=== PATIENT | female | born 1970 ===

== ENCOUNTER 2023-06-11 19:04 | Emergency (ER) | payer OTHER, SELFPAY ==
--- NOTE | ~2023-06-11 | XR_ITS ---
EXAMINATION: XR CHEST CLINICAL INFORMATION: Cough. COMPARISON: None available. TECHNIQUE: 2 views of the chest. FINDINGS: Mild diffuse prominent interstitial lung markings are noted, may represent interstitial pneumonia versus edema or combination thereof. No evidence of any dense alveolar airspace consolidation. No evidence of any pleural effusion or pneumothorax. The heart size is within normal limit. XR/XR chest 2V IMPRESSION: Nonspecific mild diffuse prominent bronchovascular markings, may represent interstitial pneumonia versus edema. No evidence of any dense airspace consolidation.
--- NOTE | 2023-06-11 19:10 | ED.GENADULT ---
HPI - General Adult General Chief complaint: General Medical Stated complaint: vomiting blood,sob on blood thinners Time Seen by Provider: 06/11/23 21:21 Source: patient Mode of arrival: ambulatory Limitations: no limitations History of Present Illness HPI narrative: Patient with history of did DVT , hypertension and diabetes came here as she spitted blood from her mouth on Xarelto and Plavix for DVT in the leg also having shortness of breath ,saturating 97% at room air no fever no chills no chest pain patient had labs done prior to my evaluation chest x-ray was negative for acute labs were stable hemoglobin 14.1 Related Data Allergies Allergy/AdvReac Type Severity Reaction Status Date / Time metformin Allergy Diarrhea Verified 06/11/23 19:17 Review of Systems Review of Systems: Yes all other systems are reviewed and are negative [facility] Past Medical History Medical History (Updated 06/12/23 @ 00:06 by Lillian Amaya) DVT (deep venous thrombosis) Social History Social History Smoked in Last 30 Days: No Use of substances other than those prescribed or required for medical reasons: No Advance Directives: No Advance Directives Information Provided: No Physical Exam ED Vital Signs: Vital Signs - 24 hr 06/11/23 19:11 06/11/23 19:44 06/11/23 21:54 Temperature 97.5 F 98.3 F 980 F H Pulse Rate 83 79 75 Respiratory Rate 22 H 16 16 Blood Pressure 148/79 H 130/70 125/42 L Pulse Oximetry 97 98 100 Oxygen Delivery Method Room Air Room Air Room Air 06/11/23 22:00 Temperature 97.8 F Pulse Rate 72 Respiratory Rate 16 Blood Pressure 125/62 Pulse Oximetry 96 Oxygen Delivery Method Room Air BMI result Body Mass Index 47.3 Appearance: Alert. Oriented X3. No acute distress. Eyes: PERRLA, No Nystagmus ENT: Pharynx normal. Oral Mucosa moist no blood noticed Neck: Normal inspection. Neck supple. CVS: Normal heart rate and rhythm. Pulses normal. Respiratory: No respiratory distress. Equal air entry bilateral, no wheezing/rales/rhonchi Abdomen: Soft and nontender. Bowel sounds are present, no mass palpable, no CVA tenderness Skin: Skin warm and dry. Normal skin color. Normal skin turgor. Extremities: No lower extremity edema. No calf tenderness Neuro: Oriented X 3. No motor deficit. No sensory deficit.No cerebellar signs , cranial nerves II-XII intact Course Course Course Narrative: This is a rapid medical exam. Deferred additional HPI, ROS, PE to primary provider. 53 yo female with history of DM, HTN, asthma, hypothyroidism, HLD, ?blood clot RLE removed one month ago at [facility] here with hemoptysis, shortness of breath x 3 days. Is on plavix and xarelto Per patient had CTA at [facility] which showed blood clot... Will check labs, CXR VSS Asked corporate secretary to obtain records Medical Decision Making Lab Data MDM Lab Attestation statement: I reviewed the patient's lab results. 06/11/23 19:58 06/11/23 19:57 Labs: Lab Results 06/11/23 06/11/23 06/11/23 Range/Units 19:57 19:57 19:58 WBC 11.5 H (4.8-10.8) X10*3/uL RBC 4.78 (4.20-5.50) X10*6/uL Hgb 14.1 (12.0-16.0) g/dl Hct 43.1 (37.0-47.0) % MCV 90.2 (80.0-98.0) fL MCH 29.5 (27.0-33.0) pg MCHC 32.7 (31.0-35.0) g/dl RDW 13.9 (11.0-16.0) % Plt Count 247 (160-400) X10*3/uL MPV 10.3 (9.4-12.3) fL Immature Gran % (Auto) 0.4 (0.0-0.4) % Neut % (Auto) 66.5 (45-73) % Lymph % (Auto) 25.0 (20-40) % [place] % (Auto) 6.4 (2-11) % Eos % (Auto) 1.1 (0-4) % Baso % (Auto) 0.6 (0-2) % Lymph # (Auto) 2.9 (1.2-4.9) X10*3/uL [place] # (Auto) 0.7 (0.1-1.2) X10*3/uL Eos # (Auto) 0.1 (0.0-0.4) X10*3/uL Baso # (Auto) 0.1 (0.0-0.2) X10*3/uL Abs Immat Gran (auto) 0.05 H (0.00-0.03) X10*3/uL Absolute Neuts (auto) 7.6 (2.0-8.3) x10*3/uL Absolute Nucleated RBC 0.000 (0.0-0.012) X10*3/uL Nucleated RBC % (auto) 0.0 (0.0-0.2) /100WBC PT 16.5 H (11.1-13.3) SEC INR 1.4 H (0.9-1.1) Sodium 137 (135-145) mmol/L Potassium 4.3 (3.3-5.1) mmol/L Chloride 105 (96-108) mmol/L Carbon Dioxide 23 (22-29) mmol/L Anion Gap 13 (12-20) BUN 25 H (9-16) mg/dL Creatinine 1.34 (0.5-1.4) mg/dL Estim Creat Clear Calc 59.0 Estimated GFR 41 Random Glucose 353 H* (60-115) mg/dL Calcium 8.8 (8.4-10.2) mg/dL Total Bilirubin 0.3 (0.0-1.0) mg/dL Direct Bilirubin 0.1 (0.0-0.5) mg/dL AST 28 (5-31) U/L ALT 24 (0-31) U/L Alkaline Phosphatase 117 (39-117) U/L Total Protein 7.2 (6.5-8.0) g/dL Albumin 3.2 L (3.5-5.0) g/dL COVID-19 (URIEL) (Negative) COVID-19 Clin Com 06/11/23 Range/Units 19:58 WBC (4.8-10.8) X10*3/uL RBC (4.20-5.50) X10*6/uL Hgb (12.0-16.0) g/dl Hct (37.0-47.0) % MCV (80.0-98.0) fL MCH (27.0-33.0) pg MCHC (31.0-35.0) g/dl RDW (11.0-16.0) % Plt Count (160-400) X10*3/uL MPV (9.4-12.3) fL Immature Gran % (Auto) (0.0-0.4) % Neut % (Auto) (45-73) % Lymph % (Auto) (20-40) % [place] % (Auto) (2-11) % Eos % (Auto) (0-4) % Baso % (Auto) (0-2) % Lymph # (Auto) (1.2-4.9) X10*3/uL [place] # (Auto) (0.1-1.2) X10*3/uL Eos # (Auto) (0.0-0.4) X10*3/uL Baso # (Auto) (0.0-0.2) X10*3/uL Abs Immat Gran (auto) (0.00-0.03) X10*3/uL Absolute Neuts (auto) (2.0-8.3) x10*3/uL Absolute Nucleated RBC (0.0-0.012) X10*3/uL Nucleated RBC % (auto) (0.0-0.2) /100WBC PT (11.1-13.3) SEC INR (0.9-1.1) Sodium (135-145) mmol/L Potassium (3.3-5.1) mmol/L Chloride (96-108) mmol/L Carbon Dioxide (22-29) mmol/L Anion Gap (12-20) BUN (9-16) mg/dL Creatinine (0.5-1.4) mg/dL Estim Creat Clear Calc Estimated GFR Random Glucose (60-115) mg/dL Calcium (8.4-10.2) mg/dL Total Bilirubin (0.0-1.0) mg/dL Direct Bilirubin (0.0-0.5) mg/dL AST (5-31) U/L ALT (0-31) U/L Alkaline Phosphatase (39-117) U/L Total Protein (6.5-8.0) g/dL Albumin (3.5-5.0) g/dL COVID-19 (URIEL) Negative (Negative) COVID-19 Clin Com See Note Discharge Plan Discharge Clinical Impression: Bleeding Patient Disposition: Home, Self-Care Instructions: Bleeding Disorders (ED) Additional Instructions: Bleeding from the gums likely from the use of Xarelto You may hold Xarelto the day you are bleeding from your gums as you did today Follow with PCP if bleeding gets worse or report to the ER You may start Xarelto tomorrow evening if there is no bleeding Interventions: ED Discharge Assessment Last Done: 06/11/23 22:29 Discharge Date/Time: 06/11/23 22:29
[2023-06-11 19:11] VITALS: BP 148/79; PULSE 83; RESP 22; TEMP 36.4; O2SAT 97; BMI 47.3
[2023-06-11 19:44] VITALS: BP 130/70; PULSE 79; RESP 16; TEMP 36.8; O2SAT 98
--- NOTE | 2023-06-11 20:00 | MHC.EDTECH ---
THIS PCT JUST ASSUMED CARE OF PT ,VITALS SIGN TAKEN ,BLOOD DRAWN ,COVID SWAB COLLECTED AND SENT TO LAB .
[2023-06-11 20:01] LABS: MANUAL DIFF FLAG NO
[2023-06-11 20:03] LABS: Basophils Absolute Auto 0.1 X10*3/uL (0.0-0.2); Basophils Percent Auto 0.6 % (0-2); Eosinophils Absolute Auto 0.1 X10*3/uL (0.0-0.4); Eosinophils Percent Auto 1.1 % (0-4); Hematocrit 43.1 % (37.0-47.0); Hemoglobin 14.1 g/dl (12.0-16.0); Imm Gran Abs Auto 0.05 X10*3/uL (0.00-0.03); Imm Gran Pct Auto 0.4 % (0.0-0.4); Lymphocytes Absolute Auto 2.9 X10*3/uL (1.2-4.9); Mean Corpuscular HGB Conc 32.7 g/dl (31.0-35.0); Mean Corpuscular Hemoglobin 29.5 pg (27.0-33.0); Mean Corpuscular Volume 90.2 fL (80.0-98.0); Mean Platelet Volume 10.3 fL (9.4-12.3); Monocytes Absolute Auto 0.7 X10*3/uL (0.1-1.2); Monocytes Percent Auto 6.4 % (2-11); Neutrophils Absolute Auto 7.6 x10*3/uL (2.0-8.3); Neutrophils Percent Auto 66.5 % (45-73); Platelet Count 247 X10*3/uL (160-400); Red Blood Count 4.78 X10*6/uL (4.20-5.50); Red Cell Distribution Width 13.9 % (11.0-16.0); White Blood Count 11.5 X10*3/uL (4.8-10.8)
[2023-06-11 20:10] LABS: INTERNATIONAL NORM RATIO 1.4 (0.9-1.1); Prothrombin Time 16.5 SEC (11.1-13.3)
[2023-06-11 20:16] LABS: COVID-19 Test Negative (Negative); IDNOW Serial# 9DB6401D
[2023-06-11 20:22] LABS: Alanine Aminotransferase 24 U/L (0-31); Albumin Level 3.2 g/dL (3.5-5.0); Alkaline Phosphatase 117 U/L (39-117); Anion Gap 13 (12-20); Aspartate Amino Transferase 28 U/L (5-31); Bilirubin Direct 0.1 mg/dL (0.0-0.5); Bilirubin Total 0.3 mg/dL (0.0-1.0); Blood Urea Nitrogen 25 mg/dL (9-16); Calcium 8.8 mg/dL (8.4-10.2); Carbon Dioxide 23 mmol/L (22-29); Chloride 105 mmol/L (96-108); Estimated Glomerular Filt Rate 41; Glucose Random 353 mg/dL (60-115); Potassium 4.3 mmol/L (3.3-5.1); Sodium 137 mmol/L (135-145); Total Protein 7.2 g/dL (6.5-8.0)
[2023-06-11 21:54] VITALS: BP 125/42; PULSE 75; RESP 16; TEMP 526.6; TEMP 980; O2SAT 100
[2023-06-11 22:00] VITALS: BP 125/62; PULSE 72; RESP 16; TEMP 36.6; O2SAT 96
== END 2023-06-11 22:29 | disposition home or self-care (01) ==
PROVIDERS: Nurse Practitioner Family; Emergency Provider Internal Medicine; PCP Internal Medicine
DX: K06.9 Disorder of gingiva and edentulous alveolar ridge, unspecified (principal); Z79.01 Long term (current) use of anticoagulants; Z20.822 Contact with and (suspected) exposure to COVID-19; R06.02 Shortness of breath; Z86.718 Personal history of other venous thrombosis and embolism; E11.9 Type 2 diabetes mellitus without complications; I10 Essential (primary) hypertension; E78.5 Hyperlipidemia, unspecified
CPT/HCPCS: 36415; 71046; 80048; 80076; 85025; 85610; 87635; 99283; 99284

== ENCOUNTER 2024-04-29 13:30 | Inpatient (IN) | payer OTHER, SELFPAY ==
[2024-04-29] VITALS (9 sets, daily range): BP systolic 126–160; BP diastolic 71–94; PULSE 69–85; RESP 15–22; TEMP 36.1–36.8; O2SAT 91–98; BMI 53.0; BMI 50.4
--- NOTE | ~2024-04-29 | XR_ITS ---
EXAMINATION: XR CHEST CLINICAL INFORMATION: Shortness of breath COMPARISON: Chest x-ray June 11, 2023 TECHNIQUE: Frontal view of the chest was obtained. FINDINGS: Cardiac silhouette is normal in size. The lungs are mildly hypoinflated. Consolidative airspace disease projects over the left mid and lower lung. No gross pleural effusion. No pneumothorax. XR/XR chest 1V IMPRESSION: Consolidative airspace disease of the left mid and lower lung. Infiltrate suspected.
--- NOTE | 2024-04-29 13:49 | ECG_ITS ---
Test Reason : SOB Blood Pressure : / mmHG Vent. Rate : 073 BPM Atrial Rate : 073 BPM P-R Int : 140 ms QRS Dur : 086 ms QT Int : 372 ms P-R-T Axes : 051 268 114 degrees QTc Int : 409 ms Normal sinus rhythm Possible anterolateral infarct , age undetermined Abnormal ECG No previous ECGs available Referred By: Sowmya Barrow Electronically Signed By:Luis Cummings
--- NOTE | 2024-04-29 13:50 | ED_ITS ---
HPI - General Adult General Chief complaint: General Medical Stated complaint: swollen, diff breathing Time Seen by Provider: 04/29/24 13:49 Source: patient and assembler lay ups (all interactions with this patient were facilitated with an [facility] pulpwood dealer) Mode of arrival: ambulatory Limitations: language barrier (all interactions with this patient were facilitated with an [facility] pulpwood dealer) History of Present Illness ED Provider: Sowmya Barrow PA-C HPI narrative: Patient is a 53 year old assigned female at with a history of DM, ELLA. COPD/asthma, CAD, PAD, cervical cancer, depression, anxiety, and CHF presenting to the emergency department today with shortness of breath and swelling. Patient states that she was hospitalized from 04/10/2024 to 04/13/2024 at [facility] for a CHF exacerbation. TTE at [facility] showed an EF of 60-65% with moderate concentric LVH and grade 1 left ventricular diastolic dysfunction. Patient states that her breathing has continued to get more difficult and she has been on steroids multiple times over the last month. Patient denies any dizziness, lightheadedness, abdominal pain, nausea, vomiting, fever, chills, blurry vision, double vision, loss of vision, chest pain, back pain, night sweats, pain with urination, increased urinary frequency, increased urinary urgency, blood in her urine or stool, syncope or a near syncopal episode, recent trauma or falls, bowel incontinence, bladder incontinence, or any other complaints at this time. Onset (ago): day(s) Severity: moderate Severity scale (1-10): 5 Relieving factors: none Exacerbating factors: none Associated symptoms: shortness of breath Treatments prior to arrival: other (prednisone) Related Data Allergies Allergy/AdvReac Type Severity Reaction Status Date / Time metformin Allergy Diarrhea Verified 04/29/24 13:39 Review of Systems 2 Constitutional: Constitutional: Reports no additional constitutional complaints, Denies chills, Denies fever(s) and Denies night sweats Eyes: Eyes: Reports no additional eye complaints, Denies blurry vision, Denies change in vision, Denies diplopia, Denies eye discharge, Denies loss of vision and Denies eye pain ENT: Denies dizziness Cardiovascular: Cardiovascular: Reports no additional cardiovascular complaints, Denies chest pain, Denies lightheadedness, Denies Loss of Consciousness and Reports dyspnea Respiratory: Respiratory: Reports dyspnea Gastrointestinal: Gastrointestinal: Reports no additional gastrointestinal complaints, Denies abdominal pain, Denies melena, Denies hematochezia, Denies change in bowel habits and Denies change in stool character Genitourinary: Genitourinary: Denies hematuria, Denies urinary frequency, Denies dysuria, Denies urinary incontinence, Denies urinary hesitancy and Denies urinary urgency Musculoskeletal: Musculoskeletal: Reports no additional musculoskeletal complaints, Denies numbness and Denies tingling Neurologic: Denies dizziness, Denies loss of vision, Denies numbness and Denies tingling Psychiatric: Psychiatric: Reports no additional psychiatric complaints Endocrine: Endocrine: Reports no additional endocrine complaints Hematologic/Lymphatic: Hematologic/Lymphatic: Reports no additional hematologic/lymphatic complaints Allergic/Immunologic: Allergic/Immunologic: Reports no additional allergic/immunologic complaints [facility] Past Medical History Attestation statement: The following information was validated with the patient. Source: old records reviewed and nursing notes reviewed Medical History DVT (deep venous thrombosis) Social History Social History Smoked in Last 30 Days: No Use of substances other than those prescribed or required for medical reasons: Yes Substance Use Type: Marijuana Substance Use Type Other:: Reports using THC gummies Substance Use Frequency: Daily Advance Directives: No Advance Directives Information Provided: No Do you have a plan to hurt others: No Plan Physical Exam ED Vital Signs: Vital Signs - 24 hr 04/29/24 13:36 04/29/24 14:01 04/29/24 14:13 Temperature 97.5 F 98.2 F Pulse Rate 76 75 Respiratory Rate 18 15 22 H Blood Pressure 160/83 H 126/71 Pulse Oximetry 95 95 Oxygen Delivery Method Room Air Room Air 04/29/24 14:20 Temperature Pulse Rate Respiratory Rate Blood Pressure 126/71 Pulse Oximetry Oxygen Delivery Method BMI result Body Mass Index 53.0 Const General: cooperative, no acute distress, alert and awake Nutritional Appearance: obese morbidly obese Orientation/consciousness: patient oriented x3 Limitations: no limitations HENMT Head: Yes normal to inspection and Yes atraumatic Ears: hearing grossly normal bilaterally and external ears normal General nose exam: Normal external nose present, no nasal discharge noted and no epistaxis Face and sinus: Yes normal facial exam, No abrasion and No laceration Mouth: Normal oral and palatal mucosa present, no drooling and no muffled voice Eyes General: appearance normal, both eyes and all related structures Periorbital: periorbital findings normal Eyelids: Yes eyelids normal Conjunctivae: conjunctivae normal Pupils: Equal, round and reactive pupils present EOM: EOMs intact bilaterally Neck Neck: Yes normal visual inspection, Yes full ROM and Yes no lymphadenopathy Chest Chest palpation & inspection: normal inspection of the chest Resp Effort & Inspection: able to speak in complete sentences, labored and tachypneic Auscultation: crackles bilateral in the lower lung ingram Cardio Rate: regular rate Rhythm: regular rhythm GI Inspection: Yes normal to inspection Neuro General: patient oriented x3 and moves all extremities Cranial nerves: Yes Equal, round and reactive pupils present Cognition (Neuro): normal cognition Extrem Other: significant extremity swelling General: Yes full ROM and Yes capillary refill normal Psych Appearance: grossly normal Mental Status: mental status grossly normal Affect: normal affect Attitude: cooperative Thought process: Normal thought process present Thought content: Normal thought content present Insight: Good insight present (Psych) Medications Administered Discontinued Medications Generic Name Dose Route Start Last Admin Trade Name Freq PRN Reason Stop Dose Admin Albuterol/Ipratropium 3 ml 04/29/24 14:17 04/29/24 14:22 Albuterol/Iprat 2.5/0.5mg 3 Ml Ampul.Neb INHALE 04/29/24 14:18 3 ml ONCE ONE Administration Furosemide 60 mg 04/29/24 13:54 04/29/24 14:20 Furosemide 100 Mg/10 Ml Vial IVPUSH 04/29/24 13:55 60 mg ONCE ONE Administration Protocol Ceftriaxone Sodium 1 gm/ 50 mls @ 100 mls/hr 04/29/24 14:20 04/29/24 15:18 Sodium Chloride IV 04/29/24 14:49 100 mls/hr ONCE ONE Administration Methylprednisolone Sodium Succinate 60 mg 04/29/24 14:20 04/29/24 15:19 Methylprednisolone Sod Succ 125 Mg/2 Ml Vial IVPUSH 04/29/24 14:21 60 mg ONCE ONE Administration Medical Decision Making Medical Decision Making MDM Narrative: Patient is a 53 year old assigned female at with a history of DM, ELLA. COPD/asthma, CAD, PAD, cervical cancer, depression, anxiety, and CHF presenting to the emergency department today with increased swelling and shortness of breath. Patient's physical exam was as noted in the physical exam portion of this note. Patient's blood work was unremarkable. Patient's urine showed no acute process. Patient's EKG was unremarkable. Patient's chest x-ray showed a consolidative airspace disease of the left mid and lower lung consistent with an infiltrate. Patient's clinical presentation is most consistent with a CHF exacerbation with a possible pneumonia. Patient's clinical presentation is not consistent with sepsis (@1550). Patient was placed on CPAP to assist her work of breathing as well as given 60mg of IV lasix. Both of these interventions helped her significantly. Patient was also given IV ceftriaxone to cover the possible PNA. I spoke to the hospitalist team who agreed to admission. I explained my physical exam findings as well as all test results to the patient. I answered all questions asked by the patient. Patient verbalized agreement and understanding with this treatment plan and admission. Differential Diagnosis Differential Diagnoses: The differential diagnosis associated with the presentation includes CHF exacerbation COPD exacerbation Pneumonia Admission/Observation Consideration of admission/observation: Escalation of care including admission/observation considered Patient admitted. Consult Healthcare Provider Management of the patient was discussed with: Hospitalist (spoke to the hospitalist team as noted in the MDM Rationale portion of this note.) Lab Data [facility] Lab Attestation statement: I reviewed the patient's lab results. My interpretation of these results are in the MDM Rationale portion of this note. 04/29/24 14:11 04/29/24 14:11 Labs: Lab Results 04/29/24 04/29/24 04/29/24 Range/Units 14:11 14:13 14:15 WBC 10.2 (4.8-10.8) X10*3/uL RBC 5.59 H (4.20-5.50) X10*6/uL Hgb 16.6 H (12.0-16.0) g/dl Hct 51.7 H (37.0-47.0) % MCV 92.5 (80.0-98.0) fL MCH 29.7 (27.0-33.0) pg MCHC 32.1 (31.0-35.0) g/dl RDW 14.5 (11.0-16.0) % Plt Count 270 (160-400) X10*3/uL MPV 9.4 (9.4-12.3) fL Immature Gran % (Auto) 0.3 (0.0-0.4) % Neut % (Auto) 64.9 (45-73) % Lymph % (Auto) 29.6 (20-40) % [place] % (Auto) 3.3 (2-11) % Eos % (Auto) 1.3 (0-4) % Baso % (Auto) 0.6 (0-2) % Lymph # (Auto) 3.0 (1.2-4.9) X10*3/uL [place] # (Auto) 0.3 (0.1-1.2) X10*3/uL Eos # (Auto) 0.1 (0.0-0.4) X10*3/uL Baso # (Auto) 0.1 (0.0-0.2) X10*3/uL Abs Immat Gran (auto) 0.03 (0.00-0.03) X10*3/uL Absolute Neuts (auto) 6.6 (2.0-8.3) x10*3/uL Absolute Nucleated RBC 0.000 (0.0-0.012) X10*3/uL Nucleated RBC % (auto) 0.0 (0.0-0.2) /100WBC PT 10.6 L D (11.1-13.3) SEC INR 0.9 (0.9-1.1) APTT 30.7 (26.0-36.8) SEC VBG pH 7.50 H (7.32-7.43) VBG pCO2 39 mmHg VBG pO2 93 mmHg VBG HCO3 31 H (22-26) mmol/L VBG O2 Saturation 100.0 % VBG Base Excess 7.6 mmol/L Sodium 142 (135-145) mmol/L Potassium 3.9 (3.3-5.1) mmol/L Chloride 104 (96-108) mmol/L Carbon Dioxide 26 (22-29) mmol/L Anion Gap 16 (12-20) BUN 31 H (9-16) mg/dL Creatinine 1.25 (0.5-1.4) mg/dL Estim Creat Clear Calc 67.9 Estimated GFR 45 Random Glucose 138 H (60-115) mg/dL Lactic Acid (0.5-2.0) mmol/L Calcium 9.9 D (8.4-10.2) mg/dL Magnesium 1.9 (1.6-2.6) mg/dL Total Bilirubin 0.3 (0.0-1.0) mg/dL AST 43 H (5-31) U/L ALT 44 H (0-31) U/L Alkaline Phosphatase 87 (39-117) U/L Troponin I High Sens 7.7 (<3.5-17.0) ng/L B-Natriuretic Peptide < 10 (<100) pg/mL Total Protein 6.8 (6.5-8.0) g/dL Albumin 3.2 L (3.5-5.0) g/dL Urine Color Urine Appearance Urine pH (5.0-9.0) Ur Specific [place] (1.005-1.025) Urine Protein (Neg-Trace) mg/dL Urine Glucose (UA) (Negative) mg/dL Urine Ketones (Negative) mg/dL Urine Blood (Negative) Urine Nitrite (Negative) Ur Leukocyte Esterase (Negative) Urine RBC (0-2) /HPF Urine WBC (0-5) /HPF Ur Squamous Epith Cells (0-2) /HPF Urine Bacteria (None Seen) Hyaline Casts (0-2) /LPF Influenza Type A (PCR) NEGATIVE (Negative) Influenza Type B (PCR) NEGATIVE (Negative) RSV RNA Qual (PCR) NEGATIVE (Negative) SARS-CoV-2 RNA (RT-PCR) NEGATIVE (Negative) 04/29/24 04/29/24 Range/Units 14:46 15:09 WBC (4.8-10.8) X10*3/uL RBC (4.20-5.50) X10*6/uL Hgb (12.0-16.0) g/dl Hct (37.0-47.0) % MCV (80.0-98.0) fL MCH (27.0-33.0) pg MCHC (31.0-35.0) g/dl RDW (11.0-16.0) % Plt Count (160-400) X10*3/uL MPV (9.4-12.3) fL Immature Gran % (Auto) (0.0-0.4) % Neut % (Auto) (45-73) % Lymph % (Auto) (20-40) % [place] % (Auto) (2-11) % Eos % (Auto) (0-4) % Baso % (Auto) (0-2) % Lymph # (Auto) (1.2-4.9) X10*3/uL [place] # (Auto) (0.1-1.2) X10*3/uL Eos # (Auto) (0.0-0.4) X10*3/uL Baso # (Auto) (0.0-0.2) X10*3/uL Abs Immat Gran (auto) (0.00-0.03) X10*3/uL Absolute Neuts (auto) (2.0-8.3) x10*3/uL Absolute Nucleated RBC (0.0-0.012) X10*3/uL Nucleated RBC % (auto) (0.0-0.2) /100WBC PT (11.1-13.3) SEC INR (0.9-1.1) APTT (26.0-36.8) SEC VBG pH (7.32-7.43) VBG pCO2 mmHg VBG pO2 mmHg VBG HCO3 (22-26) mmol/L VBG O2 Saturation % VBG Base Excess mmol/L Sodium (135-145) mmol/L Potassium (3.3-5.1) mmol/L Chloride (96-108) mmol/L Carbon Dioxide (22-29) mmol/L Anion Gap (12-20) BUN (9-16) mg/dL Creatinine (0.5-1.4) mg/dL Estim Creat Clear Calc Estimated GFR Random Glucose (60-115) mg/dL Lactic Acid 1.4 (0.5-2.0) mmol/L Calcium (8.4-10.2) mg/dL Magnesium (1.6-2.6) mg/dL Total Bilirubin (0.0-1.0) mg/dL AST (5-31) U/L ALT (0-31) U/L Alkaline Phosphatase (39-117) U/L Troponin I High Sens (<3.5-17.0) ng/L B-Natriuretic Peptide (<100) pg/mL Total Protein (6.5-8.0) g/dL Albumin (3.5-5.0) g/dL Urine Color Yellow Urine Appearance Clear Urine pH 5.5 (5.0-9.0) Ur Specific [place] 1.015 (1.005-1.025) Urine Protein 300 (3+) H (Neg-Trace) mg/dL Urine Glucose (UA) Negative (Negative) mg/dL Urine Ketones Negative (Negative) mg/dL Urine Blood Negative (Negative) Urine Nitrite Negative (Negative) Ur Leukocyte Esterase Trace H (Negative) Urine RBC 0-2 (0-2) /HPF Urine WBC 6-10 H (0-5) /HPF Ur Squamous Epith Cells 6-10 (0-2) /HPF Urine Bacteria Trace (None Seen) Hyaline Casts 0-2 (0-2) /LPF Influenza Type A (PCR) (Negative) Influenza Type B (PCR) (Negative) RSV RNA Qual (PCR) (Negative) SARS-CoV-2 RNA (RT-PCR) (Negative) Independent Interpretation I performed an independent interpretation of an: EKG and Plain X-Ray Interpretation: My interpretation is in agreement with the radiologist's impression of this imaging study. - EXAMINATION: XR CHEST CLINICAL INFORMATION: Shortness of breath COMPARISON: Chest x-ray June 11, 2023 TECHNIQUE: Frontal view of the chest was obtained. FINDINGS: Cardiac silhouette is normal in size. The lungs are mildly hypoinflated. Consolidative airspace disease projects over the left mid and lower lung. No gross pleural effusion. No pneumothorax. XR/XR chest 1V IMPRESSION: Consolidative airspace disease of the left mid and lower lung. Infiltrate suspected. Dictated By: Vickey Yeager MD Signed By: Electronically signed by Vickey Yeager MD 04/29/24 1414 - Vent. Rate: 073 BPM Atrial Rate: 073 BPM P-R Int: 140 ms QRS Dur: 086 ms QT Int: 372 ms P-R-T Axes: 051 268 114 degrees QTc Int: 409 ms Normal sinus rhythm Possible Lateral infarct , age undetermined Abnormal ECG No previous ECGs available DD/ 1400 Radiology Impression Discussion of test interpretation with radiology: I have reviewed the radiologist's reading. External Record Review External record reviewed: Outside ED record (reviewed [facility] ED visit) Critical Care Time Critical Care Time Critical Care Time: Yes Total Critical Care Time: 41 Attestation: I spent 41 minutes of Critical Care Time with this patient. This does not include time spent on separately reported billable procedures. Discharge Plan Discharge Clinical Impression: CHF (congestive heart failure), Fluid overload, Pneumonia Patient Disposition: Admitted As Inpatient Print Language: Greek
[2024-04-29 14:16] LABS: MANUAL DIFF FLAG NO
[2024-04-29 14:18] LABS: Basophils Absolute Auto 0.1 X10*3/uL (0.0-0.2); Basophils Percent Auto 0.6 % (0-2); Eosinophils Absolute Auto 0.1 X10*3/uL (0.0-0.4); Eosinophils Percent Auto 1.3 % (0-4); Hematocrit 51.7 % (37.0-47.0); Hemoglobin 16.6 g/dl (12.0-16.0); Imm Gran Abs Auto 0.03 X10*3/uL (0.00-0.03); Imm Gran Pct Auto 0.3 % (0.0-0.4); Lymphocytes Percent Auto 29.6 % (20-40); Mean Corpuscular HGB Conc 32.1 g/dl (31.0-35.0); Mean Corpuscular Hemoglobin 29.7 pg (27.0-33.0); Mean Corpuscular Volume 92.5 fL (80.0-98.0); Mean Platelet Volume 9.4 fL (9.4-12.3); Monocytes Absolute Auto 0.3 X10*3/uL (0.1-1.2); Monocytes Percent Auto 3.3 % (2-11); Neutrophils Absolute Auto 6.6 x10*3/uL (2.0-8.3); Neutrophils Percent Auto 64.9 % (45-73); Platelet Count 270 X10*3/uL (160-400); Red Blood Count 5.59 X10*6/uL (4.20-5.50); Red Cell Distribution Width 14.5 % (11.0-16.0); White Blood Count 10.2 X10*3/uL (4.8-10.8)
[2024-04-29 14:19] LABS: Venous Blood Gas Refer to POC result
[2024-04-29 14:20] LABS: VBG Base Excess 7.6 mmol/L; VBG HCO3 31 mmol/L (22-26); VBG pCO2 39 mmHg; VBG pO2 93 mmHg
[2024-04-29] MEDS: Furosemide 100 MG/10 ML VIAL 60 MG IVPUSH (14:20)
[2024-04-29] MEDS: Albuterol/Iprat 2.5/0.5MG 3 ML AMPUL.NEB INHALE ×2 (14:22→19:27)
[2024-04-29 14:24] LABS: INTERNATIONAL NORM RATIO 0.9 (0.9-1.1); Prothrombin Time 10.6 SEC (11.1-13.3)
[2024-04-29 14:26] LABS: Partial Thromboplastin Time 30.7 SEC (26.0-36.8)
[2024-04-29 14:35] LABS: Alanine Aminotransferase 44 U/L (0-31); Albumin Level 3.2 g/dL (3.5-5.0); Alkaline Phosphatase 87 U/L (39-117); Anion Gap 16 (12-20); Aspartate Amino Transferase 43 U/L (5-31); Bilirubin Total 0.3 mg/dL (0.0-1.0); Blood Urea Nitrogen 31 mg/dL (9-16); Calcium 9.9 mg/dL (8.4-10.2); Carbon Dioxide 26 mmol/L (22-29); Chloride 104 mmol/L (96-108); Creatinine Clr Calc Pharmacy 67.9; Estimated Glomerular Filt Rate 45; Glucose Random 138 mg/dL (60-115); Magnesium 1.9 mg/dL (1.6-2.6); Potassium 3.9 mmol/L (3.3-5.1); Sodium 142 mmol/L (135-145); Total Protein 6.8 g/dL (6.5-8.0)
[2024-04-29 14:38] LABS: B Type Natriuretic Peptide < 10 pg/mL (<100)
[2024-04-29 14:43] LABS: Troponin-I High Sensitivity 7.7 ng/L (<3.5-17.0)
[2024-04-29 14:56] LABS: Influenza A PCR NEGATIVE (Negative); Influenza B PCR NEGATIVE (Negative); Resp Syncy Virus RNA Qual PCR NEGATIVE (Negative); SARS COV2 PCR INHOUSE NEGATIVE (Negative)
[2024-04-29 15:04] LABS: Lactic Acid 1.4 mmol/L (0.5-2.0)
[2024-04-29 15:15] LABS: Appearance Urine Clear; Color Urine Yellow; Glucose Urine UA Negative (Negative); Leukocyte Esterase Urine Trace (Negative); Nitrite Urine Negative (Negative); PH 5.5 (5.0-9.0); Specific Gravity - Urine 1.015 (1.005-1.025); UMIC TRIGGER UACC YES; Urine Blood Negative (Negative); Urine Ketones Negative (Negative); Urine Protein 300 (3+) mg/dL (Neg-Trace)
[2024-04-29] MEDS: cefTRIAXone sodium 1 GM in 0.9 % Sodium Chloride 50 ML IV (15:18)
[2024-04-29] MEDS: methylPREDNISolone Sod Succ 125 MG/2 ML VIAL 60 MG IVPUSH (15:19)
[2024-04-29 15:20] LABS: Bacteria Urine Trace (None Seen); Hyaline Casts Urine 0-2 /LPF (0-2); RBC Urine 0-2 /HPF (0-2); UACC Culture Trigger YES
--- NOTE | 2024-04-29 16:04 | P.HPHOSP_ITS ---
History of Present Illness Date of Service: 04/29/24 Attending physician on admission: Bhavesh [facility] Chief Complaint: sob, edema 53 year old female with history of RLE DVT on xarelto, insulin dependent type 2 diabetes, asthma/copd overlap, mansi compliant with cpap, cad, pad, hx cervical cancer, mood disorder who is morbidly obese with BMI >53 presented to the ED for evaluation of edema and shortness of breath. History obtained with the assistance of historic interpreter. The patient reports for the last month has been experiencing shortness of breath both and rest and increased with exertion and significant edema of the BLE. Several days ago began developing increased swelling in the upper extremities and eye lids. She has longstanding orthopnea. NO fevers, chills, abd pain, n/v/d, lightheadedness, palpitations, cough, chest pain. No recent illness. Denies sodium loading. She has been admitted and seen in the [facility] ED several times with significant swelling noted and diuresed but not discharged on lasix. Echo at [facility] showed normal LV systolic function with EF 60- 65%, moderate concentric LVH and grade 1 left ventricular diastolic dysfunction. CTA was negative for PE but did show some compressive atelectasis. She was also treated with IV steroids during admission at [facility] and was then seen again in the ED was discharged on 7 day course of prednisone on 04/22. Despite this, continues to experience recurrent and worsening symptoms so presented to the ED for further evaluation. Since arrival to the ED, has been tachypneic with increased work of breathing was briefly placed on CPAP with some improvement. There is no hypoxia or fevers. There is no leukocytosis. Renal function consistent with baseline, electrolyte levels normal. Troponin 7.7, BNP undetectable. VBG reassuring with pH 7.50, pCO2 39, bicarb 31. Urinalysis with trace leukocytes, positive urinary sediment and trace bacteria but with positive squamous epithelial cells. Negative for COVID, RSV, influenza. Chest x-ray read shows consolidative airspace disease of the left mid and lower lung. EKG shows NSR, rate 73 without any acute ischemic changes. In the ED has been treated with IV ceftriaxone, DuoNeb, IV methylprednisolone and IV Lasix. Review of Systems 2 Review of Systems: Yes all other systems are reviewed and are negative [facility] Medical History Asthma-COPD overlap syndrome Morbid obesity MANSI on CPAP Peripheral artery disease CAD (coronary artery disease) Type 2 diabetes mellitus CHF (congestive heart failure) DVT (deep venous thrombosis) Social History Smoked in Last 30 Days: No Use of substances other than those prescribed or required for medical reasons: Yes Substance Use Type: Marijuana Substance Use Type Other:: Reports using THC gummies Substance Use Frequency: Daily Advance Directives: No Advance Directives Information Provided: No Do you have a plan to hurt others: No Plan Meds Allergies Allergy/AdvReac Type Severity Reaction Status Date / Time metformin Allergy Diarrhea Verified 04/29/24 13:39 Active Medications: Current Medications Acetaminophen (Acetaminophen 325 Mg Tablet) 650 mg PO Q6H PRN PRN Reason: Pain, Mild (Pain Scale 1-3), fever or headache Calcium Carbonate (Calcium Carbonate 750 Mg Tab.Chew) 750 mg PO Q4H PRN PRN Reason: Heartburn Magnesium Hydroxide (Milk Of Magnesia 30 Ml Oral.Susp) 30 ml PO DAILY PRN PRN Reason: Constipation Melatonin (Melatonin 3 Mg Tablet) 6 mg PO BEDTIME PRN PRN Reason: Insomnia Sodium Chloride (0.9 % Sodium Chloride Flush 3 Ml Syringe) 3 ml IVFLUSH QSHIFT [facility] Physical Exam 2 Vital Signs and Narrative: Vital Signs: Last Vital Signs Temp 98.2 F 04/29/24 14:01 Pulse 75 04/29/24 14:01 Resp 22 H 04/29/24 14:13 BP 126/71 04/29/24 14:20 Pulse Ox 95 04/29/24 14:01 O2 Del Method Room Air 04/29/24 14:01 BMI result Body Mass Index 53.0 Constitutional - Awake and Alert, No apparent distress Eyes - PERRLA, EOMI Cardiovascular - S1S2, RRR, 4+ pitting edema ble, 2+ edema BUE, swelling noted in face/eyelids Respiratory - Normal lung expansion, slightly increased wob, No respiratory distress, diminished bilateral lower lobes, otherwise CTA bilaterally Gastrointestinal - NT / ND; +BS; No rebound or guarding Extremities - no calf tenderness bilaterally, no swelling Skin - Warm/Dry Neurological - Alert & oriented x3 Psychological - Appropriate affect Results Labs 04/29/24 14:11 04/29/24 14:11 Labs: Laboratory Results - last 24 hr 04/29/24 04/29/24 04/29/24 14:11 14:13 14:15 MCV 92.5 MCH 29.7 MCHC 32.1 RDW 14.5 Plt Count 270 MPV 9.4 Immature Gran % (Auto) 0.3 Neut % (Auto) 64.9 Lymph % (Auto) 29.6 [place] % (Auto) 3.3 Eos % (Auto) 1.3 Baso % (Auto) 0.6 Lymph # (Auto) 3.0 [place] # (Auto) 0.3 Eos # (Auto) 0.1 Baso # (Auto) 0.1 Abs Immat Gran (auto) 0.03 Absolute Neuts (auto) 6.6 Absolute Nucleated RBC 0.000 Nucleated RBC % (auto) 0.0 PT 10.6 L D INR 0.9 APTT 30.7 VBG pH 7.50 H VBG pCO2 39 VBG pO2 93 VBG HCO3 31 H VBG O2 Saturation 100.0 VBG Base Excess 7.6 Anion Gap 16 Estim Creat Clear Calc 67.9 Estimated GFR 45 Random Glucose 138 H Lactic Acid Calcium 9.9 D Magnesium 1.9 Total Bilirubin 0.3 AST 43 H ALT 44 H Alkaline Phosphatase 87 Troponin I High Sens 7.7 B-Natriuretic Peptide < 10 Total Protein 6.8 Albumin 3.2 L Urine Color Urine Appearance Urine pH Ur Specific [place] Urine Protein Urine Glucose (UA) Urine Ketones Urine Blood Urine Nitrite Ur Leukocyte Esterase Urine RBC Urine WBC Ur Squamous Epith Cells Urine Bacteria Hyaline Casts Influenza Type A (PCR) NEGATIVE Influenza Type B (PCR) NEGATIVE RSV RNA Qual (PCR) NEGATIVE SARS-CoV-2 RNA (RT-PCR) NEGATIVE 04/29/24 04/29/24 14:46 15:09 MCV MCH MCHC RDW Plt Count MPV Immature Gran % (Auto) Neut % (Auto) Lymph % (Auto) [place] % (Auto) Eos % (Auto) Baso % (Auto) Lymph # (Auto) [place] # (Auto) Eos # (Auto) Baso # (Auto) Abs Immat Gran (auto) Absolute Neuts (auto) Absolute Nucleated RBC Nucleated RBC % (auto) PT INR APTT VBG pH VBG pCO2 VBG pO2 VBG HCO3 VBG O2 Saturation VBG Base Excess Anion Gap Estim Creat Clear Calc Estimated GFR Random Glucose Lactic Acid 1.4 Calcium Magnesium Total Bilirubin AST ALT Alkaline Phosphatase Troponin I High Sens B-Natriuretic Peptide Total Protein Albumin Urine Color Yellow Urine Appearance Clear Urine pH 5.5 Ur Specific [place] 1.015 Urine Protein 300 (3+) H Urine Glucose (UA) Negative Urine Ketones Negative Urine Blood Negative Urine Nitrite Negative Ur Leukocyte Esterase Trace H Urine RBC 0-2 Urine WBC 6-10 H Ur Squamous Epith Cells 6-10 Urine Bacteria Trace Hyaline Casts 0-2 Influenza Type A (PCR) Influenza Type B (PCR) RSV RNA Qual (PCR) SARS-CoV-2 RNA (RT-PCR) Imaging Radiologist's Impressions: Impressions Chest X-Ray 04/29/24 14:00 IMPRESSION: Consolidative airspace disease of the left mid and lower lung. Infiltrate suspected. Assessment and Plan (1) CHF (congestive heart failure): Status: Acute (2) Anasarca: Status: Acute Plan 53 year old female with history of RLE DVT on xarelto, insulin dependent type 2 diabetes, asthma/copd overlap, mansi compliant with cpap, cad, pad, hx cervical cancer, mood disorder who is morbidly obese with BMI >53 admitted for further management of CHF exacerbation. #Acute exacerbation of CHF with anasarca -Reportedly had recent echo showing normal LV systolic function with grade 1 left-sided diastolic dysfunction and moderate concentric LVH -given anasarca, repeat echocardiogram, suspect right-sided failure -40 mg IV Lasix daily -strict I&O -daily weights -cardiac diet -cardiology consult -follow renal function/lytes # MANSI -reports compliance with CPAP, continue at bedtime # asthma/COPD overlap -no acute exacerbation, hold on further steroids -continue maintenance inhalers, albuterol p.r.n. # insulin-dependent type 2 diabetes-without hyperglycemia -POC glucose, diabetic diet -Humalog sliding scale # hypothyroidism -continue levothyroxine # PAD/CAD/HLD -continue Plavix, Xarelto -continue statin, bb #HTN -continue lisinopril, metoprolol, hctz #GERD -ppi #Mood disorder -continue home meds #Supermorbid obesity with bmi 53 -weight loss efforts dvt prophylaxis- xarelto full code pt requires inpt stay at least 2 midnights for iv diuresis, echo and expert consulation given significant volume overload with edema of the BUE, BLE, face/eyelids due to chf exacebration and will require close monitoring of intake and output as well as renal function and electrolyte levels Quality Stroke Does the patient have a stroke diagnosis?: No VTE Prior VTE?: No VTE Risk Level:: Medical - moderate - high VTE Device Contraindication: Treatment Not Indicated VTE Drug Contraindication: N/A - Med Ordered
[2024-04-29 17:34] LABS: Glucose, Whole Blood 166 mg/dL (60-115)
--- NOTE | 2024-04-29 17:51 | PHA.MEDREC ---
Pharmacy Consult ? Medication Reconciliation Pharmacy has completed the medication reconciliation. spoke with patient through an shipping inspector to confirm medications. She reports she is still taking metoprolol (last fill date end of October for a 90 DS), gabapentin 300 TID (last filled per PDMP 08/2023 90 DS), Xarelto 2.5mg BID (last fill date per [facility] 10/21/23 30 DS) and combivent daily (last fill date per [facility] 08/24/23). Patient states she has not had Xarelto in days. Hospitalist is aware. Per [facility], her discharge papers advised patient to stop HCTZ however patient was unsure if she stopped taking it or not, will leave on home med list for now. She confirmed her insulin units. She confirmed she takes both quetiapine and zolpidem prn for sleep. She confirmed she finished taking prednisone. Patient states she did not taking any medications today.
[2024-04-29] MEDS: 0.9 % Sodium Chloride Flush 3 ML SYRINGE IVFLUSH ×2 (18:00→21:27)
[2024-04-29] MEDS: Insulin Lispro 100 UNIT/ML 3 ML VIAL SUBCUT ×2 (18:07→20:47)
[2024-04-29 20:06] LABS: Glucose, Whole Blood 267 mg/dL (60-115)
[2024-04-29] MEDS: Gabapentin 300 MG CAPSULE PO (20:47)
[2024-04-29] MEDS: Famotidine 20 MG TABLET PO (20:47)
[2024-04-29] MEDS: Atorvastatin Calcium 80 MG TABLET PO (20:47)
[2024-04-29] MEDS: Prazosin HCL 5 MG CAPSULE PO (20:47)
[2024-04-29] MEDS: Insulin Glargine,Hum.rec.anlog 100 UNIT/ML 10 ML VIAL 60 UNIT SUBCUT (20:48)
[2024-04-29] MEDS: Zolpidem Tartrate 5 MG TABLET PO (21:27)
[2024-04-30] VITALS (7 sets, daily range): BP systolic 104–132; BP diastolic 59–86; PULSE 65–82; RESP 14–20; TEMP 36–36.4; O2SAT 91–95; BMI 49.8
[2024-04-30] MEDS: Levothyroxine Sodium 25 MCG TABLET PO (05:54)
[2024-04-30] MEDS: Levothyroxine Sodium 200 MCG TABLET PO (05:54)
[2024-04-30 06:13] LABS: MANUAL DIFF FLAG NO
[2024-04-30 06:19] LABS: Basophils Percent Auto 0.1 % (0-2); Hematocrit 49.3 % (37.0-47.0); Hemoglobin 16.1 g/dl (12.0-16.0); Imm Gran Abs Auto 0.06 X10*3/uL (0.00-0.03); Imm Gran Pct Auto 0.7 % (0.0-0.4); Lymphocytes Absolute Auto 1.5 X10*3/uL (1.2-4.9); Lymphocytes Percent Auto 16.7 % (20-40); Mean Corpuscular HGB Conc 32.7 g/dl (31.0-35.0); Mean Corpuscular Volume 91.8 fL (80.0-98.0); Mean Platelet Volume 10.1 fL (9.4-12.3); Monocytes Absolute Auto 0.2 X10*3/uL (0.1-1.2); Monocytes Percent Auto 1.9 % (2-11); Neutrophils Absolute Auto 7.1 x10*3/uL (2.0-8.3); Neutrophils Percent Auto 80.6 % (45-73); Platelet Count 266 X10*3/uL (160-400); Red Blood Count 5.37 X10*6/uL (4.20-5.50); Red Cell Distribution Width 14.6 % (11.0-16.0); White Blood Count 8.9 X10*3/uL (4.8-10.8)
[2024-04-30 06:40] LABS: Anion Gap 19 (12-20); Blood Urea Nitrogen 39 mg/dL (9-16); Calcium 9.9 mg/dL (8.4-10.2); Carbon Dioxide 25 mmol/L (22-29); Chloride 101 mmol/L (96-108); Creatinine Clr Calc Pharmacy 50.3; Estimated Glomerular Filt Rate 33; Glucose Random 274 mg/dL (60-115); Potassium 4.5 mmol/L (3.3-5.1); Sodium 140 mmol/L (135-145)
--- NOTE | 2024-04-30 07:00 | CA_ITS ---
Transthoracic Echocardiogram Patient (Last, First, Middle): Nemo García, Gender: Female Date of : 1970 Age: 53 Procedure Date: 04/30/2024 Procedure Type: Transthoracic Echocardiogram Location: S3E Height: 157.48 cm Weight: 123.38 kg BSA: 2.18 m2 Heart Rate: 72 bpm BP: 128 / 86 mmHg Supply Chain Business Analyst: SB Referring MD: Brittanie BORRERO Symptoms: chf, anasarca Study Quality: Technically Difficult, Contrast ECG Rhythm: Sinus Conclusions: - Normal left ventricular cavity size. There is moderately increased left ventricular wall thickness. The left ventricular systolic function is hyperdynamic. The visually estimated ejection fraction is >70%. - Normal right ventricular cavity size and systolic function. Findings Procedure Information Contrast agent, definity, is being given per protocol without apparent complications. Left Ventricle Normal left ventricular cavity size. There is moderately increased left ventricular wall thickness. The left ventricular systolic function is hyperdynamic. The visually estimated ejection fraction is >70%. Abnormal diastolic function is noted. Spectral Doppler is indicative of an impaired relaxation filling pattern. E/E prime ratio is between 8 and 15 consistent with indeterminate filling pressures. Right Ventricle Normal right ventricular cavity size and systolic function. Atria The left atrium was not well visualized. Aortic Valve The aortic valve was not well visualized. There is no aortic valve stenosis. There is no aortic valve regurgitation. Mitral Valve Normal mitral valve structure and function. There is no mitral valve regurgitation. There is no mitral valve stenosis. Pulmonic Valve The pulmonic valve was not well visualized. Tricuspid Valve Likely normal tricuspid valve structure and function. There is no evidence of pulmonary hypertension. Great Vessels The aorta was not well visualized. Venous The inferior vena cava was not well visualized. Pericardium/Pleural There is no evidence of pericardial effusion. Prior Study Comparison No prior study available for comparison. Measurements 2D Linear Measurements LVOT Diam: 1.80 3.0+(-)1.3 cm 2D Systolic Function EF 4C: 72.70 >55% EF 2C: 69.80 >55% EF BiP: 71.10 >55% Mitral Valve MV Pk E: 0.66 MV PK A: 0.75 MV Decel Time: 208.00 E/A: 0.90 E'Lateral: 6.53 E'Medial: 4.68 E/E' Med: 14.10 E/E' Lat: 10.10 PHT: 61.00 MVA PHT: 3.61 Decel [place]: 3.17 Aortic Valve AoV Pk Anibal: 1.42 AoV Pk Grad: 8.00 BERTIN: 2.16 LVOT LVOT Pk Anibal: 1.21 LVOT Mn Anibal: 0.89 LVOT VTI: 0.22 LVOT Pk Grad: 6.00 LVOT Mn Grad: 3.00 LVOT Diam: 1.80 LVOT Area: 2.54 Diastolic Function MV Pk E: 0.66 MV Pk A: 0.75 E/A: 0.90 E'Medial: 4.68 E/E' Med: 14.10 E' Laterial: 6.53 E/E' Lat: 10.10 Right Ventricle TVS' Anibal: 12.00 Tricuspid Valve TR Pk Anibal: 2.00 TR Pk Grad: 16.00 RA Press: 3.00 RVSP: 19.00 Pulmonary Valve PV Pk Anibal: 0.85 Peak PV Grad: 3.00 Updated in Other Vendor System with Status of Final Luis Cummings MD electronically signed on 04/30/2024 1:48:27 PM with status of Final
[2024-04-30 07:59] LABS: Glucose, Whole Blood 234 mg/dL (60-115)
--- NOTE | 2024-04-30 08:08 | P.PNIM_ITS ---
Subjective Subjective Date of Service: 04/30/24 Review of Systems Follow up anasarca still feeling sob less LE edema Physical Exam 2 Vital Signs: Vital Signs: Last Vital Signs Temp 96.8 F 04/30/24 07:35 Pulse 82 04/30/24 07:35 Resp 20 04/30/24 07:35 BP 104/67 04/30/24 07:35 Pulse Ox 91 L 04/30/24 07:35 O2 Del Method Room Air 04/30/24 07:35 BMI result Body Mass Index 49.8 Appearing in no acute distress lung sounds are clear to auscultation heart regular rate rhythm, clear S1, S2 positive bowel sounds, abdomen is soft, nontender neuro patient is alert x3, no focal deficits generalized anasarca to face, limbs, trunk Objective Data Active Medications Acetaminophen (Acetaminophen 325 Mg Tablet) 650 mg PO Q6H PRN PRN Reason: Pain, Mild (Pain Scale 1-3), fever or headache Albuterol Sulfate (Albuterol Sulfate (0.083%) 2.5 Mg/3 Ml Vial.Neb) 2.5 mg INHALE Q4H PRN PRN Reason: wheezing/shortness of breath/cough Albuterol/Ipratropium (Albuterol/Iprat 2.5/0.5mg 3 Ml Ampul.Neb) 3 ml INHALE RTID [facility] Last Admin: 04/29/24 19:27 Dose: 3 ml Documented By: MARINA Aspirin (Aspirin Enteric Coated 81 Mg Tablet.Dr) 81 mg PO DAILY [facility] Atorvastatin Calcium (Atorvastatin Calcium 80 Mg Tablet) 80 mg PO BEDTIME [facility] Last Admin: 04/29/24 20:47 Dose: 80 mg Documented By: RAGINI Calcium Carbonate (Calcium Carbonate 750 Mg Tab.Chew) 750 mg PO Q4H PRN PRN Reason: Heartburn Famotidine (Famotidine 20 Mg Tablet) 20 mg PO BID [facility] Last Admin: 04/29/24 20:47 Dose: 20 mg Documented By: RAGINI Fluticasone Propionate (Fluticasone Propionate Nasal 16 Gm [place]) 2 spray NOSTRIL-B DAILY PRN PRN Reason: Allergy Symptoms Fluticasone/Vilanterol (Fluticasone/Vilanterol 200/25 Blst.W.Dev) 1 puff INHALE RDAILY [facility] Furosemide (Furosemide 40 Mg/4 Ml Vial) 40 mg IVPUSH DAILY [facility]; Protocol Gabapentin (Gabapentin 300 Mg Capsule) 300 mg PO TID [facility] Last Admin: 04/29/24 20:47 Dose: 300 mg Documented By: RAGINI Glucose (Glucose Gel 15 Gm Gel..Gram.) 15 gm PO Q15M PRN; Protocol PRN Reason: per Hypoglycemia Standing Ord. Hydrochlorothiazide (Hydrochlorothiazide 12.5 Mg Tablet) 12.5 mg PO DAILY [facility]; Protocol Dextrose (D10) 250 mls @ 750 mls/hr IV Q15M PRN; Protocol PRN Reason: per Hypoglycemia Standing Ord. Insulin Glargine (Insulin Glargine,Hum.Rec.Anlog 100 Unit/Ml 10 Ml Vial) 60 unit SUBCUT BID [facility] Last Admin: 04/29/24 20:48 Dose: 60 unit Documented By: RAGINI Insulin Human Lispro (Insulin Lispro 100 Unit/Ml 3 Ml Vial) 0 unit SUBCUT QIDACHS [facility]; Protocol Last Admin: 04/29/24 20:47 Dose: 6 unit Documented By: RAGINI Levothyroxine Sodium (Levothyroxine Sodium 25 Mcg Tablet) 25 mcg PO DAILY@0600 [facility] Last Admin: 04/30/24 05:54 Dose: 25 mcg Documented By: RAGINI Levothyroxine Sodium (Levothyroxine Sodium 200 Mcg Tablet) 200 mcg PO DAILY@0600 [facility] Last Admin: 04/30/24 05:54 Dose: 200 mcg Documented By: RAGINI Lisinopril (Lisinopril 40 Mg Tablet) 40 mg PO DAILY [facility]; Protocol Magnesium Hydroxide (Milk Of Magnesia 30 Ml Oral.Susp) 30 ml PO DAILY PRN PRN Reason: Constipation Melatonin (Melatonin 3 Mg Tablet) 6 mg PO BEDTIME PRN PRN Reason: Insomnia Metoprolol Succinate (Metoprolol Succinate Er 25 Mg Tab.Er.24h) 25 mg PO DAILY [facility]; Protocol Prazosin HCl (Prazosin Hcl 5 Mg Capsule) 5 mg PO BEDTIME [facility]; Protocol Last Admin: 04/29/24 20:47 Dose: 5 mg Documented By: RAGINI Quetiapine Fumarate (Quetiapine Fumarate 200 Mg Tablet) 200 mg PO BEDTIME PRN PRN Reason: Sleep Rivaroxaban (Rivaroxaban 10 Mg Tablet) 10 mg PO DAILY@1700 [facility] Sodium Chloride (0.9 % Sodium Chloride Flush 3 Ml Syringe) 3 ml IVFLUSH QSHIFT [facility] Last Admin: 04/29/24 21:27 Dose: 3 ml Documented By: RAGINI Venlafaxine HCl (Venlafaxine Hcl Er 75 Mg Cap.Er.24h) 75 mg PO DAILY [facility] Venlafaxine HCl (Venlafaxine Hcl Er 150 Mg Cap.Er.24h) 150 mg PO DAILY [facility] Zolpidem Tartrate (Zolpidem Tartrate 5 Mg Tablet) 5 mg PO BEDTIME PRN PRN Reason: insomnia Last Admin: 04/29/24 21:27 Dose: 5 mg Documented By: RAGINI Labs 04/30/24 05:07 04/30/24 05:07 Labs: Laboratory Results - last 24 hr 04/29/24 04/29/24 04/29/24 14:11 14:13 14:15 MCV 92.5 MCH 29.7 MCHC 32.1 RDW 14.5 Plt Count 270 MPV 9.4 Immature Gran % (Auto) 0.3 Neut % (Auto) 64.9 Lymph % (Auto) 29.6 [place] % (Auto) 3.3 Eos % (Auto) 1.3 Baso % (Auto) 0.6 Lymph # (Auto) 3.0 [place] # (Auto) 0.3 Eos # (Auto) 0.1 Baso # (Auto) 0.1 Abs Immat Gran (auto) 0.03 Absolute Neuts (auto) 6.6 Absolute Nucleated RBC 0.000 Nucleated RBC % (auto) 0.0 PT 10.6 L D INR 0.9 APTT 30.7 VBG pH 7.50 H VBG pCO2 39 VBG pO2 93 VBG HCO3 31 H VBG O2 Saturation 100.0 VBG Base Excess 7.6 Anion Gap 16 Estim Creat Clear Calc 67.9 Estimated GFR 45 POC Glucose Random Glucose 138 H Lactic Acid Calcium 9.9 D Magnesium 1.9 Total Bilirubin 0.3 AST 43 H ALT 44 H Alkaline Phosphatase 87 Troponin I High Sens 7.7 B-Natriuretic Peptide < 10 Total Protein 6.8 Albumin 3.2 L Urine Color Urine Appearance Urine pH Ur Specific [place] Urine Protein Urine Glucose (UA) Urine Ketones Urine Blood Urine Nitrite Ur Leukocyte Esterase Urine RBC Urine WBC Ur Squamous Epith Cells Urine Bacteria Hyaline Casts Influenza Type A (PCR) NEGATIVE Influenza Type B (PCR) NEGATIVE RSV RNA Qual (PCR) NEGATIVE SARS-CoV-2 RNA (RT-PCR) NEGATIVE 04/29/24 04/29/24 04/29/24 14:46 15:09 17:28 MCV MCH MCHC RDW Plt Count MPV Immature Gran % (Auto) Neut % (Auto) Lymph % (Auto) [place] % (Auto) Eos % (Auto) Baso % (Auto) Lymph # (Auto) [place] # (Auto) Eos # (Auto) Baso # (Auto) Abs Immat Gran (auto) Absolute Neuts (auto) Absolute Nucleated RBC Nucleated RBC % (auto) PT INR APTT VBG pH VBG pCO2 VBG pO2 VBG HCO3 VBG O2 Saturation VBG Base Excess Anion Gap Estim Creat Clear Calc Estimated GFR POC Glucose 166 H Random Glucose Lactic Acid 1.4 Calcium Magnesium Total Bilirubin AST ALT Alkaline Phosphatase Troponin I High Sens B-Natriuretic Peptide Total Protein Albumin Urine Color Yellow Urine Appearance Clear Urine pH 5.5 Ur Specific [place] 1.015 Urine Protein 300 (3+) H Urine Glucose (UA) Negative Urine Ketones Negative Urine Blood Negative Urine Nitrite Negative Ur Leukocyte Esterase Trace H Urine RBC 0-2 Urine WBC 6-10 H Ur Squamous Epith Cells 6-10 Urine Bacteria Trace Hyaline Casts 0-2 Influenza Type A (PCR) Influenza Type B (PCR) RSV RNA Qual (PCR) SARS-CoV-2 RNA (RT-PCR) 04/29/24 04/30/24 04/30/24 19:47 05:07 07:39 MCV 91.8 MCH 30.0 MCHC 32.7 RDW 14.6 Plt Count 266 MPV 10.1 Immature Gran % (Auto) 0.7 H Neut % (Auto) 80.6 H Lymph % (Auto) 16.7 L [place] % (Auto) 1.9 L Eos % (Auto) 0.0 Baso % (Auto) 0.1 Lymph # (Auto) 1.5 [place] # (Auto) 0.2 Eos # (Auto) 0.0 Baso # (Auto) 0.0 Abs Immat Gran (auto) 0.06 H Absolute Neuts (auto) 7.1 Absolute Nucleated RBC 0.000 Nucleated RBC % (auto) 0.0 PT INR APTT VBG pH VBG pCO2 VBG pO2 VBG HCO3 VBG O2 Saturation VBG Base Excess Anion Gap 19 Estim Creat Clear Calc 50.3 Estimated GFR 33 POC Glucose 267 H 234 H Random Glucose 274 H Lactic Acid Calcium 9.9 Magnesium Total Bilirubin AST ALT Alkaline Phosphatase Troponin I High Sens B-Natriuretic Peptide Total Protein Albumin Urine Color Urine Appearance Urine pH Ur Specific [place] Urine Protein Urine Glucose (UA) Urine Ketones Urine Blood Urine Nitrite Ur Leukocyte Esterase Urine RBC Urine WBC Ur Squamous Epith Cells Urine Bacteria Hyaline Casts Influenza Type A (PCR) Influenza Type B (PCR) RSV RNA Qual (PCR) SARS-CoV-2 RNA (RT-PCR) Assessment and Plan (1) Anasarca: Status: Acute Plan 53 year old female with history of RLE DVT on xarelto, insulin dependent type 2 diabetes, asthma/copd overlap, ella compliant with cpap, cad, pad, hx cervical cancer, mood disorder who is morbidly obese with BMI >53 admitted for further management of CHF exacerbation. Anasarca suspected nephrotic syndrome high protein in the urine and hypoalbuminemia Echocardiogram with hyperdynamic EF of 70% normal right ventricular cavity and systolic function careful diuresis with 20 mg IV Lasix daily strict I&O daily weights cardiac diet MIRA Worsening creatinine after diuresis generalized anasarca to face, limbs, trunk nephrology consultation> check urine for protein creatinine ratio, SPEP, UPEP, serum complements C3/C4 ELLA reports compliance with CPAP continue at bedtime asthma/COPD overlap no acute exacerbation, hold on further steroids continue maintenance inhalers, albuterol p.r.n. insulin-dependent type 2 diabetes-without hyperglycemia ss, ada diet hypothyroidism continue levothyroxine PAD/CAD/HLD continue Plavix, Xarelto, statin and bb HTN continue lisinopril, metoprolol, hctz GERD ppi Mood disorder continue home meds Supermorbid obesity with bmi 53 weight loss efforts dvt prophylaxis- missy attending Dr. Carrillo full code continue hospital stay for iv diuresis, echo and expert consulation given significant volume overload with edema of the BUE, BLE, face/eyelids due to chf exacebration and will require close monitoring of intake and output as well as renal function and electrolyte levels Quality Stroke Does the patient have a stroke diagnosis?: No VTE Prior VTE?: No VTE Risk Level:: Medical - moderate - high VTE Device Contraindication: Treatment Not Indicated VTE Drug Contraindication: N/A - Med Ordered
[2024-04-30] MEDS: Aspirin Enteric Coated 81 MG TABLET.DR PO (08:24)
[2024-04-30] MEDS: Gabapentin 300 MG CAPSULE PO ×2 (08:24→14:31)
[2024-04-30] MEDS: lisinopriL 40 MG TABLET PO (08:25)
[2024-04-30] MEDS: hydroCHLOROthiazide 12.5 MG TABLET PO (08:25)
[2024-04-30] MEDS: Venlafaxine HCl ER 150 MG CAP.ER.24H PO (08:26)
[2024-04-30] MEDS: Famotidine 20 MG TABLET PO ×2 (08:26→20:34)
[2024-04-30] MEDS: Venlafaxine HCl ER 75 MG CAP.ER.24H PO (08:26)
[2024-04-30] MEDS: Metoprolol Succinate ER 25 MG TAB.ER.24H PO (08:26)
[2024-04-30] MEDS: Furosemide 40 MG/4 ML VIAL IVPUSH (08:26)
[2024-04-30] MEDS: Insulin Lispro 100 UNIT/ML 3 ML VIAL SUBCUT ×4 (08:27→20:34)
[2024-04-30] MEDS: 0.9 % Sodium Chloride Flush 3 ML SYRINGE IVFLUSH ×3 (08:27→20:34)
[2024-04-30] MEDS: Insulin Glargine,Hum.rec.anlog 100 UNIT/ML 10 ML VIAL 60 UNIT SUBCUT ×2 (08:41→20:34)
[2024-04-30] MEDS: Acetaminophen 325 MG TABLET 650 MG PO (08:41)
[2024-04-30] MEDS: Fluticasone/Vilanterol 200/25 BLST.W.DEV 1 PUFF INHALE (09:17)
[2024-04-30] MEDS: Albuterol/Iprat 2.5/0.5MG 3 ML AMPUL.NEB INHALE ×2 (09:17→15:41)
--- NOTE | 2024-04-30 09:51 | PM.CNNEP ---
History of Present Illness Reason for Consult Consult date: 04/30/24 Reason for consult: Anasarca and MIRA Chief Complaint Chief complaint: Diffuse anasarca, ?CHF History of Present Illness Narrative: 53 year old female with history of RLE DVT on xarelto, insulin dependent type 2 diabetes, asthma/copd overlap, ELLA compliant with cpap, cad, pad, hx cervical cancer, mood disorder who is morbidly obese with BMI >53 presented to the ED for evaluation of edema and shortness of breath. The patient reports for the last month has been experiencing shortness of breath both and rest and increased with exertion and significant edema of the BLE. Several days ago began developing increased swelling in the upper extremities and eye lids. She has longstanding orthopnea. NO fevers, chills, abd pain, n/v/d, lightheadedness, palpitations, cough, chest pain. No recent illness. Denies sodium loading. She has been admitted and seen in the [facility] ED several times with significant swelling noted and diuresed but not discharged on lasix. Echo at [facility] showed normal LV systolic function with EF 60-65%, moderate concentric LVH and grade 1 left ventricular diastolic dysfunction. There was no mention of right ventricular pressures on echocardiogram. At time admission serum creatinine was 1.25 mg/dL. With diuresis creatinine increased to 1.6. Hemoglobin is 14.1 which increased to 16.1 after diuresis. Urine shows significant proteinuria. She has a longstanding history of diabetes mellitus She continues to have anasarca and hence this consultation. Review of Systems Constitutional: Denies fever(s) and Denies weight loss Cardiovascular: Denies chest pain Respiratory: Denies cough and Denies hemoptysis Gastrointestinal: Denies abdominal pain, Denies diarrhea and Denies nausea Musculoskeletal: Denies back pain Denies focal weakness [facility] Past Medical History Medical History (Updated 04/30/24 @ 11:48 by Clive Berumen MD) Asthma-COPD overlap syndrome Morbid obesity ELLA on CPAP Peripheral artery disease CAD (coronary artery disease) Type 2 diabetes mellitus CHF (congestive heart failure) DVT (deep venous thrombosis) Social History Social History Household Members: Spouse Housing: Apartment Do you presently have visiting nurse or other home services: No Patient Tobacco Use Status: Former Tobacco user Smoked in Last 30 Days: No Use of substances other than those prescribed or required for medical reasons: Yes Substance Use Type: Marijuana Substance Use Type Other:: Reports using THC gummies Substance Use Frequency: Daily Currently Displaying Signs/Symptoms of Drug Intoxication Withdrawal: No Do you feel safe in your current relationship?: Yes Advance Directives: No Advance Directives Information Provided: No Do you have a plan to hurt others: No Plan Recently lost weight without trying: No Patient : No : No Poor oral hygiene: No service: No Meds Allergies Allergy/AdvReac Type Severity Reaction Status Date / Time metformin Allergy Diarrhea Verified 04/29/24 13:39 Active Medications: Current Medications Acetaminophen (Acetaminophen 325 Mg Tablet) 650 mg PO Q6H PRN PRN Reason: Pain, Mild (Pain Scale 1-3), fever or headache Last Admin: 04/30/24 08:41 Dose: 650 mg Albuterol Sulfate (Albuterol Sulfate (0.083%) 2.5 Mg/3 Ml Vial.Neb) 2.5 mg INHALE Q4H PRN PRN Reason: wheezing/shortness of breath/cough Albuterol/Ipratropium (Albuterol/Iprat 2.5/0.5mg 3 Ml Ampul.Neb) 3 ml INHALE RTID [facility] Last Admin: 04/30/24 09:17 Dose: 3 ml Aspirin (Aspirin Enteric Coated 81 Mg Tablet.Dr) 81 mg PO DAILY [facility] Last Admin: 04/30/24 08:24 Dose: 81 mg Atorvastatin Calcium (Atorvastatin Calcium 80 Mg Tablet) 80 mg PO BEDTIME [facility] Last Admin: 04/29/24 20:47 Dose: 80 mg Calcium Carbonate (Calcium Carbonate 750 Mg Tab.Chew) 750 mg PO Q4H PRN PRN Reason: Heartburn Famotidine (Famotidine 20 Mg Tablet) 20 mg PO BID [facility] Last Admin: 04/30/24 08:26 Dose: 20 mg Fluticasone Propionate (Fluticasone Propionate Nasal 16 Gm Beals) 2 spray NOSTRIL-B DAILY PRN PRN Reason: Allergy Symptoms Fluticasone/Vilanterol (Fluticasone/Vilanterol 200/25 Blst.W.Dev) 1 puff INHALE RDAILY [facility] Last Admin: 04/30/24 09:17 Dose: 1 puff Furosemide (Furosemide 20 Mg/2 Ml Vial) 20 mg IVPUSH DAILY [facility]; Protocol Gabapentin (Gabapentin 300 Mg Capsule) 300 mg PO TID [facility] Last Admin: 04/30/24 08:24 Dose: 300 mg Glucose (Glucose Gel 15 Gm Gel..Gram.) 15 gm PO Q15M PRN; Protocol PRN Reason: per Hypoglycemia Standing Ord. Hydrochlorothiazide (Hydrochlorothiazide 12.5 Mg Tablet) 12.5 mg PO DAILY [facility]; Protocol Last Admin: 04/30/24 08:25 Dose: 12.5 mg Dextrose (D10) 250 mls @ 750 mls/hr IV Q15M PRN; Protocol PRN Reason: per Hypoglycemia Standing Ord. Insulin Glargine (Insulin Glargine,Hum.Rec.Anlog 100 Unit/Ml 10 Ml Vial) 60 unit SUBCUT BID [facility] Last Admin: 04/30/24 08:41 Dose: 60 unit Insulin Human Lispro (Insulin Lispro 100 Unit/Ml 3 Ml Vial) 0 unit SUBCUT QIDACHS [facility]; Protocol Last Admin: 04/30/24 08:27 Dose: 4 unit Levothyroxine Sodium (Levothyroxine Sodium 25 Mcg Tablet) 25 mcg PO DAILY@0600 [facility] Last Admin: 04/30/24 05:54 Dose: 25 mcg Levothyroxine Sodium (Levothyroxine Sodium 200 Mcg Tablet) 200 mcg PO DAILY@0600 [facility] Last Admin: 04/30/24 05:54 Dose: 200 mcg Lisinopril (Lisinopril 40 Mg Tablet) 40 mg PO DAILY [facility]; Protocol Last Admin: 04/30/24 08:25 Dose: 40 mg Magnesium Hydroxide (Milk Of Magnesia 30 Ml Oral.Susp) 30 ml PO DAILY PRN PRN Reason: Constipation Melatonin (Melatonin 3 Mg Tablet) 6 mg PO BEDTIME PRN PRN Reason: Insomnia Metoprolol Succinate (Metoprolol Succinate Er 25 Mg Tab.Er.24h) 25 mg PO DAILY [facility]; Protocol Last Admin: 04/30/24 08:26 Dose: 25 mg Prazosin HCl (Prazosin Hcl 5 Mg Capsule) 5 mg PO BEDTIME [facility]; Protocol Last Admin: 04/29/24 20:47 Dose: 5 mg Quetiapine Fumarate (Quetiapine Fumarate 200 Mg Tablet) 200 mg PO BEDTIME PRN PRN Reason: Sleep Rivaroxaban (Rivaroxaban 10 Mg Tablet) 10 mg PO DAILY@1700 [facility] Sodium Chloride (0.9 % Sodium Chloride Flush 3 Ml Syringe) 3 ml IVFLUSH QSHIFT [facility] Last Admin: 04/30/24 08:27 Dose: 3 ml Venlafaxine HCl (Venlafaxine Hcl Er 75 Mg Cap.Er.24h) 75 mg PO DAILY [facility] Last Admin: 04/30/24 08:26 Dose: 75 mg Venlafaxine HCl (Venlafaxine Hcl Er 150 Mg Cap.Er.24h) 150 mg PO DAILY [facility] Last Admin: 04/30/24 08:26 Dose: 150 mg Zolpidem Tartrate (Zolpidem Tartrate 5 Mg Tablet) 5 mg PO BEDTIME PRN PRN Reason: insomnia Last Admin: 04/29/24 21:27 Dose: 5 mg Home Medications ?Medication ?Instructions ?Recorded ?Confirmed ?Last Taken ?Type albuterol sulfate 2.5 mg/3 mL 2.5 mg inhalation Q4H PRN 04/29/24 04/29/24 Unknown History (0.083 %) solution for nebulization wheezing/shortness of breath/cough aspirin 81 mg tablet,delayed 81 mg PO DAILY 04/29/24 04/29/24 Unknown History release budesonide-formoterol HFA 160 2 puff inhalation BID 04/29/24 04/29/24 Unknown History mcg-4.5 mcg/actuation aerosol inhaler (Symbicort) famotidine 20 mg tablet 20 mg PO BID heartburn 04/29/24 04/29/24 Unknown History fluticasone propionate 50 2 spray intranasal DAILY PRN 04/29/24 04/29/24 Unknown History mcg/actuation nasal Allergy Symptoms spray,suspension gabapentin 300 mg capsule 300 mg PO TID 04/29/24 04/29/24 Unknown History hydrochlorothiazide 12.5 mg capsule 12.5 mg PO DAILY 04/29/24 04/29/24 Unknown History insulin glargine 100 unit/mL (3 60 unit subcut BID 04/29/24 04/29/24 Unknown History mL) subcutaneous pen (Lantus Solostar U-100 Insulin) insulin lispro 100 unit/mL 2 - 20 unit subcut TID 04/29/24 04/29/24 Unknown History subcutaneous pen ipratropium 20 mcg-albuterol 100 1 puff inhalation TID wheezing 04/29/24 04/29/24 Unknown History mcg/actuation mist for inhalation (Combivent Respimat) levothyroxine 200 mcg tablet 200 mcg PO DAILY@59904/29/24 04/29/24 Unknown History levothyroxine 25 mcg tablet 25 mcg PO DAILY@59904/29/24 04/29/24 Unknown History lisinopril 40 mg tablet 40 mg PO DAILY 04/29/24 04/29/24 Unknown History metoprolol succinate 25 mg 25 mg PO DAILY 04/29/24 04/29/24 Unknown History tablet,extended release 24 hr prazosin 5 mg capsule 5 mg PO BEDTIME 04/29/24 04/29/24 Unknown History quetiapine 200 mg tablet 200 mg PO BEDTIME PRN Sleep 04/29/24 04/29/24 Unknown History rivaroxaban 2.5 mg tablet (Xarelto) 2.5 mg PO BID 04/29/24 04/29/24 Unknown History rosuvastatin 40 mg tablet 40 mg PO BEDTIME 04/29/24 04/29/24 Unknown History venlafaxine 150 mg 150 mg PO DAILY 04/29/24 04/29/24 Unknown History capsule,extended release 24 hr venlafaxine 75 mg capsule,extended 75 mg PO DAILY 04/29/24 04/29/24 Unknown History release 24 hr zolpidem 10 mg tablet 10 mg PO BEDTIME PRN insomnia 04/29/24 04/29/24 Unknown History Physical Exam Vital Signs: Last Vital Signs Temp 96.8 F 04/30/24 07:35 Pulse 71 04/30/24 09:17 Resp 17 04/30/24 09:17 BP 104/67 04/30/24 07:35 Pulse Ox 91 L 04/30/24 07:35 O2 Del Method Room Air 04/30/24 07:35 BMI result Body Mass Index 49.8 Awake. Comfortable. Has ANasarca Neck is supple. Mucosa moist. Lungs bilateral scattered rhonchi. Heart S1-S2 heard no gallop. Abdomen soft. Extremities 3+ edema. No involuntary movements. No myoclonus. Results Lab Results 04/30/24 05:07 04/30/24 05:07 Lab results: Chemistry 04/29/24 04/30/24 14:11 05:07 Sodium 142 140 Potassium 3.9 4.5 Carbon Dioxide 26 25 BUN 31 H 39 H Creatinine 1.25 1.62 H Calcium 9.9 D 9.9 Hematology 04/29/24 04/30/24 14:11 05:07 WBC 10.2 8.9 Hgb 16.6 H 16.1 H Plt Count 270 266 Urinalysis 04/29/24 15:09 Urine Color Yellow Urine Appearance Clear Urine pH 5.5 Ur Specific [place] 1.015 Urine Protein 300 (3+) H Urine Glucose (UA) Negative Urine Ketones Negative Urine Blood Negative Urine Nitrite Negative Ur Leukocyte Esterase Trace H Urine RBC 0-2 Urine WBC 6-10 H Ur Squamous Epith Cells 6-10 Hyaline Casts 0-2 Assessment and Plan (1) Anasarca: Status: Acute Plan 53-year-old woman with obesity diabetes mellitus and obstructive sleep apnea with with proteinuria has anasarca. Anasarca may be due to underlying nephrotic syndrome. However given the history of obesity and obstructive sleep apnea, right heart failure should be ruled out. Nephrotic syndrome could be due to underlying diabetic nephropathy versus other nondiabetic causes. Recommendations Check urine for protein creatinine ratio, SPEP UPEP. Serum complements C3-C4 Keep on low-sodium diet Agree with cautious diuresis. We will decrease dose of Lasix to 20 mg twice a day. Check daily weights Check echocardiogram Resume CPAP Further workup based on the above baseline investigations She will follow closely with the team. Procedures Date of Service Date of Service: 05/01/24
--- NOTE | 2024-04-30 11:26 | PM.CNCAR ---
History of Present Illness History of Present Illness Date of Service: 04/30/24 Requesting physician: Vivian Cisneros Chief complaint: Diffuse anasarca, ?CHF Narrative: [age] year female presenting with diffuse anasarca. She said she was camping and she ate hot dogs and drank so. Appears to be significant salt intake. She said she came home and was getting some breathing problems. She said she has been gaining weight over the last few weeks. She said she went to [facility] also which she was discharged from the emergency department. She is saying she has some issues with proteinuria in the past. She is significantly edematous. She has sleep apnea and uses CPAP at night. Also has background of mood disorder, hypertension and diabetes. She has been on IV diuretics and currently is -1900 mL. Creatinine is 1.62 which is a rise from 1.25 yesterday. [facility] Past Medical History Medical History Asthma-COPD overlap syndrome Morbid obesity ELLA on CPAP Peripheral artery disease CAD (coronary artery disease) Type 2 diabetes mellitus CHF (congestive heart failure) DVT (deep venous thrombosis) Social History Social History Household Members: Spouse Housing: Apartment Do you presently have visiting nurse or other home services: No Patient Tobacco Use Status: Former Tobacco user Smoked in Last 30 Days: No Use of substances other than those prescribed or required for medical reasons: Yes Substance Use Type: Marijuana Substance Use Type Other:: Reports using THC gummies Substance Use Frequency: Daily Currently Displaying Signs/Symptoms of Drug Intoxication Withdrawal: No Do you feel safe in your current relationship?: Yes Advance Directives: No Advance Directives Information Provided: No Do you have a plan to hurt others: No Plan Recently lost weight without trying: No Patient : No : No Poor oral hygiene: No Meds Allergies Allergy/AdvReac Type Severity Reaction Status Date / Time metformin Allergy Diarrhea Verified 04/29/24 13:39 Active Medications: Current Medications Acetaminophen (Acetaminophen 325 Mg Tablet) 650 mg PO Q6H PRN PRN Reason: Pain, Mild (Pain Scale 1-3), fever or headache Last Admin: 04/30/24 08:41 Dose: 650 mg Albuterol Sulfate (Albuterol Sulfate (0.083%) 2.5 Mg/3 Ml Vial.Neb) 2.5 mg INHALE Q4H PRN PRN Reason: wheezing/shortness of breath/cough Albuterol/Ipratropium (Albuterol/Iprat 2.5/0.5mg 3 Ml Ampul.Neb) 3 ml INHALE RTID [facility] Last Admin: 04/30/24 09:17 Dose: 3 ml Aspirin (Aspirin Enteric Coated 81 Mg Tablet.) 81 mg PO DAILY [facility] Last Admin: 04/30/24 08:24 Dose: 81 mg Atorvastatin Calcium (Atorvastatin Calcium 80 Mg Tablet) 80 mg PO BEDTIME [facility] Last Admin: 04/29/24 20:47 Dose: 80 mg Calcium Carbonate (Calcium Carbonate 750 Mg Tab.Chew) 750 mg PO Q4H PRN PRN Reason: Heartburn Famotidine (Famotidine 20 Mg Tablet) 20 mg PO BID [facility] Last Admin: 04/30/24 08:26 Dose: 20 mg Fluticasone Propionate (Fluticasone Propionate Nasal 16 Gm [place]) 2 spray NOSTRIL-B DAILY PRN PRN Reason: Allergy Symptoms Fluticasone/Vilanterol (Fluticasone/Vilanterol 200/25 Blst.W.Dev) 1 puff INHALE RDAILY [facility] Last Admin: 04/30/24 09:17 Dose: 1 puff Furosemide (Furosemide 20 Mg/2 Ml Vial) 20 mg IVPUSH DAILY [facility]; Protocol Gabapentin (Gabapentin 300 Mg Capsule) 300 mg PO TID [facility] Last Admin: 04/30/24 08:24 Dose: 300 mg Glucose (Glucose Gel 15 Gm Gel..Gram.) 15 gm PO Q15M PRN; Protocol PRN Reason: per Hypoglycemia Standing Ord. Hydrochlorothiazide (Hydrochlorothiazide 12.5 Mg Tablet) 12.5 mg PO DAILY [facility]; Protocol Last Admin: 04/30/24 08:25 Dose: 12.5 mg Dextrose (D10) 250 mls @ 750 mls/hr IV Q15M PRN; Protocol PRN Reason: per Hypoglycemia Standing Ord. Insulin Glargine (Insulin Glargine,Hum.Rec.Anlog 100 Unit/Ml 10 Ml Vial) 60 unit SUBCUT BID [facility] Last Admin: 04/30/24 08:41 Dose: 60 unit Insulin Human Lispro (Insulin Lispro 100 Unit/Ml 3 Ml Vial) 0 unit SUBCUT QIDACHS [facility]; Protocol Last Admin: 04/30/24 08:27 Dose: 4 unit Levothyroxine Sodium (Levothyroxine Sodium 25 Mcg Tablet) 25 mcg PO DAILY@0600 [facility] Last Admin: 04/30/24 05:54 Dose: 25 mcg Levothyroxine Sodium (Levothyroxine Sodium 200 Mcg Tablet) 200 mcg PO DAILY@0600 [facility] Last Admin: 04/30/24 05:54 Dose: 200 mcg Lisinopril (Lisinopril 40 Mg Tablet) 40 mg PO DAILY [facility]; Protocol Last Admin: 04/30/24 08:25 Dose: 40 mg Magnesium Hydroxide (Milk Of Magnesia 30 Ml Oral.Susp) 30 ml PO DAILY PRN PRN Reason: Constipation Melatonin (Melatonin 3 Mg Tablet) 6 mg PO BEDTIME PRN PRN Reason: Insomnia Metoprolol Succinate (Metoprolol Succinate Er 25 Mg Tab.Er.24h) 25 mg PO DAILY [facility]; Protocol Last Admin: 04/30/24 08:26 Dose: 25 mg Prazosin HCl (Prazosin Hcl 5 Mg Capsule) 5 mg PO BEDTIME [facility]; Protocol Last Admin: 04/29/24 20:47 Dose: 5 mg Quetiapine Fumarate (Quetiapine Fumarate 200 Mg Tablet) 200 mg PO BEDTIME PRN PRN Reason: Sleep Rivaroxaban (Rivaroxaban 10 Mg Tablet) 10 mg PO DAILY@1700 [facility] Sodium Chloride (0.9 % Sodium Chloride Flush 3 Ml Syringe) [facility] Last Admin: 04/30/24 08:27 Dose: 3 ml Venlafaxine HCl (Venlafaxine Hcl Er 75 Mg Cap.Er.24h) 75 mg PO DAILY [facility] Last Admin: 04/30/24 08:26 Dose: 75 mg Venlafaxine HCl (Venlafaxine Hcl Er 150 Mg Cap.Er.24h) 150 mg PO DAILY [facility] Last Admin: 04/30/24 08:26 Dose: 150 mg Zolpidem Tartrate (Zolpidem Tartrate 5 Mg Tablet) 5 mg PO BEDTIME PRN PRN Reason: insomnia Last Admin: 04/29/24 21:27 Dose: 5 mg Home Medications ?Medication ?Instructions ?Recorded ?Confirmed ?Last Taken ?Type albuterol sulfate 2.5 mg/3 mL 2.5 mg inhalation Q4H PRN 04/29/24 04/29/24 Unknown History (0.083 %) solution for nebulization wheezing/shortness of breath/cough aspirin 81 mg tablet,delayed 81 mg PO DAILY 04/29/24 04/29/24 Unknown History release budesonide-formoterol HFA 160 2 puff inhalation BID 04/29/24 04/29/24 Unknown History mcg-4.5 mcg/actuation aerosol inhaler (Symbicort) famotidine 20 mg tablet 20 mg PO BID heartburn 04/29/24 04/29/24 Unknown History fluticasone propionate 50 2 spray intranasal DAILY PRN 04/29/24 04/29/24 Unknown History mcg/actuation nasal Allergy Symptoms spray,suspension gabapentin 300 mg capsule 300 mg PO TID 04/29/24 04/29/24 Unknown History hydrochlorothiazide 12.5 mg capsule 12.5 mg PO DAILY 04/29/24 04/29/24 Unknown History insulin glargine 100 unit/mL (3 60 unit subcut BID 04/29/24 04/29/24 Unknown History mL) subcutaneous pen (Lantus Solostar U-100 Insulin) insulin lispro 100 unit/mL 2 - 20 unit subcut TID 04/29/24 04/29/24 Unknown History subcutaneous pen ipratropium 20 mcg-albuterol 100 1 puff inhalation TID wheezing 04/29/24 04/29/24 Unknown History mcg/actuation mist for inhalation (Combivent Respimat) levothyroxine 200 mcg tablet 200 mcg PO DAILY@0604/29/24 04/29/24 Unknown History levothyroxine 25 mcg tablet 25 mcg PO DAILY@0604/29/24 04/29/24 Unknown History lisinopril 40 mg tablet 40 mg PO DAILY 04/29/24 04/29/24 Unknown History metoprolol succinate 25 mg 25 mg PO DAILY 04/29/24 04/29/24 Unknown History tablet,extended release 24 hr prazosin 5 mg capsule 5 mg PO BEDTIME 04/29/24 04/29/24 Unknown History quetiapine 200 mg tablet 200 mg PO BEDTIME PRN Sleep 04/29/24 04/29/24 Unknown History rivaroxaban 2.5 mg tablet (Xarelto) 2.5 mg PO BID 04/29/24 04/29/24 Unknown History rosuvastatin 40 mg tablet 40 mg PO BEDTIME 04/29/24 04/29/24 Unknown History venlafaxine 150 mg 150 mg PO DAILY 04/29/24 04/29/24 Unknown History capsule,extended release 24 hr venlafaxine 75 mg capsule,extended 75 mg PO DAILY 04/29/24 04/29/24 Unknown History release 24 hr zolpidem 10 mg tablet 10 mg PO BEDTIME PRN insomnia 04/29/24 04/29/24 Unknown History Physical Exam Vital Signs: Vital Signs: Last Vital Signs Temp 96.8 F 04/30/24 07:35 Pulse 71 04/30/24 09:17 Resp 17 04/30/24 09:17 BP 104/67 04/30/24 07:35 Pulse Ox 91 L 04/30/24 07:35 O2 Del Method Room Air 04/30/24 07:35 BMI result Body Mass Index 49.8 GENERAL APPEARANCE: Morbidly obese. Short of breath. NECK: no carotid bruit, difficult to assess JVD due to short neck and significant obesity. SKIN: no suspicious lesions, warm and dry. HEART: no murmurs, regular rate and rhythm. LUNGS: clear to auscultation bilaterally. ABDOMEN: soft, nontender. EXTREMITIES: + + edema. PERIPHERAL PULSES: equal. NEUROLOGIC: No gross deficits, AAO X 3 Objective Labs and Meds 04/30/24 05:07 04/30/24 05:07 Lab results: Laboratory Results - last 24 hr 04/29/24 04/29/24 04/29/24 14:11 14:13 14:15 WBC 10.2 RBC 5.59 H Hgb 16.6 H Hct 51.7 H MCV 92.5 MCH 29.7 MCHC 32.1 RDW 14.5 Plt Count 270 MPV 9.4 Immature Gran % (Auto) 0.3 Neut % (Auto) 64.9 Lymph % (Auto) 29.6 [place] % (Auto) 3.3 Eos % (Auto) 1.3 Baso % (Auto) 0.6 Lymph # (Auto) 3.0 [place] # (Auto) 0.3 Eos # (Auto) 0.1 Baso # (Auto) 0.1 Abs Immat Gran (auto) 0.03 Absolute Neuts (auto) 6.6 Absolute Nucleated RBC 0.000 Nucleated RBC % (auto) 0.0 PT 10.6 L D INR 0.9 APTT 30.7 VBG pH 7.50 H VBG pCO2 39 VBG pO2 93 VBG HCO3 31 H VBG O2 Saturation 100.0 VBG Base Excess 7.6 Sodium 142 Potassium 3.9 Chloride 104 Carbon Dioxide 26 Anion Gap 16 BUN 31 H Creatinine 1.25 Estim Creat Clear Calc 67.9 Estimated GFR 45 POC Glucose Random Glucose 138 H Lactic Acid Calcium 9.9 D Magnesium 1.9 Total Bilirubin 0.3 AST 43 H ALT 44 H Alkaline Phosphatase 87 Troponin I High Sens 7.7 B-Natriuretic Peptide < 10 Total Protein 6.8 Albumin 3.2 L Urine Color Urine Appearance Urine pH Ur Specific Foster Urine Protein Urine Glucose (UA) Urine Ketones Urine Blood Urine Nitrite Ur Leukocyte Esterase Urine RBC Urine WBC Ur Squamous Epith Cells Urine Bacteria Hyaline Casts Influenza Type A (PCR) NEGATIVE Influenza Type B (PCR) NEGATIVE RSV RNA Qual (PCR) NEGATIVE SARS-CoV-2 RNA (RT-PCR) NEGATIVE 04/29/24 04/29/24 04/29/24 14:46 15:09 17:28 WBC RBC Hgb Hct MCV MCH MCHC RDW Plt Count MPV Immature Gran % (Auto) Neut % (Auto) Lymph % (Auto) [place] % (Auto) Eos % (Auto) Baso % (Auto) Lymph # (Auto) [place] # (Auto) Eos # (Auto) Baso # (Auto) Abs Immat Gran (auto) Absolute Neuts (auto) Absolute Nucleated RBC Nucleated RBC % (auto) PT INR APTT VBG pH VBG pCO2 VBG pO2 VBG HCO3 VBG O2 Saturation VBG Base Excess Sodium Potassium Chloride Carbon Dioxide Anion Gap BUN Creatinine Estim Creat Clear Calc Estimated GFR POC Glucose 166 H Random Glucose Lactic Acid 1.4 Calcium Magnesium Total Bilirubin AST ALT Alkaline Phosphatase Troponin I High Sens B-Natriuretic Peptide Total Protein Albumin Urine Color Yellow Urine Appearance Clear Urine pH 5.5 Ur Specific [place] 1.015 Urine Protein 300 (3+) H Urine Glucose (UA) Negative Urine Ketones Negative Urine Blood Negative Urine Nitrite Negative Ur Leukocyte Esterase Trace H Urine RBC 0-2 Urine WBC 6-10 H Ur Squamous Epith Cells 6-10 Urine Bacteria Trace Hyaline Casts 0-2 Influenza Type A (PCR) Influenza Type B (PCR) RSV RNA Qual (PCR) SARS-CoV-2 RNA (RT-PCR) 04/29/24 04/30/24 04/30/24 19:47 05:07 07:39 WBC 8.9 RBC 5.37 Hgb 16.1 H Hct 49.3 H MCV 91.8 MCH 30.0 MCHC 32.7 RDW 14.6 Plt Count 266 MPV 10.1 Immature Gran % (Auto) 0.7 H Neut % (Auto) 80.6 H Lymph % (Auto) 16.7 L [place] % (Auto) 1.9 L Eos % (Auto) 0.0 Baso % (Auto) 0.1 Lymph # (Auto) 1.5 [place] # (Auto) 0.2 Eos # (Auto) 0.0 Baso # (Auto) 0.0 Abs Immat Gran (auto) 0.06 H Absolute Neuts (auto) 7.1 Absolute Nucleated RBC 0.000 Nucleated RBC % (auto) 0.0 PT INR APTT VBG pH VBG pCO2 VBG pO2 VBG HCO3 VBG O2 Saturation VBG Base Excess Sodium 140 Potassium 4.5 Chloride 101 Carbon Dioxide 25 Anion Gap 19 BUN 39 H Creatinine 1.62 H Estim Creat Clear Calc 50.3 Estimated GFR 33 POC Glucose 267 H 234 H Random Glucose 274 H Lactic Acid Calcium 9.9 Magnesium Total Bilirubin AST ALT Alkaline Phosphatase Troponin I High Sens B-Natriuretic Peptide Total Protein Albumin Urine Color Urine Appearance Urine pH Ur Specific [place] Urine Protein Urine Glucose (UA) Urine Ketones Urine Blood Urine Nitrite Ur Leukocyte Esterase Urine RBC Urine WBC Ur Squamous Epith Cells Urine Bacteria Hyaline Casts Influenza Type A (PCR) Influenza Type B (PCR) RSV RNA Qual (PCR) SARS-CoV-2 RNA (RT-PCR) Imaging Radiologist's impression: Impressions Chest X-Ray 04/29/24 14:00 IMPRESSION: Consolidative airspace disease of the left mid and lower lung. Infiltrate suspected. Assessment and Plan (1) Anasarca: Status: Acute (2) Fluid overload: Status: Acute Plan 53-year-old female presenting with diffuse anasarca on background of hypertension and diabetes. She has known history of proteinuria. She also has PVD and is taking rivaroxaban and aspirin. Appears to be whole-body volume overloaded. She has proteinuria with hypoalbuminemia. I think Nephrology should be involved for further advice because it is possible that edema is due to proteinuria and kidney issues. Her creatinine also is rising with diuretics. I think we should be conservative with diuretics currently and discuss with Nephrology further. Hold the gabapentin because it causes peripheral edema. She is getting echocardiography today. Thank you for allowing me to participate in the care of your patient. Please feel free to contact me if you have any questions. Procedures Date of Service Date of Service: 04/30/24
[2024-04-30 11:35] LABS: Glucose, Whole Blood 308 mg/dL (60-115)
[2024-04-30 16:11] LABS: Glucose, Whole Blood 229 mg/dL (60-115)
[2024-04-30] MEDS: Rivaroxaban 10 MG TABLET PO (16:20)
--- NOTE | 2024-04-30 16:29 | MHC.CM.PN ---
PT REPORTS SHE LIVES WITH HER AND HAS A [employer] TWO HOURS DAILY SHE USES A CPAP FOR DME SHE SAYS SHE HAS A HCP AT HOME NAMING HER S/O, COPY REQUESTED PCP: NICOLE JASSO DCP: HOME RESUME [employer] S/O TO TRANSPORT PT REQUIRES A [employer]
[2024-04-30 20:09] LABS: Glucose, Whole Blood 190 mg/dL (60-115)
[2024-04-30] MEDS: Prazosin HCL 5 MG CAPSULE PO (20:31)
[2024-04-30] MEDS: Atorvastatin Calcium 80 MG TABLET PO (20:31)
[2024-04-30] MEDS: Zolpidem Tartrate 5 MG TABLET PO (20:34)
[2024-04-30 23:49] LABS: Creatinine Urine 158.01 mg/dL; Protein/Creatinine Ratio, Ur 1.04 (<0.2); Total Protein Urine Random 164 mg/dL (<12)
[2024-05-01] VITALS (10 sets, daily range): BP systolic 100–139; BP diastolic 54–61; PULSE 61–82; RESP 14–18; TEMP 35.8–36.2; O2SAT 82–95; BMI 48.9
[2024-05-01] MEDS: Acetaminophen 325 MG TABLET 650 MG PO (04:32)
[2024-05-01] MEDS: Levothyroxine Sodium 25 MCG TABLET PO (04:32)
[2024-05-01] MEDS: Levothyroxine Sodium 200 MCG TABLET PO (04:32)
[2024-05-01] MEDS: Butalb/Acetamin/Caff 50/325/40 TABLET 1 TAB PO (05:12)
--- NOTE | 2024-05-01 06:11 | PC.NURSE ---
Pt c/o a headache at 0430, tylenol given at 0432, pt continued to c/o headache and stated it was getting worse, tiger text to Dr. Sosa, fioricet ordered and administered at 05, pt asleep now, will continue to monitor.
[2024-05-01] MEDS: Fluticasone/Vilanterol 200/25 BLST.W.DEV 1 PUFF INHALE (07:34)
[2024-05-01] MEDS: Albuterol/Iprat 2.5/0.5MG 3 ML AMPUL.NEB INHALE ×3 (07:35→19:57)
[2024-05-01 07:41] LABS: Glucose, Whole Blood 85 mg/dL (60-115)
[2024-05-01] MEDS: Furosemide 20 MG/2 ML VIAL IVPUSH ×2 (08:02→17:18)
[2024-05-01] MEDS: lisinopriL 40 MG TABLET PO (08:03)
[2024-05-01] MEDS: Insulin Glargine,Hum.rec.anlog 100 UNIT/ML 10 ML VIAL 60 UNIT SUBCUT ×2 (08:03→20:51)
[2024-05-01] MEDS: Venlafaxine HCl ER 150 MG CAP.ER.24H PO (08:03)
[2024-05-01] MEDS: Venlafaxine HCl ER 75 MG CAP.ER.24H PO (08:03)
[2024-05-01] MEDS: Aspirin Enteric Coated 81 MG TABLET.DR PO (08:03)
[2024-05-01] MEDS: hydroCHLOROthiazide 12.5 MG TABLET PO (08:03)
[2024-05-01] MEDS: Metoprolol Succinate ER 25 MG TAB.ER.24H PO (08:03)
[2024-05-01] MEDS: Famotidine 20 MG TABLET PO ×2 (08:03→20:52)
[2024-05-01] MEDS: 0.9 % Sodium Chloride Flush 3 ML SYRINGE IVFLUSH ×3 (08:04→20:53)
--- NOTE | 2024-05-01 09:45 | P.PNIM_ITS ---
Subjective Subjective Date of Service: 05/01/24 Review of Systems Follow up anasarca still feeling sob less LE edema Physical Exam 2 Vital Signs: Vital Signs: Last Vital Signs Temp 96.5 F L 05/01/24 07:30 Pulse 71 05/01/24 07:36 Resp 14 05/01/24 07:36 BP 126/61 05/01/24 07:30 Pulse Ox 93 05/01/24 07:30 O2 Del Method Room Air 05/01/24 07:30 BMI result Body Mass Index 48.9 Appearing in no acute distress lung sounds are clear to auscultation heart regular rate rhythm, clear S1, S2 positive bowel sounds, abdomen is soft, nontender neuro patient is alert x3, no focal deficits Still with facial and upper extremity edema Objective Data Active Medications Acetaminophen (Acetaminophen 325 Mg Tablet) 650 mg PO Q6H PRN PRN Reason: Pain, Mild (Pain Scale 1-3), fever or headache Last Admin: 05/01/24 04:32 Dose: 650 mg Documented By: BRANDON Albuterol Sulfate (Albuterol Sulfate (0.083%) 2.5 Mg/3 Ml Vial.Neb) 2.5 mg INHALE Q4H PRN PRN Reason: wheezing/shortness of breath/cough Albuterol/Ipratropium (Albuterol/Iprat 2.5/0.5mg 3 Ml Ampul.Neb) 3 ml INHALE RTID [facility] Last Admin: 05/01/24 07:35 Dose: 3 ml Documented By: STEPHANIE Aspirin (Aspirin Enteric Coated 81 Mg Tablet.) 81 mg PO DAILY [facility] Last Admin: 05/01/24 08:03 Dose: 81 mg Documented By: STEPHANIE Atorvastatin Calcium (Atorvastatin Calcium 80 Mg Tablet) 80 mg PO BEDTIME [facility] Last Admin: 04/30/24 20:31 Dose: 80 mg Documented By: BRANDON Calcium Carbonate (Calcium Carbonate 750 Mg Tab.Chew) 750 mg PO Q4H PRN PRN Reason: Heartburn Famotidine (Famotidine 20 Mg Tablet) 20 mg PO BID [facility] Last Admin: 05/01/24 08:03 Dose: 20 mg Documented By: STEPHANIE Fluticasone Propionate (Fluticasone Propionate Nasal 16 Gm [place]) 2 spray NOSTRIL-B DAILY PRN PRN Reason: Allergy Symptoms Fluticasone/Vilanterol (Fluticasone/Vilanterol 200/25 Blst.W.Dev) 1 puff INHALE RDAILY [facility] Last Admin: 05/01/24 07:34 Dose: 1 puff Documented By: STEPHANIE Furosemide (Furosemide 20 Mg/2 Ml Vial) 20 mg IVPUSH BID@0900,1800 [facility]; Protocol Gabapentin (Gabapentin 300 Mg Capsule) 300 mg PO TID [facility] Last Admin: 04/30/24 14:31 Dose: 300 mg Documented By: MIAH Glucose (Glucose Gel 15 Gm Gel..Gram.) 15 gm PO Q15M PRN; Protocol PRN Reason: per Hypoglycemia Standing Ord. Hydrochlorothiazide (Hydrochlorothiazide 12.5 Mg Tablet) 12.5 mg PO DAILY [facility]; Protocol Last Admin: 05/01/24 08:03 Dose: 12.5 mg Documented By: STEPHANIE Dextrose (D10) 250 mls @ 750 mls/hr IV Q15M PRN; Protocol PRN Reason: per Hypoglycemia Standing Ord. Insulin Glargine (Insulin Glargine,Hum.Rec.Anlog 100 Unit/Ml 10 Ml Vial) 60 unit SUBCUT BID [facility] Last Admin: 05/01/24 08:03 Dose: 60 unit Documented By: STEPHANIE Insulin Human Lispro (Insulin Lispro 100 Unit/Ml 3 Ml Vial) 0 unit SUBCUT QIDACHS [facility]; Protocol Last Admin: 05/01/24 08:06 Dose: Not Given Documented By: STEPHANIE Non-Admin Reason: No Insulin Coverage Levothyroxine Sodium (Levothyroxine Sodium 25 Mcg Tablet) 25 mcg PO DAILY@0600 [facility] Last Admin: 05/01/24 04:32 Dose: 25 mcg Documented By: BRANDON Levothyroxine Sodium (Levothyroxine Sodium 200 Mcg Tablet) 200 mcg PO DAILY@0600 [facility] Last Admin: 05/01/24 04:32 Dose: 200 mcg Documented By: BRANDON Lisinopril (Lisinopril 40 Mg Tablet) 40 mg PO DAILY [facility]; Protocol Last Admin: 05/01/24 08:03 Dose: 40 mg Documented By: STEPHANIE Magnesium Hydroxide (Milk Of Magnesia 30 Ml Oral.Susp) 30 ml PO DAILY PRN PRN Reason: Constipation Melatonin (Melatonin 3 Mg Tablet) 6 mg PO BEDTIME PRN PRN Reason: Insomnia Metoprolol Succinate (Metoprolol Succinate Er 25 Mg Tab.Er.24h) 25 mg PO DAILY [facility]; Protocol Last Admin: 05/01/24 08:03 Dose: 25 mg Documented By: STEPHANIE Prazosin HCl (Prazosin Hcl 5 Mg Capsule) 5 mg PO BEDTIME [facility]; Protocol Last Admin: 04/30/24 20:31 Dose: 5 mg Documented By: BRANDON Quetiapine Fumarate (Quetiapine Fumarate 200 Mg Tablet) 200 mg PO BEDTIME PRN PRN Reason: Sleep Rivaroxaban (Rivaroxaban 10 Mg Tablet) 10 mg PO DAILY@1700 [facility] Last Admin: 04/30/24 16:20 Dose: 10 mg Documented By: SIL Sodium Chloride (0.9 % Sodium Chloride Flush 3 Ml Syringe) 3 ml IVFLUSH QSHIFT [facility] Last Admin: 05/01/24 08:04 Dose: 3 ml Documented By: STEPHANIE Venlafaxine HCl (Venlafaxine Hcl Er 75 Mg Cap.Er.24h) 75 mg PO DAILY [facility] Last Admin: 05/01/24 08:03 Dose: 75 mg Documented By: STEPHANIE Venlafaxine HCl (Venlafaxine Hcl Er 150 Mg Cap.Er.24h) 150 mg PO DAILY [facility] Last Admin: 05/01/24 08:03 Dose: 150 mg Documented By: STEPHANIE Zolpidem Tartrate (Zolpidem Tartrate 5 Mg Tablet) 5 mg PO BEDTIME PRN PRN Reason: insomnia Last Admin: 04/30/24 20:34 Dose: 5 mg Documented By: BRANDON Labs 04/30/24 05:07 04/30/24 05:07 Labs: Laboratory Results - last 24 hr 04/30/24 04/30/24 04/30/24 11:20 16:07 19:26 POC Glucose 308 H 229 H 190 H U Random Total Protein Urine Creatinine Protein/Creatinin Ratio 04/30/24 05/01/24 23:00 07:37 POC Glucose 85 U Random Total Protein 164 H Urine Creatinine 158.01 Protein/Creatinin Ratio 1.04 H Microbiology Microbiology Results: Microbiology 04/29/24 15:22 Blood Culture - Preliminary Blood - Venous No growth after 24 hours. 04/29/24 14:46 Blood Culture - Preliminary Blood - Venous No growth after 24 hours. 04/29/24 Unknown Urine Culture - Final Urine clean catch - Clean Catch Midstream Assessment and Plan (1) Anasarca: Status: Acute Plan 53 year old female with history of RLE DVT on xarelto, insulin dependent type 2 diabetes, asthma/copd overlap, ella compliant with cpap, cad, pad, hx cervical cancer, mood disorder who is morbidly obese with BMI >53 admitted for further management of CHF exacerbation. Anasarca suspected nephrotic syndrome, generalized anasarca to face, limbs, trunk high protein in the urine and hypoalbuminemia Echocardiogram with hyperdynamic EF of 70% normal right ventricular cavity and systolic function urine for protein-164, creatinine ratio 1.04, SPEP, UPEP, serum complements C3/C4 pending nephrology following closely careful diuresis with 20 mg IV Lasix twice daily strict I&O daily weights cardiac diet MIRA Worsening creatinine after diuresis ELLA reports non-compliance with CPAP at home continue at bedtime asthma/COPD overlap no acute exacerbation, hold on further steroids continue maintenance inhalers, albuterol p.r.n. insulin-dependent type 2 diabetes-without hyperglycemia ss, ada diet hypothyroidism continue levothyroxine PAD/CAD/HLD continue Plavix, Xarelto, statin and bb HTN continue lisinopril, metoprolol, hctz GERD ppi Mood disorder continue home meds morbid obesity with bmi 48.9 weight loss efforts dvt prophylaxis- missy attending Dr. Carrillo full code continue hospital stay for iv diuresis, echo and expert consulation given significant volume overload with edema of the BUE, BLE, face/eyelids due to chf exacebration and will require close monitoring of intake and output as well as renal function and electrolyte levels Quality Stroke Does the patient have a stroke diagnosis?: No VTE Prior VTE?: No VTE Risk Level:: Medical - moderate - high VTE Device Contraindication: Treatment Not Indicated VTE Drug Contraindication: N/A - Med Ordered
--- NOTE | 2024-05-01 10:57 | PM.PNCARD ---
Subjective Subjective Date of Service: 05/01/24 Interval history: Seen and examined at bedside. Nephrology following and she is being worked up for nephrotic syndrome. Echocardiography reviewed and showed hyperdynamic left ventricular function with normal right ventricular size and function. PA pressures could not be estimated Physical Exam Vital Signs: Last Vital Signs Temp 96.5 F L 05/01/24 07:30 Pulse 71 05/01/24 07:36 Resp 14 05/01/24 07:36 BP 126/61 05/01/24 07:30 Pulse Ox 93 05/01/24 07:30 O2 Del Method Room Air 05/01/24 07:30 BMI result Body Mass Index 48.9 GENERAL APPEARANCE: Morbidly obese. Short of breath. NECK: no carotid bruit, no significant JVD SKIN: no suspicious lesions, warm and dry. HEART: no murmurs, regular rate and rhythm. LUNGS: clear to auscultation bilaterally. ABDOMEN: soft, nontender. EXTREMITIES: No edema. PERIPHERAL PULSES: equal. NEUROLOGIC: No gross deficits, AAO X 3 Objective Labs and Meds 04/30/24 05:07 04/30/24 05:07 Lab results: Laboratory Results - last 24 hr 04/30/24 04/30/24 04/30/24 11:20 16:07 19:26 POC Glucose 308 H 229 H 190 H U Random Total Protein Urine Creatinine Protein/Creatinin Ratio 04/30/24 05/01/24 23:00 07:37 POC Glucose 85 U Random Total Protein 164 H Urine Creatinine 158.01 Protein/Creatinin Ratio 1.04 H Progress Note: A&P Assessment and plan (1) Anasarca: Status: Acute (2) Fluid overload: Status: Acute Plan [age] year female with significant proteinuria presenting with anasarca. Albumin is low. She is being worked up by Nephrology for nephrotic syndrome. She has been on IV diuretics. Monitor electrolytes and creatinine closely as creatinine was higher than admission yesterday. Whole-body overloaded. Was using a lot of salt and needs salt restriction. We will follow along with you. Thank you for allowing me to participate in the care of your patient. Please feel free to contact me if you have any questions. Time Spent With Patient Time: Total time managing care of this patient today ____ minutes. Progress Note: Quality Stroke Does the patient have a stroke diagnosis?: No Procedures Date of Service Date of Service: 05/01/24
[2024-05-01 11:24] LABS: Glucose, Whole Blood 109 mg/dL (60-115)
--- NOTE | 2024-05-01 15:26 | P.PNNP_ITS ---
Subjective Subjective Date of Service: 05/01/24 Interval history: Events noted. Remains edema at Physical Exam 2 Vital Signs: Vital Signs: Last Vital Signs Temp 96.5 F L 05/01/24 07:30 Pulse 68 05/01/24 13:36 Resp 17 05/01/24 13:36 BP 126/61 05/01/24 07:30 Pulse Ox 93 05/01/24 07:30 O2 Del Method Room Air 05/01/24 07:30 BMI result Body Mass Index 48.9 Awake. Comfortable. Anasarca Neck is supple. Mucosa moist. Lungs bilateral scattered rhonchi. Heart S1-S2 heard no gallop. Abdomen soft. Extremities with edema. No involuntary movements. No myoclonus. Objective Data Labs 04/30/24 05:07 04/30/24 05:07 Labs: Laboratory Results - last 24 hr 04/30/24 04/30/24 04/30/24 16:07 19:26 23:00 POC Glucose 229 H 190 H U Random Total Protein 164 H Urine Creatinine 158.01 Protein/Creatinin Ratio 1.04 H 05/01/24 05/01/24 07:37 11:20 POC Glucose 85 109 U Random Total Protein Urine Creatinine Protein/Creatinin Ratio Microbiology Microbiology Results: Microbiology 04/29/24 15:22 Blood - Venous Blood Culture - Preliminary No growth after 24 hours. 04/29/24 14:46 Blood - Venous Blood Culture - Preliminary No growth after 24 hours. 04/29/24 Unknown Urine clean catch - Clean Catch Midstream Urine Culture - Final Procedures Date of Service Date of Service: 05/01/24 Assessment & Plan Assessment and plan (1) Anasarca: Status: Acute Plan 53-year-old woman with obesity diabetes mellitus and obstructive sleep apnea with with proteinuria has anasarca. Anasarca may be due to underlying nephrotic syndrome. However given the history of obesity and obstructive sleep apnea, right heart failure should be ruled out. Nephrotic syndrome could be due to underlying diabetic nephropathy versus other nondiabetic causes. Urine protein excretion of about 1 g Recommendations Await SPEP UPEP. Serum complements C3-C4 Keep on low-sodium diet Agree with cautious diuresis. Lasix to 20 mg twice a day. Check daily weights Resume CPAP She will follow closely with the team. Time Spent With Patient Time: Total time managing care of this patient today ____ minutes. Progress Note: Quality Stroke Does the patient have a stroke diagnosis?: No
[2024-05-01 16:32] LABS: Glucose, Whole Blood 83 mg/dL (60-115)
[2024-05-01] MEDS: Rivaroxaban 10 MG TABLET PO (17:18)
[2024-05-01 20:39] LABS: Glucose, Whole Blood 87 mg/dL (60-115)
[2024-05-01] MEDS: Prazosin HCL 5 MG CAPSULE PO (20:50)
[2024-05-01] MEDS: Zolpidem Tartrate 5 MG TABLET PO (20:52)
[2024-05-01] MEDS: Atorvastatin Calcium 80 MG TABLET PO (20:52)
[2024-05-02] VITALS (7 sets, daily range): BP systolic 93–113; BP diastolic 48–56; PULSE 58–73; RESP 16–19; TEMP 36–36.2; O2SAT 92–97; BMI 48.7
[2024-05-02 03:49] LABS: Glucose, Whole Blood 86 mg/dL (60-115)
[2024-05-02] MEDS: Levothyroxine Sodium 25 MCG TABLET PO (05:52)
[2024-05-02] MEDS: Levothyroxine Sodium 200 MCG TABLET PO (05:52)
[2024-05-02 07:35] LABS: Glucose, Whole Blood 94 mg/dL (60-115)
[2024-05-02] MEDS: Famotidine 20 MG TABLET PO ×2 (08:13→19:21)
[2024-05-02] MEDS: Aspirin Enteric Coated 81 MG TABLET.DR PO (08:13)
[2024-05-02] MEDS: Furosemide 20 MG/2 ML VIAL IVPUSH ×2 (08:14→16:49)
[2024-05-02] MEDS: 0.9 % Sodium Chloride Flush 3 ML SYRINGE IVFLUSH ×3 (08:19→19:24)
[2024-05-02] MEDS: Albuterol/Iprat 2.5/0.5MG 3 ML AMPUL.NEB INHALE ×3 (08:21→18:58)
[2024-05-02] MEDS: Fluticasone/Vilanterol 200/25 BLST.W.DEV 1 PUFF INHALE (08:21)
[2024-05-02 08:49] LABS: Anion Gap 14 (12-20); Blood Urea Nitrogen 46 mg/dL (9-16); Calcium 9.1 mg/dL (8.4-10.2); Carbon Dioxide 31 mmol/L (22-29); Chloride 99 mmol/L (96-108); Creatinine Clr Calc Pharmacy 54.7; Estimated Glomerular Filt Rate 37; Glucose Random 80 mg/dL (60-115); Potassium 3.8 mmol/L (3.3-5.1); Sodium 140 mmol/L (135-145)
--- NOTE | 2024-05-02 10:28 | P.PNIM_ITS ---
Subjective Subjective Date of Service: 05/02/24 Review of Systems Follow up anasarca still feeling sob less LE edema Physical Exam 2 Vital Signs: Vital Signs: Last Vital Signs Temp 96.8 F 05/02/24 07:40 Pulse 58 05/02/24 08:21 Resp 16 05/02/24 08:21 BP 93/48 L 05/02/24 07:40 Pulse Ox 95 05/02/24 07:40 O2 Del Method Room Air 05/02/24 07:40 BMI result Body Mass Index 48.7 Appearing in no acute distress lung sounds are clear to auscultation heart regular rate rhythm, clear S1, S2 positive bowel sounds, abdomen is soft, nontender neuro patient is alert x3, no focal deficits Objective Data Active Medications Acetaminophen (Acetaminophen 325 Mg Tablet) 650 mg PO Q6H PRN PRN Reason: Pain, Mild (Pain Scale 1-3), fever or headache Last Admin: 05/01/24 04:32 Dose: 650 mg Documented By: BRANDON Albuterol Sulfate (Albuterol Sulfate (0.083%) 2.5 Mg/3 Ml Vial.Neb) 2.5 mg INHALE Q4H PRN PRN Reason: wheezing/shortness of breath/cough Albuterol/Ipratropium (Albuterol/Iprat 2.5/0.5mg 3 Ml Ampul.Neb) 3 ml INHALE RTID [facility] Last Admin: 05/02/24 08:21 Dose: 3 ml Documented By: CHINEDU Aspirin (Aspirin Enteric Coated 81 Mg Tablet.) 81 mg PO DAILY [facility] Last Admin: 05/02/24 08:13 Dose: 81 mg Documented By: STEPHANIE Atorvastatin Calcium (Atorvastatin Calcium 80 Mg Tablet) 80 mg PO BEDTIME [facility] Last Admin: 05/01/24 20:52 Dose: 80 mg Documented By: BRANDON Calcium Carbonate (Calcium Carbonate 750 Mg Tab.Chew) 750 mg PO Q4H PRN PRN Reason: Heartburn Famotidine (Famotidine 20 Mg Tablet) 20 mg PO BID [facility] Last Admin: 05/02/24 08:13 Dose: 20 mg Documented By: STEPHANIE Fluticasone Propionate (Fluticasone Propionate Nasal 16 Gm [place]) 2 spray NOSTRIL-B DAILY PRN PRN Reason: Allergy Symptoms Fluticasone/Vilanterol (Fluticasone/Vilanterol 200/25 Blst.W.Dev) 1 puff INHALE RDAILY [facility] Last Admin: 05/02/24 08:21 Dose: 1 puff Documented By: CHINEDU Furosemide (Furosemide 20 Mg/2 Ml Vial) 20 mg IVPUSH BID@0900,1800 [facility]; Protocol Last Admin: 05/02/24 08:14 Dose: 20 mg Documented By: STEPHANIE Gabapentin (Gabapentin 300 Mg Capsule) 300 mg PO TID [facility] Last Admin: 04/30/24 14:31 Dose: 300 mg Documented By: MIAH Glucose (Glucose Gel 15 Gm Gel..Gram.) 15 gm PO Q15M PRN; Protocol PRN Reason: per Hypoglycemia Standing Ord. Hydrochlorothiazide (Hydrochlorothiazide 12.5 Mg Tablet) 12.5 mg PO DAILY [facility]; Protocol Last Admin: 05/02/24 09:14 Dose: Not Given Documented By: STEPHANIE Non-Admin Reason: Decreased Blood Pressure Dextrose (D10) 250 mls @ 750 mls/hr IV Q15M PRN; Protocol PRN Reason: per Hypoglycemia Standing Ord. Insulin Glargine (Insulin Glargine,Hum.Rec.Anlog 100 Unit/Ml 10 Ml Vial) 60 unit SUBCUT BID [facility] Last Admin: 05/02/24 09:15 Dose: Not Given Documented By: STEPHANIE Non-Admin Reason: md states hold Insulin Human Lispro (Insulin Lispro 100 Unit/Ml 3 Ml Vial) 0 unit SUBCUT QIDACHS [facility]; Protocol Last Admin: 05/02/24 07:51 Dose: Not Given Documented By: STEPHANIE Non-Admin Reason: No Insulin Coverage Levothyroxine Sodium (Levothyroxine Sodium 25 Mcg Tablet) 25 mcg PO DAILY@0600 [facility] Last Admin: 05/02/24 05:52 Dose: 25 mcg Documented By: BRANDON Levothyroxine Sodium (Levothyroxine Sodium 200 Mcg Tablet) 200 mcg PO DAILY@0600 [facility] Last Admin: 05/02/24 05:52 Dose: 200 mcg Documented By: BRANDON Lisinopril (Lisinopril 40 Mg Tablet) 40 mg PO DAILY [facility]; Protocol Last Admin: 05/02/24 09:15 Dose: Not Given Documented By: HO.DABA Non-Admin Reason: Decreased Blood Pressure Magnesium Hydroxide (Milk Of Magnesia 30 Ml Oral.Susp) 30 ml PO DAILY PRN PRN Reason: Constipation Melatonin (Melatonin 3 Mg Tablet) 6 mg PO BEDTIME PRN PRN Reason: Insomnia Metoprolol Succinate (Metoprolol Succinate Er 25 Mg Tab.Er.24h) 25 mg PO DAILY [facility]; Protocol Last Admin: 05/02/24 09:15 Dose: Not Given Documented By: STEPHANIE Non-Admin Reason: Decreased Blood Pressure Prazosin HCl (Prazosin Hcl 5 Mg Capsule) 5 mg PO BEDTIME [facility]; Protocol Last Admin: 05/01/24 20:50 Dose: 5 mg Documented By: BRANDON Quetiapine Fumarate (Quetiapine Fumarate 200 Mg Tablet) 200 mg PO BEDTIME PRN PRN Reason: Sleep Rivaroxaban (Rivaroxaban 10 Mg Tablet) 10 mg PO DAILY@1700 [facility] Last Admin: 05/01/24 17:18 Dose: 10 mg Documented By: STEPHANIE Sodium Chloride (0.9 % Sodium Chloride Flush 3 Ml Syringe) 3 ml IVFLUSH QSHIFT [facility] Last Admin: 05/02/24 08:19 Dose: 3 ml Documented By: STEPHANIE Venlafaxine HCl (Venlafaxine Hcl Er 75 Mg Cap.Er.24h) 75 mg PO DAILY [facility] Last Admin: 05/02/24 09:16 Dose: Not Given Documented By: STEPHANIE Non-Admin Reason: Patient Refused Venlafaxine HCl (Venlafaxine Hcl Er 150 Mg Cap.Er.24h) 150 mg PO DAILY [facility] Last Admin: 05/02/24 09:16 Dose: Not Given Documented By: STEPHANIE Non-Admin Reason: Patient Refused Zolpidem Tartrate (Zolpidem Tartrate 5 Mg Tablet) 5 mg PO BEDTIME PRN PRN Reason: insomnia Last Admin: 05/01/24 20:52 Dose: 5 mg Documented By: BRANDON Labs 04/30/24 05:07 05/02/24 08:06 Labs: Laboratory Results - last 24 hr 05/01/24 05/01/24 05/01/24 11:20 16:20 20:35 Anion Gap Estim Creat Clear Calc Estimated GFR POC Glucose 109 83 87 Random Glucose Calcium 05/02/24 05/02/24 05/02/24 03:43 07:31 08:06 Anion Gap 14 Estim Creat Clear Calc 54.7 Estimated GFR 37 POC Glucose 86 94 Random Glucose 80 Calcium 9.1 D Microbiology Microbiology Results: Microbiology 04/29/24 15:22 Blood Culture - Preliminary Blood - Venous No growth after 48 hours. 04/29/24 14:46 Blood Culture - Preliminary Blood - Venous No growth after 48 hours. Assessment and Plan (1) Anasarca: Status: Acute Plan 53 year old female with history of RLE DVT on xarelto, insulin dependent type 2 diabetes, asthma/copd overlap, ella compliant with cpap, cad, pad, hx cervical cancer, mood disorder who is morbidly obese with BMI >53 admitted for further management of CHF exacerbation. Anasarca suspected nephrotic syndrome, generalized anasarca to face, limbs, trunk high protein in the urine and hypoalbuminemia Echocardiogram with hyperdynamic EF of 70% normal right ventricular cavity and systolic function urine for protein-164, creatinine ratio 1.04, SPEP, UPEP, serum complements C3/C4 pending nephrology following closely careful diuresis with 20 mg IV Lasix twice daily strict I&O daily weights>120.7 cardiac diet MIRA Worsening creatinine after diuresis ELLA reports non-compliance with CPAP at home continue at bedtime asthma/COPD overlap no acute exacerbation, hold on further steroids continue maintenance inhalers, albuterol p.r.n. insulin-dependent type 2 diabetes ss, ada diet hypothyroidism continue levothyroxine PAD/CAD/HLD continue Plavix, Xarelto, statin and bb HTN continue lisinopril, metoprolol, hctz GERD ppi Mood disorder continue home meds morbid obesity with bmi 48.9 weight loss efforts dvt prophylaxis- xarelto attending Dr. Graves full code continue hospital stay for iv diuresis, echo and expert consulation given significant volume overload with edema of the BUE, BLE, face/eyelids due to chf exacebration and will require close monitoring of intake and output as well as renal function and electrolyte levels Quality Stroke Does the patient have a stroke diagnosis?: No VTE Prior VTE?: No VTE Risk Level:: Medical - moderate - high VTE Device Contraindication: Treatment Not Indicated VTE Drug Contraindication: N/A - Med Ordered
[2024-05-02 11:15] LABS: Glucose, Whole Blood 112 mg/dL (60-115)
--- NOTE | 2024-05-02 15:30 | P.PNNP_ITS ---
Subjective Subjective Date of Service: 05/02/24 Interval history: Events noted. Still with anasarca non oliguric Physical Exam 2 Vital Signs: Vital Signs: Last Vital Signs Temp 97.1 F 05/02/24 15:07 Pulse 63 05/02/24 15:07 Resp 19 05/02/24 15:07 BP 113/56 L 05/02/24 15:07 Pulse Ox 95 05/02/24 15:07 O2 Del Method Room Air 05/02/24 15:07 BMI result Body Mass Index 48.7 Awake. Comfortable. Neck is supple. Mucosa moist. Lungs bilateral scattered rhonchi. Heart S1-S2 heard no gallop. Abdomen soft. Extremities 3+ edema. No involuntary movements. No myoclonus. Objective Data Labs 04/30/24 05:07 05/02/24 08:06 Labs: Laboratory Results - last 24 hr 05/01/24 05/01/24 05/02/24 16:20 20:35 03:43 Sodium Potassium Chloride Carbon Dioxide Anion Gap BUN Creatinine Estim Creat Clear Calc Estimated GFR POC Glucose 83 87 86 Random Glucose Calcium 05/02/24 05/02/24 05/02/24 07:31 08:06 11:11 Sodium 140 Potassium 3.8 Chloride 99 Carbon Dioxide 31 H Anion Gap 14 BUN 46 H Creatinine 1.47 H Estim Creat Clear Calc 54.7 Estimated GFR 37 POC Glucose 94 112 Random Glucose 80 Calcium 9.1 D Microbiology Microbiology Results: Microbiology 04/29/24 15:22 Blood - Venous Blood Culture - Preliminary No growth after 48 hours. 04/29/24 14:46 Blood - Venous Blood Culture - Preliminary No growth after 48 hours. 04/29/24 Unknown Urine clean catch - Clean Catch Midstream Urine Culture - Final Procedures Date of Service Date of Service: 05/02/24 Assessment & Plan Assessment and plan (1) Anasarca: Status: Acute Plan 53-year-old woman with obesity diabetes mellitus and obstructive sleep apnea with with proteinuria has anasarca. Anasarca may be due to underlying nephrotic syndrome. However given the history of obesity and obstructive sleep apnea, right heart failure should be ruled out. Nephrotic syndrome could be due to underlying diabetic nephropathy versus other nondiabetic causes. Urine protein excretion of about 1 g Cr is beter Recommendations Await SPEP UPEP. ( pending) Serum complements C3-C4 Keep on low-sodium diet Agree with cautious diuresis. Lasix to 20 mg twice a day. Check daily weights Resume CPAP She will follow closely with the team. Time Spent With Patient Time: Total time managing care of this patient today ____ minutes. Progress Note: Quality Stroke Does the patient have a stroke diagnosis?: No
[2024-05-02 16:19] LABS: Glucose, Whole Blood 107 mg/dL (60-115)
[2024-05-02] MEDS: Rivaroxaban 10 MG TABLET PO (16:49)
[2024-05-02] MEDS: Prazosin HCL 5 MG CAPSULE PO (19:21)
[2024-05-02] MEDS: Zolpidem Tartrate 5 MG TABLET PO (19:21)
[2024-05-02] MEDS: Atorvastatin Calcium 80 MG TABLET PO (19:21)
[2024-05-02 20:23] LABS: Glucose, Whole Blood 181 mg/dL (60-115)
[2024-05-02] MEDS: Insulin Lispro 100 UNIT/ML 3 ML VIAL SUBCUT (20:39)
[2024-05-02] MEDS: Insulin Glargine,Hum.rec.anlog 100 UNIT/ML 10 ML VIAL 60 UNIT SUBCUT (20:39)
[2024-05-03] VITALS (8 sets, daily range): BP systolic 104–114; BP diastolic 53–68; PULSE 63–80; RESP 15–19; TEMP 36.1–36.6; O2SAT 93–96; BMI 48.0
[2024-05-03] MEDS: Levothyroxine Sodium 25 MCG TABLET PO (05:53)
[2024-05-03] MEDS: Levothyroxine Sodium 200 MCG TABLET PO (05:53)
[2024-05-03 07:56] LABS: Glucose, Whole Blood 64 mg/dL (60-115)
[2024-05-03] MEDS: Fluticasone/Vilanterol 200/25 BLST.W.DEV 1 PUFF INHALE (08:08)
[2024-05-03] MEDS: Albuterol/Iprat 2.5/0.5MG 3 ML AMPUL.NEB INHALE ×3 (08:09→20:19)
[2024-05-03] MEDS: Aspirin Enteric Coated 81 MG TABLET.DR PO (08:47)
[2024-05-03] MEDS: Famotidine 20 MG TABLET PO ×2 (08:47→20:50)
[2024-05-03] MEDS: Metoprolol Succinate ER 25 MG TAB.ER.24H PO (08:47)
[2024-05-03] MEDS: Furosemide 20 MG/2 ML VIAL IVPUSH ×2 (08:47→16:35)
[2024-05-03] MEDS: lisinopriL 40 MG TABLET PO (08:47)
[2024-05-03] MEDS: hydroCHLOROthiazide 12.5 MG TABLET PO (08:47)
[2024-05-03 08:48] LABS: Complement C3 123 mg/dL (83-193)
[2024-05-03] MEDS: 0.9 % Sodium Chloride Flush 3 ML SYRINGE IVFLUSH ×2 (08:48→20:51)
[2024-05-03] MEDS: Insulin Glargine,Hum.rec.anlog 100 UNIT/ML 10 ML VIAL 60 UNIT SUBCUT (08:57)
--- NOTE | 2024-05-03 09:33 | MHC.CM.PN ---
This CM rec'd call from PRINCESS Miranda w/ [facility]. Patient receives services through their group adult foster care program for personal care, home making, med reminders, RN 1x month, and a onsite case manager. Per Ruth, they are unable to provide VNA services if needed. She is requesting a clinical update. Message sent to RN. CM will continue to follow.
[2024-05-03 10:40] LABS: Hematocrit 49.4 % (37.0-47.0); Hemoglobin 16.2 g/dl (12.0-16.0); Mean Corpuscular HGB Conc 32.8 g/dl (31.0-35.0); Mean Corpuscular Hemoglobin 30.1 pg (27.0-33.0); Mean Corpuscular Volume 91.8 fL (80.0-98.0); Mean Platelet Volume 9.7 fL (9.4-12.3); Platelet Count 247 X10*3/uL (160-400); Red Blood Count 5.38 X10*6/uL (4.20-5.50); Red Cell Distribution Width 14.8 % (11.0-16.0); White Blood Count 8.2 X10*3/uL (4.8-10.8)
[2024-05-03 11:03] LABS: Anion Gap 18 (12-20); Blood Urea Nitrogen 35 mg/dL (9-16); Calcium 9.1 mg/dL (8.4-10.2); Carbon Dioxide 30 mmol/L (22-29); Chloride 97 mmol/L (96-108); Creatinine Clr Calc Pharmacy 64.8; Estimated Glomerular Filt Rate 46; Glucose Random 130 mg/dL (60-115); Potassium 3.7 mmol/L (3.3-5.1); Sodium 141 mmol/L (135-145)
--- NOTE | 2024-05-03 11:03 | P.PNIM_ITS ---
Subjective Subjective Date of Service: 05/03/24 Review of Systems Follow up anasarca still feeling sob less LE edema Physical Exam 2 Vital Signs: Vital Signs: Last Vital Signs Temp 97.8 F 05/03/24 08:00 Pulse 75 05/03/24 08:09 Resp 18 05/03/24 08:09 BP 104/55 L 05/03/24 08:00 Pulse Ox 93 05/03/24 08:00 O2 Del Method Room Air 05/03/24 08:00 BMI result Body Mass Index 48.0 Appearing in no acute distress lung sounds are clear to auscultation heart regular rate rhythm, clear S1, S2 positive bowel sounds, abdomen is soft, nontender neuro patient is alert x3, no focal deficits Objective Data Active Medications Acetaminophen (Acetaminophen 325 Mg Tablet) 650 mg PO Q6H PRN PRN Reason: Pain, Mild (Pain Scale 1-3), fever or headache Last Admin: 05/01/24 04:32 Dose: 650 mg Documented By: BRANDON Albuterol Sulfate (Albuterol Sulfate (0.083%) 2.5 Mg/3 Ml Vial.Neb) 2.5 mg INHALE Q4H PRN PRN Reason: wheezing/shortness of breath/cough Albuterol/Ipratropium (Albuterol/Iprat 2.5/0.5mg 3 Ml Ampul.Neb) 3 ml INHALE RTID [facility] Last Admin: 05/03/24 08:09 Dose: 3 ml Documented By: STEPHANIE Aspirin (Aspirin Enteric Coated 81 Mg Tablet.) 81 mg PO DAILY [facility] Last Admin: 05/03/24 08:47 Dose: 81 mg Documented By: ANNE Atorvastatin Calcium (Atorvastatin Calcium 80 Mg Tablet) 80 mg PO BEDTIME [facility] Last Admin: 05/02/24 19:21 Dose: 80 mg Documented By: BRANDON Calcium Carbonate (Calcium Carbonate 750 Mg Tab.Chew) 750 mg PO Q4H PRN PRN Reason: Heartburn Famotidine (Famotidine 20 Mg Tablet) 20 mg PO BID [facility] Last Admin: 05/03/24 08:47 Dose: 20 mg Documented By: ANNE Fluticasone Propionate (Fluticasone Propionate Nasal 16 Gm [place]) 2 spray NOSTRIL-B DAILY PRN PRN Reason: Allergy Symptoms Fluticasone/Vilanterol (Fluticasone/Vilanterol 200/25 Blst.W.Dev) 1 puff INHALE RDAILY [facility] Last Admin: 05/03/24 08:08 Dose: 1 puff Documented By: STEPHANIE Furosemide (Furosemide 20 Mg/2 Ml Vial) 20 mg IVPUSH BID@0900,1800 [facility]; Protocol Last Admin: 05/03/24 08:47 Dose: 20 mg Documented By: ANNE Gabapentin (Gabapentin 300 Mg Capsule) 300 mg PO TID [facility] Last Admin: 04/30/24 14:31 Dose: 300 mg Documented By: MIAH Glucose (Glucose Gel 15 Gm Gel..Gram.) 15 gm PO Q15M PRN; Protocol PRN Reason: per Hypoglycemia Standing Ord. Hydrochlorothiazide (Hydrochlorothiazide 12.5 Mg Tablet) 12.5 mg PO DAILY [facility]; Protocol Last Admin: 05/03/24 08:47 Dose: 12.5 mg Documented By: ANNE Dextrose (D10) 250 mls @ 750 mls/hr IV Q15M PRN; Protocol PRN Reason: per Hypoglycemia Standing Ord. Insulin Glargine (Insulin Glargine,Hum.Rec.Anlog 100 Unit/Ml 10 Ml Vial) 60 unit SUBCUT BID [facility] Last Admin: 05/03/24 08:57 Dose: 60 unit Documented By: ANNE Insulin Human Lispro (Insulin Lispro 100 Unit/Ml 3 Ml Vial) 0 unit SUBCUT QIDACHS [facility]; Protocol Last Admin: 05/03/24 07:55 Dose: Not Given Documented By: DABA Non-Admin Reason: No Insulin Coverage Levothyroxine Sodium (Levothyroxine Sodium 25 Mcg Tablet) 25 mcg PO DAILY@0600 [facility] Last Admin: 05/03/24 05:53 Dose: 25 mcg Documented By: BRANDON Levothyroxine Sodium (Levothyroxine Sodium 200 Mcg Tablet) 200 mcg PO DAILY@0600 [facility] Last Admin: 05/03/24 05:53 Dose: 200 mcg Documented By: BRANDON Lisinopril (Lisinopril 40 Mg Tablet) 40 mg PO DAILY [facility]; Protocol Last Admin: 05/03/24 08:47 Dose: 40 mg Documented By: ANNE Magnesium Hydroxide (Milk Of Magnesia 30 Ml Oral.Susp) 30 ml PO DAILY PRN PRN Reason: Constipation Melatonin (Melatonin 3 Mg Tablet) 6 mg PO BEDTIME PRN PRN Reason: Insomnia Metoprolol Succinate (Metoprolol Succinate Er 25 Mg Tab.Er.24h) 25 mg PO DAILY [facility]; Protocol Last Admin: 05/03/24 08:47 Dose: 25 mg Documented By: ANNE Prazosin HCl (Prazosin Hcl 5 Mg Capsule) 5 mg PO BEDTIME [facility]; Protocol Last Admin: 05/02/24 19:21 Dose: 5 mg Documented By: BRANDON Quetiapine Fumarate (Quetiapine Fumarate 200 Mg Tablet) 200 mg PO BEDTIME PRN PRN Reason: Sleep Rivaroxaban (Rivaroxaban 10 Mg Tablet) 10 mg PO DAILY@1700 [facility] Last Admin: 05/02/24 16:49 Dose: 10 mg Documented By: STEPHANIE Sodium Chloride (0.9 % Sodium Chloride Flush 3 Ml Syringe) 3 ml IVFLUSH QSHIFT [facility] Last Admin: 05/03/24 08:48 Dose: 3 ml Documented By: ANNE Venlafaxine HCl (Venlafaxine Hcl Er 75 Mg Cap.Er.24h) 75 mg PO DAILY [facility] Last Admin: 05/03/24 08:52 Dose: Not Given Documented By: STEPHANIE Non-Admin Reason: Patient Refused Venlafaxine HCl (Venlafaxine Hcl Er 150 Mg Cap.Er.24h) 150 mg PO DAILY [facility] Last Admin: 05/03/24 08:52 Dose: Not Given Documented By: DABCrys Non-Admin Reason: Patient Refused Zolpidem Tartrate (Zolpidem Tartrate 5 Mg Tablet) 5 mg PO BEDTIME PRN PRN Reason: insomnia Last Admin: 05/02/24 19:21 Dose: 5 mg Documented By: BRANDON Labs 05/03/24 10:24 05/02/24 08:06 Labs: Laboratory Results - last 24 hr 04/30/24 05/02/24 05/02/24 19:01 11:11 16:13 MCV MCH MCHC RDW Plt Count MPV Absolute Nucleated RBC Nucleated RBC % (auto) POC Glucose 112 107 Complement C3 123 Complement C4 19 05/02/24 05/03/24 05/03/24 20:12 07:51 10:24 MCV 91.8 MCH 30.1 MCHC 32.8 RDW 14.8 Plt Count 247 MPV 9.7 Absolute Nucleated RBC 0.000 Nucleated RBC % (auto) 0.0 POC Glucose 181 H 64 Complement C3 Complement C4 Assessment and Plan (1) Anasarca: Status: Acute Plan 53 year old female with history of RLE DVT on xarelto, insulin dependent type 2 diabetes, asthma/copd overlap, ella compliant with cpap, cad, pad, hx cervical cancer, mood disorder who is morbidly obese with BMI >53 admitted for further management of CHF exacerbation. Anasarca suspected nephrotic syndrome, generalized anasarca to face, limbs, trunk high protein in the urine and hypoalbuminemia Echocardiogram with hyperdynamic EF of 70% normal right ventricular cavity and systolic function urine for protein-164, creatinine ratio 1.04, SPEP, UPEP, serum complements C3 123/C4 19 nephrology following closely careful diuresis with 20 mg IV Lasix twice daily strict I&O, neg 390ml (if I&O correct) daily weights>119kg, down from 131kg cardiac diet MIRA creat trending down ELLA reports non-compliance with CPAP at home continue at bedtime while inpatient asthma/COPD overlap no acute exacerbation continue maintenance inhalers, albuterol p.r.n. insulin-dependent type 2 diabetes ss, ada diet hypothyroidism continue levothyroxine PAD/CAD/HLD continue Plavix, Xarelto, statin and bb HTN continue lisinopril, metoprolol, hctz GERD ppi Mood disorder continue home meds morbid obesity with bmi 48.9 weight loss efforts dvt prophylaxis- missy attending Dr. Graves full code continue hospital stay for iv diuresis, echo and expert consulation given significant volume overload with edema of the BUE, BLE, face/eyelids due to chf exacebration and will require close monitoring of intake and output as well as renal function and electrolyte levels Quality Stroke Does the patient have a stroke diagnosis?: No VTE Prior VTE?: No VTE Risk Level:: Medical - moderate - high VTE Device Contraindication: Treatment Not Indicated VTE Drug Contraindication: N/A - Med Ordered
[2024-05-03 11:40] LABS: Glucose, Whole Blood 138 mg/dL (60-115)
--- NOTE | 2024-05-03 13:10 | P.PNNP_ITS ---
Subjective Subjective Date of Service: 05/03/24 Interval history: Events noted. Still with anasarca non oliguric Daughter at bedside. Appears more comfortable today Physical Exam 2 Vital Signs: Vital Signs: Last Vital Signs Temp 97.8 F 05/03/24 08:00 Pulse 75 05/03/24 08:09 Resp 18 05/03/24 08:09 BP 104/55 L 05/03/24 08:00 Pulse Ox 93 05/03/24 08:00 O2 Del Method Room Air 05/03/24 08:00 BMI result Body Mass Index 48.0 Awake. Comfortable. Neck is supple. Mucosa moist. Lungs bilateral scattered rhonchi. Heart S1-S2 heard no gallop. Abdomen soft. Extremities ++edema. No involuntary movements. No myoclonus. Objective Data Labs 05/03/24 10:24 05/04/24 11:03 Labs: Laboratory Results - last 24 hr 04/30/24 05/02/24 05/02/24 19:01 16:13 20:12 WBC RBC Hgb Hct MCV MCH MCHC RDW Plt Count MPV Absolute Nucleated RBC Nucleated RBC % (auto) Sodium Potassium Chloride Carbon Dioxide Anion Gap BUN Creatinine Estim Creat Clear Calc Estimated GFR POC Glucose 107 181 H Random Glucose Calcium Complement C3 123 Complement C4 19 05/03/24 05/03/24 05/03/24 07:51 10:24 11:20 WBC 8.2 RBC 5.38 Hgb 16.2 H Hct 49.4 H MCV 91.8 MCH 30.1 MCHC 32.8 RDW 14.8 Plt Count 247 MPV 9.7 Absolute Nucleated RBC 0.000 Nucleated RBC % (auto) 0.0 Sodium 141 Potassium 3.7 Chloride 97 Carbon Dioxide 30 H Anion Gap 18 BUN 35 H Creatinine 1.23 Estim Creat Clear Calc 64.8 Estimated GFR 46 POC Glucose 64 138 H Random Glucose 130 H Calcium 9.1 Complement C3 Complement C4 Microbiology Microbiology Results: Microbiology 04/29/24 15:22 Blood - Venous Blood Culture - Preliminary No growth after 48 hours. 04/29/24 14:46 Blood - Venous Blood Culture - Preliminary No growth after 48 hours. 04/29/24 Unknown Urine clean catch - Clean Catch Midstream Urine Culture - Final Procedures Date of Service Date of Service: 05/04/24 Assessment & Plan Assessment and plan (1) Anasarca: Status: Acute Plan 53-year-old woman with obesity diabetes mellitus and obstructive sleep apnea with with proteinuria has anasarca. Anasarca may be due to underlying nephrotic syndrome. However given the history of obesity and obstructive sleep apnea, right heart failure should be ruled out. Nephrotic syndrome could be due to underlying diabetic nephropathy versus other nondiabetic causes. Urine protein excretion of about 1 g SPEP is pending. Cr is better with diuresis Weight is down from 275 lb to 262 lb Recommendations Keep on low-sodium diet Agree with cautious diuresis. Lasix to 20 mg twice a day. Check daily weights Keep CPAP She will follow closely with the team. Time Spent With Patient Time: Total time managing care of this patient today ____ minutes. Progress Note: Quality Stroke Does the patient have a stroke diagnosis?: No
[2024-05-03] MEDS: Rivaroxaban 10 MG TABLET PO (16:35)
[2024-05-03] MEDS: Acetaminophen 325 MG TABLET 650 MG PO (16:35)
[2024-05-03 16:38] LABS: Glucose, Whole Blood 147 mg/dL (60-115)
[2024-05-03 20:25] LABS: Glucose, Whole Blood 200 mg/dL (60-115)
[2024-05-03] MEDS: Atorvastatin Calcium 80 MG TABLET PO (20:50)
[2024-05-03] MEDS: Zolpidem Tartrate 5 MG TABLET PO (20:50)
[2024-05-03] MEDS: Prazosin HCL 5 MG CAPSULE PO (20:51)
[2024-05-03] MEDS: Insulin Glargine,Hum.rec.anlog 100 UNIT/ML 10 ML VIAL 20 UNIT SUBCUT (20:51)
[2024-05-04] VITALS (8 sets, daily range): BP systolic 93–110; BP diastolic 51–70; PULSE 62–77; RESP 16–18; TEMP 36.1–36.9; O2SAT 91–95; BMI 46.9
[2024-05-04] MEDS: Acetaminophen 325 MG TABLET 650 MG PO ×2 (01:56→09:05)
--- NOTE | 2024-05-04 05:34 | PC.NURSE ---
05/03/24 pt's HS blood sugar was 200, per Dr. Sosa sliding scale insulin was held, lantus was changed from 60 to 20 units. Pt's blood sugar the morning of 05/03 was 63 so we were being cautious of it dropping low again.
[2024-05-04] MEDS: Levothyroxine Sodium 200 MCG TABLET PO (05:46)
[2024-05-04] MEDS: Levothyroxine Sodium 25 MCG TABLET PO (05:46)
[2024-05-04 07:58] LABS: Glucose, Whole Blood 117 mg/dL (60-115)
[2024-05-04] MEDS: Fluticasone/Vilanterol 200/25 BLST.W.DEV 1 PUFF INHALE (08:02)
[2024-05-04] MEDS: Albuterol/Iprat 2.5/0.5MG 3 ML AMPUL.NEB INHALE ×3 (08:03→20:18)
[2024-05-04] MEDS: lisinopriL 40 MG TABLET PO (08:58)
[2024-05-04] MEDS: hydroCHLOROthiazide 12.5 MG TABLET PO (08:58)
[2024-05-04] MEDS: Metoprolol Succinate ER 25 MG TAB.ER.24H PO (08:58)
[2024-05-04] MEDS: Venlafaxine HCl ER 150 MG CAP.ER.24H PO (08:58)
[2024-05-04] MEDS: Aspirin Enteric Coated 81 MG TABLET.DR PO (08:58)
[2024-05-04] MEDS: Famotidine 20 MG TABLET PO ×2 (08:58→21:49)
[2024-05-04] MEDS: Insulin Glargine,Hum.rec.anlog 100 UNIT/ML 10 ML VIAL 20 UNIT SUBCUT ×2 (09:01→21:49)
[2024-05-04] MEDS: 0.9 % Sodium Chloride Flush 3 ML SYRINGE IVFLUSH ×3 (09:02→21:50)
[2024-05-04] MEDS: Venlafaxine HCl ER 75 MG CAP.ER.24H PO (09:04)
[2024-05-04] MEDS: Furosemide 20 MG/2 ML VIAL IVPUSH (09:06)
--- NOTE | 2024-05-04 10:57 | MHC.CM.PN ---
PER MD ROUNDS, PT NOT MEDICALLY CLEARED, STILL RECEIVING IV LASIX DCP REMAINS HOME WITH RESUMPTION OF [employer]
--- NOTE | 2024-05-04 11:11 | HO.PM.IMPN ---
Subjective Subjective Date of Service: 05/04/24 Interval History: seen and examined today feeling better less sob and edema improved Review of Systems Negative except HPI/interval history. Physical Exam Vital Signs: Vital Signs: Last Vital Signs Temp 98.4 F 05/04/24 08:00 Pulse 76 05/04/24 08:04 Resp 18 05/04/24 08:04 BP 107/67 05/04/24 08:00 Pulse Ox 93 05/04/24 08:00 O2 Del Method Room Air 05/04/24 08:00 BMI result Body Mass Index 46.9 Const: Other: General - no acute distress, appears comfortable Cardiovascular - regular rate and rhythm, S1-S2 Lungs - normal respiratory effort, clear to auscultation bilaterally, no wheezing Abdomen - soft, nontender, no rebound or guarding Extremities - improving edema Neuro - awake and alert, no focal deficits Objective Data Active Medications Acetaminophen (Acetaminophen 325 Mg Tablet) 650 mg PO Q6H PRN PRN Reason: Pain, Mild (Pain Scale 1-3), fever or headache Last Admin: 05/04/24 09:05 Dose: 650 mg Documented By: SALOMÓN Albuterol Sulfate (Albuterol Sulfate (0.083%) 2.5 Mg/3 Ml Vial.Neb) 2.5 mg INHALE Q4H PRN PRN Reason: wheezing/shortness of breath/cough Albuterol/Ipratropium (Albuterol/Iprat 2.5/0.5mg 3 Ml Ampul.Neb) 3 ml INHALE RTID [facility] Last Admin: 05/04/24 08:03 Dose: 3 ml Documented By: STEPHANIE Aspirin (Aspirin Enteric Coated 81 Mg Tablet.Dr) 81 mg PO DAILY [facility] Last Admin: 05/04/24 08:58 Dose: 81 mg Documented By: SALOMÓN Atorvastatin Calcium (Atorvastatin Calcium 80 Mg Tablet) 80 mg PO BEDTIME [facility] Last Admin: 05/03/24 20:50 Dose: 80 mg Documented By: BRANDON Calcium Carbonate (Calcium Carbonate 750 Mg Tab.Chew) 750 mg PO Q4H PRN PRN Reason: Heartburn Famotidine (Famotidine 20 Mg Tablet) 20 mg PO BID [facility] Last Admin: 05/04/24 08:58 Dose: 20 mg Documented By: SALOMÓN Fluticasone Propionate (Fluticasone Propionate Nasal 16 Gm [place]) 2 spray NOSTRIL-B DAILY PRN PRN Reason: Allergy Symptoms Fluticasone/Vilanterol (Fluticasone/Vilanterol 200/25 Blst.W.Dev) 1 puff INHALE RDAILY [facility] Last Admin: 05/04/24 08:02 Dose: 1 puff Documented By: STEPHANIE Furosemide (Furosemide 20 Mg/2 Ml Vial) 20 mg IVPUSH BID@0900,1800 [facility]; Protocol Last Admin: 05/04/24 09:06 Dose: 20 mg Documented By: SALOMÓN Gabapentin (Gabapentin 300 Mg Capsule) 300 mg PO TID [facility] Last Admin: 04/30/24 14:31 Dose: 300 mg Documented By: MIAH Glucose (Glucose Gel 15 Gm Gel..Gram.) 15 gm PO Q15M PRN; Protocol PRN Reason: per Hypoglycemia Standing Ord. Hydrochlorothiazide (Hydrochlorothiazide 12.5 Mg Tablet) 12.5 mg PO DAILY [facility]; Protocol Last Admin: 05/04/24 08:58 Dose: 12.5 mg Documented By: SALOMÓN Dextrose (D10) 250 mls @ 750 mls/hr IV Q15M PRN; Protocol PRN Reason: per Hypoglycemia Standing Ord. Insulin Glargine (Insulin Glargine,Hum.Rec.Anlog 100 Unit/Ml 10 Ml Vial) 20 unit SUBCUT BID [facility] Last Admin: 05/04/24 09:01 Dose: 20 unit Documented By: SALOMÓN Insulin Human Lispro (Insulin Lispro 100 Unit/Ml 3 Ml Vial) 0 unit SUBCUT QIDACHS [facility]; Protocol Last Admin: 05/04/24 08:00 Dose: Not Given Documented By: SALOMÓN Non-Admin Reason: No Insulin Coverage Levothyroxine Sodium (Levothyroxine Sodium 25 Mcg Tablet) 25 mcg PO DAILY@0600 [facility] Last Admin: 05/04/24 05:46 Dose: 25 mcg Documented By: BRANDON Levothyroxine Sodium (Levothyroxine Sodium 200 Mcg Tablet) 200 mcg PO DAILY@0600 [facility] Last Admin: 05/04/24 05:46 Dose: 200 mcg Documented By: BRANDON Lisinopril (Lisinopril 40 Mg Tablet) 40 mg PO DAILY [facility]; Protocol Last Admin: 05/04/24 08:58 Dose: 40 mg Documented By: SALOMÓN Magnesium Hydroxide (Milk Of Magnesia 30 Ml Oral.Susp) 30 ml PO DAILY PRN PRN Reason: Constipation Melatonin (Melatonin 3 Mg Tablet) 6 mg PO BEDTIME PRN PRN Reason: Insomnia Metoprolol Succinate (Metoprolol Succinate Er 25 Mg Tab.Er.24h) 25 mg PO DAILY [facility]; Protocol Last Admin: 05/04/24 08:58 Dose: 25 mg Documented By: SALOMÓN Prazosin HCl (Prazosin Hcl 5 Mg Capsule) 5 mg PO BEDTIME [facility]; Protocol Last Admin: 05/03/24 20:51 Dose: 5 mg Documented By: BRANDON Quetiapine Fumarate (Quetiapine Fumarate 200 Mg Tablet) 200 mg PO BEDTIME PRN PRN Reason: Sleep Rivaroxaban (Rivaroxaban 10 Mg Tablet) 10 mg PO DAILY@1700 [facility] Last Admin: 05/03/24 16:35 Dose: 10 mg Documented By: STEPHANIE Sodium Chloride (0.9 % Sodium Chloride Flush 3 Ml Syringe) 3 ml IVFLUSH QSHIFT [facility] Last Admin: 05/04/24 09:02 Dose: 3 ml Documented By: SALOMÓN Venlafaxine HCl (Venlafaxine Hcl Er 75 Mg Cap.Er.24h) 75 mg PO DAILY [facility] Last Admin: 05/04/24 09:04 Dose: 75 mg Documented By: SALOMÓN Venlafaxine HCl (Venlafaxine Hcl Er 150 Mg Cap.Er.24h) 150 mg PO DAILY [facility] Last Admin: 05/04/24 08:58 Dose: 150 mg Documented By: SALOMÓN Zolpidem Tartrate (Zolpidem Tartrate 5 Mg Tablet) 5 mg PO BEDTIME PRN PRN Reason: insomnia Last Admin: 05/03/24 20:50 Dose: 5 mg Documented By: BRANDON Labs 05/03/24 10:24 05/04/24 11:03 Labs: Laboratory Results - last 24 hr 05/03/24 05/03/24 05/03/24 11:20 16:29 20:16 POC Glucose 138 H 147 H 200 H 05/04/24 07:34 POC Glucose 117 H Assessment and Plan (1) Anasarca: Status: Acute (2) Fluid overload: Status: Acute (3) CHF (congestive heart failure): Status: Acute Plan 53 yo F with a history IDDM, asthma/copd overlap/ ELLA on CPAP, obesity, CAD/PAD and mood disorder who presented to [facility] on 04/29 with shortness of breath and edema. She was noted to have generalized anasarca and is admitted for further care. 1. Generalized anasarca multifactorial including cardiac (acute diastolic CHF, normal RV function on echo), renal (possible nephrotic syndrome although 1g protein in the urine) nephrology on board -- follow their recs IV lasix 20mg BID follow renal function 2. MIRA possibly cardiorenal responding to diuretics, SCr downward trend -- await labs today (SCr slightly up -- will stop lasix, hold hctz and CORTNEY-i) 3. Acute HFpEF IV lasix as above cardiology on board 4. Asthma/COPD overlap / ELLA at baseline continue current mgmt 5. IDDM basal+bolus 6. PAD/CAD continue baseline antiplatelet and statins + bb 7. ? DVT noted in H&P, however, her outpatient xarelto dosing appears to be more for PAD (2.5mg BID, and it doesnt look like it has been prescribed since 2022)-- will stop xarelto for now and obtain records from [facility] and patients PCP; add lovenox for dvt pptx 8. hypothyroidism syntrhoid 9. HTN on CORTNEY / hctz -- which she has been on and SCr continues to improve see #2 above 10. Mood continue baseline meds Full Code DVT pptx - xarelto Quality Stroke Does the patient have a stroke diagnosis?: No VTE Prior VTE?: No VTE Risk Level:: Medical - moderate - high VTE Device Contraindication: Treatment Not Indicated VTE Drug Contraindication: N/A - Med Ordered
[2024-05-04 11:26] LABS: Anion Gap 14 (12-20); Blood Urea Nitrogen 38 mg/dL (9-16); Calcium 9.6 mg/dL (8.4-10.2); Carbon Dioxide 30 mmol/L (22-29); Chloride 99 mmol/L (96-108); Creatinine Clr Calc Pharmacy 55.8; Estimated Glomerular Filt Rate 39; Glucose Random 156 mg/dL (60-115); Potassium 3.7 mmol/L (3.3-5.1); Sodium 139 mmol/L (135-145)
[2024-05-04 11:35] LABS: Glucose, Whole Blood 171 mg/dL (60-115)
[2024-05-04] MEDS: Insulin Lispro 100 UNIT/ML 3 ML VIAL SUBCUT ×2 (11:50→21:49)
--- NOTE | 2024-05-04 12:09 | P.PNNP_ITS ---
Subjective Subjective Date of Service: 05/04/24 Interval history: Responding well to Lasix Physical Exam 2 Vital Signs: Vital Signs: Last Vital Signs Temp 98.4 F 05/04/24 08:00 Pulse 76 05/04/24 08:04 Resp 18 05/04/24 08:04 BP 107/67 05/04/24 08:00 Pulse Ox 93 05/04/24 08:00 O2 Del Method Room Air 05/04/24 08:00 BMI result Body Mass Index 46.9 Const: Other: General - no acute distress, appears comfortable Cardiovascular - regular rate and rhythm, S1-S2 Lungs - normal respiratory effort, clear to auscultation bilaterally, no wheezing Abdomen - soft, nontender, no rebound or guarding Extremities - improving edema Neuro - awake and alert, no focal deficits Objective Data Labs 05/03/24 10:24 05/04/24 11:03 Labs: Laboratory Results - last 24 hr 05/03/24 05/03/24 05/04/24 16:29 20:16 07:34 Sodium Potassium Chloride Carbon Dioxide Anion Gap BUN Creatinine Estim Creat Clear Calc Estimated GFR POC Glucose 147 H 200 H 117 H Random Glucose Calcium 05/04/24 05/04/24 11:03 11:31 Sodium 139 Potassium 3.7 Chloride 99 Carbon Dioxide 30 H Anion Gap 14 BUN 38 H Creatinine 1.41 H Estim Creat Clear Calc 55.8 Estimated GFR 39 POC Glucose 171 H Random Glucose 156 H Calcium 9.6 Microbiology Microbiology Results: Microbiology 04/29/24 15:22 Blood - Venous Blood Culture - Preliminary No growth after 48 hours. 04/29/24 14:46 Blood - Venous Blood Culture - Preliminary No growth after 48 hours. 04/29/24 Unknown Urine clean catch - Clean Catch Midstream Urine Culture - Final Procedures Date of Service Date of Service: 05/04/24 Assessment & Plan Assessment and plan (1) Anasarca: Status: Acute Plan 53-year-old woman with obesity diabetes mellitus and obstructive sleep apnea with with proteinuria has anasarca. Anasarca may be due to underlying nephrotic syndrome. However given the history of obesity and obstructive sleep apnea, right heart failure should be ruled out. Nephrotic syndrome could be due to underlying diabetic nephropathy versus other nondiabetic causes. Urine protein excretion of about 1 g SPEP is pending. Cr is better with diuresis Weight is down from 275 lb to 262 lb Recommendations Keep on low-sodium diet Agree with cautious diuresis. Agree with current dose of Lasix and can discharged home with 40 mg p.o. daily. Check daily weights Keep CPAP Needs outpatient follow-up when discharged Time Spent With Patient Time: Total time managing care of this patient today ____ minutes. Progress Note: Quality Stroke Does the patient have a stroke diagnosis?: No
[2024-05-04 16:32] LABS: Glucose, Whole Blood 141 mg/dL (60-115)
[2024-05-04] MEDS: Enoxaparin Sodium 40 MG/0.4 ML SYRINGE SUBCUT (17:15)
[2024-05-04 20:40] LABS: Glucose, Whole Blood 184 mg/dL (60-115)
[2024-05-04] MEDS: Prazosin HCL 5 MG CAPSULE PO (21:49)
[2024-05-04] MEDS: Atorvastatin Calcium 80 MG TABLET PO (21:49)
[2024-05-05 06:00] VITALS: BMI 46.6
[2024-05-05] MEDS: Levothyroxine Sodium 25 MCG TABLET PO (06:15)
[2024-05-05] MEDS: Levothyroxine Sodium 200 MCG TABLET PO (06:15)
[2024-05-05 06:39] LABS: Anion Gap 16 (12-20); Blood Urea Nitrogen 41 mg/dL (9-16); Calcium 9.1 mg/dL (8.4-10.2); Carbon Dioxide 28 mmol/L (22-29); Chloride 100 mmol/L (96-108); Creatinine Clr Calc Pharmacy 45.8; Estimated Glomerular Filt Rate 31; Glucose Random 143 mg/dL (60-115); Potassium 3.8 mmol/L (3.3-5.1); Sodium 140 mmol/L (135-145)
[2024-05-05 07:52] VITALS: BP 91/50; PULSE 60; RESP 18; TEMP 36.2; O2SAT 90
[2024-05-05 08:00] LABS: Glucose, Whole Blood 127 mg/dL (60-115)
[2024-05-05] MEDS: 0.9 % Sodium Chloride Flush 3 ML SYRINGE IVFLUSH ×3 (08:17→21:18)
[2024-05-05] MEDS: Insulin Glargine,Hum.rec.anlog 100 UNIT/ML 10 ML VIAL 20 UNIT SUBCUT ×2 (08:17→21:17)
[2024-05-05] MEDS: Famotidine 20 MG TABLET PO ×2 (08:17→21:17)
[2024-05-05] MEDS: Aspirin Enteric Coated 81 MG TABLET.DR PO (08:17)
[2024-05-05] MEDS: Fluticasone/Vilanterol 200/25 BLST.W.DEV 1 PUFF INHALE (08:26)
[2024-05-05] MEDS: Albuterol/Iprat 2.5/0.5MG 3 ML AMPUL.NEB INHALE ×3 (08:26→20:20)
[2024-05-05 08:27] VITALS: PULSE 68; RESP 18; O2SAT 92
[2024-05-05 11:11] LABS: Glucose, Whole Blood 111 mg/dL (60-115)
--- NOTE | 2024-05-05 11:45 | P.PNIM_ITS ---
Subjective Subjective Date of Service: 05/05/24 Interval History: seen and examined today feeling better and breathing significantly improved less sob and edema improved Review of Systems Negative except HPI/interval history. Physical Exam 2 Vital Signs: Vital Signs: Last Vital Signs Temp 97.1 F 05/05/24 07:52 Pulse 68 05/05/24 08:27 Resp 18 05/05/24 08:27 BP 91/50 L 05/05/24 07:52 Pulse Ox 90 L 05/05/24 07:52 O2 Del Method Room Air 05/05/24 07:52 BMI result Body Mass Index 46.6 Const: Other: General - no acute distress, appears comfortable Cardiovascular - regular rate and rhythm, S1-S2 Lungs - normal respiratory effort, clear to auscultation bilaterally, no wheezing Abdomen - soft, nontender, no rebound or guarding Extremities - improving edema Neuro - awake and alert, no focal deficits Objective Data Active Medications Acetaminophen (Acetaminophen 325 Mg Tablet) 650 mg PO Q6H PRN PRN Reason: Pain, Mild (Pain Scale 1-3), fever or headache Last Admin: 05/04/24 09:05 Dose: 650 mg Documented By: SALOMÓN Albuterol Sulfate (Albuterol Sulfate (0.083%) 2.5 Mg/3 Ml Vial.Neb) 2.5 mg INHALE Q4H PRN PRN Reason: wheezing/shortness of breath/cough Albuterol/Ipratropium (Albuterol/Iprat 2.5/0.5mg 3 Ml Ampul.Neb) 3 ml INHALE RTID [facility] Last Admin: 05/05/24 08:26 Dose: 3 ml Documented By: MIA Aspirin (Aspirin Enteric Coated 81 Mg Tablet.Dr) 81 mg PO DAILY [facility] Last Admin: 05/05/24 08:17 Dose: 81 mg Documented By: DOMI Atorvastatin Calcium (Atorvastatin Calcium 80 Mg Tablet) 80 mg PO BEDTIME [facility] Last Admin: 05/04/24 21:49 Dose: 80 mg Documented By: STEVE Calcium Carbonate (Calcium Carbonate 750 Mg Tab.Chew) 750 mg PO Q4H PRN PRN Reason: Heartburn Enoxaparin Sodium (Enoxaparin Sodium 40 Mg/0.4 Ml Syringe) 40 mg SUBCUT Q24H [facility] Last Admin: 05/04/24 17:15 Dose: 40 mg Documented By: SALOMÓN Famotidine (Famotidine 20 Mg Tablet) 20 mg PO BID [facility] Last Admin: 05/05/24 08:17 Dose: 20 mg Documented By: DOMI Fluticasone Propionate (Fluticasone Propionate Nasal 16 Gm [place]) 2 spray NOSTRIL-B DAILY PRN PRN Reason: Allergy Symptoms Fluticasone/Vilanterol (Fluticasone/Vilanterol 200/25 Blst.W.Dev) 1 puff INHALE RDAILY [facility] Last Admin: 05/05/24 08:26 Dose: 1 puff Documented By: MIA Gabapentin (Gabapentin 300 Mg Capsule) 300 mg PO TID [facility] Last Admin: 04/30/24 14:31 Dose: 300 mg Documented By: MIAH Glucose (Glucose Gel 15 Gm Gel..Gram.) 15 gm PO Q15M PRN; Protocol PRN Reason: per Hypoglycemia Standing Ord. Dextrose (D10) 250 mls @ 750 mls/hr IV Q15M PRN; Protocol PRN Reason: per Hypoglycemia Standing Ord. Insulin Glargine (Insulin Glargine,Hum.Rec.Anlog 100 Unit/Ml 10 Ml Vial) 20 unit SUBCUT BID [facility] Last Admin: 05/05/24 08:17 Dose: 20 unit Documented By: DOMI Insulin Human Lispro (Insulin Lispro 100 Unit/Ml 3 Ml Vial) 0 unit SUBCUT QIDACHS [facility]; Protocol Last Admin: 05/05/24 11:16 Dose: Not Given Documented By: DOMI Non-Admin Reason: No Insulin Coverage Levothyroxine Sodium (Levothyroxine Sodium 25 Mcg Tablet) 25 mcg PO DAILY@0600 [facility] Last Admin: 05/05/24 06:15 Dose: 25 mcg Documented By: STEVE Levothyroxine Sodium (Levothyroxine Sodium 200 Mcg Tablet) 200 mcg PO DAILY@0600 [facility] Last Admin: 05/05/24 06:15 Dose: 200 mcg Documented By: STEVE Magnesium Hydroxide (Milk Of Magnesia 30 Ml Oral.Susp) 30 ml PO DAILY PRN PRN Reason: Constipation Melatonin (Melatonin 3 Mg Tablet) 6 mg PO BEDTIME PRN PRN Reason: Insomnia Metoprolol Succinate (Metoprolol Succinate Er 25 Mg Tab.Er.24h) 25 mg PO DAILY [facility]; Protocol Last Admin: 05/05/24 07:56 Dose: Not Given Documented By: DOMI Non-Admin Reason: Decreased Blood Pressure Prazosin HCl (Prazosin Hcl 5 Mg Capsule) 5 mg PO BEDTIME [facility]; Protocol Last Admin: 05/04/24 21:49 Dose: 5 mg Documented By: STEVE Quetiapine Fumarate (Quetiapine Fumarate 200 Mg Tablet) 200 mg PO BEDTIME PRN PRN Reason: Sleep Sodium Chloride (0.9 % Sodium Chloride Flush 3 Ml Syringe) 3 ml IVFLUSH QSHIFT [facility] Last Admin: 05/05/24 08:17 Dose: 3 ml Documented By: DOMI Venlafaxine HCl (Venlafaxine Hcl Er 75 Mg Cap.Er.24h) 75 mg PO DAILY [facility] Last Admin: 05/05/24 08:19 Dose: Not Given Documented By: DOMI Non-Admin Reason: Patient Refused Venlafaxine HCl (Venlafaxine Hcl Er 150 Mg Cap.Er.24h) 150 mg PO DAILY [facility] Last Admin: 05/05/24 08:19 Dose: Not Given Documented By: DOMI Non-Admin Reason: Patient Refused Labs 05/03/24 10:24 05/05/24 05:46 Labs: Laboratory Results - last 24 hr 05/04/24 05/04/24 05/05/24 16:12 20:34 05:46 Anion Gap 16 Estim Creat Clear Calc 45.8 Estimated GFR 31 POC Glucose 141 H 184 H Random Glucose 143 H Calcium 9.1 05/05/24 05/05/24 07:51 11:04 Anion Gap Estim Creat Clear Calc Estimated GFR POC Glucose 127 H 111 Random Glucose Calcium Microbiology Microbiology Results: Microbiology 04/29/24 15:22 Blood Culture - Final Blood - Venous No growth after 5 days. 04/29/24 14:46 Blood Culture - Final Blood - Venous No growth after 5 days. Assessment and Plan (1) Anasarca: Status: Acute (2) Fluid overload: Status: Acute (3) CHF (congestive heart failure): Status: Acute Plan 53 yo F with a history IDDM, asthma/copd overlap/ ELLA on CPAP, obesity, CAD/PAD and mood disorder who presented to [facility] ED on 04/29 with shortness of breath and edema. She was noted to have generalized anasarca and is admitted for further care. 1. Generalized anasarca multifactorial including cardiac (acute diastolic CHF, normal RV function on echo), renal (possible nephrotic syndrome although 1g protein in the urine) nephrology on board -- follow their recs SCr rising last 48 hours, lasix on hold -- will continue to hold today and re- eval tomorrow 2. MIRA improved with diuresis initially however last 2 days, increasing ? over diuresis -- lasix on hold, repeat chem tomorrow 3. Acute HFpEF improved, lasix on hold cardiology on board 4. Asthma/COPD overlap / ELLA at baseline continue current mgmt 5. IDDM basal+bolus 6. PAD/CAD continue baseline antiplatelet and statins + bb 7. ? DVT noted in H&P, however, her outpatient xarelto dosing appears to be more for PAD (2.5mg BID, and it doesnt look like it has been prescribed since 2022)-- will stop xarelto for now and obtain records from [facility] and patients PCP; add lovenox for dvt pptx 8. hypothyroidism syntrhoid 9. HTN on CORTNEY / hctz -- which she has been on and SCr continues to improve see #2 above 10. Mood continue baseline meds Full Code DVT pptx - xarelto Quality Stroke Does the patient have a stroke diagnosis?: No VTE Prior VTE?: No VTE Risk Level:: Medical - moderate - high VTE Device Contraindication: Treatment Not Indicated VTE Drug Contraindication: N/A - Med Ordered
--- NOTE | 2024-05-05 12:29 | PM.PNCARD ---
Subjective Subjective Date of Service: 05/05/24 Interval history: Seen and examined at bedside. Feeling better. Creatinine is rising again and off diuretics at this point. Physical Exam Vital Signs: Last Vital Signs Temp 97.1 F 05/05/24 07:52 Pulse 68 05/05/24 08:27 Resp 18 05/05/24 08:27 BP 91/50 L 05/05/24 07:52 Pulse Ox 90 L 05/05/24 07:52 O2 Del Method Room Air 05/05/24 07:52 BMI result Body Mass Index 46.6 GENERAL APPEARANCE: Morbidly obese. In no distress. NECK: no carotid bruit, no significant JVD SKIN: no suspicious lesions, warm and dry. HEART: no murmurs, regular rate and rhythm. LUNGS: clear to auscultation bilaterally. ABDOMEN: soft, nontender. EXTREMITIES: No edema. PERIPHERAL PULSES: equal. NEUROLOGIC: No gross deficits, AAO X 3 Objective Labs and Meds 05/03/24 10:24 05/05/24 05:46 Lab results: Laboratory Results - last 24 hr 05/04/24 05/04/24 05/05/24 16:12 20:34 05:46 Sodium 140 Potassium 3.8 Chloride 100 Carbon Dioxide 28 Anion Gap 16 BUN 41 H Creatinine 1.71 H Estim Creat Clear Calc 45.8 Estimated GFR 31 POC Glucose 141 H 184 H Random Glucose 143 H Calcium 9.1 05/05/24 05/05/24 07:51 11:04 Sodium Potassium Chloride Carbon Dioxide Anion Gap BUN Creatinine Estim Creat Clear Calc Estimated GFR POC Glucose 127 H 111 Random Glucose Calcium Progress Note: A&P Assessment and plan (1) Anasarca: Status: Acute (2) CHF (congestive heart failure): Status: Acute Plan [age] year female presenting for diffuse anasarca and shortness of breath. She also had proteinuria and there was concern that she may have nephrotic syndrome. With diuretics she has improvement in her shortness of breath and she was taking significant salt before she came in -presentation is mostly due to congestive heart failure. Creatinine is rising with diuretics at this point and she is feeling better. Off diuretics for now and as creatinine improves she should be started on Lasix 40 mg p.o. daily. Would start her on Jardiance for diastolic heart failure. Proteinuria workup as per Nephrology. Thank you for allowing me to participate in the care of your patient. Please feel free to contact me if you have any questions. Time Spent With Patient Time: Total time managing care of this patient today ____ minutes. Progress Note: Quality Stroke Does the patient have a stroke diagnosis?: No Procedures Date of Service Date of Service: 05/05/24
[2024-05-05] MEDS: Empagliflozin 10 MG TABLET PO (14:29)
[2024-05-05 15:21] VITALS: BP 115/53; PULSE 68; RESP 18; TEMP 36.2; O2SAT 94
[2024-05-05 15:55] VITALS: PULSE 68; RESP 18; O2SAT 94
[2024-05-05 16:22] LABS: Glucose, Whole Blood 129 mg/dL (60-115)
[2024-05-05] MEDS: Enoxaparin Sodium 40 MG/0.4 ML SYRINGE SUBCUT (17:01)
[2024-05-05 20:00] VITALS: BP 104/55; PULSE 74; RESP 20; TEMP 36.6; O2SAT 99
[2024-05-05 20:22] VITALS: PULSE 74; RESP 20; O2SAT 93
[2024-05-05 20:52] LABS: Glucose, Whole Blood 156 mg/dL (60-115)
[2024-05-05] MEDS: Insulin Lispro 100 UNIT/ML 3 ML VIAL SUBCUT (21:17)
[2024-05-05] MEDS: Prazosin HCL 5 MG CAPSULE PO (21:17)
[2024-05-05] MEDS: Atorvastatin Calcium 80 MG TABLET PO (21:17)
[2024-05-06] MEDS: Calcium Carbonate 750 MG TAB.CHEW PO (03:22)
[2024-05-06 03:49] VITALS: BP 99/57; PULSE 95; RESP 18; TEMP 36.6; O2SAT 92
--- NOTE | 2024-05-06 05:59 | MHC.PIE ---
p; pt c/o diarrhea x2 tonight i; dr connors notified. new order imodium. [facility]
[2024-05-06 06:00] VITALS: BMI 46.6
[2024-05-06] MEDS: Levothyroxine Sodium 200 MCG TABLET PO (06:07)
[2024-05-06] MEDS: Loperamide HCl 2 MG CAPSULE PO (06:07)
[2024-05-06] MEDS: Levothyroxine Sodium 25 MCG TABLET PO (06:07)
[2024-05-06 07:28] LABS: Anion Gap 20 (12-20); Blood Urea Nitrogen 39 mg/dL (9-16); Calcium 8.6 mg/dL (8.4-10.2); Carbon Dioxide 20 mmol/L (22-29); Chloride 102 mmol/L (96-108); Creatinine Clr Calc Pharmacy 62.1; Estimated Glomerular Filt Rate 44; Glucose Random 138 mg/dL (60-115); Potassium 4.5 mmol/L (3.3-5.1); Sodium 137 mmol/L (135-145)
[2024-05-06 07:40] LABS: Glucose, Whole Blood 138 mg/dL (60-115)
[2024-05-06 07:45] VITALS: BP 118/53; PULSE 75; RESP 16; TEMP 36.2; O2SAT 94
[2024-05-06] MEDS: Albuterol/Iprat 2.5/0.5MG 3 ML AMPUL.NEB INHALE (08:14)
[2024-05-06] MEDS: Fluticasone/Vilanterol 200/25 BLST.W.DEV 1 PUFF INHALE (08:14)
[2024-05-06 08:16] VITALS: PULSE 75; RESP 16; O2SAT 94
[2024-05-06] MEDS: Metoprolol Succinate ER 25 MG TAB.ER.24H PO (08:39)
[2024-05-06] MEDS: Famotidine 20 MG TABLET PO (08:39)
[2024-05-06] MEDS: Empagliflozin 10 MG TABLET PO (08:39)
[2024-05-06] MEDS: Aspirin Enteric Coated 81 MG TABLET.DR PO (08:39)
[2024-05-06] MEDS: 0.9 % Sodium Chloride Flush 3 ML SYRINGE IVFLUSH (08:40)
[2024-05-06] MEDS: Insulin Glargine,Hum.rec.anlog 100 UNIT/ML 10 ML VIAL 20 UNIT SUBCUT (08:40)
--- NOTE | 2024-05-06 10:22 | PM.DS ---
DS: Providers Provider Date of Service: 05/06/24 Date of admission: 04/29/24 16:00 Primary care physician: GISSELL Perez Consults: 04/29/24 15:58 Consult to Cardiology Routine Consulting Provider: [facility] Reason for consultation: chf, ansarca 04/30/24 08:07 Consult to Nephrology Routine Consulting Provider: [facility] Reason for consultation: mira, anasarca DS: Diagnosis Discharge Diagnosis (1) Anasarca: Status: Acute (2) CHF (congestive heart failure): Status: Acute (3) MIRA (acute kidney injury): Status: Acute DS: Summary Hospital Course Hospital Course: Hospital Course: 53 year old female with history of RLE DVT on xarelto, insulin dependent type 2 diabetes, asthma/copd overlap, mansi compliant with cpap, cad, pad, hx cervical cancer, mood disorder who is morbidly obese with BMI >53 presented to the ED for evaluation of edema and shortness of breath. History obtained with the assistance of department clinician. The patient reports for the last month has been experiencing shortness of breath both and rest and increased with exertion and significant edema of the BLE. Several days ago began developing increased swelling in the upper extremities and eye lids. She has longstanding orthopnea. NO fevers, chills, abd pain, n/v/d, lightheadedness, palpitations, cough, chest pain. No recent illness. Denies sodium loading. She has been admitted and seen in the [facility] ED several times with significant swelling noted and diuresed but not discharged on lasix. Echo at [facility] showed normal LV systolic function with EF 60-65%, moderate concentric LVH and grade 1 left ventricular diastolic dysfunction. CTA was negative for PE but did show some compressive atelectasis. She was also treated with IV steroids during admission at [facility] and was then seen again in the ED was discharged on 7 day course of prednisone on 04/22. Despite this, continues to experience recurrent and worsening symptoms so presented to the ED for further evaluation. Since arrival to the ED, has been tachypneic with increased work of breathing was briefly placed on CPAP with some improvement. There is no hypoxia or fevers. There is no leukocytosis. Renal function consistent with baseline, electrolyte levels normal. Troponin 7.7, BNP undetectable. VBG reassuring with pH 7.50, pCO2 39, bicarb 31. Urinalysis with trace leukocytes, positive urinary sediment and trace bacteria but with positive squamous epithelial cells. Negative for COVID, RSV, influenza. Chest x-ray read shows consolidative airspace disease of the left mid and lower lung. EKG shows NSR, rate 73 without any acute ischemic changes. In the ED has been treated with IV ceftriaxone, DuoNeb, IV methylprednisolone and IV Lasix. Hospital Course: The patient presented with generalized anasarca and was evaluated by Cardiology as well as Nephrology. She had 1 g of proteinuria in the urine and a consideration for nephrotic syndrome was suggested. She was diuresed with IV Lasix 20 mg twice daily. She had improvement in her renal function however the last 48 hours prior to discharge per creatinine was on the rise and diuretics were held. After discussion with Nephrology, she will be discharged on 40 mg of Lasix daily. From a cardiac perspective, the patient underwent a 2D echo which showed diastolic dysfunction. Ultimately, her generalized anasarca was deemed multifactorial including possible nephrotic syndrome, acute kidney injury as well as acute on chronic diastolic heart failure. Of note, the patient is on Xarelto, previously prescribed at 2.5 mg twice daily. Initially there was a thought that she was on anticoagulation for prior DVTs. Results obtained from [facility] revealed that she had a negative ultrasound of the leg. Given the dose of 2.5 mg, this likely represents treatment for peripheral arterial disease. Furthermore, the patient reported that she was off of her Xarelto for ?quite some time. Her medication claim history suggested that this had not been prescribed to her since Sep 2023. I have suggested to the patient that she should continue this medication as prescribed by her primary care doctors and discuss with them the need to continue it further. Final discharge diagnosis Generalized anasarca Can not rule out nephrotic syndrome Acute kidney injury Acute on chronic diastolic heart failure Chronic asthma/COPD overlap syndrome Obstructive sleep apnea Insulin-dependent diabetes mellitus Coronary artery disease PAD Hypothyroidism Hypertension Time Attestation Discharge Coordination Time (in mins): 45 Quality: Safe Use of Opioids Does Pt have an Active Cancer Diagnosis on the Problem List?: No Quality: Stroke Does the patient have a stroke diagnosis?: No Physical Exam Vital Signs: Vital Signs: Last Vital Signs Temp 97.1 F 05/06/24 07:45 Pulse 75 07/14/24 08:16 Resp 16 05/06/24 08:16 BP 118/53 L 05/06/24 07:45 Pulse Ox 94 05/06/24 07:45 O2 Del Method Room Air 05/06/24 07:45 BMI result Body Mass Index 46.6 Const: Other: Awake and alert Significant improvement in her generalized anasarca with essentially no swelling of the lower extremities and face Breathing comfortably DS: Data Data Completed and Pending Labs on day of discharge: Laboratory Results - last 24 hr 05/05/24 05/05/24 05/05/24 11:04 16:08 20:41 Sodium Potassium Chloride Carbon Dioxide Anion Gap BUN Creatinine Estim Creat Clear Calc Estimated GFR POC Glucose 111 129 H 156 H Random Glucose Calcium 05/06/24 05/06/24 06:12 07:30 Sodium 137 Potassium 4.5 Chloride 102 Carbon Dioxide 20 L Anion Gap 20 BUN 39 H Creatinine 1.26 Estim Creat Clear Calc 62.1 Estimated GFR 44 POC Glucose 138 H Random Glucose 138 H Calcium 8.6 Discharge Plan Discharge Anticipated Discharge Date/Time: 05/06/24 10:18 Patient Disposition: Home Health Service Discharge Diagnosis: Anasarca Referrals: Clive Bermuen MD [Physician] - 1 Week Erlinda Bose PA [Primary Care Provider] - 1 Week Discharge Medications: New furosemide [Lasix] 40 mg tablet 40 mg PO DAILY Qty: 90 0RF Continued venlafaxine 75 mg capsule,extended release 24hr 75 mg PO DAILY albuterol sulfate 2.5 mg /3 mL (0.083 %) solution for nebulization 2.5 mg inhalation Q4H PRN (Reason: wheezing/shortness of breath/cough) quetiapine 200 mg tablet 200 mg PO BEDTIME PRN (Reason: Sleep) venlafaxine 150 mg capsule,extended release 24hr 150 mg PO DAILY aspirin 81 mg Tablet,Delayed Release (Dr/Ec) 81 mg PO DAILY levothyroxine 25 mcg tablet 25 mcg PO DAILY@0600 prazosin 5 mg capsule 5 mg PO BEDTIME famotidine 20 mg tablet 20 mg PO BID gabapentin 300 mg capsule 300 mg PO TID levothyroxine 200 mcg tablet 200 mcg PO DAILY@0600 metoprolol succinate 25 mg tablet extended release 24 hr 25 mg PO DAILY zolpidem 10 mg tablet 10 mg PO BEDTIME PRN (Reason: insomnia) lisinopril 40 mg tablet 40 mg PO DAILY fluticasone propionate 50 mcg/actuation spray,suspension 2 spray intranasal DAILY PRN (Reason: Allergy Symptoms) insulin lispro 100 unit/mL insulin pen 2 - 20 unit subcut TID rosuvastatin 40 mg tablet 40 mg PO BEDTIME budesonide-formoterol [Symbicort] 160-4.5 mcg/actuation HFA aerosol inhaler 2 puff INHALATION BID insulin glargine [Lantus Solostar U-100 Insulin] 100 unit/mL (3 mL) insulin pen 60 unit subcut BID Combivent Respimat 20-100 mcg/actuation mist 1 puff INHALATION TID Xarelto 2.5 mg tablet 2.5 mg PO BID Hold Instructions: Resume on 05/28/24. discuss with your primary doctor before restarting this Discontinued hydrochlorothiazide 12.5 mg capsule 12.5 mg PO DAILY Discharge Orders: Discharge Order (Routine); Ordered 05/06/24 Ordered By: Mook Graves Diet: Advance to usual diet Activity on Discharge: As tolerated Stand Alone Forms: Patient Portal Discharge page Print Language: Burmese Care Plan Goals: Take lasix 40mg every day Stop taking hydrochlorothiazide Talk to your doctor to see if you still need to take Xarelto 2.5mg twice daily Follow up with [facility] Health Concerns: see above Plan of Treatment: see above Assessment: see discharge summary Patient Instructions: Heart Failure (GEN)
[2024-05-06 11:14] LABS: Glucose, Whole Blood 156 mg/dL (60-115)
--- NOTE | 2024-05-06 13:06 | W.MHC.F2F ---
Service Date Service Date: 05/06/24 Encounter Date of encounter: 05/06/24 Reasons for Services Signs and symptoms assessed: BP and weight monitoring medication managment Reason for correction: medication management and medication treatment Overseeing Care: Erlinda Bose Homebound: Leaving the home is medically contraindicated at this time without the asist of a device and/or another person due th the listed conditions above and below. Reason homebound: weakness related to hospital stay Certification: Based on the above findings, I certify that this patient is confined to the home and needs intermittent correction care, physical therapy and/or speech therapy, or continues to need occupational therapy. The patient is under my care, and I have initiated the establishment of the plan of care. The patient will be followed by a physician who will periodically review the plan of care. Time Spent With Patient Time: Total time managing care of this patient today ____ minutes.
--- NOTE | 2024-05-06 13:41 | MHC.CM.PN ---
Patient medically cleared for dc home w/ new [facility] for SN. Alena will provide services. CM met with patient w/ court interpreter assistance. Patient is agreeable to dc plan. at bedside to transport home.
[2024-05-07 08:48] LABS: PEU-Protein Creat Ratio Rand 0.987 (0.024-0.184); PEU-Rand. Prot/Creat Ratio 987 mg/g creat (24-184); PEU-Random Ur. Gamma Globulin 10 %; PEU-Random Urine A1 Globulin 2 %; PEU-Random Urine A2 Globulin 4 %; PEU-Random Urine Albumin 74 %; PEU-Random Urine Beta Globulin 10 %; PEU-Random Urine Creatinine 158 mg/dL (20-275); PEU-Random Urine Protein 156 mg/dL (5-24)
[2024-05-07 21:19] LABS: Prot Elec - Albumin 3.4 g/dL (3.8-4.8); Prot Elec - Alpha1 0.2 g/dL (0.2-0.3); Prot Elec - Alpha2 0.7 g/dL (0.5-0.9); Prot Elec - Beta 1 0.4 g/dL (0.4-0.6); Prot Elec - Beta 2 0.5 g/dL (0.2-0.5); Prot Elec - Gamma 0.9 g/dL (0.8-1.7); Prot Elec - Total Protein 6.1 g/dL (6.1-8.1)
--- NOTE | 2024-05-17 13:35 | PC.NURSE ---
Addendum entered by Padma Shahid RN 06/06/24 15:45: late entry for 05/03/24 1635 , pt requested tylenol for pain , pt states pain is a 4 but wanted to only take PO Tylenol . Original Note: late entry , pt requested tylenol for pain , pt states pain is a 4 but wanted to only take PO Tylenol .
== END 2024-05-06 13:53 | disposition home health service (06) | DRG 468 ==
LOC: HO.ED 16:13 → HO.EDOVER 16:14 → HO.S3 16:45
PROVIDERS: Internal Medicine; Nurse Practitioner Acute Care; Physician Assistant Medical; Admitting Provider Physician Assistant; Emergency Provider Emergency Medicine; PCP Physician Assistant; Visit Provider Family Medicine
DX: E11.21 Type 2 diabetes mellitus with diabetic nephropathy (principal); I50.33 Acute on chronic diastolic (congestive) heart failure; N17.9 Acute kidney failure, unspecified; I11.0 Hypertensive heart disease with heart failure; I25.10 Atherosclerotic heart disease of native coronary artery without angina pectoris; Z68.43 Body mass index [BMI] 50.0-59.9, adult; E11.42 Type 2 diabetes mellitus with diabetic polyneuropathy; E11.51 Type 2 diabetes mellitus with diabetic peripheral angiopathy without gangrene; E66.01 Morbid (severe) obesity due to excess calories; G47.33 Obstructive sleep apnea (adult) (pediatric); J44.9 Chronic obstructive pulmonary disease, unspecified; E03.9 Hypothyroidism, unspecified; F39 Unspecified mood [affective] disorder; Z20.822 Contact with and (suspected) exposure to COVID-19; Z87.891 Personal history of nicotine dependence; Z79.4 Long term (current) use of insulin; Z79.01 Long term (current) use of anticoagulants; Z79.82 Long term (current) use of aspirin; Z79.890 Hormone replacement therapy; Z79.899 Other long term (current) drug therapy
CPT/HCPCS: 0241U; 36415; 71045; 80048; 80053; 81001; 82570; 82803; 82947; 83605; 83735; 83880; 84156; 84165; 84166; 84484; 85025; 85027; 85610; 85730; 86160; 87040; 87086; 93005; 93306; 99285; J0696; J1650; J1940; J2919; Q9957

== ENCOUNTER 2024-04-29 16:00 | Outpatient (BNV) | payer OTHER, SELFPAY | END 2024-04-30 07:00 | PROVIDERS: Admitting Provider Physician Assistant; Emergency Provider Emergency Medicine; PCP Physician Assistant; Visit Provider Internal Medicine Cardiovascular Disease | DX: I50.9 Heart failure, unspecified (principal) | CPT/HCPCS: 93306 ==

== ENCOUNTER → 2024-04-29 16:00 | Outpatient (BNV) | payer OTHER, SELFPAY | PROVIDERS: Admitting Provider Physician Assistant; Emergency Provider Emergency Medicine; PCP Physician Assistant; Visit Provider Nurse Practitioner Acute Care | DX: R60.1 Generalized edema (principal); I50.9 Heart failure, unspecified; N17.9 Acute kidney failure, unspecified | CPT/HCPCS: 99223; 99232; 99239; G0180 ==

== ENCOUNTER → 2024-04-29 16:00 | Outpatient (BNV) | payer OTHER, SELFPAY | PROVIDERS: Admitting Provider Physician Assistant; Emergency Provider Emergency Medicine; PCP Physician Assistant; Visit Provider Internal Medicine Cardiovascular Disease | DX: R60.1 Generalized edema (principal); I50.9 Heart failure, unspecified | CPT/HCPCS: 93010; 99223; 99233 ==

== ENCOUNTER → 2024-04-29 16:00 | Outpatient (BNV) | payer OTHER, SELFPAY | PROVIDERS: Admitting Provider Physician Assistant; Emergency Provider Emergency Medicine; PCP Physician Assistant; Visit Provider Internal Medicine Hypertension Specialist | DX: E11.21 Type 2 diabetes mellitus with diabetic nephropathy (principal); R60.1 Generalized edema | CPT/HCPCS: 99223; 99232 ==

== ENCOUNTER 2024-05-16 14:16 | Outpatient (AMB) | payer OTHER, SELFPAY ==
[2024-05-16 14:18] VITALS: BP 110/50; PULSE 92; O2SAT 91; BMI 47.4
--- NOTE | 2024-05-16 14:18 | HO.NEPHOV_ITS ---
Vital Signs 05/16/24 14:18 Height 5 ft 2 in Weight 259 lb BMI 47.4 BP 110/50 L Blood Pressure Location Lt brachial Position Sitting Pulse 92 Pulse Source Pulse Oximeter Pulse Oximetry (%) 91 L Oxygen Delivery Method Room Air Intake Visit Reasons: Diffuse anasarca/ Conf Facilities Maintenance Assistant Required: No Accompanied by: CAR WASH MANAGER Allergies metformin Allergy (Verified 05/16/24 14:20) Diarrhea HPI Comments Details: 53 year old female with history of RLE DVT on xarelto, insulin dependent type 2 diabetes, asthma/copd overlap, ELLA compliant with cpap, cad, pad, hx cervical cancer, mood disorder who is morbidly obese with BMI >53 presented to the ED for evaluation of edema and shortness of breath. The patient reports for the last month has been experiencing shortness of breath both and rest and increased with exertion and significant edema of the BLE. Several days ago began developing increased swelling in the upper extremities and eye lids. She has longstanding orthopnea. NO fevers, chills, abd pain, n/v/d, lightheadedness, palpitations, cough, chest pain. No recent illness. Denies sodium loading. She has been admitted and seen in the [facility] ED several times with significant swelling noted and diuresed but not discharged on lasix. Echo at [facility] showed normal LV systolic function with EF 60-65%, moderate concentric LVH and grade 1 left ventricular diastolic dysfunction. There was no mention of right ventricular pressures on echocardiogram. She was seen for anasarca during hospitalization. She was given IV Lasix and edema improved she would acute kidney injury which also improved with cautious diuresis [facility] Medical History (Updated 05/14/24 @ 00:02 by Lillian Amaya) Anasarca Fluid overload Asthma-COPD overlap syndrome Morbid obesity ELLA on CPAP Peripheral artery disease CAD (coronary artery disease) Type 2 diabetes mellitus CHF (congestive heart failure) DVT (deep venous thrombosis) Social History Household Members: Spouse Housing: Apartment Do you presently have visiting nurse or other home services: No Patient Tobacco Use Status: Former Tobacco user Substance Use Type: Marijuana service: No Physical Exam Vital Signs: Last Vital Signs Pulse 92 05/16/24 14:18 BP 110/50 L 05/16/24 14:18 Pulse Ox 91 L 05/16/24 14:18 Oxygen Delivery Method Room Air 05/16/24 14:18 BMI result Body Mass Index 47.4 Const General: comfortable; No acute distress Nutritional Appearance: obese Orientation/consciousness: patient oriented x3 Eyes General: appearance normal, both eyes and all related structures Visual Reaves: normal visual reaves by confrontation Neck Neck: Yes supple and Yes no JVD Resp Effort & Inspection: normal respiratory effort and respiratory effort not decreased Auscultation: rhonchi Cardio Palpation: no palpable S3 and no palpable S4 Heart sounds: no rubs GI Inspection: Yes normal to inspection Palpation (GI): Soft to palpation Percussion: Yes normal to percussion Auscultation: normal bowel sounds General: Yes no CVA tenderness Back/Spine/Pelvis Back: no CVA tenderness Skin General skin exam: no petechiae and no purpura Neuro General: patient oriented x3 and no focal motor deficits Extrem General: No clubbing and Yes edema Results Reviewed Nephrology Results: Hgb 16.2 g/dl (12.0-16.0) H 05/03/24 WBC 8.2 X10*3/uL (4.8-10.8) 05/03/24 Plt Count 247 X10*3/uL (160-400) 05/03/24 Sodium 137 mmol/L (135-145) 05/06/24 Potassium 4.5 mmol/L (3.3-5.1) 05/06/24 Chloride 102 mmol/L (96-108) 05/06/24 Carbon Dioxide 20 mmol/L (22-29) L 05/06/24 BUN 39 mg/dL (9-16) H 05/06/24 Creatinine 1.26 mg/dL (0.5-1.4) 05/06/24 Calcium 8.6 mg/dL (8.4-10.2) 05/06/24 Urine Protein 300 (3+) mg/dL (Neg-Trace) H 04/29/24 Urine Creatinine 158.01 mg/dL 04/30/24 Protein/Creatinin Ratio 987 mg/g creat (24-184) H 04/30/24 Assessment & Plan Assessment & Plan (1) MIRA (acute kidney injury): Code(s): N17.9 - Acute kidney failure, unspecified Category: Medical Plan 53-year-old woman with obesity diabetes mellitus and obstructive sleep apnea with with proteinuria has anasarca. Anasarca may be due to underlying nephrotic syndrome. However given the history of obesity and obstructive sleep apnea, right heart failure should be ruled out. Nephrotic syndrome could be due to underlying diabetic nephropathy versus other nondiabetic causes. Urine protein excretion of about 1 g SPEP is pending. Cr is better with diuresis Weight is down Recommendations Keep on low-sodium diet cautious diuresis. Switch Lasix 40 mg to Bumex 1 mg q.d.. Add metolazone 2.5 mg 2 times a week. Check daily weights Keep CPAP Recheck labs today and in the next few weeks. Follow up in 4 weeks Orders: Orders Basic Metabolic Panel Today N17.9 - Acute kidney failure, unspecified Comprehensive Met. Panel 4 Weeks N17.9 - Acute kidney failure, unspecified Medications: New metolazone 2.5 mg PO .2x week 30 tabs 0RF bumetanide 1 mg PO DAILY 90 tabs 0RF Discontinued furosemide (Lasix) Discontinued Reason: Doctor's Order 40 mg PO DAILY 90 tabs 0RF Coding Level of Care Code Est Pt Level 4 (62824) Diagnoses MIRA (acute kidney injury) N17.9
== END 2024-05-16 14:42 | disposition home or self-care (01) ==
PROVIDERS: PCP Physician Assistant; Visit Provider Internal Medicine Hypertension Specialist
DX: N17.9 Acute kidney failure, unspecified (principal)
CPT/HCPCS: 99214

== ENCOUNTER → 2024-05-16 14:16 | Outpatient (BNVA) | payer OTHER, SELFPAY | PROVIDERS: PCP Physician Assistant; Visit Provider Internal Medicine Hypertension Specialist | DX: N17.9 Acute kidney failure, unspecified (principal); E11.9 Type 2 diabetes mellitus without complications; Z79.01 Long term (current) use of anticoagulants; Z79.4 Long term (current) use of insulin; Z86.718 Personal history of other venous thrombosis and embolism | CPT/HCPCS: 99212 ==

== ENCOUNTER 2024-05-16 14:44 | Outpatient (REF) | payer OTHER, SELFPAY ==
[2024-05-16 18:59] LABS: Anion Gap 15 (12-20); Blood Urea Nitrogen 31 mg/dL (9-16); Calcium 9.4 mg/dL (8.4-10.2); Carbon Dioxide 25 mmol/L (22-29); Chloride 103 mmol/L (96-108); Estimated Glomerular Filt Rate > 60; Glucose Random 288 mg/dL (60-115); Potassium 4.1 mmol/L (3.3-5.1); Sodium 139 mmol/L (135-145)
== END 2024-05-16 14:45 | disposition home or self-care (01) ==
LOC: HO.HKASLDS 14:44
PROVIDERS: Visit Provider Internal Medicine Hypertension Specialist
DX: N17.9 Acute kidney failure, unspecified (principal)
CPT/HCPCS: 36415; 80048

== ENCOUNTER 2024-05-28 13:54 | Inpatient (IN) | payer OTHER, SELFPAY ==
--- NOTE | ~2024-05-28 | XR_ITS ---
EXAMINATION: XR LUMBOSACRAL SPINE CLINICAL INFORMATION: Back pain COMPARISON: None available. TECHNIQUE: Three views of the lumbosacral spine. FINDINGS: Normal alignment. No fracture. Mild to moderate multilevel degenerative disc disease. Atherosclerotic calcifications of the abdominal aorta. XR/XR lumbar spine 2-3V IMPRESSION: Mild to moderate multilevel degenerative disc disease.
[2024-05-28 14:47] VITALS: BP 101/63; PULSE 86; RESP 17; TEMP 36.7; O2SAT 94; BMI 50.8
--- NOTE | 2024-05-28 15:01 | ECG_ITS ---
Test Reason : dizziness Blood Pressure : / mmHG Vent. Rate : 082 BPM Atrial Rate : 082 BPM P-R Int : 136 ms QRS Dur : 086 ms QT Int : 386 ms P-R-T Axes : 000 243 094 degrees QTc Int : 450 ms Sinus rhythm with Fusion complexes Low voltage QRS Possible Anterolateral infarct (cited on or before 29-APR-2024) Abnormal ECG When compared with ECG of 29-APR-2024 14:00, Fusion complexes are now Present Nonspecific T wave abnormality no longer evident in Lateral leads Referred By: Kenneth Alves Electronically Signed By:BARBARA RIVERA MD
--- NOTE | 2024-05-28 15:08 | ED_ITS ---
HPI - General Adult General Chief complaint: Dizziness Stated complaint: pain waist down Time Seen by Provider: 05/28/24 21:53 Source: patient Mode of arrival: ambulatory Limitations: no limitations History of Present Illness ED Provider: jose KENDALL narrative: Patient is 54 years old with history of insulin dependent type 2 diabetes, asthma/COPD overlap/ELLA on CPAP in the nighttime, peripheral artery disease, with history of MIRA admitted 04/29/2024 for anasarca started on Bumex comes here for 3 days of lower back pain and vertiginous feeling no recent fall no radiation of the pain no paresthesia pain is localized in lower back patient does have history of chronic low back pain [facility] when she noticed the pain in the lower back no bladder or bowel involvement Related Data Home Medications ?Medication ?Instructions ?Recorded ?Confirmed albuterol sulfate 2.5 mg/3 mL 2.5 mg inhalation Q4H PRN 04/29/24 04/29/24 (0.083 %) solution for nebulization wheezing/shortness of breath/cough aspirin 81 mg tablet,delayed 81 mg PO DAILY 04/29/24 04/29/24 release budesonide-formoterol HFA 160 2 puff inhalation BID 04/29/24 04/29/24 mcg-4.5 mcg/actuation aerosol inhaler (Symbicort) famotidine 20 mg tablet 20 mg PO BID heartburn 04/29/24 04/29/24 fluticasone propionate 50 2 spray intranasal DAILY PRN 04/29/24 04/29/24 mcg/actuation nasal Allergy Symptoms spray,suspension gabapentin 300 mg capsule 300 mg PO TID 04/29/24 04/29/24 insulin glargine 100 unit/mL (3 60 unit subcut BID 04/29/24 04/29/24 mL) subcutaneous pen (Lantus Solostar U-100 Insulin) insulin lispro 100 unit/mL 2 - 20 unit subcut TID 04/29/24 04/29/24 subcutaneous pen ipratropium 20 mcg-albuterol 100 1 puff inhalation TID wheezing 04/29/24 04/29/24 mcg/actuation mist for inhalation (Combivent Respimat) levothyroxine 200 mcg tablet 200 mcg PO DAILY@0600 04/29/24 04/29/24 levothyroxine 25 mcg tablet 25 mcg PO DAILY@0600 04/29/24 04/29/24 lisinopril 40 mg tablet 40 mg PO DAILY 04/29/24 04/29/24 metoprolol succinate 25 mg 25 mg PO DAILY 04/29/24 04/29/24 tablet,extended release 24 hr prazosin 5 mg capsule 5 mg PO BEDTIME 04/29/24 04/29/24 quetiapine 200 mg tablet 200 mg PO BEDTIME PRN Sleep 04/29/24 04/29/24 rivaroxaban 2.5 mg tablet (Xarelto) 2.5 mg PO BID 04/29/24 04/29/24 rosuvastatin 40 mg tablet 40 mg PO BEDTIME 04/29/24 04/29/24 venlafaxine 150 mg 150 mg PO DAILY 04/29/24 04/29/24 capsule,extended release 24 hr venlafaxine 75 mg capsule,extended 75 mg PO DAILY 04/29/24 04/29/24 release 24 hr zolpidem 10 mg tablet 10 mg PO BEDTIME PRN insomnia 04/29/24 04/29/24 Previous Rx's ?Medication ?Instructions ?Recorded bumetanide 1 mg tablet 1 mg PO DAILY #90 tabs 05/16/24 metolazone 2.5 mg tablet 2.5 mg PO .2x week #30 tabs 05/16/24 Allergies Allergy/AdvReac Type Severity Reaction Status Date / Time metformin Allergy Diarrhea Verified 05/28/24 14:53 Review of Systems 2 Review of Systems: Yes all other systems are reviewed and are negative [facility] Past Medical History Medical History Anasarca Fluid overload Asthma-COPD overlap syndrome Morbid obesity ELLA on CPAP Peripheral artery disease CAD (coronary artery disease) Type 2 diabetes mellitus CHF (congestive heart failure) DVT (deep venous thrombosis) Social History Social History Household Members: Spouse Housing: Apartment Do you presently have visiting nurse or other home services: No Alcohol intake: never Patient Tobacco Use Status: Former Tobacco user Smoked in Last 30 Days: No Use of substances other than those prescribed or required for medical reasons: No Substance Use Type: Marijuana Advance Directives: No Advance Directives Information Provided: No Nutrition Risks: No Nutritional Risk Patient : No service: No Physical Exam ED Vital Signs: Vital Signs - 24 hr 05/28/24 14:47 05/28/24 22:26 05/29/24 00:54 Temperature 98.0 F 97.9 F 97.6 F Pulse Rate 86 83 83 Respiratory Rate 17 18 18 Blood Pressure 101/63 130/62 128/61 Pulse Oximetry 94 94 94 Oxygen Delivery Method Room Air Room Air Room Air 05/29/24 03:57 05/29/24 04:27 Temperature 97.9 F Pulse Rate 82 Respiratory Rate 16 20 Blood Pressure 100/50 L Pulse Oximetry 96 Oxygen Delivery Method Room Air BMI result Body Mass Index 50.8 Appearance: Alert. Oriented X3. No acute distress. Eyes: PERRLA, No Nystagmus ENT: Pharynx normal. Oral Mucosa moist Neck: Normal inspection. Neck supple. CVS: Normal heart rate and rhythm. Pulses normal. Respiratory: No respiratory distress. Equal air entry bilateral, no wheezing/rales/rhonchi Abdomen: Soft and nontender. Bowel sounds are present, no mass palpable, no CVA tenderness Skin: Skin warm and dry. Normal skin color. Normal skin turgor. Extremities:2+ lower extremity edema. No calf tenderness back: Diffuse lower lumbar tenderness SLR negative bilaterally neurovascular intact Neuro: Oriented X 3. No motor deficit. No sensory deficit.No cerebellar signs , cranial nerves II-XII intact Course Course Course Narrative: RME: done by GISSELL Virk. 54-year-old female history of diabetes presents to the ED for right low back buttock pain going down right leg and every time she has the pain she has severe dizziness and nausea. Patient states trouble walking due to the pain and dizziness. Patient denies any slurred speech, facial droop, loss of vision, paralysis of extremities, any recent trauma. Patient states no chest pain or shortness of breath. On exam positive for right paraspinal and right gluteal tenderness on palpation. Due to past medical history with a cardiac evaluation on top of x-ray of lumbar spine. Medications Administered Discontinued Medications Generic Name Dose Route Start Last Admin Trade Name Freq PRN Reason Stop Dose Admin Sodium Chloride 1,000 mls @ 999 mls/hr 05/28/24 21:59 05/29/24 02:03 Ns IV 05/28/24 22:59 Infused .Q1H1M ONE Infusion Sodium Chloride 250 mls @ 999 mls/hr 05/29/24 06:16 05/29/24 07:35 Ns IV 05/29/24 06:31 Infused .Q16M STA Infusion Meclizine HCl 12.5 mg 05/28/24 22:15 05/28/24 22:37 Meclizine Hcl 12.5 Mg Tablet PO 05/28/24 22:16 12.5 mg ONCE ONE Administration Medical Decision Making Medical Decision Making [facility] Narrative: Patient with acute kidney injury likely prerenal because she is on Bumex received IV fluid still creatinine is elevated decreased from 2.27 to 1.75 will admit patient for slow IV hydration and renal consult Differential Diagnosis Differential Diagnoses: The differential diagnosis associated with the presentation includes Admission/Observation Consideration of admission/observation: Escalation of care including admission/observation considered Consult Healthcare Provider Management of the patient was discussed with: Hospitalist Lab Data [facility] Lab Attestation statement: I reviewed the patient's lab results. 05/28/24 15:12 05/29/24 05:06 Labs: Lab Results 05/28/24 05/28/24 05/29/24 Range/Units 15:12 15:25 02:13 WBC 10.4 (4.8-10.8) X10*3/uL RBC 5.07 (4.20-5.50) X10*6/uL Hgb 15.2 (12.0-16.0) g/dl Hct 46.3 (37.0-47.0) % MCV 91.3 (80.0-98.0) fL MCH 30.0 (27.0-33.0) pg MCHC 32.8 (31.0-35.0) g/dl RDW 14.4 (11.0-16.0) % Plt Count 300 (160-400) X10*3/uL MPV 10.1 (9.4-12.3) fL Immature Gran % (Auto) 0.9 H (0.0-0.4) % Neut % (Auto) 68.2 (45-73) % Lymph % (Auto) 23.2 (20-40) % [place] % (Auto) 5.9 (2-11) % Eos % (Auto) 1.2 (0-4) % Baso % (Auto) 0.6 (0-2) % Lymph # (Auto) 2.4 (1.2-4.9) X10*3/uL [place] # (Auto) 0.6 (0.1-1.2) X10*3/uL Eos # (Auto) 0.1 (0.0-0.4) X10*3/uL Baso # (Auto) 0.1 (0.0-0.2) X10*3/uL Abs Immat Gran (auto) 0.09 H (0.00-0.03) X10*3/uL Absolute Neuts (auto) 7.1 (2.0-8.3) x10*3/uL Absolute Nucleated RBC 0.000 (0.0-0.012) X10*3/uL Nucleated RBC % (auto) 0.0 (0.0-0.2) /100WBC Sodium 141 139 (135-145) mmol/L Potassium 4.2 3.9 (3.3-5.1) mmol/L Chloride 103 103 (96-108) mmol/L Carbon Dioxide 26 27 (22-29) mmol/L Anion Gap 16 13 (12-20) BUN 83 H 79 H (9-16) mg/dL Creatinine 2.27 H 1.75 H (0.5-1.4) mg/dL Estim Creat Clear Calc 33.3 43.2 Estimated GFR 22 30 Random Glucose 163 H 334 H (60-115) mg/dL Calcium 10.3 H D 9.5 D (8.4-10.2) mg/dL Total Bilirubin 0.3 (0.0-1.0) mg/dL AST 18 (5-31) U/L ALT 21 (0-31) U/L Alkaline Phosphatase 96 (39-117) U/L Troponin I High Sens 2.9 D (<3.5-17.0) ng/L Total Protein 7.4 (6.5-8.0) g/dL Albumin 3.6 (3.5-5.0) g/dL Urine Color Yellow Urine Appearance Clear Urine pH 5.5 (5.0-9.0) Ur Specific [place] 1.010 (1.005-1.025) Urine Protein 30 (1+) H (Neg-Trace) mg/dL Urine Glucose (UA) Negative (Negative) mg/dL Urine Ketones Negative (Negative) mg/dL Urine Blood Negative (Negative) Urine Nitrite Negative (Negative) Ur Leukocyte Esterase Negative (Negative) Urine RBC 0-2 (0-2) /HPF Urine WBC 0-5 (0-5) /HPF Ur Squamous Epith Cells 3-5 (0-2) /HPF Urine Bacteria Trace (None Seen) Hyaline Casts 0-2 (0-2) /LPF Urine Test NEGATIVE (NEGATIVE) Independent Interpretation I performed an independent interpretation of an: EKG Interpretation: Normal sinus rhythm heart rate 82 beats per minute nonspecific STT wave changes no acute ischemia Discharge Plan Discharge Clinical Impression: MIRA (acute kidney injury), ELLA on CPAP Type 2 diabetes mellitus Qualifiers: Diabetes mellitus intermediate teacher insulin use: with intermediate teacher use Diabetes mellitus complication status: with hyperglycemia Qualified Code(s): E11.65 - Type 2 diabetes mellitus with hyperglycemia Patient Disposition: Admitted As Inpatient
[2024-05-28 15:23] LABS: MANUAL DIFF FLAG NO
[2024-05-28 15:24] LABS: Basophils Absolute Auto 0.1 X10*3/uL (0.0-0.2); Basophils Percent Auto 0.6 % (0-2); Eosinophils Absolute Auto 0.1 X10*3/uL (0.0-0.4); Eosinophils Percent Auto 1.2 % (0-4); Hematocrit 46.3 % (37.0-47.0); Hemoglobin 15.2 g/dl (12.0-16.0); Imm Gran Abs Auto 0.09 X10*3/uL (0.00-0.03); Imm Gran Pct Auto 0.9 % (0.0-0.4); Lymphocytes Absolute Auto 2.4 X10*3/uL (1.2-4.9); Lymphocytes Percent Auto 23.2 % (20-40); Mean Corpuscular HGB Conc 32.8 g/dl (31.0-35.0); Mean Corpuscular Volume 91.3 fL (80.0-98.0); Mean Platelet Volume 10.1 fL (9.4-12.3); Monocytes Absolute Auto 0.6 X10*3/uL (0.1-1.2); Monocytes Percent Auto 5.9 % (2-11); Neutrophils Absolute Auto 7.1 x10*3/uL (2.0-8.3); Neutrophils Percent Auto 68.2 % (45-73); Platelet Count 300 X10*3/uL (160-400); Red Blood Count 5.07 X10*6/uL (4.20-5.50); Red Cell Distribution Width 14.4 % (11.0-16.0); White Blood Count 10.4 X10*3/uL (4.8-10.8)
[2024-05-28 15:38] LABS: Appearance Urine Clear; Color Urine Yellow; Glucose Urine UA Negative (Negative); Leukocyte Esterase Urine Negative (Negative); Nitrite Urine Negative (Negative); PH 5.5 (5.0-9.0); UMIC TRIGGER UACC YES; Urine Blood Negative (Negative); Urine Ketones Negative (Negative); Urine Protein 30 (1+) mg/dL (Neg-Trace)
[2024-05-28 15:42] LABS: Urine Pregnancy NEGATIVE (NEGATIVE)
[2024-05-28 15:43] LABS: UPreg QC Valid YES
[2024-05-28 15:46] LABS: Alanine Aminotransferase 21 U/L (0-31); Albumin Level 3.6 g/dL (3.5-5.0); Alkaline Phosphatase 96 U/L (39-117); Anion Gap 16 (12-20); Aspartate Amino Transferase 18 U/L (5-31); Bilirubin Total 0.3 mg/dL (0.0-1.0); Blood Urea Nitrogen 83 mg/dL (9-16); Calcium 10.3 mg/dL (8.4-10.2); Carbon Dioxide 26 mmol/L (22-29); Chloride 103 mmol/L (96-108); Creatinine Clr Calc Pharmacy 33.3; Estimated Glomerular Filt Rate 22; Glucose Random 163 mg/dL (60-115); Potassium 4.2 mmol/L (3.3-5.1); Sodium 141 mmol/L (135-145); Total Protein 7.4 g/dL (6.5-8.0)
[2024-05-28 15:50] LABS: Bacteria Urine Trace (None Seen); Hyaline Casts Urine 0-2 /LPF (0-2); RBC Urine 0-2 /HPF (0-2); WBC Urine 0-5 /HPF (0-5)
[2024-05-28 15:53] LABS: Troponin-I High Sensitivity 2.9 ng/L (<3.5-17.0)
[2024-05-28] MEDS: 0.9 % Sodium Chloride 1,000 ML 999 ML IV (22:23)
--- NOTE | 2024-05-28 22:25 | MHC.EDTECH ---
Patient brought in from waiting room,changed into hospital attire,call lynn in reach
[2024-05-28 22:26] VITALS: BP 130/62; PULSE 83; RESP 18; TEMP 36.6; O2SAT 94
[2024-05-28] MEDS: Meclizine HCl 12.5 MG TABLET PO (22:37)
[2024-05-29] VITALS (12 sets, daily range): BP systolic 97–149; BP diastolic 50–77; PULSE 67–101; RESP 16–20; TEMP 36.4–37; O2SAT 92–96
--- NOTE | 2024-05-29 00:21 | MHC.EDTECH ---
hourly rounds and belongings list completed copy placed in chart,call lynn in reach
--- NOTE | 2024-05-29 00:57 | MHC.EDTECH ---
Vitals taken,patient is resting comfortably at this time,call lynn in reach
--- NOTE | 2024-05-29 02:14 | MHC.EDTECH ---
Repeat labs drawn and sent to lab.
[2024-05-29 02:31] LABS: Anion Gap 13 (12-20); Blood Urea Nitrogen 79 mg/dL (9-16); Calcium 9.5 mg/dL (8.4-10.2); Carbon Dioxide 27 mmol/L (22-29); Chloride 103 mmol/L (96-108); Creatinine Clr Calc Pharmacy 43.2; Estimated Glomerular Filt Rate 30; Glucose Random 334 mg/dL (60-115); Potassium 3.9 mmol/L (3.3-5.1); Sodium 139 mmol/L (135-145)
--- NOTE | 2024-05-29 03:58 | MHC.EDTECH ---
Hourly rounds and vitals completed,patient is resting comfortably call lynn in reach
--- NOTE | 2024-05-29 04:32 | PM.IMHP ---
History of Present Illness Date of Service: 05/29/24 Attending physician on admission: Alfredo Del Rio Chief Complaint: Dizziness Nemo Stubbs is a 54 years old woman with past medical history significant for type 2 diabetes mellitus on insulin, hypothyroidism, COPD/asthma overlap, essential hypertension on lisinopril, hyperlipidemia, ELLA on CPAP and morbid obesity presents to the emergency department complaining of some events of dizziness. She said that she has been experiencing right lower back pain over the last 4 days for which she took 2 pills of Motrin, total. She said that the back pain resolved but she is still experiencing dizziness. Last month she was hospitalized with generalized anasarca presumed to be secondary to nephrotic syndrome. During this hospitalization she received treatment with Lasix IV and was discharged home to take furosemide 40 mg p.o. daily. Reported increased urination because she is taking water pills. Patient denied abdominal pain, nausea, vomiting or diarrhea. She also denied headache, chest pain, shortness of breath, cough, palpitations or loss of consciousness. In the ED, she was found to have stable vital signs. Blood workup showed normal CBC. Creatinine was found to be 2.27 (it was 0.90 on discharge). There are no electrolyte imbalances. Glucose is 334. LFTs, albumin and troponin are normal. UA showed protein 1+. Lumbar x-ray showed [id number] multilevel degenerative disc disease. ED tx: NS 1 L bolus. Antivert 12.5 mg PO. Review of Systems Review of Systems: All 12 systems were reviewed and normal except as noted in HPI. [facility] Medical History Anasarca Fluid overload Asthma-COPD overlap syndrome Morbid obesity ELLA on CPAP Peripheral artery disease CAD (coronary artery disease) Type 2 diabetes mellitus CHF (congestive heart failure) DVT (deep venous thrombosis) Social History Household Members: Spouse Housing: Apartment Do you presently have visiting nurse or other home services: No Alcohol intake: never Patient Tobacco Use Status: Former Tobacco user Smoked in Last 30 Days: No Use of substances other than those prescribed or required for medical reasons: No Substance Use Type: Marijuana Advance Directives: No Advance Directives Information Provided: No Patient : No service: No Meds Allergies Allergy/AdvReac Type Severity Reaction Status Date / Time metformin Allergy Diarrhea Verified 05/28/24 14:53 Home Medications ?Medication ?Instructions ?Recorded ?Confirmed ?Last Taken ?Type albuterol sulfate 2.5 mg/3 mL 2.5 mg inhalation Q4H PRN 04/29/24 04/29/24 Unknown History (0.083 %) solution for nebulization wheezing/shortness of breath/cough aspirin 81 mg tablet,delayed 81 mg PO DAILY 04/29/24 04/29/24 Unknown History release budesonide-formoterol HFA 160 2 puff inhalation BID 04/29/24 04/29/24 Unknown History mcg-4.5 mcg/actuation aerosol inhaler (Symbicort) famotidine 20 mg tablet 20 mg PO BID heartburn 04/29/24 04/29/24 Unknown History fluticasone propionate 50 2 spray intranasal DAILY PRN 04/29/24 04/29/24 Unknown History mcg/actuation nasal Allergy Symptoms spray,suspension gabapentin 300 mg capsule 300 mg PO TID 04/29/24 04/29/24 Unknown History insulin glargine 100 unit/mL (3 60 unit subcut BID 04/29/24 04/29/24 Unknown History mL) subcutaneous pen (Lantus Solostar U-100 Insulin) insulin lispro 100 unit/mL 2 - 20 unit subcut TID 04/29/24 04/29/24 Unknown History subcutaneous pen ipratropium 20 mcg-albuterol 100 1 puff inhalation TID wheezing 04/29/24 04/29/24 Unknown History mcg/actuation mist for inhalation (Combivent Respimat) levothyroxine 200 mcg tablet 200 mcg PO DAILY@59904/29/24 04/29/24 Unknown History levothyroxine 25 mcg tablet 25 mcg PO DAILY@59904/29/24 04/29/24 Unknown History lisinopril 40 mg tablet 40 mg PO DAILY 04/29/24 04/29/24 Unknown History metoprolol succinate 25 mg 25 mg PO DAILY 04/29/24 04/29/24 Unknown History tablet,extended release 24 hr prazosin 5 mg capsule 5 mg PO BEDTIME 04/29/24 04/29/24 Unknown History quetiapine 200 mg tablet 200 mg PO BEDTIME PRN Sleep 04/29/24 04/29/24 Unknown History rivaroxaban 2.5 mg tablet (Xarelto) 2.5 mg PO BID 04/29/24 04/29/24 Unknown History rosuvastatin 40 mg tablet 40 mg PO BEDTIME 04/29/24 04/29/24 Unknown History venlafaxine 150 mg 150 mg PO DAILY 04/29/24 04/29/24 Unknown History capsule,extended release 24 hr venlafaxine 75 mg capsule,extended 75 mg PO DAILY 04/29/24 04/29/24 Unknown History release 24 hr zolpidem 10 mg tablet 10 mg PO BEDTIME PRN insomnia 04/29/24 04/29/24 Unknown History Physical Exam Vital Signs and Narrative: Vital Signs: Last Vital Signs Temp 97.9 F 05/29/24 03:57 Pulse 82 05/29/24 03:57 Resp 20 05/29/24 04:27 BP 100/50 L 05/29/24 03:57 Pulse Ox 96 05/29/24 03:57 O2 Del Method Room Air 05/29/24 03:57 BMI result Body Mass Index 50.8 Constitutional - Awake and Alert, No apparent distress. Obese. Pleasant. Cooperative. HEENT - PERRLA, EOMI Heart - RRR, No murmurs. Lungs - Normal lung expansion, Normal respiratory effort, No respiratory distress, CTA bilaterally Abdomen - NT / ND; +BS; No rebound or guarding Back - No tenderness. Extremities - No calf tenderness bilaterally. Mild pitting edema. Musculoskeletal - Normal inspection, normal ROM Skin - Warm/Dry Neurological - Alert & oriented x3. No focal weakness grossly noted. Normal speech. Psychological - Appropriate affect Results Labs 05/28/24 15:12 05/29/24 05:06 Labs: Laboratory Results - last 24 hr 05/28/24 05/28/24 05/29/24 15:12 15:25 02:13 MCV 91.3 MCH 30.0 MCHC 32.8 RDW 14.4 Plt Count 300 MPV 10.1 Immature Gran % (Auto) 0.9 H Neut % (Auto) 68.2 Lymph % (Auto) 23.2 [place] % (Auto) 5.9 Eos % (Auto) 1.2 Baso % (Auto) 0.6 Lymph # (Auto) 2.4 [place] # (Auto) 0.6 Eos # (Auto) 0.1 Baso # (Auto) 0.1 Abs Immat Gran (auto) 0.09 H Absolute Neuts (auto) 7.1 Absolute Nucleated RBC 0.000 Nucleated RBC % (auto) 0.0 Anion Gap 16 13 Estim Creat Clear Calc 33.3 43.2 Estimated GFR 22 30 Random Glucose 163 H 334 H Calcium 10.3 H D 9.5 D Total Bilirubin 0.3 AST 18 ALT 21 Alkaline Phosphatase 96 Troponin I High Sens 2.9 D Total Protein 7.4 Albumin 3.6 Urine Color Yellow Urine Appearance Clear Urine pH 5.5 Ur Specific [place] 1.010 Urine Protein 30 (1+) H Urine Glucose (UA) Negative Urine Ketones Negative Urine Blood Negative Urine Nitrite Negative Ur Leukocyte Esterase Negative Urine RBC 0-2 Urine WBC 0-5 Ur Squamous Epith Cells 3-5 Urine Bacteria Trace Hyaline Casts 0-2 Urine Test NEGATIVE Imaging Radiologist's Impressions: Impressions Lumbar Spine X-Ray 05/28/24 15:00 IMPRESSION: Mild to moderate multilevel degenerative disc disease. 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 Admit to hospitalist service. Hold lisinopril and furosemide. Gentle hydration. Continue to monitor renal function. Avoid nephrotoxic agents/NSAIDs. Orthostatic vital signs q shift. HFpEF. No acute decompensation. Asthma/COPD overlap. No acute exacerbation. Continue home meds. Obstructive sleep apnea. Nocturnal CPAP. Type 2 diabetes mellitus. BG checks before meals at bedtime. Insulin sliding scale and Lantus. Diabetic diet. PAD/CAD. Continue statin. Hypothyroidism. Continue levothyroxine. Essential hypertension. Continue prazosin and metoprolol. Supermorbid. BMI 50.8 kg/m2. Weight loss. Hyperlipidemia. Continue statin. Neuropathy. Gabapentin on hold due to MIRA. Mood disorder. Continue venlafaxine and Seroquel. Back pain, resolved. DVT prophylaxis: Heparin Code status: Full. Patient will need hospitalization for at least 2 midnight for MIRA treatment with IV fluids and close monitoring of renal function. Quality Stroke Does the patient have a stroke diagnosis?: No VTE Prior VTE?: No VTE Risk Level:: Medical - moderate - high VTE Device Contraindication: Treatment Not Indicated VTE Drug Contraindication: N/A - Med Ordered
[2024-05-29 05:45] LABS: Anion Gap 16 (12-20); Blood Urea Nitrogen 77 mg/dL (9-16); Calcium 9.3 mg/dL (8.4-10.2); Carbon Dioxide 26 mmol/L (22-29); Chloride 102 mmol/L (96-108); Creatinine Clr Calc Pharmacy 47.3; Estimated Glomerular Filt Rate 34; Glucose Random 319 mg/dL (60-115); Magnesium 2.1 mg/dL (1.6-2.6); Phosphorus 4.4 mg/dL (2.7-4.5); Potassium 3.9 mmol/L (3.3-5.1); Sodium 140 mmol/L (135-145)
--- NOTE | 2024-05-29 06:20 | MHC.EDTECH ---
Hourly rounds and vitals completed,BP is low 99/59 RN is aware,call lynn reach
[2024-05-29] MEDS: 0.9 % Sodium Chloride 250 ML 999 ML IV (06:29)
[2024-05-29] MEDS: Heparin Sodium,Porcine 5,000 UNIT/ML VIAL 5000 UNIT SUBCUT ×2 (09:24→17:45)
--- NOTE | 2024-05-29 09:47 | PHA.MEDREC ---
Pharmacy Consult ? Medication Reconciliation Pharmacy has completed the medication reconciliation. classification and treatment director used. OF NOTE: patient says she is on Xarelto, however patient last picked up from pharmacy 10/13/23.
--- NOTE | 2024-05-29 13:28 | P.CDIM_ITS ---
PROVIDER RESPONSE TEXT: To clarify, the appropriate diagnosis supported by the clinical indicators: Diabetes mellitus Type 2 with hyperglycemia QUERY TEXT: PHYSICIAN'S DOCUMENTATION REQUEST Date of Query: 05/29/2024 11:56 AM EDT Patient Name: Nemo García Admit Date: 05/29/2024 Dear Trevor Moore DO, A review of the medical record indicates additional documentation may be needed. Please review below and update the documentation accordingly. Clinical Indicators: LAB FINDINGS: POC glucose 334 H Insulin sliding scale and Lantus DM type 2 Please clarify the following regarding the Complications of Diabetes Mellitus (DM): Diabetes mellitus Type 2 with hyperglycemia Other (explain) Clinically unable to determine (explain) Thank you, Diann Menendez, CCS, CDIS Use of terms such as suspected, likely, concern for, or probable (associated with a specific diagnosi s that is being evaluated, monitored, or treated as if it exists) are acceptable and can be coded in the inpatient se tting, when documented at the time of discharge. Please use your independent medical judgment in providing your response. THIS QUERY IS PART OF THE PERMANENT MEDICAL RECORD
--- NOTE | 2024-05-29 14:02 | PM.EVENT ---
Event Note Date of Service: 05/29/24 Event Note: Chart reviewed patient examined agree with H&P and plan as outlined. Good response to volume repletion. Follow renals/divalent in a.m. Time Spent With Patient Time: Total time managing care of this patient today ____ minutes.
--- NOTE | 2024-05-29 14:08 | MHC.CM.PN ---
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
[2024-05-29 16:53] LABS: Glucose, Whole Blood 304 mg/dL (60-115)
[2024-05-29] MEDS: Venlafaxine HCl ER 75 MG CAP.ER.24H PO (17:44)
[2024-05-29] MEDS: Aspirin Enteric Coated 81 MG TABLET.DR PO (17:44)
[2024-05-29] MEDS: Venlafaxine HCl ER 150 MG CAP.ER.24H PO (17:44)
[2024-05-29 20:52] LABS: Glucose, Whole Blood 286 mg/dL (60-115)
[2024-05-29] MEDS: Insulin Glargine,Hum.rec.anlog 100 UNIT/ML 10 ML VIAL 60 UNIT SUBCUT (21:12)
[2024-05-29] MEDS: Insulin Lispro 100 UNIT/ML 3 ML VIAL SUBCUT (21:13)
[2024-05-29] MEDS: Prazosin HCL 5 MG CAPSULE PO (21:13)
[2024-05-29] MEDS: Famotidine 20 MG TABLET PO (21:14)
[2024-05-29] MEDS: Atorvastatin Calcium 80 MG TABLET PO (21:14)
--- NOTE | 2024-05-29 22:09 | PC.NURSE ---
Report taken from Jennifer SÁNCHEZ assumed care of pt at 1900. A&Ox3 skin pwd respirations even unlabored, offers no complaints. Ambulatory to bathroom independently x 3. Medicated per MAR with scheduled meds, xarelto unavailable. Plan for probable dc home tomorrow? Will continue to monitor for additional needs.
--- NOTE | 2024-05-29 23:29 | MHC.EDTECH ---
Addendum entered by Cinthia Hurley 05/29/24 23:41: Patient stated she moved her bowels and is having diarrhea,RN is aware Original Note: This tech took over care of patient at 2300,hourly rounds and vitals completed,patient requested an apple juice,patient ambulated to the bathroom with a steady gait,call lynn in reach
[2024-05-30] VITALS (8 sets, daily range): BP systolic 105–138; BP diastolic 54–79; PULSE 79–105; RESP 18–20; TEMP 36.1–36.6; O2SAT 92–95; BMI 50.0
--- NOTE | 2024-05-30 00:25 | PC.RT ---
Pt refusing NIV; RN aware
--- NOTE | 2024-05-30 00:32 | PC.NURSE ---
Pt refused Cpap. Resting comfortably at this time, skin pwd respirations even unlabored.
[2024-05-30] MEDS: 0.9 % Sodium Chloride Flush 3 ML SYRINGE IVFLUSH ×4 (00:34→19:32)
--- NOTE | 2024-05-30 02:17 | PC.NURSE ---
Heparin injection dc by hospitalist. Pt on xarelto and ambulating independently ad gerardo.
--- NOTE | 2024-05-30 02:22 | PC.NURSE ---
Heparin dc by hospitalist, pt on xarelto and ambulating independently ad gerardo.
--- NOTE | 2024-05-30 03:48 | MHC.EDTECH ---
Patient ambulated to the bathroom with a steady gait,rounds and vitals completed,patient is resting quietly at this time call lynn in reach
[2024-05-30] MEDS: Levothyroxine Sodium 25 MCG TABLET PO (06:02)
[2024-05-30] MEDS: Levothyroxine Sodium 200 MCG TABLET PO (06:02)
[2024-05-30 07:17] LABS: Glucose, Whole Blood 329 mg/dL (60-115)
[2024-05-30] MEDS: Insulin Glargine,Hum.rec.anlog 100 UNIT/ML 10 ML VIAL 60 UNIT SUBCUT ×2 (07:58→20:12)
[2024-05-30] MEDS: Metoprolol Succinate ER 25 MG TAB.ER.24H PO (07:58)
[2024-05-30] MEDS: Famotidine 20 MG TABLET PO ×2 (07:59→19:29)
[2024-05-30] MEDS: Aspirin Enteric Coated 81 MG TABLET.DR PO (07:59)
[2024-05-30] MEDS: Insulin Lispro 100 UNIT/ML 3 ML VIAL SUBCUT ×4 (07:59→20:12)
[2024-05-30 11:38] LABS: Glucose, Whole Blood 304 mg/dL (60-115)
--- NOTE | 2024-05-30 11:50 | PC.NURSE ---
this nurse took over care of patient at 9am, patient sleeping, wakes to verbal stimulus- pt a&ox3, vitals previously stable, rr equal/non labored, pt denies pain/discomfort at this time, pt awaiting nephrology consult, call lynn within reach, will continue to monitor
--- NOTE | 2024-05-30 14:01 | P.PNIM_ITS ---
Subjective Subjective Date of Service: 05/30/24 Interval History: Being followed for acute kidney injury. Admitted with dizziness. Denies dizziness, no nausea no vomiting, no diarrhea, no back pain complaining of mild symptoms of dyspepsia no other acute issues overnight. Review of Systems All other system reviewed and are negative. Physical Exam 2 Vital Signs: Vital Signs: Last Vital Signs Temp 97.9 F 05/30/24 11:35 Pulse 86 05/30/24 11:35 Resp 20 05/30/24 11:35 BP 120/60 05/30/24 11:35 Pulse Ox 95 05/30/24 11:35 O2 Del Method Room Air 05/30/24 11:35 BMI result Body Mass Index 50.8 Const: Other: General awake alert x3, in no acute distress. Anicteric sclera Neck no JVD. CVS regular rate rhythm, Respiratory lungs clear to auscultation, no respiratory distress, no wheeze, no rhonchi. Gastrointestinal abdomen soft, non tender, bowel sounds audible, no guarding , no rigidity. Extremities no lower extremity edema. Swollen bilateral hands Neuro non focal Skin no rash Psych appropriate affect. Objective Data Active Medications Acetaminophen (Acetaminophen 325 Mg Tablet) 975 mg PO Q6H PRN PRN Reason: Pain, Mild (Pain Scale 1-3), fever or headache Albuterol Sulfate (Albuterol Sulfate (0.083%) 2.5 Mg/3 Ml Vial.Neb) 2.5 mg INHALE Q4H PRN PRN Reason: wheezing/shortness of breath/cough Aspirin (Aspirin Enteric Coated 81 Mg Tablet.) 81 mg PO DAILY [facility] Last Admin: 05/30/24 07:59 Dose: 81 mg Documented By: MARIA DE JESUS Atorvastatin Calcium (Atorvastatin Calcium 80 Mg Tablet) 80 mg PO BEDTIME [facility] Last Admin: 05/29/24 21:14 Dose: 80 mg Documented By: HEIDE Calcium Carbonate (Calcium Carbonate 750 Mg Tab.Chew) 750 mg PO Q4H PRN PRN Reason: Heartburn Famotidine (Famotidine 20 Mg Tablet) 20 mg PO BID [facility] Last Admin: 05/30/24 07:59 Dose: 20 mg Documented By: MARIA DE JESUS Glucose (Glucose Gel 15 Gm Gel..Gram.) 15 gm PO Q15M PRN; Protocol PRN Reason: per Hypoglycemia Standing Ord. Dextrose (D10) 250 mls @ 750 mls/hr IV Q15M PRN; Protocol PRN Reason: per Hypoglycemia Standing Ord. Insulin Glargine (Insulin Glargine,Hum.Rec.Anlog 100 Unit/Ml 10 Ml Vial) 60 unit SUBCUT BID [facility] Last Admin: 05/30/24 07:58 Dose: 60 unit Documented By: MARIA DE JESUS Insulin Human Lispro (Insulin Lispro 100 Unit/Ml 3 Ml Vial) 0 unit SUBCUT QIDACHS [facility]; Protocol Last Admin: 05/30/24 12:35 Dose: 8 unit Documented By: TIFFANY Levothyroxine Sodium (Levothyroxine Sodium 200 Mcg Tablet) 200 mcg PO DAILY@0600 [facility] Last Admin: 05/30/24 06:02 Dose: 200 mcg Documented By: SHARDA Levothyroxine Sodium (Levothyroxine Sodium 25 Mcg Tablet) 25 mcg PO DAILY@0600 [facility] Last Admin: 05/30/24 06:02 Dose: 25 mcg Documented By: SHARDA Melatonin (Melatonin 3 Mg Tablet) 3 mg PO BEDTIME PRN PRN Reason: Insomnia Metoprolol Succinate (Metoprolol Succinate Er 25 Mg Tab.Er.24h) 25 mg PO DAILY [facility]; Protocol Last Admin: 05/30/24 07:58 Dose: 25 mg Documented By: MARIA DE JESUS Pt Own (Xarelto 2.5 (Mg)) 2.5 mg PO BID [facility] Last Admin: 05/30/24 08:00 Dose: 2.5 mg Documented By: MARIA DE JESUS Prazosin HCl (Prazosin Hcl 5 Mg Capsule) 5 mg PO BEDTIME [facility]; Protocol Last Admin: 05/29/24 21:13 Dose: 5 mg Documented By: HEIDE Quetiapine Fumarate (Quetiapine Fumarate 200 Mg Tablet) 200 mg PO BEDTIME PRN PRN Reason: Sleep Sodium Chloride (0.9 % Sodium Chloride Flush 3 Ml Syringe) 3 ml IVFLUSH QSHIFT [facility] Last Admin: 05/30/24 10:27 Dose: 3 ml Documented By: TIFFANY Venlafaxine HCl (Venlafaxine Hcl Er 150 Mg Cap.Er.24h) 150 mg PO DAILY [facility] Last Admin: 05/30/24 08:03 Dose: Not Given Documented By: MARIA DE JESUS Non-Admin Reason: Patient Refused Venlafaxine HCl (Venlafaxine Hcl Er 75 Mg Cap.Er.24h) 75 mg PO DAILY [facility] Last Admin: 05/30/24 08:03 Dose: Not Given Documented By: MARIA DE JESUS Non-Admin Reason: Patient Refused Zolpidem Tartrate (Zolpidem Tartrate 5 Mg Tablet) 5 mg PO BEDTIME PRN PRN Reason: insomnia Labs 05/28/24 15:12 05/29/24 05:06 Labs: Laboratory Results - last 24 hr 05/29/24 05/29/24 05/30/24 16:46 20:49 07:12 POC Glucose 304 H 286 H 329 H 05/30/24 11:21 POC Glucose 304 H Assessment and Plan (1) MIRA (acute kidney injury): Status: Acute (2) Type 2 diabetes mellitus: Status: Acute (3) ELLA on CPAP: Status: Acute Plan Nemo Stubbs is a 54 y/o woman admitted with: Acute kidney injury secondary to combination furosemide, metolazone, Bumex hydrochlorothiazide and lisinopril. Creatinine trending down. s/p IV fluids, hold diuretics, lisinopril, avoid nephro toxins, NSAIDs Follow BMP/nephro consult Asthma/COPD overlap. No acute exacerbation. Continue home meds. Obstructive sleep apnea. CPAP. Type 2 diabetes mellitus. Elevated blood sugars, Continue Insulin sliding scale, dose adjusted, Lantus, and Diabetic diet, monitor blood sugar. PAD/CAD. Continue statin. Hypothyroidism. Continue levothyroxine, follow TSH. Essential hypertension. Continue prazosin and metoprolol. Morbid obesity. BMI 50.8 kg/m2. Weight loss recommended. Hyperlipidemia. Continue statin. Neuropathy. Gabapentin on hold due to MIRA. Mood disorder. Continue venlafaxine and Seroquel prn. DVT prophylaxis: Xarelto Code status: Full. Patient will need hospitalization for at least 2 midnight for MIRA treatment with IV fluids and close monitoring of renal function. Quality Stroke Does the patient have a stroke diagnosis?: No VTE Prior VTE?: No VTE Risk Level:: Medical - moderate - high VTE Device Contraindication: Treatment Not Indicated VTE Drug Contraindication: N/A - Med Ordered
[2024-05-30 16:31] LABS: Glucose, Whole Blood 262 mg/dL (60-115)
--- NOTE | 2024-05-30 18:56 | P.CONNP_ITS ---
History of Present Illness Reason for Consult Consult date: 05/30/24 Reason for consult: MIRA Chief Complaint Chief complaint: Acute kidney injury History of Present Illness Narrative: Nemo Stubbs is a 54 years old woman with type 2 diabetes mellitus on insulin, essential hypertension on lisinopril, ELLA on CPAP and morbid obesity presented to the emergency department complaining of dizziness. She said that she has been experiencing right lower back pain over the last 4 days for which she took 2 pills of Motrin, total. She said that the back pain resolved but she is still experiencing dizziness. Last month she was hospitalized with generalized anasarca presumed to be secondary to nephrotic syndrome. During this hospitalization she received treatment with Lasix IV and was discharged home to take furosemide 40 mg p.o. daily. Reported increased urination because she is taking water pills. Patient denied abdominal pain, nausea, vomiting or diarrhea. She also denied headache, chest pain, shortness of breath, cough, palpitations or loss of consciousness. In the ED, she was found to have stable vital signs. Blood workup showed creatinine of 2.27 (it was 0.90 on discharge). There are no electrolyte imbalances. Glucose is 334. LFTs, albumin and troponin are normal. She was admitted for further management. Nephrology has been consulted to assist in her clinical care during her current hospital stay Review of Systems Review of Systems Yes all other systems are reviewed and are negative PMFSH Past Medical History Medical History Anasarca Fluid overload Asthma-COPD overlap syndrome Morbid obesity ELLA on CPAP Peripheral artery disease CAD (coronary artery disease) Type 2 diabetes mellitus CHF (congestive heart failure) DVT (deep venous thrombosis) Social History Social History Household Members: Spouse Housing: Apartment Do you presently have visiting nurse or other home services: Yes (hand kiss setter's everyday for 2 hours.) Alcohol intake: never Patient Tobacco Use Status: Former Tobacco user Second Hand Smoke Exposure: No Substance Use Type: Marijuana service: No Meds Allergies Allergy/AdvReac Type Severity Reaction Status Date / Time metformin Allergy Diarrhea Verified 05/28/24 14:53 Active Medications: Current Medications Acetaminophen (Acetaminophen 325 Mg Tablet) 975 mg PO Q6H PRN PRN Reason: Pain, Mild (Pain Scale 1-3), fever or headache Albuterol Sulfate (Albuterol Sulfate (0.083%) 2.5 Mg/3 Ml Vial.Neb) 2.5 mg INHALE Q4H PRN PRN Reason: wheezing/shortness of breath/cough Aspirin (Aspirin Enteric Coated 81 Mg Tablet.) 81 mg PO DAILY [facility] Last Admin: 05/30/24 07:59 Dose: 81 mg Atorvastatin Calcium (Atorvastatin Calcium 80 Mg Tablet) 80 mg PO BEDTIME [facility] Last Admin: 05/29/24 21:14 Dose: 80 mg Calcium Carbonate (Calcium Carbonate 750 Mg Tab.Chew) 750 mg PO Q4H PRN PRN Reason: Heartburn Famotidine (Famotidine 20 Mg Tablet) 20 mg PO BID [facility] Last Admin: 05/30/24 07:59 Dose: 20 mg Glucose (Glucose Gel 15 Gm Gel..Gram.) 15 gm PO Q15M PRN; Protocol PRN Reason: per Hypoglycemia Standing Ord. Dextrose (D10) 250 mls @ 750 mls/hr IV Q15M PRN; Protocol PRN Reason: per Hypoglycemia Standing Ord. Insulin Glargine (Insulin Glargine,Hum.Rec.Anlog 100 Unit/Ml 10 Ml Vial) 60 unit SUBCUT BID [facility] Last Admin: 05/30/24 07:58 Dose: 60 unit Insulin Human Lispro (Insulin Lispro 100 Unit/Ml 3 Ml Vial) 0 unit SUBCUT QIDACHS [facility]; Protocol Last Admin: 05/30/24 17:02 Dose: 8 unit Levothyroxine Sodium (Levothyroxine Sodium 200 Mcg Tablet) 200 mcg PO DAILY@0600 [facility] Last Admin: 05/30/24 06:02 Dose: 200 mcg Levothyroxine Sodium (Levothyroxine Sodium 25 Mcg Tablet) 25 mcg PO DAILY@0600 [facility] Last Admin: 05/30/24 06:02 Dose: 25 mcg Melatonin (Melatonin 3 Mg Tablet) 3 mg PO BEDTIME PRN PRN Reason: Insomnia Metoprolol Succinate (Metoprolol Succinate Er 25 Mg Tab.Er.24h) 25 mg PO DAILY [facility]; Protocol Last Admin: 05/30/24 07:58 Dose: 25 mg Pt Own (Xarelto 2.5 (Mg)) 2.5 mg PO BID [facility] Last Admin: 05/30/24 08:00 Dose: 2.5 mg Prazosin HCl (Prazosin Hcl 5 Mg Capsule) 5 mg PO BEDTIME [facility]; Protocol Last Admin: 05/29/24 21:13 Dose: 5 mg Quetiapine Fumarate (Quetiapine Fumarate 200 Mg Tablet) 200 mg PO BEDTIME PRN PRN Reason: Sleep Sodium Chloride (0.9 % Sodium Chloride Flush 3 Ml Syringe) 3 ml IVFLUSH QSHIFT [facility] Last Admin: 05/30/24 15:45 Dose: 3 ml Venlafaxine HCl (Venlafaxine Hcl Er 150 Mg Cap.Er.24h) 150 mg PO DAILY [facility] Last Admin: 05/30/24 08:03 Dose: Not Given Venlafaxine HCl (Venlafaxine Hcl Er 75 Mg Cap.Er.24h) 75 mg PO DAILY [facility] Last Admin: 05/30/24 08:03 Dose: Not Given Zolpidem Tartrate (Zolpidem Tartrate 5 Mg Tablet) 5 mg PO BEDTIME PRN PRN Reason: insomnia Home Medications ?Medication ?Instructions ?Recorded ?Confirmed ?Last Taken ?Type albuterol sulfate 2.5 mg/3 mL 2.5 mg inhalation Q4H PRN 04/29/24 05/29/24 Unknown History (0.083 %) solution for nebulization wheezing/shortness of breath/cough aspirin 81 mg tablet,delayed 81 mg PO DAILY 04/29/24 05/29/24 Unknown History release budesonide-formoterol HFA 160 2 puff inhalation BID 04/29/24 05/29/24 Unknown History mcg-4.5 mcg/actuation aerosol inhaler (Symbicort) famotidine 20 mg tablet 20 mg PO BID heartburn 04/29/24 05/29/24 Unknown History insulin glargine 100 unit/mL (3 60 unit subcut BID 04/29/24 05/29/24 Unknown History mL) subcutaneous pen (Lantus Solostar U-100 Insulin) insulin lispro 100 unit/mL 2 - 20 unit subcut TID 04/29/24 05/29/24 Unknown History subcutaneous pen ipratropium 20 mcg-albuterol 100 1 puff inhalation TID wheezing 04/29/24 05/29/24 Unknown History mcg/actuation mist for inhalation (Combivent Respimat) levothyroxine 200 mcg tablet 200 mcg PO DAILY@0600 04/29/24 05/29/24 Unknown History levothyroxine 25 mcg tablet 25 mcg PO DAILY@0600 04/29/24 05/29/24 Unknown History lisinopril 40 mg tablet 40 mg PO DAILY 04/29/24 05/29/24 Unknown History metoprolol succinate 25 mg 25 mg PO DAILY 04/29/24 05/29/24 Unknown History tablet,extended release 24 hr prazosin 5 mg capsule 5 mg PO BEDTIME 04/29/24 05/29/24 Unknown History quetiapine 200 mg tablet 200 mg PO BEDTIME PRN Sleep 04/29/24 05/29/24 Unknown History rivaroxaban 2.5 mg tablet (Xarelto) 2.5 mg PO BID 04/29/24 05/29/24 Unknown History rosuvastatin 40 mg tablet 40 mg PO BEDTIME 04/29/24 05/29/24 Unknown History venlafaxine 150 mg 150 mg PO DAILY 04/29/24 05/29/24 Unknown History capsule,extended release 24 hr venlafaxine 75 mg capsule,extended 75 mg PO DAILY 04/29/24 05/29/24 Unknown History release 24 hr zolpidem 10 mg tablet 10 mg PO BEDTIME PRN insomnia 04/29/24 05/29/24 Unknown History furosemide 40 mg tablet 40 mg PO DAILY 05/29/24 05/29/24 Unknown History hydrochlorothiazide 12.5 mg capsule 12.5 mg PO DAILY 05/29/24 05/29/24 Unknown History magnesium oxide mg 05/29/24 Unknown History metolazone 2.5 mg tablet 2.5 mg PO MOFR 05/29/24 05/29/24 Unknown History Physical Exam Vital Signs: Last Vital Signs Temp 96.9 F 05/30/24 15:17 Pulse 83 05/30/24 15:17 Resp 18 05/30/24 15:17 BP 138/78 05/30/24 15:17 Pulse Ox 92 05/30/24 15:17 O2 Del Method Room Air 05/30/24 11:35 BMI result Body Mass Index 50.0 Const General: no acute distress Orientation/consciousness: patient oriented x3 Eyes EOM: EOMs intact bilaterally Neck Neck: Yes supple Resp Auscultation: diminished lung sounds Cardio Rate: regular rate GI Palpation (GI): Soft to palpation Neuro General: patient oriented x3 Results Lab Results 05/28/24 15:12 05/29/24 05:06 Lab results: Chemistry 05/28/24 05/29/24 05/29/24 15:12 02:13 05:06 Sodium 141 139 140 Potassium 4.2 3.9 3.9 Carbon Dioxide 26 27 26 BUN 83 H 79 H 77 H Creatinine 2.27 H 1.75 H 1.60 H Calcium 10.3 H D 9.5 D 9.3 Phosphorus 4.4 Hematology 05/28/24 15:12 WBC 10.4 Hgb 15.2 Plt Count 300 Urinalysis 05/28/24 15:25 Urine Color Yellow Urine Appearance Clear Urine pH 5.5 Ur Specific [place] 1.010 Urine Protein 30 (1+) H Urine Glucose (UA) Negative Urine Ketones Negative Urine Blood Negative Urine Nitrite Negative Ur Leukocyte Esterase Negative Urine RBC 0-2 Urine WBC 0-5 Ur Squamous Epith Cells 3-5 Hyaline Casts 0-2 Assessment and Plan (1) MIRA (acute kidney injury): Status: Acute Plan MIRA due to compromise in renal perfusion with resultant tubular injury Likely had altered autoregulation in the kidney being on ACEI while having diuresis & taking NSAID's No reason to suspect AIN/GN/Obstruction. ACEI/NSAID's/Diuretics on hold; Given IV fluids Serum creatinine improving. No indication for renal replacement. C/W rest of current management Labs AM. Shall follow up closely Procedures Date of Service Date of Service: 05/30/24
[2024-05-30] MEDS: Prazosin HCL 5 MG CAPSULE PO (19:29)
[2024-05-30] MEDS: Atorvastatin Calcium 80 MG TABLET PO (19:29)
[2024-05-30] MEDS: Zolpidem Tartrate 5 MG TABLET PO (19:32)
[2024-05-30 20:03] LABS: Glucose, Whole Blood 269 mg/dL (60-115)
[2024-05-31 03:53] VITALS: BP 133/75; PULSE 66; RESP 16; TEMP 36.1; O2SAT 93
[2024-05-31] MEDS: Levothyroxine Sodium 200 MCG TABLET PO (05:48)
[2024-05-31] MEDS: Levothyroxine Sodium 25 MCG TABLET PO (05:48)
[2024-05-31 07:11] LABS: Anion Gap 13 (12-20); Blood Urea Nitrogen 29 mg/dL (9-16); Calcium 9.3 mg/dL (8.4-10.2); Carbon Dioxide 26 mmol/L (22-29); Chloride 105 mmol/L (96-108); Estimated Glomerular Filt Rate > 60; Glucose Random 161 mg/dL (60-115); Potassium 3.8 mmol/L (3.3-5.1); Sodium 140 mmol/L (135-145)
[2024-05-31 07:28] LABS: Thyroid Stimulating Hormone 24.42 uIU/mL (0.32-4.0)
[2024-05-31 07:33] VITALS: BP 131/71; PULSE 80; RESP 16; TEMP 36; O2SAT 94
[2024-05-31 07:43] LABS: Glucose, Whole Blood 164 mg/dL (60-115)
[2024-05-31] MEDS: Insulin Lispro 100 UNIT/ML 3 ML VIAL SUBCUT ×2 (08:10→11:54)
[2024-05-31] MEDS: Aspirin Enteric Coated 81 MG TABLET.DR PO (08:11)
[2024-05-31] MEDS: Insulin Glargine,Hum.rec.anlog 100 UNIT/ML 10 ML VIAL 60 UNIT SUBCUT (08:11)
[2024-05-31] MEDS: Famotidine 20 MG TABLET PO (08:11)
[2024-05-31] MEDS: Metoprolol Succinate ER 25 MG TAB.ER.24H PO (08:11)
[2024-05-31] MEDS: 0.9 % Sodium Chloride Flush 3 ML SYRINGE IVFLUSH (08:16)
[2024-05-31 11:25] LABS: Glucose, Whole Blood 218 mg/dL (60-115)
--- NOTE | 2024-05-31 11:30 | MHC.CM.PN ---
Per MD, patient medically cleared for dc home self care. to transport. RN aware.
--- NOTE | 2024-05-31 15:11 | PM.DS ---
DS: Providers Provider Date of Service: 05/31/24 Date of admission: 05/29/24 04:33 Primary care physician: Unknown Physician Consults: 05/30/24 09:07 Consult to Nephrology Routine Consulting Provider: [facility] – [place] [facility] Reason for consultation: mira Has provider been notified: No DS: Diagnosis Discharge Diagnosis (1) MIRA (acute kidney injury): Status: Acute DS: Summary Hospital Course Hospital Course: Date of Service: 05/29/24 Attending physician on admission: Alfredo Del Rio Chief Complaint: Dizziness Nemo Stubbs is a 54 years old woman with past medical history significant for type 2 diabetes mellitus on insulin, hypothyroidism, COPD/asthma overlap, essential hypertension on lisinopril, hyperlipidemia, ELLA on CPAP and morbid obesity presents to the emergency department complaining of some events of dizziness. She said that she has been experiencing right lower back pain over the last 4 days for which she took 2 pills of Motrin, total. She said that the back pain resolved but she is still experiencing dizziness. Last month she was hospitalized with generalized anasarca presumed to be secondary to nephrotic syndrome. During this hospitalization she received treatment with Lasix IV and was discharged home to take furosemide 40 mg p.o. daily. Reported increased urination because she is taking water pills. Patient denied abdominal pain, nausea, vomiting or diarrhea. She also denied headache, chest pain, shortness of breath, cough, palpitations or loss of consciousness. In the ED, she was found to have stable vital signs. Blood workup showed normal CBC. Creatinine was found to be 2.27 (it was 0.90 on discharge). There are no electrolyte imbalances. Glucose is 334. LFTs, albumin and troponin are normal. UA showed protein 1+. Lumbar x-ray showed [id number] multilevel degenerative disc disease. ED tx: NS 1 L bolus. Antivert 12.5 mg PO. Hospital course: Nemo Stubbs is a 54 y/o woman admitted with Acute kidney injury likely secondary to multiple diuretics , CORTNEY inhibitors, and use of NSAIDs, patient treated with IV fluids, all diuretics and nephrotoxic medications were held creatinine returned to baseline, case discussed with Nephrology patient placed on low-dose Bumex 0.5 mg daily all other diuretics have been discontinued patient is recommended to avoid NSAIDs and outpatient follow-up with Nephrology in 1 week. Asthma/COPD overlap no acute exacerbation noted recommend to continue home medications, for obstructive sleep apnea recommended CPAP. Type 2 diabetes mellitus. Noted to have few high blood sugar readings recommend to follow diabetic diet Lantus and insulin sliding scale . PAD/CAD. Continue statin. Hypothyroidism. Continue levothyroxine, noted to have elevated TSH 24.42 likely not taking Synthroid empty stomach recommend to take it at 06:00 and follow TSH in 6 weeks . Essential hypertension. Continue prazosin and metoprolol. Morbid obesity. BMI 50.8 kg/m2. Weight loss recommended. Hyperlipidemia. Continue statin. Mood disorder. Continue venlafaxine and Seroquel prn. Time Attestation Discharge Coordination Time (in mins): 36 Quality: Safe Use of Opioids Does Pt have an Active Cancer Diagnosis on the Problem List?: No Quality: Stroke Does the patient have a stroke diagnosis?: No Physical Exam Vital Signs: Vital Signs: Last Vital Signs Temp 96.8 F 05/31/24 07:33 Pulse 80 05/31/24 07:33 Resp 16 05/31/24 07:33 BP 131/71 05/31/24 07:33 Pulse Ox 94 05/31/24 07:33 O2 Del Method CPAP 05/31/24 07:33 BMI result Body Mass Index 50.0 Const: Other: General awake alert x3, in no acute distress. Anicteric sclera/mild periorbital edema Neck no JVD. CVS regular rate rhythm, Respiratory lungs clear to auscultation, no respiratory distress, no wheeze, no rhonchi. Gastrointestinal abdomen soft, non tender, bowel sounds audible, no guarding , no rigidity. Extremities no lower extremity edema,Swollen bilateral hands. Neuro non focal Skin no rash Psych appropriate affect. DS: Data Data Completed and Pending Completed studies during hospitalization [Text1]: Procedures Assistance with Respiratory Ventilation, Less than 24 Consecutive Hours, Continuous Positive Airway Pressure (04/29/24) Labs on day of discharge: Laboratory Results - last 24 hr 05/30/24 05/30/24 05/31/24 16:27 19:55 06:01 Hold Purple Top SEE NOTE Sodium 140 Potassium 3.8 Chloride 105 Carbon Dioxide 26 Anion Gap 13 BUN 29 H Creatinine 0.88 Estim Creat Clear Calc 85.0 Estimated GFR > 60 POC Glucose 262 H 269 H Random Glucose 161 H Calcium 9.3 TSH 24.42 H 05/31/24 05/31/24 07:37 11:14 Hold Purple Top Sodium Potassium Chloride Carbon Dioxide Anion Gap BUN Creatinine Estim Creat Clear Calc Estimated GFR POC Glucose 164 H 218 H Random Glucose Calcium TSH Discharge Plan Discharge Anticipated Discharge Date/Time: 05/31/24 11:12 Patient Disposition: Home, Self-Care Discharge Diagnosis: Acute kidney injury Referrals: Physician,Unknown J [Primary Care Provider] - 1 Week Discharge Medications: Continued venlafaxine 75 mg capsule,extended release 24hr 75 mg PO DAILY albuterol sulfate 2.5 mg /3 mL (0.083 %) solution for nebulization 2.5 mg inhalation Q4H PRN (Reason: wheezing/shortness of breath/cough) quetiapine 200 mg tablet 200 mg PO BEDTIME PRN (Reason: Sleep) venlafaxine 150 mg capsule,extended release 24hr 150 mg PO DAILY aspirin 81 mg Tablet,Delayed Release (Dr/Ec) 81 mg PO DAILY levothyroxine 25 mcg tablet 25 mcg PO DAILY@0600 prazosin 5 mg capsule 5 mg PO BEDTIME famotidine 20 mg tablet 20 mg PO BID levothyroxine 200 mcg tablet 200 mcg PO DAILY@0600 metoprolol succinate 25 mg tablet extended release 24 hr 25 mg PO DAILY zolpidem 10 mg tablet 10 mg PO BEDTIME PRN (Reason: insomnia) insulin lispro 100 unit/mL insulin pen 2 - 20 unit subcut TID rosuvastatin 40 mg tablet 40 mg PO BEDTIME budesonide-formoterol [Symbicort] 160-4.5 mcg/actuation HFA aerosol inhaler 2 puff INHALATION BID insulin glargine [Lantus Solostar U-100 Insulin] 100 unit/mL (3 mL) insulin pen 60 unit subcut BID Combivent Respimat 20-100 mcg/actuation mist 1 puff INHALATION TID Xarelto 2.5 mg tablet 2.5 mg PO BID Hold Instructions: Resume on 05/28/24. discuss with your primary doctor before restarting this magnesium oxide 250 mg magnesium tablet Changed bumetanide 1 mg tablet 0.5 mg PO DAILY Qty: 90 0RF Discontinued lisinopril 40 mg tablet 40 mg PO DAILY furosemide 40 mg tablet 40 mg PO DAILY metolazone 2.5 mg tablet 2.5 mg PO MOFR hydrochlorothiazide 12.5 mg capsule 12.5 mg PO DAILY Discharge Orders: Discharge Order (Routine); Ordered 05/31/24 Ordered By: Ashu Agustin Diet: Diabetic diet Activity on Discharge: As tolerated Stand Alone Forms: Patient Portal Discharge page Print Language: Sami Care Plan Goals: Take Bumex 0.5 mg daily (half tablet of 1 mg) Follow TSH in 6 weeks Take levothyroxine tablet empty stomach 6 am Health Concerns: Diabetes/hypothyroidism Plan of Treatment: Outpatient follow-up with Nephrology Dr. Duffy in 1 week Assessment: as above Discharge Date/Time: 05/31/24 13:00
== END 2024-05-31 13:00 | disposition home or self-care (01) | DRG 469 ==
LOC: HO.ED 21:53 → HO.EDOVER 05-29 04:39 → HO.S3 05-30 14:18
PROVIDERS: Hospitalist; Physician Assistant; Admitting Provider Internal Medicine; Emergency Provider Internal Medicine; PCP Physician Assistant; Visit Provider Hospitalist
DX: N17.0 Acute kidney failure with tubular necrosis (principal); Z68.43 Body mass index [BMI] 50.0-59.9, adult; E11.40 Type 2 diabetes mellitus with diabetic neuropathy, unspecified; E11.51 Type 2 diabetes mellitus with diabetic peripheral angiopathy without gangrene; E03.9 Hypothyroidism, unspecified; I50.32 Chronic diastolic (congestive) heart failure; J44.9 Chronic obstructive pulmonary disease, unspecified; E78.5 Hyperlipidemia, unspecified; F39 Unspecified mood [affective] disorder; E66.01 Morbid (severe) obesity due to excess calories; T50.1X5A Adverse effect of loop [high-ceiling] diuretics, initial encounter; T46.4X5A Adverse effect of angiotensin-converting-enzyme inhibitors, initial encounter; T50.2X5A Adverse effect of carbonic-anhydrase inhibitors, benzothiadiazides and other diuretics, initial encounter; I11.0 Hypertensive heart disease with heart failure; G47.33 Obstructive sleep apnea (adult) (pediatric); I25.10 Atherosclerotic heart disease of native coronary artery without angina pectoris; Z87.891 Personal history of nicotine dependence; Z71.3 Dietary counseling and surveillance; Z79.1 Long term (current) use of non-steroidal anti-inflammatories (NSAID); Z79.4 Long term (current) use of insulin; Z79.01 Long term (current) use of anticoagulants; Z79.82 Long term (current) use of aspirin; Z79.890 Hormone replacement therapy; Z79.899 Other long term (current) drug therapy
CPT/HCPCS: 36415; 72100; 80048; 80053; 81001; 81025; 82947; 83735; 84100; 84443; 84484; 85025; 93005; 99285; J1644

== ENCOUNTER → 2024-05-28 15:01 | Outpatient (BNV) | payer OTHER, SELFPAY | PROVIDERS: Admitting Provider Internal Medicine; Emergency Provider Internal Medicine; Visit Provider Internal Medicine Cardiovascular Disease | DX: R94.31 Abnormal electrocardiogram [ECG] [EKG] (principal) | CPT/HCPCS: 93010 ==

== ENCOUNTER → 2024-05-29 04:33 | Outpatient (BNV) | payer OTHER, SELFPAY | PROVIDERS: Admitting Provider Internal Medicine; Emergency Provider Internal Medicine; Visit Provider Internal Medicine Nephrology | DX: N17.0 Acute kidney failure with tubular necrosis (principal) | CPT/HCPCS: 99223 ==

== ENCOUNTER → 2024-05-29 04:33 | Outpatient (BNV) | payer OTHER, SELFPAY | PROVIDERS: Admitting Provider Internal Medicine; Emergency Provider Internal Medicine; Visit Provider Internal Medicine | DX: N17.9 Acute kidney failure, unspecified (principal) | CPT/HCPCS: 99223; 99232; 99239; 99499 ==

== ENCOUNTER 2024-06-13 10:26 | Outpatient (AMB) | payer OTHER, SELFPAY ==
[2024-06-13 10:31] VITALS: BP 90/60
--- NOTE | 2024-06-13 10:31 | HO.NEPHOV_ITS ---
Vital Signs 06/13/24 10:31 Weight 259 lb BP 90/60 Blood Pressure Location Lt brachial Position Sitting Intake Visit Reasons: Diffuse anasarca/ Conf Presiding Judge Required: Yes Presiding Judge Name: [id number] Yolis Accompanied by: Spouse Allergies metformin Allergy (Verified 06/13/24 10:36) Diarrhea Medication List - Last Reconciled 06/13/24 by lCive Berumen MD albuterol sulfate 2.5 mg inhalation Q4H PRN aspirin 81 mg PO DAILY budesonide-formoterol 160-4.5 mcg/actuation (Symbicort) 2 puffs inhalation BID bumetanide 0.5 mg (1/2 x 1 mg) PO DAILY famotidine 20 mg PO BID insulin glargine (Lantus Solostar U-100 Insulin) 60 units subcut BID insulin lispro 2 - 20 units subcut TID ipratropium-albuterol 20-100 mcg/actuation (Combivent Respimat) 1 puff inhalation TID levothyroxine 25 mcg PO DAILY@0600 levothyroxine 200 mcg PO DAILY@0600 magnesium oxide mg metoprolol succinate ER 25 mg PO DAILY prazosin 5 mg PO BEDTIME quetiapine 200 mg PO BEDTIME PRN rivaroxaban (Xarelto) 2.5 mg PO BID rosuvastatin 40 mg PO BEDTIME venlafaxine ER 150 mg PO DAILY venlafaxine ER 75 mg PO DAILY zolpidem 10 mg PO BEDTIME PRN HPI Comments Details: 53 year old female with history of RLE DVT on xarelto, insulin dependent type 2 diabetes, asthma/copd overlap, ELLA compliant with cpap, cad, pad, hx cervical cancer, mood disorder who is morbidly obese with BMI >53 presented to the ED for evaluation of edema and shortness of breath. The patient reports for the last month has been experiencing shortness of breath both and rest and increased with exertion and significant edema of the BLE. Several days ago began developing increased swelling in the upper extremities and eye lids. She has longstanding orthopnea. NO fevers, chills, abd pain, n/v/d, lightheadedness, palpitations, cough, chest pain. No recent illness. Denies sodium loading. She has been admitted and seen in the [facility] ED several times with significant swelling noted and diuresed but not discharged on lasix. Echo at [facility] showed normal LV systolic function with EF 60-65%, moderate concentric LVH and grade 1 left ventricular diastolic dysfunction. There was no mention of right ventricular pressures on echocardiogram. She was seen for anasarca during hospitalization. She was given IV Lasix and edema improved she would acute kidney injury which also improved with cautious diuresis 06/13/24 REcently hospoitalzied for MIRA Lisinopril and Bumex 1 mg stopped. Now on 0.5 mg MIRA resolved PFSH Medical History Anasarca Fluid overload Asthma-COPD overlap syndrome Morbid obesity ELLA on CPAP Peripheral artery disease CAD (coronary artery disease) Type 2 diabetes mellitus CHF (congestive heart failure) DVT (deep venous thrombosis) Social History Household Members: Spouse Housing: Apartment Do you presently have visiting nurse or other home services: Yes (english language learner tutor's everyday for 2 hours.) Alcohol intake: never Patient Tobacco Use Status: Former Tobacco user Second Hand Smoke Exposure: No Substance Use Type: Marijuana service: No Physical Exam Const General: comfortable; No acute distress Orientation/consciousness: patient oriented x3 Eyes General: appearance normal, both eyes and all related structures Visual Reaves: normal visual reaves by confrontation Neck Neck: Yes supple and Yes no JVD Resp Effort & Inspection: normal respiratory effort and respiratory effort not decreased Auscultation: rhonchi Cardio Palpation: no palpable S3 and no palpable S4 Heart sounds: no rubs GI Inspection: Yes normal to inspection Palpation (GI): Soft to palpation Percussion: Yes normal to percussion Auscultation: normal bowel sounds General: Yes no CVA tenderness Back/Spine/Pelvis Back: no CVA tenderness Skin General skin exam: no petechiae and no purpura Neuro General: patient oriented x3 and no focal motor deficits Extrem General: No clubbing and No edema Results Reviewed Nephrology Results: Hgb 15.2 g/dl (12.0-16.0) 05/28/24 WBC 10.4 X10*3/uL (4.8-10.8) 05/28/24 Plt Count 300 X10*3/uL (160-400) 05/28/24 Sodium 140 mmol/L (135-145) 05/31/24 Potassium 3.8 mmol/L (3.3-5.1) 05/31/24 Chloride 105 mmol/L (96-108) 05/31/24 Carbon Dioxide 26 mmol/L (22-29) 05/31/24 BUN 29 mg/dL (9-16) H 05/31/24 Creatinine 0.88 mg/dL (0.5-1.4) 05/31/24 Calcium 9.3 mg/dL (8.4-10.2) 05/31/24 Phosphorus 4.4 mg/dL (2.7-4.5) 05/29/24 Urine Protein 30 (1+) mg/dL (Neg-Trace) H 05/28/24 Urine Creatinine 158.01 mg/dL 04/30/24 Protein/Creatinin Ratio 987 mg/g creat (24-184) H 04/30/24 Assessment & Plan Assessment & Plan (1) MIRA (acute kidney injury): Code(s): N17.9 - Acute kidney failure, unspecified Category: Medical (2) Anasarca: Code(s): R60.1 - Generalized edema Category: Medical Plan 53-year-old woman with obesity diabetes mellitus and obstructive sleep apnea with with proteinuria has anasarca. Anasarca may be due to underlying nephrotic syndrome. However given the history of obesity and obstructive sleep apnea, right heart failure should be ruled out. Nephrotic syndrome could be due to underlying diabetic nephropathy versus other nondiabetic causes. Urine protein excretion of about 1 g SPEP . Cr is better Weight is down Keep on low-sodium diet cautious diuresis. Keep same dose Bumex Check daily weights Keep CPAP Orders: Orders Basic Metabolic Panel 2 Months R60.1 - Generalized edema Coding Level of Care Code Est Pt Level 4 (88247) Diagnoses MIRA (acute kidney injury) N17.9 Anasarca R60.1
== END 2024-06-13 10:59 | disposition home or self-care (01) ==
PROVIDERS: PCP Physician Assistant; Visit Provider Internal Medicine Hypertension Specialist
DX: N17.9 Acute kidney failure, unspecified (principal); R60.1 Generalized edema
CPT/HCPCS: 99214

== ENCOUNTER → 2024-06-13 10:26 | Outpatient (BNVA) | payer OTHER, SELFPAY | PROVIDERS: PCP Physician Assistant; Visit Provider Internal Medicine Hypertension Specialist | DX: N17.9 Acute kidney failure, unspecified (principal); E11.9 Type 2 diabetes mellitus without complications; R60.1 Generalized edema; Z79.4 Long term (current) use of insulin; Z86.718 Personal history of other venous thrombosis and embolism; Z79.01 Long term (current) use of anticoagulants | CPT/HCPCS: 99212 ==

== ENCOUNTER 2024-08-07 08:57 | Outpatient (REF) | payer OTHER, SELFPAY ==
[2024-08-07 13:16] LABS: Alanine Aminotransferase 20 U/L (0-31); Albumin Level 3.2 g/dL (3.5-5.0); Alkaline Phosphatase 97 U/L (39-117); Anion Gap 12 (12-20); Aspartate Amino Transferase 23 U/L (5-31); Bilirubin Total 0.3 mg/dL (0.0-1.0); Blood Urea Nitrogen 26 mg/dL (9-16); Calcium 9.3 mg/dL (8.4-10.2); Carbon Dioxide 29 mmol/L (22-29); Chloride 102 mmol/L (96-108); Estimated Glomerular Filt Rate > 60; Glucose Random 245 mg/dL (60-115); Potassium 4.4 mmol/L (3.3-5.1); Sodium 139 mmol/L (135-145); Total Protein 7.6 g/dL (6.5-8.0)
== END 2024-08-07 08:58 | disposition home or self-care (01) ==
LOC: HO.HKASLDS 08:57
PROVIDERS: Visit Provider Internal Medicine Hypertension Specialist
DX: N17.9 Acute kidney failure, unspecified (principal)
CPT/HCPCS: 36415; 80053

== ENCOUNTER 2024-08-15 11:44 | Outpatient (AMB) | payer OTHER, SELFPAY ==
--- NOTE | 2024-08-15 11:22 | HO.NEPHOV_ITS ---
Vital Signs 08/15/24 12:03 Height 5 ft 2 in Weight 256 lb BMI 46.8 BP 102/60 Pulse 84 Pulse Source Pulse Oximeter Pulse Oximetry (%) 92 Oxygen Delivery Method Room Air Intake Visit Reasons: 2 mon follow up/ Conf Cover Stitch Machine Operator Required: No Cover Stitch Machine Operator Name: [id number] miley Accompanied by: Spouse Allergies metformin Allergy (Verified 08/15/24 12:04) Diarrhea HPI Comments Details: 53 year old female with history of RLE DVT on xarelto, insulin dependent type 2 diabetes, asthma/copd overlap, ELLA compliant with cpap, cad, pad, hx cervical cancer, mood disorder who is morbidly obese with BMI >53. Earlier this summer experienced shortness of breath both and rest and increased with exertion and significant edema of the BLE. Several days ago began developing increased swelling in the upper extremities and eye lids. She has longstanding orthopnea. No fevers, chills, abd pain, n/v/d, lightheadedness, palpitations, cough, chest pain. No recent illness. Denies sodium loading. She has been admitted and seen in the [facility] ED several times with significant swelling noted and diuresed but not discharged on lasix. Echo at [facility] showed normal LV systolic function with EF 60-65%, moderate concentric LVH and grade 1 left ventricular diastolic dysfunction. There was no mention of right ventricular pressures on echocardiogram. She was seen for anasarca during hospitalization. She was given IV Lasix and edema improved she would acute kidney injury which also improved with cautious diuresis 06/13/24 Recently hospitalized for MIRA Lisinopril and Bumex 1 mg stopped. Now on 0.5 mg, metoprolol 25mg daily MIRA resolved 08/15/24 Pt states today she has not had continued issues with swelling over the last month or two- she continues to take bumetanide 1mg PO daily (per cardiology notes, diffuse anasarca and dyspnea likely has CHF component). She reports she is taking her medications as prescribed Reports her blood sugars are not well-controlled (in 300s often), but that her PCP just added Jardiance 10mg PO daily to her regimen last week She had an elevated TSH in May- pt states at that time she was not taking her levothyroxine 225mg daily as prescribed, but has since been doing so. She is not certain about a plan for TSH re-check through her PCP. She denies shortness of breath, chest pain, dizziness she takes She denies use of NSAIDs PFSH Medical History (Updated 08/15/24 @ 15:09 by Yancy Hu, RICARDO, TIMBER FRAMER-) Anasarca Fluid overload Asthma-COPD overlap syndrome Morbid obesity ELLA on CPAP Peripheral artery disease CAD (coronary artery disease) Type 2 diabetes mellitus CHF (congestive heart failure) DVT (deep venous thrombosis) Social History Household Members: Spouse Housing: Apartment Do you presently have visiting nurse or other home services: Yes (civil drafting technician's everyday for 2 hours.) Alcohol intake: never Patient Tobacco Use Status: Former Tobacco user Second Hand Smoke Exposure: No Substance Use Type: Marijuana service: No Review of Systems Const Denies fatigue, Denies headache(s) and Denies malaise ENT Denies dizziness and Denies headache(s) Card Denies chest pain, Denies lightheadedness and Denies dyspnea Resp Denies dyspnea GI Denies abdominal pain Denies hematuria, Denies difficulty voiding, Denies dysuria and Denies flank pain Musc Reports as per HPI and Denies arthralgias Skin/Breast Denies rash Neuro Denies dizziness and Denies headache(s) Endo Denies fatigue Physical Exam Vital Signs: Last Vital Signs Pulse 84 08/15/24 12:03 BP 102/60 08/15/24 12:03 Pulse Ox 92 08/15/24 12:03 Oxygen Delivery Method Room Air 08/15/24 12:03 BMI result Body Mass Index 46.8 Const General: comfortable and no acute distress Orientation/consciousness: oriented to person, oriented to place and oriented to time Neck Neck: Yes no JVD Resp Effort & Inspection: able to speak in complete sentences Auscultation: clear to auscultation bilaterally Cardio Jugular venous distension: no JVD Rate: regular rate Rhythm: regular rhythm Heart sounds: S1 normal heart sound present, S2 normal heart sound present and Murmur heart sound present GI Palpation (GI): Soft to palpation General: Yes no CVA tenderness Back/Spine/Pelvis Back: no CVA tenderness Skin Rashes: no rashes Neuro General: oriented to person, oriented to place and oriented to time Extrem General: Yes normal to inspection, No edema and No pedal edema Results Reviewed Nephrology Results: Hgb 15.2 g/dl (12.0-16.0) 05/28/24 WBC 10.4 X10*3/uL (4.8-10.8) 05/28/24 Plt Count 300 X10*3/uL (160-400) 05/28/24 Sodium 139 mmol/L (135-145) 08/07/24 Potassium 4.4 mmol/L (3.3-5.1) 08/07/24 Chloride 102 mmol/L (96-108) 08/07/24 Carbon Dioxide 29 mmol/L (22-29) 08/07/24 BUN 26 mg/dL (9-16) H 08/07/24 Creatinine 0.85 mg/dL (0.5-1.4) 08/07/24 Calcium 9.3 mg/dL (8.4-10.2) 08/07/24 Phosphorus 4.4 mg/dL (2.7-4.5) 05/29/24 Urine Protein 30 (1+) mg/dL (Neg-Trace) H 05/28/24 Assessment & Plan Assessment & Plan (1) MIRA (acute kidney injury): Code(s): N17.9 - Acute kidney failure, unspecified Category: Medical (2) Anasarca: Code(s): R60.1 - Generalized edema Category: Medical (3) Type 2 diabetes mellitus: Code(s): E11.9 - Type 2 diabetes mellitus without complications Category: Medical Qualifiers: Diabetes mellitus complication status: with hyperglycemia Diabetes mellitus retirement insulin use: with long wall mining machine tender use Qualified Code(s): E11.65 - Type 2 diabetes mellitus with hyperglycemia; Z79.4 - buttermilk drier operator (current) use of insulin (4) Proteinuria: Code(s): R80.9 - Proteinuria, unspecified Category: Medical Qualifiers: Proteinuria type: persistent Qualified Code(s): R80.1 - Persistent proteinuria, unspecified Plan 53-year-old woman with obesity diabetes mellitus and obstructive sleep apnea with with proteinuria, hx anasarca- diagnosed with diastolic HF per Cardiology. Proteinuria most likely due to diabetic nephropathy Urine protein excretion of about 1 g in May, will repeat Will hold off on ACEi/ARB due to low blood pressures today UPEP, SPEP negative for paraproteins C3, C4 normal Cr has been stable/normal Weight is down Continue to work on diabetic control, continue Jardiance as prescribed Keep on low-sodium diet cautious diuresis. Keep same dose Bumex Check daily weights Continue nightly CPAP She will return to the office in 3 months- advised TSH lab today, then blood work/urine prior to next appt in 3 months Orders: Orders TSH reflex Free T4 Today E11.65 - Type 2 diabetes mellitus with hyperglycemia, R80.9 - Proteinuria, unspecified, Z79.4 - assisted (current) use of insulin Creatinine Urine 3 Months . - Type 2 diabetes mellitus with hyperglycemia, R80.9 - Proteinuria, unspecified, Z79.4 - assisted (current) use of insulin Total Protein Urine Random 3 Months - Type 2 diabetes mellitus with hyperglycemia, R80.9 - Proteinuria, unspecified, Z79.4 - buttermilk drier operator (current) use of insulin Basic Metabolic Panel 3 Months - Type 2 diabetes mellitus with hyperglycemia, N18.30 - Chronic kidney disease, stage 3 unspecified, R80.9 - Proteinuria, unspecified, Z79.4 - buttermilk drier operator (current) use of insulin Coding Level of Care Code Est Pt Level 4 (06385) Diagnoses MIRA (acute kidney injury) N17.9 Anasarca R60.1 Type 2 diabetes mellitus with hyperglycemia, with long-term current use of insulin ; Z79.4 Diabetes mellitus complication status: with hyperglycemia Diabetes mellitus retirement insulin use: with retirement use Persistent proteinuria R80.1 Proteinuria type: persistent
[2024-08-15 12:03] VITALS: BP 102/60; PULSE 84; O2SAT 92; BMI 46.8
== END 2024-08-15 12:30 | disposition home or self-care (01) ==
PROVIDERS: PCP Physician Assistant; Visit Provider Internal Medicine Hypertension Specialist
DX: N17.9 Acute kidney failure, unspecified (principal); R60.1 Generalized edema; E11.65 Type 2 diabetes mellitus with hyperglycemia; Z79.4 Long term (current) use of insulin; R80.1 Persistent proteinuria, unspecified
CPT/HCPCS: 99214

== ENCOUNTER → 2024-08-15 11:44 | Outpatient (BNVA) | payer OTHER, SELFPAY | PROVIDERS: PCP Physician Assistant; Visit Provider Internal Medicine Hypertension Specialist | DX: N17.9 Acute kidney failure, unspecified (principal); R60.1 Generalized edema; E11.65 Type 2 diabetes mellitus with hyperglycemia; R80.1 Persistent proteinuria, unspecified; Z79.4 Long term (current) use of insulin | CPT/HCPCS: 99212 ==

== ENCOUNTER 2024-10-31 09:12 | Outpatient (REF) | payer OTHER, SELFPAY ==
[2024-10-31 18:04] LABS: Anion Gap 13 (12-20); Blood Urea Nitrogen 34 mg/dL (9-16); Calcium 9.5 mg/dL (8.4-10.2); Carbon Dioxide 27 mmol/L (22-29); Chloride 105 mmol/L (96-108); Estimated Glomerular Filt Rate > 60; Glucose Random 129 mg/dL (60-115); Potassium 3.9 mmol/L (3.3-5.1); Sodium 141 mmol/L (135-145)
== END 2024-10-31 09:13 | disposition home or self-care (01) ==
LOC: HO.HKASLDS 09:12
PROVIDERS: Visit Provider Internal Medicine Hypertension Specialist
DX: R60.1 Generalized edema (principal)
CPT/HCPCS: 36415; 80048

== ENCOUNTER 2024-11-14 11:24 | Outpatient (AMB) | payer OTHER, SELFPAY ==
[2024-11-14 11:26] VITALS: BP 110/70; BMI 47.4
--- NOTE | 2024-11-14 11:26 | HO.NEPHOV ---
Vital Signs 11/14/24 11:26 Height 5 ft 2 in Weight 259 lb BMI 47.4 BP 110/70 Blood Pressure Location Lt brachial Position Sitting Intake Visit Reasons: 3 mo fu/ Conf Hub Bander Required: Yes Hub Bander Name: kevin [id number] Accompanied by: Self / Same As Patient Allergies metformin Allergy (Verified 11/14/24 11:29) Diarrhea Medication List - Last Reconciled 11/14/24 by Clive Berumen MD albuterol sulfate 2.5 mg inhalation Q4H PRN aspirin 81 mg PO DAILY budesonide-formoterol 160-4.5 mcg/actuation (Symbicort) 2 puffs inhalation BID bumetanide 1 mg PO DAILY empagliflozin (Jardiance) 10 mg PO DAILY famotidine 20 mg PO BID insulin glargine (Lantus Solostar U-100 Insulin) 60 units subcut BID insulin lispro 2 - 20 units subcut TID ipratropium-albuterol 20-100 mcg/actuation (Combivent Respimat) 1 puff inhalation TID levothyroxine 25 mcg PO DAILY@0600 levothyroxine 200 mcg PO DAILY@0600 magnesium oxide mg metoprolol succinate ER 25 mg PO DAILY prazosin 5 mg PO BEDTIME quetiapine 200 mg PO BEDTIME PRN rivaroxaban (Xarelto) 2.5 mg PO BID rosuvastatin 40 mg PO BEDTIME venlafaxine ER 150 mg PO DAILY venlafaxine ER 75 mg PO DAILY zolpidem 10 mg PO BEDTIME PRN HPI Comments Details: 53 year old female with history of RLE DVT on xarelto, insulin dependent type 2 diabetes, asthma/copd overlap, ELLA compliant with cpap, cad, pad, hx cervical cancer, mood disorder who is morbidly obese with BMI >53. Earlier this summer experienced shortness of breath both and rest and increased with exertion and significant edema of the BLE. Several days ago began developing increased swelling in the upper extremities and eye lids. She has longstanding orthopnea. No fevers, chills, abd pain, n/v/d, lightheadedness, palpitations, cough, chest pain. No recent illness. Denies sodium loading. She has been admitted and seen in the [facility] ED several times with significant swelling noted and diuresed but not discharged on lasix. Echo at [facility] showed normal LV systolic function with EF 60-65%, moderate concentric LVH and grade 1 left ventricular diastolic dysfunction. There was no mention of right ventricular pressures on echocardiogram. She was seen for anasarca during hospitalization. She was given IV Lasix and edema improved she would acute kidney injury which also improved with cautious diuresis 06/13/24 Recently hospitalized for MIRA Lisinopril and Bumex 1 mg stopped. Now on 0.5 mg, metoprolol 25mg daily MIRA resolved 08/15/24 Pt states today she has not had continued issues with swelling over the last month or two- she continues to take bumetanide 1mg PO daily (per cardiology notes, diffuse anasarca and dyspnea likely has CHF component). She reports she is taking her medications as prescribed Reports her blood sugars are not well-controlled (in 300s often), but that her PCP just added Jardiance 10mg PO daily to her regimen last week She had an elevated TSH in May- pt states at that time she was not taking her levothyroxine 225mg daily as prescribed, but has since been doing so. She is not certain about a plan for TSH re-check through her PCP. She denies shortness of breath, chest pain, dizziness she takes She denies use of NSAIDs [facility] Medical History (Updated 08/15/24 @ 15:09 by Yancy Hu, RICARDO, WELLNESS SPECIALIST-) Anasarca Fluid overload Asthma-COPD overlap syndrome Morbid obesity ELLA on CPAP Peripheral artery disease CAD (coronary artery disease) Type 2 diabetes mellitus CHF (congestive heart failure) DVT (deep venous thrombosis) Social History Household Members: Spouse Housing: Apartment Do you presently have visiting nurse or other home services: Yes (high density talc coater operator's everyday for 2 hours.) Alcohol intake: never Patient Tobacco Use Status: Former Tobacco user Second Hand Smoke Exposure: No Substance Use Type: Marijuana service: No Physical Exam Vital Signs: BMI result Body Mass Index 47.4 Comfortable Neck supple no JVD. Lungs entry equal no rales. Heart S1-S2 heard no gallop or rub. Abdomen soft nontender. Neuro alert awake oriented. No asterixis. Extremities no edema. Results Reviewed Nephrology Results: Hgb 15.2 g/dl (12.0-16.0) 05/28/24 WBC 10.4 X10*3/uL (4.8-10.8) 05/28/24 Plt Count 300 X10*3/uL (160-400) 05/28/24 Sodium 141 mmol/L (135-145) 10/31/24 Potassium 3.9 mmol/L (3.3-5.1) 10/31/24 Chloride 105 mmol/L (96-108) 10/31/24 Carbon Dioxide 27 mmol/L (22-29) 10/31/24 BUN 34 mg/dL (9-16) H 10/31/24 Creatinine 0.79 mg/dL (0.5-1.4) 10/31/24 Calcium 9.5 mg/dL (8.4-10.2) 10/31/24 Phosphorus 4.4 mg/dL (2.7-4.5) 05/29/24 Urine Protein 30 (1+) mg/dL (Neg-Trace) H 05/28/24 Assessment & Plan Assessment & Plan (1) MIRA (acute kidney injury): Code(s): N17.9 - Acute kidney failure, unspecified Category: Medical (2) Anasarca: Code(s): R60.1 - Generalized edema Category: Medical (3) Type 2 diabetes mellitus: Code(s): E11.9 - Type 2 diabetes mellitus without complications Category: Medical Qualifiers: Diabetes mellitus complication status: with hyperglycemia Diabetes mellitus half-way insulin use: with half-way use Qualified Code(s): E11.65 - Type 2 diabetes mellitus with hyperglycemia; Z79.4 - penitentiary (current) use of insulin (4) Proteinuria: Code(s): R80.9 - Proteinuria, unspecified Category: Medical Qualifiers: Proteinuria type: persistent Qualified Code(s): R80.1 - Persistent proteinuria, unspecified Plan 53-year-old woman with obesity diabetes mellitus and obstructive sleep apnea with with proteinuria, hx anasarca- diagnosed with diastolic HF per Cardiology. Proteinuria most likely due to diabetic nephropathy Urine protein excretion of about 1 g in May, will repeat Will hold off on ACEi/ARB due to low blood pressures today UPEP, SPEP negative for paraproteins C3, C4 normal Cr has been stable/normal Weight is down Continue to work on diabetic control, continue Jardiance as prescribed Keep on low-sodium diet cautious diuresis. Keep same dose Bumex Check daily weights Continue nightly CPAP Hypothyroidism Follow with PCP explained with interpretor Orders: Orders Creatinine Urine Today R60.1 - Generalized edema, R80.1 - Persistent proteinuria, unspecified Basic Metabolic Panel 3 Months R60.1 - Generalized edema, R80.1 - Persistent proteinuria, unspecified Total Protein Urine Random Today R60.1 - Generalized edema, R80.1 - Persistent proteinuria, unspecified UA and rflx microscopic Today R60.1 - Generalized edema, R80.1 - Persistent proteinuria, unspecified Medications: Refilled bumetanide 1 mg PO DAILY 90 tabs 1RF Coding Level of Care Code Est Pt Level 4 (68191) Diagnoses MIRA (acute kidney injury) N17.9 Anasarca R60.1 Type 2 diabetes mellitus with hyperglycemia, with long-term current use of insulin E11.65; Z79.4 Diabetes mellitus complication status: with hyperglycemia Diabetes mellitus exterminator insulin use: with exterminator use Persistent proteinuria R80.1 Proteinuria type: persistent
--- OUTSIDE RECORDS SUMMARY | 2024-11-14 13:12 | XMS_ITS | Clinical Summary ---
Author Organization [address] [facility] Address [address] [place] [address] Phone Care Team Providers Care [facility] Name Role Phone Amrita Sanabria MD Primary Care Provider [phone] Allergies Active Allergy Reactions Criticality Noted Date Comments Metformin Diarrhea,GI intolerance 11/06/2020 GI upset Medications Medication Sig Dispensed Refills Start Date End Date Status aspirin 81 mg EC tablet Take 1 tablet (81 mg total) by mouth 1 (one) time each day. Active albuterol 2.5 mg /3 mL (0.083 %) nebulizer solution Take 1 Vial by nebulization every 4 hours as needed for Wheezing, Shortness of Breath or Cough for up to 180 days. 04/25/20 24 Active budesonide-formote roL (SYMBICORT) 160-4.5 mcg/actuation inhaler Inhale 2 Puffs into the lungs 2 times daily. 03/05/20 24 Active famotidine (PEPCID) 20 mg tablet TAKE 1 TABLET BY MOUTH 2 TIMES DAILY NEEDED FOR HEARTBURN. 02/15/20 24 Active blood-glucose meter,continuous (FreeStyle Leif 3 [place]) misc 1 Each by Does not apply route See Admin Instructions. 01/12/20 24 Active blood-glucose sensor (FREESTYLE LEIF 3 SENSOR MISC) 1 Each by Does not apply route See Admin Instructions. Use one sensor every 14 days 01/12/20 24 Active levothyroxine (SYNTHROID, LEVOTHROID) 200 mcg tablet Take 1 tablet (200 mcg total) by mouth 1 (one) time each day. 12/20/19 Active levothyroxine (SYNTHROID, LEVOTHROID) 25 mcg tablet Take 1 tablet (25 mcg total) by mouth 1 (one) time each day. 12/20/19 Active metoprolol succinate (TOPROL-XL) 25 mg 24 hr tablet Take 1 tablet (25 mg total) by mouth 1 (one) time each day. 08/24/20 Active ipratropium-albute roL (Combivent Respimat) 20-100 mcg/actuation inhaler Inhale 20 mcg into the lungs 3 times daily as needed (wheezing). 08/22/20 Active rivaroxaban (Xarelto) 2.5 mg tablet Take 2.5 mg by mouth 2 times daily (with meals). 06/14/20 Active FREESTYLE LANCETS MISC Use daily 11/11/19 Active albuterol HFA (PROAIR HFA ; PROVENTIL HFA ; VENTOLIN HFA) 90 mcg/actuation inhaler Inhale 2 puffs by mouth every 4 (four) hours if needed. Active venlafaxine XR (EFFEXOR-XR) 75 mg 24 hr capsule Take 75 mg by mouth daily. Active venlafaxine XR (EFFEXOR-XR) 150 mg 24 hr capsule Take 150 mg by mouth daily. Taken with 75 mg Active QUEtiapine XR (SEROquel XR) 200 mg 24 hr tablet Take 200 mg by mouth at bedtime. Active blood-glucose meter kit 1 Each by Does not apply route daily. FREESTYLE GLUCOMETER Active LORazepam (ATIVAN) 1 mg tablet Take 1 Tablet by mouth Once for 1 dose. 30-60 minutes prior to MRI. Active fluticasone propionate (FLONASE) 50 mcg/actuation nasal spray 2 Sprays by Each Nare route daily Active prazosin (MINIPRESS) 5 mg capsule Take 1 Capsule by mouth at bedtime. Active zolpidem 10 mg tablet, sublingual Place 1 Tablet under the tongue as needed. Active magnesium 250 mg tablet Take 1 Tablet by mouth at bedtime. Active budesonide-formote roL (Symbicort) 160-4.5 mcg/actuation inhaler Inhale 2 puffs by mouth 2 (two) times a day. Rinse mouth with water after use to reduce aftertaste and incidence of candidiasis. Do not swallow. 1 each 08/29/20 Active zolpidem (AMBIEN) 10 mg tablet Take 1 tablet (10 mg total) by mouth at bedtime as needed. 03/12/20 24 Active insulin glargine (Lantus Solostar U-100 Insulin) 100 unit/mL (3 mL) injection pen Inject 54 Units under the skin 2 (two) times a day. 45 mL 2 09/07/20 24 Active insulin lispro (HumaLOG KwikPen) 100 unit/mL injection pen Three times a day per SS. <70: 0 units, 71-100: 9 units, 101-150: 12 units, 151-200: 15 units, 201-250: 18 units, 251-300: 21 units, 301-350: 24 units, 351-400: 27 units, >400: 30 units 60 mL 2 09/07/20 Active empagliflozin (JARDIANCE) 10 mg tablet Take 1 tablet daily. 09/07/20 24 Active fluconazole (DIFLUCAN) 150 mg tabletIndications: Vagina, candidiasis Take 1 tab now and repeat dose in 2-3 days if needed. Do not take rosuvastatin (Crestor) on days you take this medication. 2 each 09/28/20 24 Active rosuvastatin (CRESTOR) 40 mg tabletIndications: Mixed hyperlipidemia,Ath erosclerotic heart disease of [place] coronary artery without angina pectoris TAKE 1 TABLET BY MOUTH EVERYDAY AT BEDTIME 90 tablet 3 10/05/20 24 Active lisinopril (PRINIVIL,ZESTRIL) 40 mg tabletIndications: Atherosclerotic heart disease of [place] coronary artery without angina pectoris Take 1 tablet (40 mg total) by mouth 1 (one) time each day. 90 tablet 1 10/05/20 24 Active FreeStyle Test test stripIndications:T ype 2 diabetes mellitus with diabetic microalbuminuria, with long-term current use of insulin (CMS/[facility]) Use bid and prn 100 each 3 10/19/20 24 Active gabapentin (NEURONTIN) 300 mg capsuleIndications :Type 2 diabetes mellitus with diabetic polyneuropathy (CMS/HCC) TAKE 1 CAPSULE BY MOUTH THREE TIMES A DAY 90 capsule 1 10/31/19 25 Active gabapentin (NEURONTIN) 300 mg capsule Take 1 Capsule by mouth 3 times daily. 10/ 025 Discontinued FreeStyle Test test strip Apply 1 Strip topically 3 times daily. 03/28/20 024 Discontinued(Re order) Active Problems Problem Noted Date Diagnosed Date Palpitations 07/23/2024 Morbid obesity with BMI of 40.0-44.9, adult 06/26 (HFpEF) heart failure with preserved ejection fr action 07/23/2024 Acute hypoxic respiratory failure 05/10/2024 Cardiomyopathy 11/28/2023 Overview (07/23/2024): Last Assessment & Plan: Patient was found to have a moderate LVH on echocardiogram. She has an upcoming cardiac MRI to rule out the presence of infiltrative cardiomyopathy. Will also be able to evaluate right ventricle and LV function. Dyspnea on exertion 05/20/2023 Overview (07/23/2024): Last Assessment & Plan: The patient reports significant shortness of breath with minimal activity and at rest today. I recommend she be evaluated in the emergency room to rule out acute etiology including PE and acute infection. She will be driven to the ER. 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 Chest pain 11/06/2020 Overview (07/23/2024): Last Assessment & Plan: The patient came for evaluation due to episodes of chest pain. The description of the symptoms is consistent with atypical chest pain. The patient also refers symptoms of exertional dyspnea. The patient has the following risk factors for coronary artery disease: Diabetes mellitus type 2, PAD, hypertension, obesity. Given the patient's age, gender, description of the symptoms, and risk factors for CAD, the patient has an increased risk for coronary artery disease. As such, will order a stress test for evaluation of the patient's chest pain. The patient ambulates with a walker and therefore will be unable to complete an exercise protocol. As such, we will refer the patient for a pharmacological nuclear stress test. Hyperlipidemia 11/06/2020 Overview (07/23/2024): Last Assessment & Plan: The patient has a history of hyperlipidemia. The patient is currently on rosuvastatin 40 mg orally daily and fenofibrate 134 mg orally daily. We will order a new lipid panel to evaluate the patient's current lipid control and determine if any adjustment are needed in the lipid lowering therapy. Hypertension 11/06/2020 Overview (07/23/2024): Last Assessment & Plan: Patient's blood pressure is acceptable today. She will continue her current antihypertensive medication regimen as prescribed. Encounters Date Type Department Care Team Description 10/31/2024 Telephone [facility] Cardiology [facility] [address] [place] [address] Dell Rosen MD 10/31/2024 Telephone [facility] [address] [place] [address] Dell Rosen MD 10/18/2024 Telephone [facility] Pulmonary [address] [place] [address] Daniel AlanisSharon, [place] 10/08/2024 8:00 AM EST Ancillary Procedure [facility] Cardiology [facility] [address] [place] [address] Other cardiomyopathy (CMS/HCC) 09/28/2024 8:40 AM EST - 09/28/2024 11:59 PM EST Hospital Encounter CT Scan - [address] [address] Morbid obesity with BMI of 40.0-44.9, adult (CMS/HCC); Chronic obstructive pulmonary disease, unspecified COPD type (CMS/HCC) Discharge Disposition: Home or Self Care 09/28/2024 Telephone Internal Medicine - [place] [address] [facility] [address] [place] [phone] Amrita Sanabria MD Medication Problem (Please check on what med was prescribed in the past for yeast infection and order for patient/) 09/07/2024 2:00 PM EST Office Visit Endocrinology [place] [id number] [place] [address] Chani Hendricks PA Type 2 diabetes mellitus with diabetic microalbuminuria, with long-term current use of insulin ([facility]) (Primary Dx); Morbid obesity with BMI of 40.0-44.9, adult ([facility]); Primary hypertension; Hyperlipidemia, unspecified hyperlipidemia type; Hypothyroidism, unspecified type 09/06/2024 1:00 PM EST Office Visit Vascular Surgery - [place] [address] [place] [address] Cammie Garner PA PAD (peripheral artery disease) ([facility]) (Primary Dx); Morbid obesity with BMI of 40.0-44.9, adult ([facility]) 09/03/[address] [facility] [address] [place] [address] Chani Hendricks PA Medication Problem 08/29/2024 10:45 AM EST Office Visit Pulmonolgy - [place] [address] [place] [phone] Ar Ann MD ELLA (obstructive sleep apnea) (Primary Dx); Morbid obesity with BMI of 40.0-44.9, adult ([facility]); Chronic obstructive pulmonary disease, unspecified COPD type ([facility]) from Last 3 Months Immunizations Name Administration Dates Next Due Influenza Quadravalent, MDCK , 0.5ml, preservative free (Flucelvax) 6mo and older 08/09/2023 Surgical History Surgery Date Site/Laterality Comments CHOLECYSTECTOMY 2001 PROCEDURE: LAPAROSCOPY, CHOLECYSTECTOMY OTHER SURGICAL HISTORY PROCEDURE: [place] TOTAL ABDOMINAL HYSTERECT W/WO RMVL TUBE OVARY; COMMENT: due to uterine cancer OTHER SURGICAL HISTORY 05/09/2023 PROCEDURE: [place] SLCTV CATHJ 3RD+ ORD SLCTV ABDL PEL/LXTR BRNCH OTHER SURGICAL HISTORY 05/09/2023 PROCEDURE: [place] THROMBOLYSIS ARTERIAL INFUSION ICRA RS&I INIT TX OTHER SURGICAL HISTORY 05/09/2023 PROCEDURE: ULTRASOUND GUIDANCE FOR VASCULAR AC OTHER SURGICAL HISTORY 05/10/2023 PROCEDURE: [place] SLCTV CATHJ EA 2ND+ ORD ABDL PEL/LXTR ART BRNCH OTHER SURGICAL HISTORY 05/10/2023 PROCEDURE: [place] REVSC OPN/PRG FEM/POP W/ANGIOPLASTY UNI OTHER SURGICAL HISTORY 05/10/2023 PROCEDURE: [place] THROMBOLYSIS ART/VENOUS INFSN W/IMAGE SUBSQ TX OTHER SURGICAL HISTORY 05/11/2023 PROCEDURE: [place] REVSC OPN/PRQ FEM/POP W/STNT/ANGIOP SM VSL OTHER SURGICAL HISTORY 05/11/2023 PROCEDURE: [place] CESSATION THROMBOLYTIC THER W/CATHETER REMOVAL Medical History Medical History Date Comments Essential hypertension DX:Essent ial hypertension Hyperlipidemia DX:Hyperlipidemi a Family history of cardiovasc ular disease DX:Family history of cardiov ascular disease 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 03/12/2022 DX:Coronary artery disease w ithout angina pectoris DM type 2 (diabetes mellitus , type 2) (CMS/HCC) DX:DM type 2 (diabetes melli tus, type 2) ([facility]) Hypothyroidism DX:Hypothyroidis m Morbid obesity with BMI of 4 0.0-44.9, adult (CMS/HCC) DX:Morbid obesity with BMI o f 40.0-44.9, adult ([facility]) Tobacco abuse disorder DX:Tobacc o abuse disorder Painful diabetic neuropathy (CMS/HCC) DX:Painful diabetic neuropathy (HCC) History of uterine cancer DX:His tory of uterine cancer Family History Medical History Relation Name Comments Heart attack Mother Colon cancer Uncle mother Relation Name Status Comments Mother Uncle mother Social History Tobacco Use Types Packs/Day Years Used Date Smoking Tobacco: Former Cigarettes Q uit: 05/06/2023 Smokeless Tobacco: Never Alcohol Use Standard Drinks/Week Comments Not Currently 0 (1 standard drink = 0.6 oz pur e alcohol) Sex and Gender Information Value Date Recorded Sex Assigned at Not on file Gender Identity Not on file Sexual Orientation Not on file Job Start Date Occupation Industry Not on file Not on file Not on file Obstetrics History Last Filed Vital Signs Vital Sign Reading Time Taken Comments Blood Pressure 135/83 09/07/2024 2:14 PM EST Pulse 94 09/07/2024 2:14 PM EST Temperature 36.2 ??C (97.2 ??F) 09/07/2024 2:14 PM ES T Respiratory Rate 20 08/29/2024 10:57 AM EST Oxygen Saturation 97% 09/07/2024 2:14 PM EST Inhaled Oxygen Concentration - - Weight 117 kg (257 lb) 10/08/2024 8:08 AM EST Height 157.5 cm (5' 2 ) 10/08/2024 8:08 AM EST Body Mass Index 47.01 10/08/2024 8:08 AM EST Plan of Treatment Upcoming Encounters Date Type Department Care Team (Late st Contact Info) Description 11/20/2024 7:40 AM EST Office Visit [facility] [address] [place] [address] [place] [address] Layne Norris NP [address] [place] [address] [address] [place] [address] 12/10/2024 10:40 AM EST Office Visit Endocrinology - [place] [address] [place] [address] Chani Hendricks PA [address] [place] [address] 01/22/2025 12:30 PM EDT Ancillary Procedure [facility] Cardiology [facility] [address] [facility] [address] [place] [phone] 02/28/2025 11:30 AM EDT Office Visit Pulmonolgy - [place] [facility] [address] [place] [address] Ar Ann MD 175 [facility] [address] [place] [address] 03/07/2025 11:30 AM EDT Office Visit Vascular Surgery - [place] [address] [place] [address] Cammie Garner PA [address] [facility] [address] [place] [address] Health Maintenance Due Date Last Done Comments Breast Cancer Screening 1970 COVID-19 Vaccine (#1) 1975 Diabetes: Annual Foot Exam 1980 Zoster Vaccines (1 of 2) 1989 Cervical Cancer Screening: Pap Smear 1991 Pneumococcal Vaccine: Pediatrics (0 to 5 Years) and At-Risk Patients (6 to 64 Years) (2 of 2 - PCV) 09/12/2010 09/12/2009 Hepatitis B Vaccines (3 of 3 - 19+ 3-dose series) 01/18/2019 11/23/2018, 12/16/2016 Colorectal Cancer Screening: Colonoscopy 10/02/2022 Depression Screening 10/02/2022 HIV Screening 10/02/2022 Hepatitis C Screening 10/02/2022 Social Influencers of Health Screening 10/02/2022 Diabetes: Annual Urine Albumin-Creatinine Ratio (uACR) 08/12/2023 08/12/2022 Influenza Vaccine (#1) 2024 , 10/14/2022, 09/02/2021, Additional history exists Diabetes: Annual Retina Eye Exam 02/12/2025 02/13/2024 Diabetes: Blood Sugar Control Test (HGBA1C) 04/19/2025 10/19/2024, 05/22/2024, 05/22/2024 Diabetes: Annual GFR (Glomerular Filtration Rate) 10/19/2025 10/19/2024, 08/09/2024, 07/05/2024, Additional history exists Hypertension/CHF/CAD Annual BMP Blood Test 10/19/2025 10/19/2024, 08/09/2024, 07/05/2024, Additional history exists DTaP,Tdap,and Td Vaccines (3 - Td or Tdap) 11/18/2026 11/18/2016, 08/15/2009 Cholesterol Screening (Lipid Panel) 10/19/2029 10/19/2024, 08/09/2024, 12/15/2023 HIB Vaccines Aged Out No longer eligi ble based on patient's age to complete this topic HPV Vaccines Aged Out No longer eligi ble based on patient's age to complete this topic Hepatitis A Vaccines Aged Out No long er eligible based on patient's age to complete this topic IPV Vaccines Aged Out No longer eligi ble based on patient's age to complete this topic MMR Vaccines Aged Out No longer eligi ble based on patient's age to complete this topic Meningococcal ACWY Vaccine Aged Out N o longer eligible based on patient's age to complete this topic RSV Immunization Patients Under 20 months Aged Out No longer eligible based on patient's age to complete this topic Varicella Vaccines Aged Out No longer eligible based on patient's age to complete this topic Procedures Procedure Name Priority Date/Time Associated Diagnosis Comments TRIIODOTHYRONINE FREE Routine 10/19/2024 9:50 AM EST Hypothyroidism, unspecified type FREE THYROXINE WITH REFLEX TO FREE TRIIODOTHYRONINE Routine 10/19/2024 9:50 AM EST Hypothyroidism, unspecified type BASIC METABOLIC PANEL Routine 10/19/2024 9:50 AM EST Morbid obesity with BMI of 40.0-44.9, adult ([facility]) Type 2 diabetes mellitus with diabetic microalbuminuria, with long-term current use of insulin ([facility]) LIPID PANEL WITH REFLEX TO DIRECT LDL Routine 10/19/2024 9:50 AM EST Hyperlipidemia, unspecified hyperlipidemia type Type 2 diabetes mellitus with diabetic microalbuminuria, with long-term current use of insulin ([facility]) THYROID STIMULATING HORMONE WITH REFLEX TO FREE T4 AND FREE T3 Routine 10/19/2024 9:50 AM EST Hypothyroidism, unspecified type HEMOGLOBIN A1C Routine 10/19/2024 9:50 AM EST Type 2 diabetes mellitus with diabetic microalbuminuria, with long-term current use of insulin ([facility]) NM CARDIAC AMYLOID STUDY W/ CT Routine 10/08/2024 11:45 AM EST Other cardiomyopathy ([facility]) CT CHEST WO CONTRAST Routine 09/28/2024 9:01 AM EST Morbid obesity with BMI of 40.0-44.9, adult ([facility]) Chronic obstructive pulmonary disease, unspecified COPD type ([facility]) EXTERNAL CT REPORT 09/28/2024 HM DIABETES EYE EXAM Routine 02/13/2024 URINE ALBUMIN CREATININE RATIO Routine 08/12/2022 from Last 3 Months or Most Recently Relevant to Health Maintenance Results * (ABNORMAL) Thyroid stimulating hormone with reflex to free t4 and free t3 (10/19/2024 9:50 AM EST) TSH 36.37(H) 0.40 - 4.00 mcIU/mL LAB CHEMISTRY METHOD 10/19/2024 2:57 PM EST [facility] Blood Venous blood specimen / Unknown Venipuncture / Unknown 10/19/2024 9:50 AM EST 10/19/2024 9:50 AM EST Chani BORRERO LAB BLOOD ORDERABLES Performing Organization Address City/[facility]/ZIP Co de Phone Number [facility] [address] [place] [address], * Free thyroxine with reflex to free triiodothyronine (10/19/2024 9:50 AM EST) Pathologist [facility] Free T4 0.88 0.70 - 1.80 ng/dL LAB CHEMISTRY METHOD 10/19/2024 3:22 PM EST [facility] Blood Venous blood specimen / Unknown Venipuncture / Unknown 10/19/2024 9:50 AM EST 10/19/2024 9:50 AM EST Chani BORRERO LAB BLOOD ORDERABLES [facility] [address] [place] [address], * (ABNORMAL) Lipid panel with reflex to direct LDL (10/19/2024 9:50 AM EST) Cholesterol 260(H) 0 - 200 mg/dL LAB CHEMISTRY METHOD 10/19/2024 2:59 PM EST [facility] Triglycerides 237(H) 0 - 150 mg/dL LAB CHEMISTRY METHOD 10/19/2024 2:[address] [facility] HDL 59 >=40 mg/dL LAB CHEMISTRY METHOD 10/19/2024 2:[address] [facility] LDL Calculated 154(H) 0 - 100 mg/dL LAB CHEMISTRY METHOD 10/19/2024 2:[address] [facility] VLDL Cholesterol Charli 47.4 mg/dL LAB CHEMISTRY METHOD 10/19/2024 2:[address] [facility] Non HDL Chol. (LDL+VLDL) 201(H) <145 mg/dL LAB CHEMISTRY METHOD 10/19/2024 2:[address] [facility] Chol/HDL Ratio 4.4 0.0 - 4.4 LAB CHEMISTRY METHOD 10/19/2024 2:[address] [facility] Blood Venous blood specimen / Unknown Venipuncture / Unknown 10/19/2024 9:50 AM EST 10/19/2024 9:50 AM EST Chani BORRERO LAB BLOOD ORDERABLES Performing Organization Address City/[facility]/ZIP Co de Phone Number [facility] [address] [place] [address], * (ABNORMAL) Triiodothyronine free (10/19/2024 9:50 AM EST) T3, Free 206(L) 230 - 420 pcg/dL LAB CHEMISTRY METHOD 10/19/2024 3:[address] [facility] Blood Venous blood specimen / Unknown Venipuncture / Unknown 10/19/2024 9:50 AM EST 10/19/2024 9:50 AM EST Chani BORRERO LAB BLOOD ORDERABLES [facility] [address] [place] [address], [place] [phone] * (ABNORMAL) Hemoglobin A1c (10/19/2024 9:50 AM EST) Pathologist [facility] Hemoglobin A1C 10.9(H) <6.5 % LAB CHEMISTRY METHOD 10/19/2024 2:52 PM EST [facility] Mean Bld Glu Estim. 266 mg/dL LAB CHEMISTRY METHOD 10/19/2024 2:[address] [facility] Blood Venous blood specimen / Unknown Venipuncture / Unknown 10/19/2024 9:50 AM EST 10/19/2024 9:50 AM EST Chani BORRERO LAB BLOOD ORDERABLES [facility] [address] [place] [address], * (ABNORMAL) Basic metabolic panel (10/19/2024 9:50 AM EST) [facility] Sodium 140 133 - 145 mmol/L LAB CHEMISTRY METHOD 10/19/2024 2:[address] [facility] Potassium 3.8 3.5 - 5.5 mmol/L LAB CHEMISTRY METHOD 10/19/2024 2:[address] [facility] Chloride 110 96 - 110 mmol/L LAB CHEMISTRY METHOD 10/19/2024 2:[address] [facility] CO2 25 21 - 32 mmol/L LAB CHEMISTRY METHOD 10/19/2024 2:[address] [facility] Anion Gap 5 3 - 11 LAB CHEMISTRY METHOD 10/19/2024 2:[address] [facility] Glucose 158(H) 70 - 100 mg/dL LAB CHEMISTRY METHOD 10/19/2024 2:[address] [facility] BUN 19 5 - 25 mg/dL LAB CHEMISTRY METHOD 10/19/2024 2:50 PM EST [facility] Creatinine 0.62 0.50 - 1.10 mg/dL LAB CHEMISTRY METHOD 10/19/2024 2:50 PM EST [facility] eGFR 106 >=60 mL/min/1. 73m2 LAB CHEMISTRY METHOD 10/19/2024 2:50 PM EST [facility] Comment:Calculation based on the??Chronic Kidney Disease Epidemiology Collaboration (CKD-EPI) equation refit??without adjustment for race. BUN/Creatinine Ratio 30.6 LAB CHEMISTRY METHOD 10/19/2024 2:50 PM EST [facility] Calcium 8.9 8.5 - 10.5 mg/dL LAB CHEMISTRY METHOD 10/19/2024 2:50 PM EST [facility] Blood Venous blood specimen / Unknown Venipuncture / Unknown 10/19/2024 9:50 AM EST 10/19/2024 9:50 AM EST Chani BORRERO LAB BLOOD ORDERABLES [facility] [address] [place] [address], * NM CARDIAC AMYLOID STUDY W/ CT (10/08/2024 11:45 AM EST) BSA 2.26 m2 CV PACS STRESS Target HR 141 bpm CV PACS STRESS Anatomical Region Laterality Modality Nuclear Medicine Narrative 10/09/2024 5:38 PM EST ?Equivocal scan for myocardial uptake of TC-99m pyrophosphate with an H/Cl ratio of 1-1.5. [facility] [address] [place] [address], [address] [address] TEL: FAX: Name: Nemo Stubbs ? Date of exam: 10/09/24 : 1970 ?Gender: female ? Ordering provider: Dr Coffey TEST TYPE: 99mTechnetium-Pyrophosphate Cardiac Amyloidosis Performed by: ??Kate Coello MD INDICATION: LV Hyptrophy, cardiomyopathy PRIOR CARDIACTESTING: Echocardiogram, Cardiac MRI TECHNIQUE: The patient was given an IV injection of 18.8 mCi of 99mTc-PYP. Three hours after injection they under went planar and SPECT/CT imaging. Planar imaging was done in the anterior and lateral position and 750,000 counts were obtained. ?? FINDINGS: The overall image quality was good. Bone uptake was seen. No significant hot spots were seen. However intense bone uptake was seen throughout the vertebrae and in sternum and clavicles-most consistent with diffuse osteoarthritis. Also there is a small area of increased trace uptake just superior to the left kidney-likely representing adrenal uptake. Clinical correlation advised. Of note, pt noted to have adrenal myolipoma on ct abd pelvis from 12/2023. The H/CL ratio is 0.94. The visual scan of the images revealed absent uptake on SPECT/CT imaging. The semi-quantitative findings revealed Grade 0. CONCLUSIONS: The 99mTc-PYP revealed findings that are not suggestive of TTR amyliodosis. ??There is no myocardial uptake is seen on SPECT/CT and the visual score is 0 . The H/CL ratio is less than 1.3. Incidental note of tracer uptake in the left adrenal gland. Consider dedicated imaging if clinically appropriate. Evaluation by serum free light chains and serum/urine immunofixation should be done in all patients as any degree of uptake can be seen in AL amyloid No uptake or equivocal results could represent AL amyloid or early ATTR cardiac amyloid Results should be interpreted in the context of prior evaluation and referral to cmm operator or amyloid expert is recommended if either: A: the echo and/or CMR is strongly suggestive of cardiac amyloidosis and PYP is not or is equivocal (biopsy may be indicated) B: and/or free light chains are abnormal or equivocal Nuclear Study Quality Risk factors include: age greater than 40. Time of first imaging occurred at 180 min. Overall image quality is fair. Imaging technique: planar and SPECT. Amyloidosis Study A ratio of 1-1.5 is equivocal for TTR amyloidosis. Dell Rosen MD CV STRESS PROC EDURES * CT Chest wo Contrast (09/28/2024 9:01 AM EST) Anatomical Region Laterality Modality Body Computed Tomogra phy 09/28/2024 9:20 AM EST Impressions 09/28/2024 9:36 AM EST 1. ??Respiratory motion limits evaluation for small pulmonary nodules. ??Previously described 0.4 cm nodule in the left lung apex is unchanged. 2. ??Additional chronic findings, including calcified pleural plaque, are unchanged. Based on Fleischner Criteria 2017, new solitary pulmonary nodule measuring <6 mm in low risk patients do not require further imaging studies. ??However, patients with a history of smoking/asbestos/radiation exposure or a 1st degree relative with lung cancer should consider having a follow-up non-contrast CT in 1 year. ??If unchanged, no further follow-up studies would be indicated. ??Note that patients with an infectious process, personal history of cancer, and those with advanced age/co-morbidities may require adjustments to these recommendations. -------- FINAL REPORT -------- Dictated By: Elena Lazo Dictated Date: 09/28/2024 09:20 ET Assigned Physician: Elena Lazo Reviewed and Electronically Signed By: Elena Laoz Signed Date: 09/28/2024 09:36 ET Workstation ID: [id number] Transcribed By: Self Edit Transcribed Date: 09/28/2024 09:20 ET Narrative 09/28/2024 9:[address] CHEST WO CONTRAST TECHNIQUE: Multidetector CT of the chest was performed without intravenous contrast. COMPARISON: CT angiogram of the chest on April 10, 2024 HISTORY: Lung nodule, 6-8mm FINDINGS: Lungs: Central airways appear patent. ??Similar linear scarring in the posterior aspect of the right upper lobe. ??Bands of atelectasis/scarring in the left lower lobe associated with elevation of the left hemidiaphragm are unchanged. Respiratory motion partially limits evaluation for small pulmonary nodules. ?? Previously described 0.4 cm nodule in the left lung apex (2:2) is unchanged. ??Unchanged benign calcification in the posterior medial right lower lobe with an adjacent calcified pleural plaque (2:164). Pleura: Right-sided pleural plaques. ??No pleural effusion or pneumothorax. Mediastinum: Heart summary size. ??No pericardial effusion. ??Severe coronary artery calcifications. Moderate vascular calcifications along the nonaneurysmal thoracic aorta. Lymph Nodes: Small calcified mediastinal lymph nodes, for example in the subcarinal station are unchanged. ??No lymphadenopathy. Upper Abdomen: Status post cholecystectomy. ??Vascular calcifications. Chest Wall: No concerning findings. Bones: No acute or destructive findings. Procedure Note Elena Lazo MD - 09/28/2024 CT CHEST WO CONTRAST TECHNIQUE: Multidetector CT of the chest was performed without intravenouscontrast. COMPARISON: CT angiogram of the chest on April 10, 2024 HISTORY: Lung nodule, 6-8mm FINDINGS: Lungs: Central airways appear patent. Similar linear scarring in theposterior aspect of the right upper lobe. Bands of atelectasis/scarringin the left lower lobe associated with elevation of the left hemidiaphragmare unchanged. Respiratory motion partially limits evaluation for smallpulmonary nodules. Previously described 0.4 cm nodule in the left lungapex (2:2) is unchanged. Unchanged benign calcification in the posteriormedial right lower lobe with an adjacent calcified pleural plaque(2:164). Pleura: Right-sided pleural plaques. No pleural effusion orpneumothorax. Mediastinum: Heart summary size. No pericardial effusion. Severecoronary artery calcifications. Moderate vascular calcifications along thenonaneurysmal thoracic aorta. Lymph Nodes: Small calcified mediastinal lymph nodes, for example in thesubcarinal station are unchanged. No lymphadenopathy. Upper Abdomen: Status post cholecystectomy. Vascular calcifications. Chest Wall: No concerning findings. Bones: No acute or destructive findings. IMPRESSION: 1. Respiratory motion limits evaluation for small pulmonary nodules.Previously described 0.4 cm nodule in the left lung apex is unchanged. 2. Additional chronic findings, including calcified pleural plaque, areunchanged. Based on Fleischner Criteria 2017, new solitary pulmonary nodule measuring<6 mm in low risk patients do not require further imaging studies.However, patients with a history of smoking/asbestos/radiation exposure ora 1st degree relative with lung cancer should consider having a [id number] CT in 1 year. If unchanged, no further follow-up studieswould be indicated. Note that patients with an infectious process,personal history of cancer, and those with advanced age/co-morbidities mayrequire adjustments to these recommendations. -------- FINAL REPORT -------- Dictated By: Elena Lazo Dictated Date: 09/28/2024 09:20 ET Assigned Physician: Elena Lazo Reviewed and Electronically Signed By: Elena Lazo Signed Date: 09/28/2024 09:36 ET Workstation ID: [id number] Transcribed By: Self Edit Transcribed Date: 09/28/2024 09:20 ET Ar Ann MD [facility] CT PROCEDURES * External CT Report (09/28/2024) Anatomical Region Laterality Modality Computed Tomogra phy Provider [facility] G CT PROCEDURE S * Diabetes Eye Exam (02/13/2024) [facility] Diabetes: Annual Retina Eye Exam abstracted Historical Provider MD DEEPAK IQBAL E * Urine Albumin Creatinine Ratio (08/12/2022) [facility] Urine Albumin Creatinine Ratio abstracted Historical Provider MD DEEPAK Pedroza from Last 3 Months or Most Recently Relevant to Health Maintenance Care Teams Public Health Internship Relationship Specialty Start Date End Date Amrita Sanabria MD [address] [place] [address] PCP - General Internal Medicine 08/17/24
--- OUTSIDE RECORDS SUMMARY | 2024-11-14 13:12 | XMS_ITS | Encounter Summary ---
Author Organization [facility] Address [address] [place] [address] Care Team Providers Care Nutrition Helper Name Role Phone Amrita Sanabria MD Primary Care Provider [phone] Encounter Details Date Type Department Care Team (Late Contact Info) Description 10/18/2024 Telephone [facility] Pulmonary [address] [place] [address] Everton Alanis MA Social History Tobacco Use Types Packs/Day Years [...] file Not on file Not on file documented as of this encounter Progress Notes * Everton Alanis MA - 10/18/2024 2:[address] scan result mailed to pt. documented in this encounter Plan of Treatment Upcoming Encounters Date Type Department Care Team (Late st Contact Info) Description 11/20/2024 7:40 AM EST Office Visit [facility] [address] [place] [phone] Layne Norris NP [address] [place] [address] [address] [place] [address] 12/10/2024 10:40 AM EST Office Visit Endocrinology - [place] [address] [place] [address] Chani Hendricks PA [address] [place] [address] 01/22/2025 12:30 PM EDT Ancillary Procedure [facility] - [facility] [address] [facility] 101 [place] [address] 02/28/2025 11:30 AM EDT Office Visit Pulmonolgy - [place] [facility] [address] [place] [address] Ar Ann MD 175 [facility] 200 [place] [address] 03/07/2025 11:30 AM EDT Office Visit Vascular Surgery - [place] 300 [facility] 210 [place] [address] Cammie Garner PA 300 [facility] 210 [place] [address] documented as of this encounter Visit Diagnoses Not on filedocumented in this encounter Care Teams Nutrition Helper Relationship Specialty Start Date End Date Amrita Sanabria MD 175 [facility] 200 [place] [phone] PCP - General Internal Medicine 08/17/24 documented as of this encounter
--- OUTSIDE RECORDS SUMMARY | 2024-11-14 13:12 | XMS_ITS | Encounter Summary ---
Author Organization [employer] Address [address] [place] [address] Care Team Providers Care Binder Stripper Machine Name Role Phone Amrita Sanabria MD Primary Care Provider [phone] Encounter Details Date Type Department Care Team (Late st Contact Info) Description 10/31/2024 Telephone [facility] Cardiology Associates - [address] [facility] [address] [place] [phone] Dell Rosen MD [address] [place] [address] Dr [address] [place], [place] [phone] Social History Tobacco Use Types Packs/Day Years [...] as of this encounter Progress Notes * Amrita Sanabria MD - 11/01/2024 11:32 AM EST noted * GISSELL You - 10/31/2024 12:29 PM EST Noted. Thank you. * Dell Rosen MD - 10/31/2024 9:52 AM EST Hi, This patient recently underwent a cardiac PYP scan to rule out the presence of TTR amyloidosis.. The cardiac PYP scan did not show any evidence of TTR amyloidosis. Nevertheless, the report of the PYP scan does mention an incidental finding in the form of increased tracer uptake in the left adrenal gland. Chart review shows that the patient had an abdominal pelvic CT scan with contrast done at [facility] in December 2023 which showed the presence of a small left myelolipoma. I discussed this with the patient. I told her that generally adrenal myelolipomas do not need any surgical resection unless certain conditions are met. Nevertheless, she may need periodic imaging follow-up. I told the patient that he should follow-up with her primary care physician and her pipe tester regarding the monitoring and further management of adrenal myelolipoma. Dell Coffey MD Cardiology documented in this encounter Plan of Treatment Upcoming Encounters Date Type Department Care Team (Late st Contact Info) Description 11/20/2024 7:40 AM EST Office Visit [facility] [address] [place] [address] [address] [place] [address] Layne Norris NP [address] [place] [address] [address] [place] [address] 12/10/2024 10:40 AM EST Office Visit Endocrinology - [place] [address] [place] [address] Chani Hendricks PA [address] [place] [address] 01/22/2025 12:30 PM EDT Ancillary Procedure [facility] - [facility] [address] [facility] [address] [place] [address] 02/28/2025 11:30 AM EDT Office Visit Pulmonolgy - [place] 175 [facility] 200 [place] [address] Ar Ann MD 175 [facility] 200 [place] [address] 03/07/2025 11:30 AM EDT Office Visit Vascular Surgery - [place] [address] [facility] 210 [place] [address] Cammie Garner PA 300 [facility] 210 [place] [address] documented as of this encounter Visit Diagnoses Not on filedocumented in this encounter Care Teams Binder Stripper Machine Relationship Specialty Start Date End Date Amrita Sanabria MD 175 [facility] 200 [place] [address] PCP - General Internal Medicine 08/17/24 documented as of this encounter
--- OUTSIDE RECORDS SUMMARY | 2024-11-14 13:12 | XMS_ITS | Encounter Summary ---
Author Organization [employer] Address [address] [place] [address] Care Team Providers Care Outside Sales Account Executive Name Role Phone Amrita Sanabria MD Primary Care Provider [phone] Encounter Details Date Type Department Care Team (Late st Contact Info) Description 10/31/2024 Telephone [facility] Cardiology Associates - [facility] [address] [facility] [address] [place] [phone] Dell Rosen MD [address] [place] [address] Dr [address] [place] [address] Social History Tobacco Use Types Packs/Day Years [...] as of this encounter Progress Notes * Dell Rosen MD - 10/31/2024 9:48 AM EST I spoke with the patient today. We discussed the results of her recent cardiac PYP scan. The cardiac PYP was noted to be negative for the presence of TTR amyloidosis. As such, no evidence of TTR amyloidosis at this point. There was an incidental finding in the form of tracer uptake in the left adrenal gland. The report from the cardiac PYP scan notes that dedicated imaging should be pursued if clinically appropriate. Nevertheless, the patient had an abdominal pelvic CT scan with contrast done in December 2023 and at that time there was evidence of a small left myelolipoma. I discussed this with the patient. I instructed the patient to follow-up with her primary care physician and her president commercial bank regarding any further monitoring that she may need for her left adrenal myelolipoma. I will also send a message tothe patient's primary care physician and the patient's president commercial bank regarding this. documented in this encounter Plan of Treatment Upcoming Encounters Date Type Department Care Team (Late st Contact Info) Description 11/20/2024 7:40 AM EST Office Visit [facility] [address] [place] [address] Layne Norris NP [address] [place] [address] [address] [place] [address] 12/10/2024 10:40 AM EST Office Visit Endocrinology [facility] [address] [place] [address] Chani Hendricks PA [address] [place] [address] 01/22/2025 12:30 PM EDT Ancillary Procedure [facility] - [facility] [address] [facility] 101 [place] [address] 02/28/2025 11:30 AM EDT Office Visit Pulmonolgy - [place] 175 [facility] 200 [place] [address] Ar Ann MD 175 [facility] 200 [place] [address] 03/07/2025 11:30 AM EDT Office Visit Vascular Surgery - [place] [address] [place] [address] Cammie Garner PA [address] [facility] 210 [place] [address] documented as of this encounter Visit Diagnoses Not on filedocumented in this encounter Care Teams Outside Sales Account Executive Relationship Specialty Start Date End Date Amrita [facility]abria MD [facility] [address] [place] [address] PCP - General Internal Medicine 08/17/24 documented as of this encounter
== END 2024-11-14 11:46 | disposition home or self-care (01) ==
PROVIDERS: PCP Physician Assistant; Visit Provider Internal Medicine Hypertension Specialist
DX: N17.9 Acute kidney failure, unspecified (principal); R60.1 Generalized edema; E11.65 Type 2 diabetes mellitus with hyperglycemia; Z79.4 Long term (current) use of insulin; R80.1 Persistent proteinuria, unspecified
CPT/HCPCS: 99214

== ENCOUNTER 2024-11-14 11:24 | Outpatient (REF) | payer OTHER, SELFPAY ==
--- OUTSIDE RECORDS SUMMARY | 2024-11-14 13:51 | XMS_ITS | Encounter Summary ---
Author Organization [employer] Address [address] [place] [address] Care Team Providers Care Curbing Stonecutter Name Role Phone Amrita Sanabria MD Primary Care Provider [phone] Encounter Details Date Type Department Care Team (Late st Contact Info) Description 10/31/2024 Telephone [facility] - [address] [facility] [address] [place] [address] Dell Rosen MD [address] [place] [address] Dr [address] [place], [place] [phone] Social History Tobacco Use Types Packs/Day Years [...] pelvic CT scan with contrast done at [facility] in December 2023 which showed the presence of a small left myelolipoma. I discussed this with the patient. I told her that generally adrenal myelolipomas do not need any surgical resection unless certain conditions are met. Nevertheless, she may need periodic imaging follow-up. I told the patient that he should follow-up with her primary care physician and her tamale maker regarding the monitoring and further management of adrenal myelolipoma. Dell Coffey MD Cardiology documented in this encounter Plan of Treatment Upcoming Encounters Date Type Department Care Team (Late st Contact Info) Description 11/20/2024 7:40 AM EST Office Visit [facility] [address] [place] [address] [address] [place] [address] Layne Norris NP [address] [place] [address] [address] [place] [address] 12/10/2024 10:40 AM EST Office Visit Endocrinology - [place] 444 [place] [address] Chani Hendricks PA [address] [place] [address] 01/22/2025 12:30 PM EDT Ancillary Procedure [facility] - [facility] [address] [facility] [address] [place] [address] 02/28/2025 11:30 AM EDT Office Visit Pulmonolgy - [place] 175 [facility] 200 [place] [address] Ar Ann MD 175 [facility] 200 [place] [address] 03/07/2025 11:30 AM EDT Office Visit Vascular Surgery - [place] [address] [facility] 210 [place] [address] Cammie Garner PA 300 [facility] 210 [place] [address] documented as of this encounter Visit Diagnoses Not on filedocumented in this encounter Care Teams Curbing Stonecutter Relationship Specialty Start Date End Date Amrita Sanabria MD 175 [facility] 200 [place] [address] PCP - General Internal Medicine 08/17/24 documented as of this encounter
--- OUTSIDE RECORDS SUMMARY | 2024-11-14 13:51 | XMS_ITS | Encounter Summary ---
Author Organization [facility] Address [address] [place] [address] Care Team Providers Care Advertising Photographer Name Role Phone Amrita Sanabria MD Primary Care Provider [phone] Encounter Details Date Type Department Care Team (Late Contact Info) Description 10/18/2024 Telephone [facility] Pulmonary [address] [place] [phone] Everton Alanis [place] Social History Tobacco Use [...] Description 11/20/2024 7:40 AM EST Office Visit [facility]iology Associates [facility] [address] [place] [address] Layne Norris NP [address] [place] [address] Dr [address] [place] [address] 12/10/2024 10:40 AM EST Office Visit Endocrinology - [place] [address] [place] [address] Chani Hendricks PA [address] [place] [address] 01/22/2025 12:30 PM EDT Ancillary Procedure [facility] - [facility] [address] 300 [facility] 101 [place] [address] 02/28/2025 11:30 AM EDT Office Visit Pulmonolgy - [place] 175 [facility] 200 [place] [address] Ar Ann MD 175 [facility] 200 [place] [address] 03/07/2025 11:30 AM EDT Office Visit Vascular Surgery - [place] 300 [facility] 210 [place] [address] Cammie Garner PA 300 [facility] 210 [place] [address] documented as of this encounter Visit Diagnoses Not on filedocumented in this encounter Care Teams Advertising Photographer Relationship Specialty Start Date End Date Amrita Sanabria MD 175 [facility] 200 [place] [address] PCP - General Internal Medicine 08/17/24 documented as of this encounter
--- OUTSIDE RECORDS SUMMARY | 2024-11-14 13:51 | XMS_ITS | Clinical Summary ---
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 Chest pain 11/06/2020 Overview (07/23/2024): Last Assessment [...] Type Department Care Team Description 10/31/2024 Telephone [facility] Cardiology [facility] [address] [address] [place] [address] Dell Rosen MD 10/31/2024 Telephone [facility] [address] [place] [address] Dell Rosen MD 10/18/2024 Telephone [facility] Pulmonary [address] [place] [address] Daniel AlanisGrover, [place] 10/08/2024 8:00 AM EST Ancillary Procedure [facility] Cardiology [facility] [address] [place] [address] Other cardiomyopathy (CMS/HCC) 09/28/2024 8:40 AM EST - 09/28/2024 11:59 PM EST Hospital Encounter CT Scan - [address] [address] Morbid obesity with BMI of 40.0-44.9, adult (CMS/HCC); Chronic obstructive pulmonary disease, unspecified COPD type (CMS/HCC) Discharge Disposition: Home or Self Care 09/28/2024 Telephone Internal Medicine - [place] 175 [facility] 200 [place] [phone] Amrita Sanabria MD Medication Problem (Please check on what med was prescribed in the past for yeast infection and order for patient/) 09/07/2024 2:00 PM EST Office Visit Endocrinology [place] [address] [place] [address] Chani Hendricks PA Type 2 diabetes mellitus with diabetic microalbuminuria, with long-term current use of insulin ([facility]) (Primary Dx); Morbid obesity with BMI of 40.0-44.9, adult ([facility]); Primary hypertension; Hyperlipidemia, unspecified hyperlipidemia type; Hypothyroidism, unspecified type 09/06/2024 1:00 PM EST Office Visit Vascular Surgery - [place] [address] [place] [address] Cammie Garner PA PAD (peripheral artery disease) ([facility]) (Primary Dx); Morbid obesity with BMI of 40.0-44.9, adult ([facility]) 09/03/2024 Telephone Endocrinology [facility] [address] [place] [address] Chani Hendricks PA Medication Problem 08/29/2024 10:45 AM EST Office Visit Pulmonolgy - [place] [address] [place] [phone] Ar Ann MD ELLA (obstructive sleep apnea) (Primary Dx); Morbid obesity with BMI of 40.0-44.9, adult ([facility]); Chronic obstructive pulmonary disease, unspecified COPD type ([facility]) from Last 3 Months Immunizations Name Administration Dates Next Due Influenza Quadravalent, MDCK , 0.5ml, preservative free (Flucelvax) 6mo and older 08/09/2023 Surgical History Surgery Date Site/Laterality Comments CHOLECYSTECTOMY 2001 PROCEDURE: LAPAROSCOPY, CHOLECYSTECTOMY OTHER SURGICAL HISTORY PROCEDURE: GA TOTAL ABDOMINAL HYSTERECT W/WO RMVL TUBE OVARY; COMMENT: due to uterine cancer OTHER SURGICAL HISTORY 05/09/2023 PROCEDURE: GA SLCTV CATHJ 3RD+ ORD SLCTV ABDL PEL/LXTR BRNCH OTHER SURGICAL HISTORY 05/09/2023 PROCEDURE: GA THROMBOLYSIS ARTERIAL INFUSION ICRA RS&I INIT TX OTHER SURGICAL HISTORY 05/09/2023 PROCEDURE: ULTRASOUND GUIDANCE FOR VASCULAR AC OTHER SURGICAL HISTORY 05/10/2023 PROCEDURE: GA SLCTV CATHJ EA 2ND+ ORD ABDL PEL/LXTR ART BRNCH OTHER SURGICAL HISTORY 05/10/2023 PROCEDURE: GA REVSC OPN/PRG FEM/POP W/ANGIOPLASTY UNI OTHER SURGICAL HISTORY 05/10/2023 PROCEDURE: GA THROMBOLYSIS ART/VENOUS INFSN W/IMAGE SUBSQ TX OTHER SURGICAL HISTORY 05/11/2023 PROCEDURE: GA REVSC OPN/PRQ FEM/POP W/STNT/ANGIOP SM VSL OTHER SURGICAL HISTORY 05/11/2023 PROCEDURE: GA CESSATION THROMBOLYTIC THER W/CATHETER REMOVAL Medical History [...] 2 (diabetes melli tus, type 2) ([facility]) Hypothyroidism DX:Hypothyroidis m Morbid obesity with BMI of 4 0.0-44.9, adult (CMS/HCC) DX:Morbid obesity with BMI o f 40.0-44.9, adult ([facility]) Tobacco abuse disorder DX:Tobacc o abuse disorder [...] Description 11/20/2024 7:40 AM EST Office Visit [facility] [address] [place] [address] [place] [address] Layne Norris NP [address] [place] [address] [address] [place] [address] 12/10/2024 10:40 AM EST Office Visit Endocrinology - [place] [address] [place] [address] Chani Hendricks PA [address] [place] [address] 01/22/2025 12:30 PM EDT Ancillary Procedure [facility] Card[facility] [address] [facility] [address] [place] [phone] 02/28/2025 11:30 AM EDT Office Visit Pulmonolgy - [place] 175 [facility] 200 [place] [address] Ar Ann MD 175 [facility] 200 [place] [address] 03/07/2025 11:30 AM EDT Office Visit Vascular Surgery - [place] [address] [place] [address] Cammie Garner PA 300 [facility] [address] [place] [address] Health Maintenance Due Date Last Done Comments [...] Morbid obesity with BMI of 40.0-44.9, adult ([facility]) Type 2 diabetes mellitus with diabetic microalbuminuria, with long-term current use of insulin ([facility]) LIPID PANEL WITH REFLEX TO DIRECT LDL Routine 10/19/2024 9:50 AM EST Hyperlipidemia, unspecified hyperlipidemia type Type 2 diabetes mellitus with diabetic microalbuminuria, with long-term current use of insulin ([facility]) THYROID STIMULATING HORMONE WITH REFLEX TO FREE T4 AND FREE T3 Routine 10/19/2024 9:50 AM EST Hypothyroidism, unspecified type HEMOGLOBIN A1C Routine 10/19/2024 9:50 AM EST Type 2 diabetes mellitus with diabetic microalbuminuria, with long-term current use of insulin ([facility]) NM CARDIAC AMYLOID STUDY W/ CT Routine 10/08/2024 11:45 AM EST Other cardiomyopathy ([facility]) CT CHEST WO CONTRAST Routine 09/28/2024 9:01 AM EST Morbid obesity with BMI of 40.0-44.9, adult ([facility]) Chronic obstructive pulmonary disease, unspecified COPD type ([facility]) EXTERNAL CT REPORT 09/28/2024 HM DIABETES EYE EXAM Routine 02/13/2024 URINE ALBUMIN CREATININE RATIO Routine 08/12/2022 from Last 3 Months or Most Recently Relevant to Health Maintenance Results * (ABNORMAL) Thyroid stimulating hormone with reflex to free t4 and free t3 (10/19/2024 9:50 AM EST) TSH 36.37(H) 0.40 - 4.00 mcIU/mL LAB CHEMISTRY METHOD 10/19/2024 2:57 PM EST [facility] Blood Venous blood specimen / Unknown Venipuncture / Unknown 10/19/2024 9:50 AM EST 10/19/2024 9:50 AM EST Chani BORRERO LAB BLOOD ORDERABLES Performing Organization Address City/[facility]/ZIP Co de Phone Number [facility] [address] [place] [address], * Free thyroxine with reflex to free triiodothyronine (10/19/2024 9:50 AM EST) Pathologist [facility] Free T4 0.88 0.70 - 1.80 ng/dL LAB CHEMISTRY METHOD 10/19/2024 3:22 PM EST [facility] Blood Venous blood specimen / Unknown Venipuncture / Unknown 10/19/2024 9:50 AM EST 10/19/2024 9:50 AM EST Chani BORRERO LAB BLOOD ORDERABLES [facility] [address] [place] [address], * (ABNORMAL) Lipid panel with reflex to direct LDL (10/19/2024 9:50 AM EST) Cholesterol 260(H) 0 - 200 mg/dL LAB CHEMISTRY METHOD 10/19/2024 2:59 PM EST [facility] Triglycerides 237(H) 0 - 150 mg/dL LAB CHEMISTRY METHOD 10/19/2024 2:59 PM [facility] HDL 59 >=40 mg/dL LAB CHEMISTRY METHOD 10/19/2024 2:59 PM [facility] LDL Calculated 154(H) 0 - 100 mg/dL LAB CHEMISTRY METHOD 10/19/2024 2:59 PM [facility] VLDL Cholesterol Charli 47.4 mg/dL LAB CHEMISTRY METHOD 10/19/2024 2:59 PM [facility] Non HDL Chol. (LDL+VLDL) 201(H) <145 mg/dL LAB CHEMISTRY METHOD 10/19/2024 2:59 PM [facility] Chol/HDL Ratio 4.4 0.0 - 4.4 LAB CHEMISTRY METHOD 10/19/2024 2:59 PM [facility] Blood Venous blood specimen / Unknown Venipuncture / Unknown 10/19/2024 9:50 AM EST 10/19/2024 9:50 AM EST Chani BORRERO LAB BLOOD ORDERABLES Performing Organization Address City/[facility]/ZIP Co de Phone Number [facility] [address] [place] [address], * (ABNORMAL) Triiodothyronine free (10/19/2024 9:50 AM EST) T3, Free 206(L) 230 - 420 pcg/dL LAB CHEMISTRY METHOD 10/19/2024 3:47 PM [facility] Blood Venous blood specimen / Unknown Venipuncture / Unknown 10/19/2024 9:50 AM EST 10/19/2024 9:50 AM EST Chani BORRERO LAB BLOOD ORDERABLES [facility] [address] [place] [address], [place] [phone] * (ABNORMAL) Hemoglobin A1c (10/19/2024 9:50 AM EST) Pathologist [facility] Hemoglobin A1C 10.9(H) <6.5 % LAB CHEMISTRY METHOD 10/19/2024 2:52 PM EST [facility] Mean Bld Glu Estim. 266 mg/dL LAB CHEMISTRY METHOD 10/19/2024 2:52 PM [facility] Blood Venous blood specimen / Unknown Venipuncture / Unknown 10/19/2024 9:50 AM EST 10/19/2024 9:50 AM EST Chani BORRERO LAB BLOOD ORDERABLES [facility] [address] [place] [address], * (ABNORMAL) Basic metabolic panel (10/19/2024 9:50 AM EST) [facility] Sodium 140 133 - 145 mmol/L LAB CHEMISTRY METHOD 10/19/2024 2:50 PM [facility] Potassium 3.8 3.5 - 5.5 mmol/L LAB CHEMISTRY METHOD 10/19/2024 2:50 PM [facility] Chloride 110 96 - 110 mmol/L LAB CHEMISTRY METHOD 10/19/2024 2:50 PM [facility] CO2 25 21 - 32 mmol/L LAB CHEMISTRY METHOD 10/19/2024 2:50 PM [facility] Anion Gap 5 3 - 11 LAB CHEMISTRY METHOD 10/19/2024 2:50 PM [facility] Glucose 158(H) 70 - 100 mg/dL LAB CHEMISTRY METHOD 10/19/2024 2:50 PM [facility] BUN 19 5 - 25 mg/dL LAB CHEMISTRY METHOD 10/19/2024 2:50 PM EST [facility] Creatinine 0.62 0.50 - 1.10 mg/dL LAB CHEMISTRY METHOD 10/19/2024 2:50 PM EST [facility] eGFR 106 >=60 mL/min/1. 73m2 LAB CHEMISTRY METHOD 10/19/2024 2:50 PM EST [facility] Comment:Calculation based on the??Chronic Kidney Disease Epidemiology Collaboration (CKD-EPI) equation refit??without adjustment for race. BUN/Creatinine Ratio 30.6 LAB CHEMISTRY METHOD 10/19/2024 2:50 PM EST [facility] Calcium 8.9 8.5 - 10.5 mg/dL LAB CHEMISTRY METHOD 10/19/2024 2:50 PM EST [facility] Blood Venous blood specimen / Unknown Venipuncture / Unknown 10/19/2024 9:50 AM EST 10/19/2024 9:50 AM EST Chani BORRERO LAB BLOOD ORDERABLES [facility] [address] [place] [address], * NM CARDIAC AMYLOID STUDY W/ CT (10/08/2024 11:45 AM EST) BSA 2.26 m2 CV PACS STRESS Target HR 141 bpm CV PACS STRESS Anatomical Region Laterality Modality Nuclear Medicine Narrative 10/09/2024 5:38 PM EST ?Equivocal scan for myocardial uptake of TC-99m pyrophosphate with an H/Cl ratio of 1-1.5. [facility] [address] [place] [address], [address] [address] TEL: FAX: Name: Nemo Stubbs ? Date [...] context of prior evaluation and referral to machine ii engraver or amyloid expert is recommended if either: [...] Signed Date: 09/28/2024 09:36 ET Workstation ID: [id number] Transcribed By: Self Edit Transcribed Date: 09/28/2024 [...] with lung cancer should consider having a cxcyep-aecxl-caimvgwn CT in 1 year. If unchanged, no further follow-up studieswould be indicated. Note that patients with an infectious process,personal history of cancer, and those with advanced age/co-morbidities mayrequire adjustments to these recommendations. -------- FINAL REPORT -------- Dictated By: Elena Lazo Dictated Date: 09/28/2024 09:20 ET Assigned Physician: Elena Lazo Reviewed and Electronically Signed By: Elena Lazo Signed Date: 09/28/2024 09:36 ET Workstation ID: [id number] Transcribed By: Self Edit Transcribed Date: 09/28/2024 09:20 ET Ar Ann MD [facility] CT PROCEDURES * External CT Report (09/28/2024) Anatomical Region Laterality Modality Computed Tomogra phy Provider [facility] CT PROCEDURE S * Diabetes Eye Exam (02/13/2024) [facility] Diabetes: Annual Retina Eye Exam abstracted Historical Provider MD DEEPAK IQBAL E * Urine Albumin Creatinine Ratio (08/12/2022) [facility] Urine Albumin Creatinine Ratio abstracted Historical Provider MD DEEPAK Pedroza from Last 3 Months or Most Recently Relevant to Health Maintenance Care Teams Community Engagement Coordinator Relationship Specialty Start Date End Date Amrita Sanabria MD [address] [place] [address] PCP - General Internal Medicine 08/17/24
--- OUTSIDE RECORDS SUMMARY | 2024-11-14 13:51 | XMS_ITS | Encounter Summary ---
Author Organization [facility] Address [address] [place] [address] Care Team Providers Care Multiple Drum Sander Name Role Phone Amrita Sanabria MD Primary Care Provider [phone] Encounter Details Date Type Department Care Team (Late st Contact Info) Description 10/31/2024 Telephone [facility] - [facility] [address] [facility] [address] [place] [address] Dell Rosen MD [address] [place] [address] [address] [place] [address] Social History Tobacco Use Types Packs/Day Years [...] with her primary care physician and her power engineer regarding any further monitoring that she may need for her left adrenal myelolipoma. I will also send a message tothe patient's primary care physician and the patient's power engineer regarding this. documented in this encounter Plan of Treatment Upcoming Encounters Date Type Department Care Team (Late st Contact Info) Description 11/20/2024 7:40 AM EST Office Visit [facility] [address] [facility] [address] [place] [address] Layne Norris NP [address] [place] [address] [address] [place] [address] 12/10/2024 10:40 AM EST Office Visit Endocrinology [facility] [address] [place] [address] Chani Hendricks PA [address] [place] [address] 01/22/2025 12:30 PM EDT Ancillary Procedure [facility] - [facility] [address] [facility] [address] [place] [address] 02/28/2025 11:30 AM EDT Office Visit Pulmonolgy - [place] 175 [facility] [address] [place] [address] Ar Ann MD 175 [facility] 200 [place] [address] 03/07/2025 11:30 AM EDT Office Visit Vascular Surgery - [place] [address] [place] [address] Cammie Garner PA [address] [facility] [address] [place] [address] documented as of this encounter Visit Diagnoses Not on filedocumented in this encounter Care Teams Multiple Drum Sander Relationship Specialty Start Date End Date Amrita Sanabria MD [facility] [address] [place] [phone] PCP - General Internal Medicine 08/17/24 documented as of this encounter
[2024-11-14 18:04] LABS: Anion Gap 10 (12-20); Blood Urea Nitrogen 35 mg/dL (9-16); Calcium 9.3 mg/dL (8.4-10.2); Carbon Dioxide 24 mmol/L (22-29); Chloride 109 mmol/L (96-108); Estimated Glomerular Filt Rate > 60; Glucose Random 220 mg/dL (60-115); Potassium 4.3 mmol/L (3.3-5.1); Sodium 139 mmol/L (135-145)
[2024-11-14 18:15] LABS: Appearance Urine Clear; Color Urine Yellow; Glucose Urine UA >=1000 mg/dL (Negative); Leukocyte Esterase Urine Negative (Negative); Nitrite Urine Negative (Negative); PH 5.5 (5.0-9.0); Specific Gravity - Urine 1.025 (1.005-1.025); UMIC TRIGGER UA YES; Urine Blood Trace (Negative); Urine Ketones Negative (Negative); Urine Protein 300 (3+) mg/dL (Neg-Trace)
[2024-11-14 18:18] LABS: Creatinine Urine 43.91 mg/dL; Total Protein Urine Random 174 mg/dL (<12)
[2024-11-14 18:21] LABS: Bacteria Urine None Seen (None Seen); Hyaline Casts Urine 0-2 /LPF (0-2); RBC Urine 0-2 /HPF (0-2); WBC Urine 0-5 /HPF (0-5)
[2024-11-14 18:22] LABS: TSH reflex Free T4 10.55 uIU/mL (0.32-4.0)
[2024-11-14 18:55] LABS: Free T4 (Free Thyroxine) 1.02 ng/dL (0.71-1.85)
== END 2024-11-14 11:25 | disposition home or self-care (01) ==
LOC: HO.HKASLDS 11:24
PROVIDERS: Nurse Practitioner Family; PCP Physician Assistant; Visit Provider Internal Medicine Hypertension Specialist
DX: R60.1 Generalized edema (principal); R80.1 Persistent proteinuria, unspecified; E11.65 Type 2 diabetes mellitus with hyperglycemia; E11.22 Type 2 diabetes mellitus with diabetic chronic kidney disease; Z79.4 Long term (current) use of insulin; R80.9 Proteinuria, unspecified; N18.30 Chronic kidney disease, stage 3 unspecified; Z86.718 Personal history of other venous thrombosis and embolism; E66.01 Morbid (severe) obesity due to excess calories; Z68.43 Body mass index [BMI] 50.0-59.9, adult; G47.33 Obstructive sleep apnea (adult) (pediatric); Z99.89 Dependence on other enabling machines and devices
CPT/HCPCS: 36415; 80048; 81001; 82570; 84156; 84439; 84443; 99212

== ENCOUNTER 2025-02-13 10:41 | Outpatient (AMB) | payer OTHER, SELFPAY ==
[2025-02-13 10:42] VITALS: BP 118/76; PULSE 66; BMI 46.5
--- NOTE | 2025-02-13 10:42 | HO.NEPHOV ---
Vital Signs 02/13/25 10:42 Height 5 ft 2 in Weight 254 lb 8 oz BMI 46.5 BP 118/76 Blood Pressure Location Lt brachial Position Sitting Pulse 66 Pulse Source Pulse Oximeter Intake Visit Reasons: 3 mnts f/u/ Conf Public Policy Analyst Required: Yes Public Policy Analyst Language: Motion Graphics Designer Name: Julius([id number]) Accompanied by: Spouse Allergies metformin Allergy (Verified 02/13/25 10:48) Diarrhea Medication List - Last Reconciled 02/13/25 by Clive Berumen MD albuterol sulfate 2.5 mg inhalation Q4H PRN aspirin 81 mg PO DAILY budesonide-formoterol 160-4.5 mcg/actuation (Symbicort) 2 puffs inhalation BID bumetanide 1 mg PO DAILY empagliflozin (Jardiance) 10 mg PO DAILY famotidine 20 mg PO BID insulin glargine (Lantus Solostar U-100 Insulin) 60 units subcut BID insulin lispro 2 - 20 units subcut TID ipratropium-albuterol 20-100 mcg/actuation (Combivent Respimat) 1 puff inhalation TID levothyroxine 25 mcg PO DAILY@0600 levothyroxine 200 mcg PO DAILY@0600 magnesium oxide mg metoprolol succinate ER 25 mg PO DAILY prazosin 5 mg PO BEDTIME quetiapine 200 mg PO BEDTIME PRN rivaroxaban (Xarelto) 2.5 mg PO BID rosuvastatin 40 mg PO BEDTIME venlafaxine ER 150 mg PO DAILY venlafaxine ER 75 mg PO DAILY zolpidem 10 mg PO BEDTIME PRN HPI Comments Details: 54 year old female with history of RLE DVT on xarelto, insulin dependent type 2 diabetes, asthma/copd overlap, ELLA compliant with cpap, cad, pad, hx cervical cancer, mood disorder who is morbidly obese with BMI >53. Earlier this summer experienced shortness of breath both and rest and increased with exertion and significant edema of the BLE. Several days ago began developing increased swelling in the upper extremities and eye lids. She has longstanding orthopnea. No fevers, chills, abd pain, n/v/d, lightheadedness, palpitations, cough, chest pain. No recent illness. Denies sodium loading. She has been admitted and seen in the [facility] ED several times with significant swelling noted and diuresed but not discharged on lasix. Echo at [facility] showed normal LV systolic function with EF 60-65%, moderate concentric LVH and grade 1 left ventricular diastolic dysfunction. There was no mention of right ventricular pressures on echocardiogram. She was seen for anasarca during hospitalization. She was given IV Lasix and edema improved she would acute kidney injury which also improved with cautious diuresis 06/13/24 Recently hospitalized for MIRA Lisinopril and Bumex 1 mg stopped. Now on 0.5 mg, metoprolol 25mg daily MIRA resolved 08/15/24 Pt states today she has not had continued issues with swelling over the last month or two- she continues to take bumetanide 1mg PO daily (per cardiology notes, diffuse anasarca and dyspnea likely has CHF component). She reports she is taking her medications as prescribed Reports her blood sugars are not well-controlled (in 300s often), but that her PCP just added Jardiance 10mg PO daily to her regimen last week She had an elevated TSH in May- pt states at that time she was not taking her Levothyroxine 225mg daily as prescribed, but has since been doing so. She is not certain about a plan for TSH re-check through her PCP. She denies shortness of breath, chest pain, dizziness She denies use of NSAIDs 02/13/25 Overall feels better Still has leg edema - more when lying down NO dyspnea at rest She has been taking Bumex 0.5 mg instead of 1 mg( self adjusted dose) Will restart Lisinopril at 5 mg daily [facility] Medical History (Updated 08/15/24 @ 15:09 by Yancy Hu, RICARDO, COMMERCIAL ROOFING ESTIMATOR-BC) Anasarca Fluid overload Asthma-COPD overlap syndrome Morbid obesity ELLA on CPAP Peripheral artery disease CAD (coronary artery disease) Type 2 diabetes mellitus CHF (congestive heart failure) DVT (deep venous thrombosis) Social History Household Members: Spouse Housing: Apartment Do you presently have visiting nurse or other home services: Yes (bus aide's everyday for 2 hours.) Alcohol intake: never Patient Tobacco Use Status: Former Tobacco user Second Hand Smoke Exposure: No Substance Use Type: Marijuana service: No Physical Exam Vital Signs: Last Vital Signs Pulse 66 02/13/25 10:42 BP 118/76 02/13/25 10:42 BMI result Body Mass Index 46.5 Comfortable Neck supple no JVD. Lungs entry equal no rales. Heart S1-S2 heard no gallop or rub. Abdomen soft nontender. Neuro alert awake oriented. No asterixis. Extremities ++ edema. Results Reviewed Nephrology Results: Hgb 15.2 g/dl (12.0-16.0) 05/28/24 WBC 10.4 X10*3/uL (4.8-10.8) 05/28/24 Plt Count 300 X10*3/uL (160-400) 05/28/24 Sodium 139 mmol/L (135-145) 11/14/24 Potassium 4.3 mmol/L (3.3-5.1) 11/14/24 Chloride 109 mmol/L (96-108) H 11/14/24 Carbon Dioxide 24 mmol/L (22-29) 11/14/24 BUN 35 mg/dL (9-16) H 11/14/24 Creatinine 0.86 mg/dL (0.5-1.4) 11/14/24 Calcium 9.3 mg/dL (8.4-10.2) 11/14/24 Phosphorus 4.4 mg/dL (2.7-4.5) 05/29/24 Urine Protein 300 (3+) mg/dL (Neg-Trace) H 11/14/24 Urine Creatinine 43.91 mg/dL 11/14/24 Assessment & Plan Assessment & Plan (1) MIRA (acute kidney injury): Code(s): N17.9 - Acute kidney failure, unspecified Category: Medical (2) Anasarca: Code(s): R60.1 - Generalized edema Category: Medical (3) Type 2 diabetes mellitus: Code(s): E11.9 - Type 2 diabetes mellitus without complications Category: Medical Qualifiers: Diabetes mellitus complication status: with hyperglycemia Diabetes mellitus ferry terminal supervisor insulin use: with ferry terminal supervisor use Qualified Code(s): E11.65 - Type 2 diabetes mellitus with hyperglycemia; Z79.4 - ferry terminal supervisor (current) use of insulin (4) Proteinuria: Code(s): R80.9 - Proteinuria, unspecified Category: Medical Qualifiers: Proteinuria type: persistent Qualified Code(s): R80.1 - Persistent proteinuria, unspecified Plan 54-year-old woman with obesity diabetes mellitus and obstructive sleep apnea with with proteinuria, hx anasarca- diagnosed with diastolic HF per Cardiology. Proteinuria most likely due to diabetic nephropathy Urine protein excretion of about 1 g in May, will repeat Will hold off on ACEi/ARB due to low blood pressures today UPEP, SPEP negative for paraproteins C3, C4 normal Cr has been stable/normal Weight is down Continue to stay on diabetic control, continue Jardiance as prescribed Keep on low-sodium diet cautious diuresis. Keep Bumex - ok to take 1mg instead of 0.5 mg Check daily weights Continue nightly CPAP Hypothyroidism Follow with PCP explained with interpretor Orders: Orders Total Protein Urine Random 6 Months R60.1 - Generalized edema UA and rflx microscopic 6 Months R60.1 - Generalized edema Basic Metabolic Panel 6 Months R60.1 - Generalized edema Creatinine Urine 6 Months R60.1 - Generalized edema Medications: New lisinopril 5 mg PO DAILY 90 tabs 1RF Coding Level of Care Code Est Pt Level 4 (11238) Diagnoses MIRA (acute kidney injury) N17.9 Anasarca R60.1 Type 2 diabetes mellitus with hyperglycemia, with long-term current use of insulin E11.65; Z79.4 Diabetes mellitus complication status: with hyperglycemia Diabetes mellitus ferry terminal supervisor insulin use: with group home use Persistent proteinuria R80.1 Proteinuria type: persistent
--- OUTSIDE RECORDS SUMMARY | 2025-02-13 12:41 | XMS_ITS | Clinical Summary ---
Author Organization 175 [facility] Address [address] [place] [address] Phone Care Team Providers Care Organic Preparation Analyst Name Role Phone Erlinda Bose Primary Care Provider + Allergies Active Allergy Reactions Criticality Noted Date Comments Metformin Diarrhea,GI intolerance 11/06/2020 GI upset Medications aspirin 81 mg EC tablet Take 1 tablet (81 mg total) by mouth 1 (one) time each day. Active albuterol 2.5 mg /3 mL (0.083 %) nebulizer solution Take 1 Vial by nebulization every 4 hours as needed for Wheezing, Shortness of Breath or Cough for up to 180 days. Active budesonide-formot Alexsandra (SYMBICORT) 160-4.5 mcg/actuation inhaler Inhale 2 Puffs into the lungs 2 times daily. Active famotidine (PEPCID) 20 mg tablet TAKE 1 TABLET BY MOUTH 2 TIMES DAILY NEEDED FOR HEARTBURN. 024 Active blood-glucose meter,continuous (FreeStyle Leif 3 [place]) [facility] Active blood-glucose sensor (FREESTYLE LEIF 3 SENSOR [facility]) Active levothyroxine (SYNTHROID, LEVOTHROID) 25 mcg tablet Take 1 tablet (25 mcg total) by mouth 1 (one) time each day. 02/27/2 024 Active metoprolol succinate (TOPROL-XL) 25 mg 24 hr tablet Take 1 tablet (25 mg total) by mouth 1 (one) time each day. Active ipratropium-albut Alexsandra (Combivent Respimat) 20-100 mcg/actuation inhaler Inhale 20 mcg into the lungs 3 times daily as needed (wheezing). Active rivaroxaban (Xarelto) 2.5 mg tablet Take 2.5 mg by mouth 2 times daily (with meals). Active FREESTYLE LANCETS MISC Use daily Active albuterol HFA (PROAIR HFA ; PROVENTIL [...] Each by Does not apply route daily. FREEBehavioYLE GLUCOMETER Active LORazepam (ATIVAN) 1 mg tablet [...] 1 Tablet by mouth at bedtime. Active budesonide-formot Alexsandra (Symbicort) 160-4.5 mcg/actuation inhaler Inhale 2 puffs by mouth 2 (two) times a day. Rinse mouth with water after use to reduce aftertaste and incidence of candidiasis. Do not swallow. 1 each Active zolpidem (AMBIEN) 10 mg tablet Take 1 tablet (10 mg total) by mouth at bedtime as needed. 05/20/2 024 Active insulin glargine (Lantus Solostar U-100 Insulin) 100 unit/mL (3 mL) injection pen Inject 54 Units under the skin 2 (two) times a day. 45 mL 2 024 Active insulin lispro (HumaLOG KwikPen) 100 unit/mL injection pen Three times a day per SS. <70: 0 units, 71-100: 9 units, 101-150: 12 units, 151-200: 15 units, 201-250: 18 units, 251-300: 21 units, 301-350: 24 units, 351-400: 27 units, >400: 30 units 60 mL 2 024 Active Additional Information Patient not taking.Reported on 01/31/2025 fluconazole (DIFLUCAN) 150 mg tabletIndications :Vagina, candidiasis Take 1 tab now and repeat dose in 2-3 days if needed. Do not take rosuvastatin (Crestor) on days you take this medication. 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 90 tablet 1 024 Active FreeStyle Test test stripIndications: Type 2 diabetes mellitus with diabetic microalbuminuria, with long-term current use of insulin ([facility] V24, [facility] V28) Use bid and prn 100 each 3 024 Active gabapentin (NEURONTIN) 300 mg capsuleIndication s:Type 2 diabetes mellitus with diabetic polyneuropathy ([facility] V24, [facility] V28) TAKE 1 CAPSULE BY MOUTH THREE TIMES A DAY 90 capsule 1 025 Active clotrimazole (LOTRIMIN) 1 % cream Apply topically 1 (one) time each day. Apply to toenails daily and surrounding skin 60 g 3 025 2024 Active ketoconazole (NIZORAL) 2 % shampoo Shampoo daily, leave on for 5-10 minutes, then rinse. 120 mL 3 025 2025 Active ketoconazole (NIZORAL) 2 % cream Apply topically 1 (one) time each day. 15 g Active empagliflozin (JARDIANCE) 25 mg tablet Take 1 tablet once every morning 30 tablet 3 Active levothyroxine (SYNTHROID, LEVOTHROID) 200 mcg tablet TAKE 1 TABLET BY MOUTH EVERY DAY 90 tablet 3 025 Active levothyroxine (SYNTHROID, LEVOTHROID) 200 mcg tablet Take 1 tablet (200 mcg total) by mouth 1 (one) time each day. 024 2024 Discontinued empagliflozin (Jardiance) 10 mg tablet TOME 1 TABLETA POR VIA ORAL [place]OS [place] 30 tablet 2 025 2024 Discontinued Active Problems Problem Noted Date Diagnosed Date Palpitations 07/23/2024 Morbid obesity with BMI of 4 0.0-44.9, adult ([facility] V24, [facility] V28) 07/23/2024 (HFpEF) heart failure with p reserved ejection fraction (CMS/HCC V24, CMS/HCC V28) 07/23/2024 Acute hypoxic respiratory fa ilure ([facility] V24, [facility] V28) 05/10/2024 Cardiomyopathy ([facility] V24, [facility] V28) 2023 Overview (07/23/2024): Last Assessment & Plan: Patient [...] to the ER. 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 Chest pain 11/06/2020 Overview (07/23/2024): Last [...] Encounters Date Type Department Care Team Description 01/31/2025 11:00 AM EDT Office Visit Endocrinology [address] [phone] Chani Hendricks PA Type 2 diabetes mellitus with diabetic microalbuminuria, with long-term current use of insulin ([facility] V24, [facility] V28) (Primary Dx); Hypothyroidism, unspecified type; Primary hypertension; Morbid obesity with BMI of 40.0-44.9, adult ([facility] V24, [facility] V28) 01/22/2025 12:45 PM EDT Ancillary Procedure [facility] [address] [facility] [address] [place] [phone] PAD (peripheral artery disease) ([facility] V24) 12/14/2024 Telephone Endocrinology [facility] [address] [place] [address] Chani Hendricks PA PRIOR AUTHORIZATION 12/04/2024 3:30 PM EST Office Visit Internal Medicine [facility] [address] [facility] [address] [place] [address] Amrita Sanabria MD Seborrhea of face (Primary Dx); Hypothyroidism due to acquired atrophy of thyroid 12/04/2024 Telephone Internal Medicine [facility] [address] [facility] [address] [place] [address] Vy Rice [place] Faxed Form ([facility]) 11/19/2024 11:00 AM EST Office Visit Orthopedic Surgery [facility] [address] [facility] [address] [place] [address] Tyrone Calhoun, DPM Dermatophytosis of nail (Primary Dx); Diabetic mononeuropathy simplex ([facility] V24, [facility] V28); Type II diabetes mellitus with peripheral circulatory disorder ([facility] V24, [facility] V28); Tinea pedis of both feet from Last 3 Months Immunizations Name Administration Dates Next Due Influenza Quadravalent, MDCK , 0.5ml, preservative free (Flucelvax) 6mo and older 08/09/2023 Surgical History Surgery Date Site/Laterality Comments CHOLECYSTECTOMY 2001 PROCEDURE: LAPAROSCOPY, CHOLECYSTECTOMY OTHER SURGICAL HISTORY PROCEDURE: CT TOTAL ABDOMINAL HYSTERECT W/WO RMVL TUBE OVARY; COMMENT: due to uterine cancer OTHER SURGICAL HISTORY 05/09/2023 PROCEDURE: CT SLCTV CATHJ 3RD+ ORD SLCTV ABDL PEL/LXTR BRNCH OTHER SURGICAL HISTORY 05/09/2023 PROCEDURE: CT THROMBOLYSIS ARTERIAL INFUSION ICRA RS&I INIT TX OTHER SURGICAL HISTORY 05/09/2023 PROCEDURE: ULTRASOUND GUIDANCE FOR VASCULAR AC OTHER SURGICAL HISTORY 05/10/2023 PROCEDURE: CT SLCTV CATHJ EA 2ND+ ORD ABDL PEL/LXTR ART BRNCH OTHER SURGICAL HISTORY 05/10/2023 PROCEDURE: CT REVSC OPN/PRG FEM/POP W/ANGIOPLASTY UNI OTHER SURGICAL HISTORY 05/10/2023 PROCEDURE: CT THROMBOLYSIS ART/VENOUS INFSN W/IMAGE SUBSQ TX OTHER SURGICAL HISTORY 05/11/2023 PROCEDURE: CT REVSC OPN/PRQ FEM/POP W/STNT/ANGIOP SM VSL OTHER SURGICAL HISTORY 05/11/2023 PROCEDURE: CT CESSATION THROMBOLYTIC THER W/CATHETER REMOVAL Medical History Medical History Date Comments Essential hypertension DX:Essent ial hypertension Hyperlipidemia DX:Hyperlipidemi a Family history of cardiovasc ular disease DX:Family history of cardiov ascular disease 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 03/12/2022 DX:Coronary artery disease w ithout angina pectoris DM type 2 (diabetes mellitus , type 2) ([facility] V24, [facility] V28) DX:DM type 2 (diabetes jayme itus, type 2) ([facility]) Hypothyroidism DX:Hypothyroidis m Morbid obesity with BMI of 4 0.0-44.9, adult ([facility] V24, [facility] V28) DX:Morbid obesity wit h BMI of 40.0-44.9, adult ([facility]) Tobacco abuse disorder DX:Tobacc o abuse disorder Painful diabetic neuropathy ([facility] V24, [facility] V28) DX:Painful diabetic neuropat hy ([facility]) History of uterine cancer DX:His tory of uterine cancer Family History Medical History Relation Name Comments Heart attack Mother Colon cancer Uncle mother Relation Name Status Comments Mother Uncle mother Social History Tobacco Use Types Packs/Day Years Used Date Smoking Tobacco: Former Cigarettes Q uit: 05/06/2023 Smokeless Tobacco: Never Tobacco Cessation:Counseling Given: Not Answered Alcohol Use Standard Drinks/Week Comments Not Currently 0 (1 standard drink = 0.6 oz pur e alcohol) Comments Unknown Sex and Gender Information Value Date Recorded Sex Assigned at Not on file Legal Sex Female 10:45 PM EST Gender Identity Not on file Sexual Orientation Not on file Obstetrics History Last Filed Vital Signs Vital Sign Reading Time Taken Comments Blood Pressure 141/82 01/31/2025 10:51 AM EDT Pulse 74 01/31/2025 10:51 AM EDT Temperature 36.2 ??C (97.2 ??F) 01/31/2025 10:51 AM E DT Respiratory Rate 20 08/29/2024 10:57 AM EST Oxygen Saturation 96% 01/31/2025 10:51 AM EDT Inhaled Oxygen Concentration - - Weight 117 kg (258 lb) 01/31/2025 10:51 AM EDT Height 157.5 cm (5' 2 ) 01/31/2025 10:51 AM EDT Body Mass Index 47.19 01/31/2025 10:51 AM EDT Plan of Treatment Upcoming Encounters Date Type Department Care Team (Late st Contact Info) Description 02/13/2025 3:00 PM EDT Consult Bariatric Surgery [facility] [address] [facility] [address] [place] [phone] Clem Montanez MD [address] [facility] [address] [place] [address] 02/18/2025 10:45 AM EDT Office Visit Orthopedic Surgery [facility] [address] [facility] [address] [place] [phone] Tyrone Calhoun DPM [address] [facility] [address] [place] [address] 02/28/2025 11:30 AM EDT Office Visit Pulmonolgy - [place] [address] [facility] [address] [place] [phone] Ar Ann MD [address] [facility] [address] [place] [address] 03/07/2025 11:30 AM EDT Office Visit Vascular Surgery [facility] [address] [facility] [address] [place] [phone] Cammie Garner PA [address] [facility] [address] [place] [address] 04/03/2025 9:45 AM EDT Office Visit Internal Medicine - [place] [address] [facility] [address] [place] [address] Erlinda Bose PA [address] [place] [address] 05/09/2025 8:30 AM EDT Office Visit Endocrinology [facility] [address] [place] [address] Cheryl Cisneros PA [address] [place] [address] Health Maintenance Due Date Last Done Comments Breast Cancer Screening 1970 COVID-19 Vaccine (#1) 1975 Diabetes: Annual Foot Exam 1980 Zoster Vaccines (1 of 2) 1989 Cervical Cancer Screening: Pap Smear 1991 Pneumococcal Vaccine: 50+ Years (2 of 2 - PCV) 09/12/2010 09/12/2009 Pneumococcal Vaccine: Pediatrics (0 to 5 Years) and At-Risk Patients (6 to 64 Years) (2 of 2 - PCV) 09/12/2010 09/12/2009 Hepatitis B Vaccines (3 of 3 - 19+ 3-dose series) 01/18/2019 11/23/2018, 12/16/2016 Colorectal Cancer Screening: Colonoscopy 10/02/2022 Depression Screening 10/02/2022 HIV Screening 10/02/2022 Hepatitis C Screening 10/02/2022 Social Influencers of Health Screening 10/02/2022 Diabetes: Annual Urine Albumin-Creatinine Ratio (uACR) 08/12/2023 08/12/2022 Diabetes: Annual Retina Eye Exam 02/12/2025 02/13/2024 Influenza Vaccine (Season Ended) 2025 08/09/2023, 10/14/2022, 09/02/2021, Additional history exists Diabetes: Blood Sugar Control Test (HGBA1C) 08/02/2025 01/31/2025, 10/19/2024, 05/22/2024, Additional history exists Diabetes: Annual GFR (Glomerular Filtration Rate) 02/06/2026 02/06/2025, 01/31/2025, 10/19/2024, Additional history exists Hypertension/CHF/CAD Annual BMP Blood Test 02/06/2026 02/06/2025, 01/31/2025, 10/19/2024, Additional history exists DTaP,Tdap,and Td Vaccines (3 [...] patient's age to complete this topic Meningococcal B Vaccine Aged Out No l onger eligible based on patient's age to complete this topic RSV Immunization Patients Under 20 months Aged Out No longer eligible based on patient's age to complete this topic Varicella Vaccines Aged Out No longer eligible based on patient's age to complete this topic Procedures Procedure Name Priority Date/Time Associated Diagnosis Comments URINALYSIS WITH REFLEX MICROSCOPIC Routine 02/06/2025 11:53 AM EDT Persistent proteinuria Generalized edema PROTEIN, URINE, RANDOM Routine 02/06/2025 11:53 AM EDT Persistent proteinuria Generalized edema URINALYSIS WITH REFLEX MICROSCOPIC Routine 02/06/2025 11:53 AM EDT Persistent proteinuria Generalized edema BASIC METABOLIC PANEL Routine 02/06/2025 11:46 AM EDT Persistent proteinuria Generalized edema HEMOGLOBIN A1C Routine 01/31/2025 11:59 AM EDT Type 2 diabetes mellitus with diabetic microalbuminuria, with long-term current use of insulin ([facility] V24, [facility] V28) BASIC METABOLIC PANEL Routine 01/31/2025 11:59 AM EDT Type 2 diabetes mellitus with diabetic microalbuminuria, with long-term current use of insulin ([facility] V24, [facility] V28) Primary hypertension THYROID STIMULATING HORMONE WITH REFLEX TO FREE T4 AND FREE T3 Routine 01/24/2025 10:00 AM EDT Hypothyroidism due to acquired atrophy of thyroid VAS US DUPLEX LOWER EXT ARTERIES BILAT WITH CHRIS Routine 01/22/2025 2:16 PM EDT PAD (peripheral artery disease) ([facility] V24) LIPID PANEL WITH REFLEX TO DIRECT LDL Routine 10/19/2024 9:50 AM EST Hyperlipidemia, unspecified hyperlipidemia type Type 2 diabetes mellitus with diabetic microalbuminuria, with long-term current use of insulin ([facility] V24, [facility] V28) DIABETES EYE EXAM Routine 02/13/2024 URINE ALBUMIN CREATININE RATIO Routine 08/12/2022 from Last 3 Months or Most Recently Relevant to Health Maintenance Results * (ABNORMAL) Urinalysis with reflex microscopic (02/06/2025 11:53 AM EDT) Specific Roy Urine 1.029 1.003 - 1.030 LAB URINALYSIS - AUTOMATED METHOD 02/06/2025 1:11 PM [facility] pH, Urine 6.5 5.0 - 8.0 pH LAB URINALYSIS - AUTOMATED METHOD 02/06/2025 1:11 PM [facility] Leukocytes, Urine Negative Negative LAB URINALYSIS - AUTOMATED METHOD 02/06/2025 1:11 PM [facility] Nitrite, Urine Negative Negative LAB URINALYSIS - AUTOMATED METHOD 02/06/2025 1:11 PM [facility] Protein, Urine 100(A) <=Trace mg/dL LAB URINALYSIS - AUTOMATED METHOD 02/06/2025 1:11 PM [facility] Glucose, Urine >=1000(A) Negative mg/dL LAB URINALYSIS - AUTOMATED METHOD 02/06/2025 1:11 PM [facility] Ketones, Urine Negative Negative mg/dL LAB URINALYSIS - AUTOMATED METHOD 02/06/2025 1:11 PM [facility] Urobilinogen , Urine 0.2 0.2 - 1.0 mg/dL LAB URINALYSIS - AUTOMATED METHOD 02/06/2025 1:11 PM [facility] Bilirubin, Urine Negative Negative LAB URINALYSIS - AUTOMATED METHOD 02/06/2025 1:11 PM [facility] Blood, Urine Trace(A) Negative LAB URINALYSIS - AUTOMATED METHOD 02/06/2025 1:11 PM [facility] RBC, Urine 3.8 0 - 4 /HPF LAB URINALYSIS - AUTOMATED METHOD 02/06/2025 1:11 PM [facility] WBC, Urine 1.1 0 - 4 /HPF LAB URINALYSIS - AUTOMATED METHOD 02/06/2025 1:11 PM [facility] Squamous Epithelial, Urine 35 0 - 60 /LPF LAB URINALYSIS - AUTOMATED METHOD 02/06/2025 1:11 PM [facility] Bacteria, Urine Few(A) Negative /HPF LAB URINALYSIS - AUTOMATED METHOD 02/06/2025 1:11 PM [facility] Hyaline Casts, Urine 0.0 0 - 3 /LPF LAB URINALYSIS - AUTOMATED METHOD 02/06/2025 1:11 PM [facility] Urine Urine specimen obtained by clean catch procedure / Unknown Non-blood Collection / Unknown 02/06/2025 11:53 AM EDT 02/06/2025 12:56 PM EDT us Clive Karely Athreya MD LAB URINE ORDERABL ES Final Result Performing Organization Address [facility]/ZIP Co de Phone Number [facility] [address] [place] [address], [place] [phone] * Protein, urine, random (02/06/2025 11:53 AM EDT) Pathologist [facility] Protein, Urine 144 mg/dL LAB CHEMISTRY METHOD 02/06/2025 9:55 PM EDT [facility] Urine Urine specimen obtained by clean catch procedure / Unknown Non-blood Collection / Unknown 02/06/2025 11:53 AM EDT 02/06/2025 12:56 PM EDT us Clive Berumen MD LAB URINE ORDERABL ES Final Result Performing Organization Address [facility] Co de Phone Number [facility] [address] [place] [address], [place] [phone] * (ABNORMAL) Basic metabolic panel (02/06/2025 11:46 AM EDT) Only the most recent of2 resultswithin the time period is included. [facility] Sodium 141 133 - 145 mmol/L LAB CHEMISTRY METHOD 02/06/2025 5:53 PM T [facility] Potassium 4.0 3.5 - 5.5 mmol/L LAB CHEMISTRY METHOD 02/06/2025 5:53 PM EDT [facility] Chloride 106 96 - 110 mmol/L LAB CHEMISTRY METHOD 02/06/2025 5:53 PM [facility] CO2 28 21 - 32 mmol/L LAB CHEMISTRY METHOD 02/06/2025 5:53 PM [facility] Anion Gap 7 3 - 11 LAB CHEMISTRY METHOD 02/06/2025 5:53 PM [facility] Glucose 208(H) 70 - 100 mg/dL LAB CHEMISTRY METHOD 02/06/2025 5:53 PM EDT [facility] BUN 20 5 - 25 mg/dL LAB CHEMISTRY METHOD 02/06/2025 5:53 PM EDT [facility] Creatinine 0.73 0.50 - 1.10 mg/dL LAB CHEMISTRY METHOD 02/06/2025 5:53 PM EDT [facility] eGFR 98 >=60 mL/min/1. 73m2 LAB CHEMISTRY METHOD 02/06/2025 5:53 PM EDT [facility] Comment:Calculation based on the??Chronic Kidney Disease Epidemiology Collaboration (CKD-EPI) equation refit??without adjustment for race. BUN/Creatinine Ratio 27.4 LAB CHEMISTRY METHOD 02/06/2025 5:53 PM EDT [facility] Calcium 9.0 8.5 - 10.5 mg/dL LAB CHEMISTRY METHOD 02/06/2025 5:53 PM EDT [facility] Blood Venous blood specimen / Unknown Venipuncture / Unknown 02/06/2025 11:46 AM EDT 02/06/2025 12:53 PM EDT Clive Berumen MD LAB BLOOD ORDERABL ES Final Result [facility] [address] [place] [address], * (ABNORMAL) Hemoglobin A1c (01/31/2025 11:59 AM EDT) Hemoglobin A1C 10.0(H) <6.5 % LAB CHEMISTRY METHOD 02/01/2025 11:07 AM EDT [facility] Mean Bld Glu Estim. 240 mg/dL LAB CHEMISTRY METHOD 02/01/2025 11:07 AM EDT [facility] Blood Venous blood specimen / Unknown Venipuncture / Unknown 01/31/2025 11:59 AM EDT 01/31/2025 11:59 AM EDT us Chani BORRERO LAB BLOOD ORDERABLES Final Resul t Performing Organization Address City/[facility]/ZIP Co de Phone Number [facility] [address] [place] [address], [place] [phone] * Thyroid stimulating hormone with reflex to free t4 and free t3 (01/24/2025 10:00 AM EDT) Pathologist [facility] TSH 3.42 0.40 - 4.00 mcIU/mL LAB CHEMISTRY METHOD 01/24/2025 11:52 AM EDT [facility] Blood Venous blood specimen / Unknown Venipuncture / Unknown 01/24/2025 10:00 AM EDT 01/24/2025 10:21 AM EDT us Amrita Sanabria MD LAB BLOOD ORDERABLES Final Res ult Performing Organization Address [facility]/ZIP Co de Phone Number [facility] [address] [place] [address], [place] [phone] * Vascular US duplex lower extremity arteries bilateral with CHRIS (01/22/2025 2:16 PM EDT) Left Dist External Iliac PSV 87 cm/s [facility] Left Prox External Iliac PSV 82 cm/s [facility] Left AT dist sys PSV 39 cm/s [facility] Left AT mid sys PSV 31 cm/s CV [facility] LAB Left AT prox sys PSV 65 cm/s CV VAS LAB Left IT SALES EXECUTIVE prox sys PSV 84 cm/s CV V[facility] LAB Left mid peroneal sys PSV 26 cm/s CV [facility] LAB Left popliteal dist sys PSV 64 cm/s CV [facility] LAB Left popliteal prox sys PSV 37 cm/s CV [facility] LAB Left PT dist sys PSV 66 cm/s CV [facility] LAB Left PT mid sys PSV 56 cm/s CV [facility] LAB Left PT prox sys PSV 50 cm/s CV [facility] LAB Left profunda sys PSV 70 cm/s CV V[facility] LAB Left super femoral dist sys PSV 79 cm/s CV [facility] LAB Left super femoral mid sys PSV 78 cm/s CV [facility] LAB Left super femoral prox sys PSV 62 cm/s CV [facility] LAB Right Dist External Iliac PSV 119 cm/s CV V[facility] LAB Right Prox External Iliac PSV 135 cm/s CV [facility] LAB Right AT dist sys PSV 83 cm/s CV [facility] LAB Right AT mid sys PSV 73 cm/s CV [facility] LAB Right AT prox sys PSV 59 cm/s CV VAS LAB Right IT SALES EXECUTIVE prox sys PSV 101 cm/s CV VAS LAB Right popliteal dist sys PSV 93 cm/s CV [facility] LAB Right popliteal prox sys PSV 62 cm/s CV [facility] LAB Right PT dist sys PSV 0 cm/s [facility] Right PT mid sys PSV 16 cm/s [facility] Right PT prox sys PSV 22 cm/s CV [facility] LAB Right profunda sys PSV 73 cm/s [facility] Right super femoral dist sys PSV 119 cm/s [facility] Right super femoral mid sys PSV 151 cm/s [facility] Right super femoral prox sys PSV 114 cm/s [facility] Right arm BP 138 mmHg [facility] Left arm BP 142 mmHg [facility] Right toe pressure 67 mmHg [facility] Right TBI 0.47 [facility] Left Dorsalis Pedis 53 mmHg [facility] V[facility] Left CHRIS 0.37 [facility] Left toe pressure 24 mmHg [facility] Left TBI 0.17 [facility] Anatomical Region Laterality Modality Vascular, Abdomen Ultrasound Narrative 02/01/2025 4:41 PM EDT Right le. ??Unable to obtain the ankle-brachial index due to noncompressible vessels. 2. ??Moderately abnormal toe brachial index at 0.47 3. ??There is evidence of severe stenosis (50-99%) in the following arterial segments: Profunda femoral artery and superficial femoral artery 4. ??The right distal CONSTRUCTION AND MAINTENANCE INSPECTOR is occluded 5. ??The right peroneal artery was not well-visualized Left le. ??Severely abnormal ankle-brachial index at 0.37 2. ??Severely abnormal toe brachial index at 0.17. 3. ??There is evidence of monophasic waveforms throughout the left lower extremity, suggestive of significant inflow disease Right CHRIS Unable to obtain right CHRIS due to uncompressible Right Lower Arterial Duplex The distal external iliac artery has triphasic flow. The common femoral artery has triphasic flow. The profunda femoris artery has monophasic flow. The superficial femoral artery has monophasic flow. The popliteal artery has monophasic flow. The anterior tibial artery has monophasic flow. The proximal posterior tibial artery has monophasic flow. The mid posterior tibial artery has monophasic flow. The distal posterior tibial artery is occluded. The mid peroneal artery was not well visualized. Left Lower Arterial Duplex The distal external iliac artery has monophasic flow. The common femoral artery has monophasic flow. The profunda femoris artery has monophasic flow. The superficial femoral artery has monophasic flow. The popliteal artery has monophasic flow. The anterior tibial artery has monophasic flow. The posterior tibial artery has monophasic flow. The mid peroneal artery has monophasic flow. Anesthetist Details A friedman scale, color and doppler analysis ultrasound was performed. During the study longitudinal and transverse views were obtained. Continuous wave doppler and pulsed wave doppler was performed. Overall the study quality was technically difficult. Study was technically difficult due to: body habitus. us Cammie BORRERO CV VASCULAR PROCEDURES Final R esult * (ABNORMAL) Lipid panel with reflex to direct LDL (10/19/2024 9:50 AM EST) Cholesterol 260(H) 0 - 200 mg/dL LAB CHEMISTRY METHOD 10/19/2024 2:59 PM [facility] Triglycerides 237(H) 0 - 150 mg/dL LAB CHEMISTRY METHOD 10/19/2024 2:59 PM EST [facility] HDL 59 >=40 mg/dL LAB CHEMISTRY METHOD 10/19/2024 2:59 PM EST [facility] LDL Calculated 154(H) 0 - 100 mg/dL LAB CHEMISTRY METHOD 10/19/2024 2:59 PM [facility] VLDL Cholesterol Charli 47.4 mg/dL LAB CHEMISTRY METHOD 10/19/2024 2:59 PM [facility] Non HDL Chol. (LDL+VLDL) 201(H) <145 mg/dL LAB CHEMISTRY METHOD 10/19/2024 2:59 PM EST [facility] Chol/HDL Ratio 4.4 0.0 - 4.4 LAB CHEMISTRY METHOD 10/19/2024 2:59 PM EST [facility] Blood Venous blood specimen / Unknown Venipuncture / Unknown 10/19/2024 9:50 AM EST 10/19/2024 9:50 AM EST us Chani BORRERO LAB BLOOD ORDERABLES Final Resul t [facility] [address] [place] [address], * Diabetes Eye Exam (02/13/2024) Diabetes: Annual Retina Eye Exam abstracted Historical Provider MD HEALTH MAINTENANCE Final Result * Urine Albumin Creatinine Ratio (08/12/2022) Urine Albumin Creatinine Ratio abstracted Historical Provider MD HEALTH MAINTENANCE Final Result from Last 3 Months or Most Recently Relevant to Health Maintenance Insurance [facility] Care Teams Organic Preparation Analyst Relationship Specialty Start Date End Date Erlinda Bose PA [address] [address] PCP - General Primary Care 12/04/24
== END 2025-02-13 11:00 | disposition home or self-care (01) ==
LOC: HO.HKAS 10:41
PROVIDERS: PCP Physician Assistant; Visit Provider Internal Medicine Hypertension Specialist
DX: N17.9 Acute kidney failure, unspecified (principal); R60.1 Generalized edema; E11.65 Type 2 diabetes mellitus with hyperglycemia; Z79.4 Long term (current) use of insulin; R80.1 Persistent proteinuria, unspecified
CPT/HCPCS: 99214

== ENCOUNTER → 2025-02-13 10:41 | Outpatient (BNVA) | payer OTHER, SELFPAY | PROVIDERS: PCP Physician Assistant; Visit Provider Internal Medicine Hypertension Specialist | DX: N17.9 Acute kidney failure, unspecified (principal); R60.1 Generalized edema; E11.65 Type 2 diabetes mellitus with hyperglycemia; J44.89 Other specified chronic obstructive pulmonary disease; G47.33 Obstructive sleep apnea (adult) (pediatric); R80.1 Persistent proteinuria, unspecified; Z99.89 Dependence on other enabling machines and devices; Z79.4 Long term (current) use of insulin; Z79.899 Other long term (current) drug therapy | CPT/HCPCS: 99212 ==

== ENCOUNTER 2025-08-07 08:07 | Outpatient (REF) | payer OTHER, SELFPAY ==
--- OUTSIDE RECORDS SUMMARY | 2025-08-07 08:22 | XMS_ITS | Encounter Summary ---
Author Organization [facility] Address [address] [place] [address] Care Team Providers Care Cold Strip Roller Name Role Phone Erlinda Bose Primary Care Provider + Encounter Details Date Type Department Care Team (Late Contact Info) Description 07/31/2025 Results Follow-Up Internal Medicine - [place] [address] [facility] [address] [place] [address] Tramaine Villavicencio MA Social History Tobacco Use Types Packs/Day Years Used Date Smoking Tobacco: Former Cigarettes Q uit: 05/06/2023 Smokeless Tobacco: Never Alcohol Use Standard Drinks/Week Comments Not Currently 0 (1 standard drink = 0.6 oz pur e alcohol) Comments No Sex and Gender Information Value Date Recorded Sex Assigned at Female 06/04/2025 9:47 AM EDT Legal Sex Female 10:45 PM EST Gender Identity Female 06/04/2025 9:47 AM EDT Sexual Orientation Straight 06/04/2025 9: 47 AM EDT documented as of this encounter Plan of Treatment Upcoming Encounters Date Type Department Care Team (Late Contact Info) Description 08/07/2025 10:00 AM EDT Nutrition Bariatric Surgery - [place] [address] [facility] [address] [place] [address] Yancy Lassiter, RD 175 [facility] [address] [place] [address] 09/02/2025 8:30 AM EST Office Visit Pulmonology - [place] 175 [facility] [address] [place] [phone] Ar Ann MD 175 [facility] [address] [place] [address] 09/09/2025 11:30 AM EST Office Visit Vascular Surgery - [place] [address] [place] [address] John Hernandes MD [address] [place] [address] 10/01/2025 9:00 AM EST Appointment [facility] Endoscopy [address] [place] [phone] Hilario Augustin DO [address] [address] 10/31/2025 11:00 AM EST Office Visit Endocrinology - [place] [address] [place] [phone] Chani Hendricks PA [address] [place] [address] 11/08/2025 9:30 AM EST Office Visit Internal Medicine - [place] 175 [facility] [address] [place] [phone] Erlinda Bose PA [address] [address] 11/20/2025 9:10 AM EST Office Visit [facility] - [facility] [address] [place] [place] [phone] Layne Norris NP [address] [place] [address] [address] [place] [phone] 12/24/2025 9:15 AM EST Office Visit Bariatric Surgery - [place] [address] [facility] [address] [place] [address] Clem Montanez MD [address] [place] [phone] documented as of this encounter Goals Goal Patient Goal Type Associated Problems Recent Progress Patient-Stated? Author Autogenerat ed Goal Care Plan Autogenerated Problem No Manjinder Solomon documented as of this encounter Visit Diagnoses Not on filedocumented in this encounter Additional Health Concerns Active Problems Noted Date Diagnosed Date Autogenerated Problem 07/26/2025 documented as of this encounter Care Teams Cold Strip Roller Relationship Specialty Start Date End Date Erlinda Bose PA [address] [facility] [address] [place] [address] PCP - General Primary Care 12/04/24 documented as of this encounter
--- OUTSIDE RECORDS SUMMARY | 2025-08-07 08:22 | XMS_ITS | Encounter Summary ---
Author Organization [facility] Address [address] [place] [address] Care Team Providers Care Diesel Maintenance Technician Name Role Phone Erlinda Bose Primary Care Provider + Reason for Visit * Reason Onset Date Comments Lab Results 07/10/2025 Encounter Details Date Type Department Care Team (Late st Contact Info) Description 07/10/2025 Telephone Internal Medicine - [place] [address] [facility] [address] [place] [phone] Karrie Apodaca MA Social History Tobacco Use Types Packs/Day [...] AM EDT documented as of this encounter Progress Notes * Karrie Apodaca MA - 07/10/2025 10:09 AM EDT Tried to reach patient, no answer, left message to call back 07/10/25 Karrie Apodaca MA * Karrie Apodaca MA - 07/10/2025 10:09 AM EDT ----- Message from GISSELL Meneses sent at 07/09/2025 7:15 AM EDT ----- Please make sure pt gets mychart message. Thanks documented in this encounter Plan of Treatment Upcoming Encounters Date Type Department Care Team (Late st Contact Info) Description 08/07/2025 10:00 AM EDT Nutrition Bariatric Surgery - [place] 175 [facility] [address] [place] [phone] Yancy Lassiter, RD [address] [phone] 09/02/2025 8:30 AM EST Office Visit Pulmonology - [place] [address] [phone] Ar Ann MD [address] [address] 09/09/2025 11:30 AM EST Office Visit Vascular Surgery - [place] 300 [facility] [address] [place] [phone] John Hernandes MD 230 [place] [phone] 10/01/2025 9:00 AM EST Appointment [facility] Endoscopy [address] [place] [phone] Hilario Augustin DO [address] [address] 10/31/2025 11:00 AM EST Office Visit Endocrinology [address] [phone] Chani Hendricks PA [address] [place] [address] 11/08/2025 9:30 AM EST Office Visit Internal Medicine - [place] 175 [facility] [address] [place] [phone] Erlinda Bose PA 175 [facility] 200 [place] [address] 11/20/2025 9:10 AM EST Office [facility] - [address] [place] [phone] Layne Norris NP [address] [place] [address] [address] [place] [phone] 12/24/2025 9:15 AM EST Office Visit Bariatric Surgery - [place] 175 [facility] [address] [place] [phone] Clem Montanez MD [address] [place] [phone] documented as of this encounter Visit Diagnoses Not on filedocumented in this encounter Care Teams Diesel Maintenance Technician Relationship Specialty Start Date End Date Erlinda Bose PA 175 [facility] 200 [place] [address] PCP - General Primary Care 12/04/24 documented as of this encounter
--- OUTSIDE RECORDS SUMMARY | 2025-08-07 08:22 | XMS_ITS | Clinical Summary ---
Author Organization 175 [facility] Address [address] [place] [address] Phone Care Team Providers Care Pigment Making Supervisor Name Role Phone Erlinda Bose Primary Care [...] up to 180 days. 04/25/20 24 Active ipratropium-albute roL (Combivent Respimat) 20-100 mcg/actuation inhaler Inhale 20 mcg into the lungs 3 times daily as needed (wheezing). 08/22/20 23 Active rivaroxaban (Xarelto) 2.5 mg tablet Take 2.5 mg by mouth 2 times daily (with meals). 06/14/20 23 Active albuterol HFA (PROAIR HFA ; PROVENTIL HFA ; VENTOLIN HFA) 90 mcg/actuation inhaler Inhale 2 puffs by mouth every 4 (four) hours if needed. Active venlafaxine XR (EFFEXOR-XR) 75 mg 24 hr capsule Take 75 mg by mouth daily. Active venlafaxine XR (EFFEXOR-XR) 150 mg 24 hr capsule Take 150 mg by mouth daily. Taken with 75 mg Active blood-glucose meter kit 1 Each by Does not apply route daily. FREESTYLE GLUCOMETER Active LORazepam (ATIVAN) 1 mg tablet Take 1 Tablet by mouth Once for 1 dose. 30-60 minutes prior to MRI. Active fluticasone propionate (FLONASE) 50 mcg/actuation nasal spray 2 Sprays by Each Nare route daily Active prazosin (MINIPRESS) 5 mg capsule Take 1 Capsule by mouth at bedtime. Active magnesium 250 mg tablet Take 1 Tablet by mouth at bedtime. Active budesonide-formote roL (Symbicort) 160-4.5 mcg/actuation inhaler Inhale 2 puffs by mouth 2 (two) times a day. Rinse mouth with water after use to reduce aftertaste and incidence of candidiasis. Do not swallow. 1 each 11 08/29/20 24 Active zolpidem (AMBIEN) 10 mg tablet Take 1 tablet (10 mg total) by mouth at bedtime as needed. 03/12/20 24 Active insulin lispro (HumaLOG KwikPen) 100 unit/mL injection pen Three times a day per SS. 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 120 mL 3 12/04/19 25 026 Active ketoconazole (NIZORAL) 2 % cream Apply topically 1 (one) time each day. 15 g 12/04/19 25 Active empagliflozin (JARDIANCE) 25 mg tablet Take 1 tablet once every morning 30 tablet 3 02/01/20 25 Active levothyroxine (SYNTHROID, LEVOTHROID) 200 mcg tablet TAKE 1 TABLET BY MOUTH EVERY DAY 90 tablet 3 02/05/20 25 Active famotidine (PEPCID) 20 mg tablet Take 1 tablet (20 mg total) by mouth 2 (two) times a day. 180 tablet 1 03/25/20 25 Active metoprolol succinate (TOPROL-XL) 25 mg 24 hr tablet TAKE 1 TABLET BY MOUTH EVERY DAY 90 tablet 2 03/25/20 25 Active gabapentin (NEURONTIN) 300 mg capsuleIndications :Type 2 diabetes mellitus with diabetic polyneuropathy ([facility] V24, [facility] V28) TOME 1 CAPSULA POR VIA ORAL ANAM VECES AL PALMA 90 capsule 1 03/25/20 25 Active FreeStyle Leif 3 Sensor deviceIndications: Type 2 diabetes mellitus without complication, with long-term current use of insulin ([facility] V24, [facility] V28) USE 1 SENSOR TO TEST DAILY REMOVE AND REPLACE EVERY 14 DAYS 2 each 5 03/29/20 25 Active bumetanide (BUMEX) 1 mg tablet Take 1 tablet (1 mg total) by mouth 1 (one) time each day. 02/23/20 25 Active levothyroxine (SYNTHROID, LEVOTHROID) 25 mcg tabletIndications: Hypothyroidism, unspecified type Take 1 tablet (25 mcg total) by mouth 1 (one) time each day. 90 tablet 3 04/03/20 25 Active fenofibrate (TRICOR) 48 mg tabletIndications: Mixed hyperlipidemia Take 1 tablet (48 mg total) by mouth 1 (one) time each day. 90 each 1 04/03/20 25 Active lisinopriL (PRINIVIL,ZESTRIL) 5 mg tablet Take 1 tablet (5 mg total) by mouth 1 (one) time each day. 02/14/20 25 Active Lantus Solostar U-100 Insulin 100 unit/mL (3 mL) injection pen INJECT 54 UNITS UNDER THE SKIN 2 (TWO) TIMES A DAY. 90 mL 1 06/27/20 25 Active FreeStyle Test test stripIndications:T ype 2 diabetes mellitus with diabetic polyneuropathy, with long-term current use of insulin ([facility] V24, [facility] V28) Use tid 100 each 3 07/08/20 25 Active freestyle (FreeStyle Lancets) 28 gauge lancets Use daily 100 each 3 07/11/20 25 Active FREESTYLE LANCETS MISC Use daily 01/19/20 23 09/18/2 025 Discontin ued(Reord er) Active Problems Problem Noted Date Diagnosed Date Proteinuria 07/11/2025 Class 3 severe obesity with serious comorbidity and body mass index (BMI) of 40.0 to 44.9 in adult ([facility] V24, [facility] V28) 02/26/2025 Morbid obesity with BMI of 4 0.0-44.9, adult ([facility] V24, [facility] V28) 07/23/2024 (HFpEF) heart failure with p reserved ejection fraction ([facility] V24, [facility] V28) 07/23/2024 Assessment & Plan (07/31/2025 9:47 AM EDT): The patient has a history of HFpEF. The patient underwent a cardiac MRI in June 2024 which showed evidence of mild LVH without LVOT obstruction. Overall findings of the cardiac MRI were suggestive of a mild nonobstructive hypertrophic cardiomyopathy; but an infiltrative cardiomyopathy could not be completely ruled out. As such, the patient underwent further testing with a cardiac PYP scan in September 2024 which did not show any evidence of TTR amyloidosis. Valvular heart, laboratory testing did not show any evidence of a plasma cell disorder that would cause AL amyloidosis (normal urine immunofixation study; normal serum immunofixation study; normal serum kappa lambda ratio at 1.58). The patient supposed to be on medical therapy with Bumex and Jardiance. However, the patient admits to medication noncompliance. She has chronic exertional dyspnea which is likely multifactorial in nature (due to her HFpEF, COPD, and morbid obesity). I had a extensive conversation with the patient regarding the importance of medication compliance. The patient stated she will try to be more diligent with the use of her medications every day. Acute hypoxic respiratory fa ilure ([facility] V24, [facility] V28) 05/10/2024 Hypertrophic nonobstructive cardiomyopathy ([facility] V24, [facility] V28) 11/28/2023 Overview (07/23/2024): Last Assessment & Plan: Patient was found to have a moderate LVH on echocardiogram. She has an upcoming cardiac MRI to rule out the presence of infiltrative cardiomyopathy. Will also be able to evaluate right ventricle and LV function. Assessment & Plan (07/31/2025 9:47 AM EDT): The patient was found to have a mild nonobstructive hypertrophic cardiomyopathy on a cardiac MRI from June 2024. Cardiac MRI did not show any evidence of significant LVOT obstruction. Maximal LV wall thickness on cardiac MRI was 14 mm. LVEF was normal on cardiac MRI. The patient does not have any evidence of unexplained syncope. She also does not have any history of episodes of NSVT or VT. The patient does not have any family history of SCD. Holter monitor did not show any evidence of ventricular arrhythmias. As such, no indication for ICD placement at this point as per the ACC hypertrophic cardiomyopathy guidelines. DM type 2 (diabetes mellitus , type 2) (CMS/HCC V24, CMS/HCC V28) 08/10/2022 Hypothyroidism 08/10/2022 Painful diabetic neuropathy (CMS/HCC V24, CMS/HC C V28) 08/10/2022 ELLA (obstructive sleep apnea) 02/10/2022 Overview (07/23/2024): Last Assessment & Plan: Patient reports she has been wearing her CPAP on a nightly basis which was arranged by her medical delivery driver. Hyperlipidemia 11/06/2020 Overview (07/23/2024): Last Assessment & Plan: The patient has a history of hyperlipidemia. The patient is currently on rosuvastatin 40 mg orally daily and fenofibrate 134 mg orally daily. We will order a new lipid panel to evaluate the patient's current lipid control and determine if any adjustment are needed in the lipid lowering therapy. Assessment & Plan (07/31/2025 9:47 AM EDT): The patient has a history of hyperlipidemia. She is currently on rosuvastatin 40 mg orally daily. Would recommend to continue the patient's current therapy. Hypertension 11/06/2020 Overview (07/23/2024): Last Assessment & Plan: Patient's blood pressure is acceptable today. She will continue her current antihypertensive medication regimen as prescribed. Assessment & Plan (07/31/2025 9:47 AM EDT): The patient has a history of arterial hypertension. The patient's blood pressure today was noted to be well controlled. We'll continue the current antihypertensive medication regimen. Tobacco abuse disorder Overview (07/08/2025): DX:Tobacco abuse disorder Resolved Problems Problem Noted Date Diagnosed Date Resolved Date Palpitations 07/23/2024 07/31/2025 Dyspnea on exertion 05/20/2023 07/31/20 25 Overview (07/23/2024): Last Assessment & Plan: The patient reports significant shortness of breath with minimal activity and at rest today. I recommend she be evaluated in the emergency room to rule out acute etiology including PE and acute infection. She will be driven to the ER. Chest pain 11/06/2020 07/31/2025 Overview (07/23/2024): Last Assessment & Plan: The [...] patient for a pharmacological nuclear stress test. Encounters Date Type Department Care Team Description 07/31/2025 Results Follow-Up Internal Medicine - [place] [address] [facility] [address] [place] [phone] Tramaine Villavicencio MA 07/25/2025 8:12 AM EDT - 07/25/2025 1:[address] [facility] Emergency [address] [place] [phone] Alvin Eric MD Acute bilateral low back pain with sciatica, sciatica laterality unspecified (Primary Dx); Dehydration Discharge Disposition: Home or Self Care 07/18/2025 9:50 AM EDT Office Visit [facility] Cardiology [facility] [address] [place] [phone] Dell Rosen MD Chronic heart failure with preserved ejection fraction (HFpEF) ([facility] V24, [facility] V28) (Primary Dx); Primary hypertension; Pure hypercholesterolemia; Hypertrophic nonobstructive cardiomyopathy ([facility] V24, [facility] V28) 07/11/2025 8:30 AM EDT Office Visit Endocrinology [phone] [place] [phone] Cheryl Cisneros PA Type 2 diabetes mellitus with diabetic microalbuminuria, with long-term current use of insulin ([facility] V24, [facility] V28) (Primary Dx); Primary hypertension; Hypothyroidism, unspecified type; Mixed hyperlipidemia; Proteinuria, unspecified type 07/10/2025 Telephone Internal Medicine - [place] [address] [phone] Karrie Apodaca MA 07/10/2025 Telephone [facility] Cardiology [facility] [address] [facility] [address] [place] [phone] Dell Rosen MD 07/09/2025 8:09 AM EDT - 07/09/2025 11:59 PM EDT Hospital Encounter [facility] CT Scan [address] [place] [phone] PAD (peripheral artery disease) ([facility] V24) Discharge Disposition: Home or Self Care 07/08/2025 9:00 AM EDT Office Visit Internal Medicine [facility] [address] [facility] [address] [place] [phone] Erlinda Bose PA Routine physical examination (Primary Dx); Type 2 diabetes mellitus with diabetic polyneuropathy, with long-term current use of insulin ([facility] V24, [facility] V28); Primary hypertension; Mixed hyperlipidemia 06/27/2025 1:15 PM EDT Office Visit Bariatric Surgery - [place] [address] [place] [address] Clem Montanez MD Class 3 severe obesity due to excess calories with serious comorbidity and body mass index (BMI) of 45.0 to 49.9 in adult (CMS/HCC V24, CMS/HCC V28) (Primary Dx) 05/16/2025 Telephone [facility] Cardiology [facility] [address] [facility] [address] [place] [address] Dell Rosen MD 05/14/2025 Telephone Internal Medicine - [place] [address] [place] [address] Erlinda Bose PA from Last 3 Months Immunizations Immunization Administration Dates Next Due Influenza Quadravalent, MDCK , 0.5ml, preservative free (Flucelvax) 6mo and older 08/09/2023 Surgical History Surgery Date Site/Laterality Comments CHOLECYSTECTOMY 2001 PROCEDURE: LAPAROSCOPY, CHOLECYSTECTOMY OTHER SURGICAL HISTORY PROCEDURE: NC TOTAL ABDOMINAL HYSTERECT W/WO RMVL TUBE OVARY; COMMENT: due to uterine cancer OTHER SURGICAL HISTORY 05/09/2023 PROCEDURE: NC SLCTV CATHJ 3RD+ ORD SLCTV ABDL PEL/LXTR BRNCH OTHER SURGICAL HISTORY 05/09/2023 PROCEDURE: NC THROMBOLYSIS ARTERIAL INFUSION ICRA RS&I INIT TX OTHER SURGICAL HISTORY 05/09/2023 PROCEDURE: ULTRASOUND GUIDANCE FOR VASCULAR AC OTHER SURGICAL HISTORY 05/10/2023 PROCEDURE: NC SLCTV CATHJ EA 2ND+ ORD ABDL PEL/LXTR ART BRNCH OTHER SURGICAL HISTORY 05/10/2023 PROCEDURE: NC REVSC OPN/PRG FEM/POP W/ANGIOPLASTY UNI OTHER SURGICAL HISTORY 05/10/2023 PROCEDURE: NC THROMBOLYSIS ART/VENOUS INFSN W/IMAGE SUBSQ TX OTHER SURGICAL HISTORY 05/11/2023 PROCEDURE: NC REVSC OPN/PRQ FEM/POP W/STNT/ANGIOP SM VSL OTHER SURGICAL HISTORY 05/11/2023 PROCEDURE: NC CESSATION THROMBOLYTIC THER W/CATHETER REMOVAL Medical History Medical History Date Comments Essential hypertension DX:Essent ial hypertension Hyperlipidemia DX:Hyperlipidemi a Family history of cardiovasc ular disease DX:Family history of cardiov ascular disease 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 03/12/2022 DX:Coronary artery disease w ithout angina pectoris DM type 2 (diabetes mellitus , type 2) ([facility] V24, [facility] V28) DX:DM type 2 (diabetes jayme itus, type 2) ([facility]) Hypothyroidism DX:Hypothyroidis m Morbid obesity with BMI of 4 0.0-44.9, adult ([facility] V24, [facility] V28) DX:Morbid obesity wit h BMI of 40.0-44.9, adult ([facility]) Tobacco abuse disorder DX:Tobacc o abuse disorder Painful diabetic neuropathy ([facility] V24, [facility] V28) DX:Painful diabetic neuropat hy ([facility]) History of uterine cancer DX:His tory of uterine cancer Class 3 severe obesity with body mass index (BMI) of 45.0 to 49.9 in adult ([facility] V24, [facility] V28) 02/26/2025 Tobacco abuse disorder DX:Tobacc o abuse disorder Family History Medical History Relation Name Comments [...] Orientation Straight 06/04/2025 9: 47 AM EDT Obstetrics History Last Filed Vital Signs Vital Sign Reading Time Taken Comments Blood Pressure 136/71 07/25/2025 1:29 PM EDT Pulse 58 07/25/2025 1:29 PM EDT Temperature 36.7 C (98.1 F) 07/25/2025 1:29 PM EDT Respiratory Rate 16 07/25/2025 1:29 PM EDT Oxygen Saturation 97% 07/25/2025 1:29 PM EDT Inhaled Oxygen Concentration - - Weight 116 kg (256 lb) 07/25/2025 8:00 AM EDT Height 157.5 cm (5' 2 ) 07/25/2025 8:00 AM EDT Body Mass Index 46.82 07/25/2025 8:00 AM EDT Plan of Treatment Upcoming Encounters Date Type Department Care Team (Late st Contact Info) Description 08/07/2025 10:00 AM EDT Nutrition Bariatric Surgery - [place] [address] [facility] [address] [place] [phone] Yancy Lassiter, FRANCOISE 175 [facility] [address] [place] [phone] 09/02/2025 8:30 AM EST Office Visit Pulmonology - [place] [address] [phone] Ar Ann MD [address] [address] 09/09/2025 11:30 AM EST Office Visit Vascular Surgery - [place] [address] [facility] [address] [place] [phone] John Hernandes MD [address] [place] [phone] 10/01/2025 9:[address] [facility] Endoscopy [address] [place] [phone] Hilario Augustin DO [address] [address] 10/31/2025 11:00 AM EST Office Visit Endocrinology - [place] [address] [place] [phone] Chani Hendricks PA [address] [place] [address] 11/08/2025 9:30 AM EST Office Visit Internal Medicine - [place] [address] [phone] Erlinda Bose PA [address] [place] [address] 11/20/2025 9:10 AM EST Office Visit [facility] [address] [place] [phone] Layne Norris NP [address] [place] [address] [address] [place] [address] 12/24/2025 9:15 AM EST Office Visit Bariatric Surgery - [place] [address] [place] [address] Clem Montanez MD [address] [place] [phone] Health Maintenance Due Date Last Done Comments Breast Cancer Screening 1970 Colorectal Cancer Screening: Colonoscopy 1970 Diabetes: Annual Foot Exam 1980 Cervical Cancer Screening: Pap Smear 1991 Pneumococcal Vaccine: 50+ Years (2 of 2 - PCV) 09/12/2010 09/12/2009 Hepatitis B Vaccines (3 of 3 - 19+ 3-dose series) 01/18/2019 11/23/2018, 12/16/2016 RSV Immunization Adult Patients (1 - Risk 50-74 years 1-dose series) 2020 Zoster Vaccines (1 of 2) 2020 HIV Screening 10/02/2022 Hepatitis C Screening 10/02/2022 Social Influencers of Health Screening 10/02/2022 Depression Screening 10/24/2024 COVID-19 Vaccine ( season) 2025 Influenza Vaccine (#1) 2025 3, 10/14/2022, 09/02/2021, Additional history exists Diabetes: Blood Sugar Control Test (HGBA1C) 01/05/2026 07/08/2025, 01/31/2025, 10/19/2024, Additional history exists Diabetes: Annual Retina Eye Exam 02/19/2026 02/19/2025, 02/13/2024 Diabetes: Annual Urine Albumin-Creatinine Ratio (uACR) 07/08/2026 07/08/2025, 08/12/2022 Diabetes: Annual GFR (Glomerular Filtration Rate) 07/25/2026 07/25/2025, 07/08/2025, 03/14/2025, Additional history exists Hypertension/CHF/CAD Annual BMP Blood Test 07/25/2026 07/25/2025, 07/08/2025, 03/14/2025, Additional history exists DTaP,Tdap,and Td Vaccines (3 - Td or Tdap) 11/18/2026 11/18/2016, 08/15/2009 Cholesterol Screening (Lipid Panel) 07/08/2030 07/08/2025, 03/04/2025, 10/19/2024, Additional history exists HIB Vaccines Aged Out No longer eligi [...] on patient's age to complete this topic Goals Goal Patient Goal Type Associated Problems Recent Progress Patient-Stated? Author Autogenerat ed Goal Care Plan Autogenerated Problem No Manjinder Solomon Procedures Procedure Name Priority Date/Time Associated Diagnosis Comments POCT GLUCOSE BLOOD Routine 07/25/2025 12 :23 PM EDT XR CHEST 2 VIEWS STAT 07/25/2025 11:4 6 AM EDT POCT GLUCOSE BLOOD Routine 07/25/2025 9: [address] ABDOMEN PELVIS W CONTRAST STAT 07/25/2025 9:51 AM EDT POCT GLUCOSE BLOOD Routine 07/25/2025 9: 04 AM EDT HEPATIC FUNCTION PANEL STAT Add-on 07/25/2025 8:26 AM EDT LIPASE STAT Add-on 07/25/2025 8:26 AM EDT CBC WITH AUTO DIFFERENTIAL STAT 07/25/2025 8:26 AM EDT CBC AND DIFFERENTIAL STAT 07/25/2025 8:26 AM EDT BASIC METABOLIC PANEL STAT 07/25/2025 8:26 AM EDT TILLEY URINE CULTURE TUBE STAT 07/25/2025 8:18 AM EDT URINALYSIS WITH REFLEX MICROSCOPIC AND CULTURE STAT 07/25/2025 8:18 AM EDT URINALYSIS WITH REFLEX MICROSCOPIC AND CULTURE STAT 07/25/2025 8:18 AM EDT POC GLUCOSE Routine 07/11/2025 8:33 AM EDT Type 2 diabetes mellitus with diabetic microalbuminuria, with long-term current use of insulin ([facility] V24, [facility] V28) CT ANGIO ABDOMINAL AORTA W RUNOFF Routine 07/09/2025 8:52 AM EDT PAD (peripheral artery disease) ([facility] V24) MICROALBUMIN CREATININE URINE RATIO Routine 07/08/2025 10:33 AM EDT Type 2 diabetes mellitus with diabetic polyneuropathy, with long-term current use of insulin ([facility] V24, CMS/HCC V28) HEMOGLOBIN A1C Routine 07/08/2025 10:19 AM EDT Type 2 diabetes mellitus with diabetic polyneuropathy, with long-term current use of insulin ([facility] V24, [facility] V28) LIPID PANEL WITH REFLEX TO DIRECT LDL Routine 07/08/2025 10:19 AM EDT Mixed hyperlipidemia COMPREHENSIVE METABOLIC PANEL Routine 07/08/2025 10:19 AM EDT Type 2 diabetes mellitus with diabetic polyneuropathy, with long-term current use of insulin ([facility] V24, [facility] V28) Primary hypertension Mixed hyperlipidemia EXTERNAL DIABETIC RETINA EYE EXAM 02/19/2025 from Last 3 Months or Most Recently Relevant to Health Maintenance Results * POCT Glucose, blood (07/25/2025 12:23 PM EDT) Only the most recent of3 resultswithin the time period is included. [facility] Signature Glucose POCT 77 70 - 100 mg/dL 07/25/2025 12:24 PM EDT [facility] Blood Capillary blood specimen / Unknown 07/25/2025 12:23 PM EDT 07/25/2025 12:26 PM EDT us Alvin Eric MD LAB POINT OF CARE T EST DOCKED DEVICE UNSOLICITED RESULTS Final Result [facility] [address] [place] [address], [place] [phone] * XR Chest 2 Views (07/25/2025 11:46 AM EDT) Anatomical Region Laterality Modality Body Radiographic Cecilia ging 07/25/2025 12:0 9 PM EDT Impressions 07/25/2025 12:10 PM EDT FINDINGS/IMPRESSION: Elevated left diaphragm with patchy opacity in the left mid and lower lung zone which may reflect atelectasis or pneumonia. No pleural effusion or pneumothorax. Cardiac silhouette is stably enlarged. Degenerative changes seen throughout the bones. Cholecystectomy clips. -------- FINAL REPORT -------- Dictated By: MAURISIO DUVALL Dictated Date: 07/25/2025 12:09 ET Assigned Physician: MAURISIO DUVALL Reviewed and Electronically Signed By: MAURISIO DUVALL Signed Date: 07/25/2025 12:10 ET Workstation ID: [id number] Transcribed By: Self Edit Transcribed Date: 07/25/2025 12:09 ET Narrative 07/25/2025 12:10 PM EDT XR CHEST 2 VIEWS INDICATION: Hypoxia TECHNIQUE: XR CHEST 2 VIEWS COMPARISON: 04/22/2024 Procedure Note Maurisio Duvall MD - 07/25/2025 XR CHEST 2 VIEWS INDICATION: Hypoxia TECHNIQUE: XR CHEST 2 VIEWS COMPARISON: 04/22/2024 IMPRESSION: FINDINGS/IMPRESSION: Elevated left diaphragm with patchy opacity in theleft mid and lower lung zone which may reflect atelectasis or pneumonia.No pleural effusion or pneumothorax. Cardiac silhouette is stablyenlarged. Degenerative changes seen throughout the bones.Cholecystectomy clips. -------- FINAL REPORT -------- Dictated By: MAURISIO DUVALL Dictated Date: 07/25/2025 12:09 ET Assigned Physician: MAURISIO DUVALL Reviewed and Electronically Signed By: MAURISIO DUVALL Signed Date: 07/25/2025 12:10 ET Workstation ID: [id number] Transcribed By: Self Edit Transcribed Date: 07/25/2025 12:09 ET us Alvin Eric MD IMG XR PROCEDURES Final Res ult * CT Abdomen Pelvis w Contrast (07/25/2025 9:51 AM EDT) Anatomical Region Laterality Modality Body Computed Tomogra phy 07/25/2025 10:0 6 AM EDT Impressions 07/25/2025 10:22 AM EDT No acute findings in the abdomen/pelvis. -------- FINAL REPORT -------- Dictated By: MAURISIO DUVALL Dictated Date: 07/25/2025 10:06 ET Assigned Physician: MAURISIO DUVALL Reviewed and Electronically Signed By: MAURISIO DUVALL Signed Date: 07/25/2025 10:22 ET Workstation ID: [id number] Transcribed By: Self Edit Transcribed Date: 07/25/2025 10:06 ET Narrative 07/25/2025 10:22 AM EDT PROCEDURE: CT ABDOMEN/PELVIS INDICATION: Pain TECHNIQUE: CT of the abdomen and pelvis following the intravenous administration of 90cc Isovue 370. Multiplanar reformats. The examination was performed utilizing dose reduction techniques. Total DLP 1800 COMPARISON: 07/09/2025 and 03/14/2025 FINDINGS: LOWER THORAX: Elevated left diaphragm with bibasilar atelectasis. Small hiatal hernia. HEPATOBILIARY: Hepatic steatosis with hepatomegaly and cirrhotic liver morphology. No focal liver lesions. Cholecystectomy. No biliary duct dilatation SPLEEN: No splenomegaly. PANCREAS: No focal mass or ductal dilatation. ADRENALS: Unchanged left adrenal myelolipoma. No right adrenal nodules. KIDNEYS/URETERS: No hydronephrosis, stones, or solid mass. PELVIC ORGANS/BLADDER: Hysterectomy. Bladder is within normal limits. PERITONEUM / RETROPERITONEUM: No ascites or free air. No retroperitoneal lymphadenopathy. VESSELS: Scattered atherosclerotic calcifications throughout the aorta and its major branches. No abdominal aortic aneurysm. Portal vein is patent. GI TRACT: No bowel obstruction or wall thickening. Normal appendix. BONES AND SOFT TISSUES: Mild diffuse anasarca. Degenerative changes seen throughout the bones. No acute fracture. Procedure Note Maurisio Duvall MD - 07/25/2025 PROCEDURE: CT ABDOMEN/PELVIS INDICATION: Pain TECHNIQUE: CT of the abdomen and pelvis following the intravenousadministration of 90cc Isovue 370. Multiplanar reformats. The examinationwas performed utilizing dose reduction techniques. Total DLP 1800 COMPARISON: 07/09/2025 and 03/14/2025 FINDINGS: LOWER THORAX: Elevated left diaphragm with bibasilar atelectasis. Smallhiatal hernia. HEPATOBILIARY: Hepatic steatosis with hepatomegaly and cirrhotic livermorphology. No focal liver lesions. Cholecystectomy. No biliary ductdilatation SPLEEN: No splenomegaly. PANCREAS: No focal mass or ductal dilatation. ADRENALS: Unchanged left adrenal myelolipoma. No right adrenal nodules. KIDNEYS/URETERS: No hydronephrosis, stones, or solid mass. PELVIC ORGANS/BLADDER: Hysterectomy. Bladder is within normal limits. PERITONEUM / RETROPERITONEUM: No ascites or free air. No retroperitoneallymphadenopathy. VESSELS: Scattered atherosclerotic calcifications throughout the aorta andits major branches. No abdominal aortic aneurysm. Portal vein ispatent. GI TRACT: No bowel obstruction or wall thickening. Normal appendix. BONES AND SOFT TISSUES: Mild diffuse anasarca. Degenerative changes seenthroughout the bones. No acute fracture. IMPRESSION: No acute findings in the abdomen/pelvis. -------- FINAL REPORT -------- Dictated By: MAURISIO DUVALL Dictated Date: 07/25/2025 10:06 ET Assigned Physician: MAURISIO DUVALL Reviewed and Electronically Signed By: MAURISIO DUVALL Signed Date: 07/25/2025 10:22 ET Workstation ID: [id number] Transcribed By: Self Edit Transcribed Date: 07/25/2025 10:06 ET Alvin Eric MD IMG CT PROCEDURES Final Res ult * (ABNORMAL) CBC auto differential (07/25/2025 8:26 AM EDT) WBC 8.5 4.8 - 10.8 K/mcL LAB HEMETOLOGY METHOD 07/25/2025 8:46 AM [facility] RBC 5.50(H) 3.80 - 4.80 M/mcL LAB HEMETOLOGY METHOD 07/25/2025 8:46 AM [facility] Hemoglobin 15.7 11.5 - 16.0 g/dL LAB HEMETOLOGY METHOD 07/25/2025 8:46 AM [facility] Hematocrit 51.6(H) 35.0 - 47.0 % LAB HEMETOLOGY METHOD 07/25/2025 8:46 AM [facility] MCV 93.1 79.0 - 98.0 FL LAB HEMETOLOGY METHOD 07/25/2025 8:46 AM [facility] MCH 28.3 27.0 - 32.0 pcg LAB HEMETOLOGY METHOD 07/25/2025 8:46 AM [facility] MCHC 30.4(L) 32.0 - 37.0 g/dL LAB HEMETOLOGY METHOD 07/25/2025 8:46 AM [facility] RDW 15.5(H) 11.0 - 15.0 % LAB HEMETOLOGY METHOD 07/25/2025 8:46 AM [facility] Platelets 259 130 - 400 K/mcL LAB HEMETOLOGY METHOD 07/25/2025 8:46 AM [facility] MPV 10.0 7.0 - 11.0 FL LAB HEMETOLOGY METHOD 07/25/2025 8:46 AM [facility] NRBC 0.0 <1.0 % LAB HEMETOLOGY METHOD 07/25/2025 8:46 AM [facility] NRBC Absolute 0.00 <0.10 K/mcL LAB HEMETOLOGY METHOD 07/25/2025 8:46 AM [facility] Neutrophils Relative 58.6 % LAB HEMETOLOGY METHOD 07/25/2025 8:46 AM [facility] Lymphocytes Relative 32.5 % LAB HEMETOLOGY METHOD 07/25/2025 8:46 AM [facility] Monocytes Relative 5.8 % LAB HEMETOLOGY METHOD 07/25/2025 8:46 AM [facility] Eosinophils Relative 2.1 % LAB HEMETOLOGY METHOD 07/25/2025 8:46 AM [facility] Basophils Relative 0.8 % LAB HEMETOLOGY METHOD 07/25/2025 8:46 AM [facility] Immature Granulocytes Relative 0.2 % LAB HEMETOLOGY METHOD 07/25/2025 8:46 AM [facility] Neutrophils Absolute 4.94 1.50 - 7.00 K/mcL LAB HEMETOLOGY METHOD 07/25/2025 8:46 AM [facility] Lymphocytes Absolute 2.75 1.00 - 5.00 K/[facility] LAB HEMETOLOGY METHOD 07/25/2025 8:46 AM EDT [facility] Monocytes Absolute 0.49 0.20 - 1.00 K/[facility] LAB HEMETOLOGY METHOD 07/25/2025 8:46 AM EDT [facility] Eosinophils Absolute 0.18 0.00 - 0.50 K/[facility] LAB HEMETOLOGY METHOD 07/25/2025 8:46 AM EDT [facility] Basophils Absolute 0.07 0.00 - 0.20 K/[facility] LAB HEMETOLOGY METHOD 07/25/2025 8:46 AM EDT [facility] Immature Granulocytes Absolute 0.02 0.00 - 0.03 K/[facility] LAB HEMETOLOGY METHOD 07/25/2025 8:46 AM EDT [facility] Blood Venous blood specimen / Unknown Venipuncture / Unknown 07/25/2025 8:26 AM EDT 07/25/2025 8:35 AM EDT us Alvin Eric MD LAB BLOOD ORDERABLES Final Result [facility] [address] [place] [address], [place] [phone] * (ABNORMAL) Lipase (07/25/2025 8:26 AM EDT) Lipase 150(H) 13 - 75 unit/L LAB CHEMISTRY METHOD 07/25/2025 11:40 AM EDT [facility] Blood Venous blood specimen / Unknown Venipuncture / Unknown 07/25/2025 8:26 AM EDT 07/25/2025 8:35 AM EDT us Alvin Eric MD LAB BLOOD ORDERABLES Final Result [facility] [address] [place] [address], [place] [phone] * (ABNORMAL) Hepatic function panel (07/25/2025 8:26 AM EDT) Total Protein 7.4 6.0 - 8.0 g/dL LAB CHEMISTRY METHOD 07/25/2025 11:40 AM [facility] Albumin 3.3 3.2 - 5.0 g/dL LAB CHEMISTRY METHOD 07/25/2025 11:40 AM T [facility] Total Bilirubin 0.4 0.0 - 1.4 mg/dL LAB CHEMISTRY METHOD 07/25/2025 11:40 AM [facility] Bilirubin, Direct 0.1 0.0 - 0.3 mg/dL LAB CHEMISTRY METHOD 07/25/2025 11:40 AM [facility] Bilirubin, Indirect 0.3 0.0 - 1.1 mg/dL LAB CHEMISTRY METHOD 07/25/2025 11:40 AM [facility] ALT (SGPT) 35 10 - 60 unit/L LAB CHEMISTRY METHOD 07/25/2025 11:40 AM [facility] AST (SGOT) 45(H) 10 - 42 unit/L LAB CHEMISTRY METHOD 07/25/2025 11:40 AM [facility] Alkaline Phosphatase 88 42 - 121 unit/L LAB CHEMISTRY METHOD 07/25/2025 11:40 AM [facility] Blood Venous blood specimen / Unknown Venipuncture / Unknown 07/25/2025 8:26 AM EDT 07/25/2025 8:35 AM EDT Alvin Eric MD LAB BLOOD ORDERABLES Final Result [facility] [address] [place] [address], [place] [phone] * (ABNORMAL) Basic Metabolic Panel (BMP) (07/25/2025 8:26 AM EDT) Sodium 140 133 - 145 mmol/L LAB CHEMISTRY METHOD 07/25/2025 9:31 AM [facility] Potassium 3.7 3.5 - 5.5 mmol/L LAB CHEMISTRY METHOD 07/25/2025 9:31 AM [facility] Chloride 106 96 - 110 mmol/L LAB CHEMISTRY METHOD 07/25/2025 9:31 AM [facility] CO2 29 21 - 32 mmol/L LAB CHEMISTRY METHOD 07/25/2025 9:31 AM [facility] Anion Gap 5 3 - 11 LAB CHEMISTRY METHOD 07/25/2025 9:31 AM [facility] Glucose 44(L) 70 - 100 mg/dL LAB CHEMISTRY METHOD 07/25/2025 9:31 AM [facility] BUN 36(H) 5 - 25 mg/dL LAB CHEMISTRY METHOD 07/25/2025 9:31 AM [facility] Creatinine 1.03 0.50 - 1.10 mg/dL LAB CHEMISTRY METHOD 07/25/2025 9:31 AM [facility] eGFR 64 >=60 mL/min/1. 73m2 LAB CHEMISTRY METHOD 07/25/2025 9:31 AM [facility] Comment:Calculation based on the Chronic Kidney Disease Epidemiology Collaboration (CKD-EPI) equation refit without adjustment for race. BUN/Creatinine Ratio 35.0 LAB CHEMISTRY METHOD 07/25/2025 9:31 AM [facility] Calcium 9.6 8.5 - 10.5 mg/dL LAB CHEMISTRY METHOD 07/25/2025 9:31 AM [facility] Blood Venous blood specimen / Unknown Venipuncture / Unknown 07/25/2025 8:26 AM EDT 07/25/2025 8:35 AM EDT us Alvin Eric MD LAB BLOOD ORDERABLES Final Result [facility] [address] [place] [address], [place] [phone] * (ABNORMAL) Urinalysis with reflex microscopic and culture (07/25/2025 8:18 AM EDT) Specific [place] Urine 1.022 1.003 - 1.030 LAB URINALYSIS - AUTOMATED METHOD 07/25/2025 8:47 AM [facility] pH, Urine 6.0 5.0 - 8.0 pH LAB URINALYSIS - AUTOMATED METHOD 07/25/2025 8:47 AM [facility] Leukocytes, Urine Negative Negative LAB URINALYSIS - AUTOMATED METHOD 07/25/2025 8:47 AM [facility] Nitrite, Urine Negative Negative LAB URINALYSIS - AUTOMATED METHOD 07/25/2025 8:47 AM [facility] Protein, Urine 300(A) <=Trace mg/dL LAB URINALYSIS - AUTOMATED METHOD 07/25/2025 8:47 AM [facility] Glucose, Urine >=1000(A) Negative mg/dL LAB URINALYSIS - AUTOMATED METHOD 07/25/2025 8:47 AM [facility] Ketones, Urine Negative Negative mg/dL LAB URINALYSIS - AUTOMATED METHOD 07/25/2025 8:47 AM [facility] Urobilinogen , Urine 0.2 0.2 - 1.0 mg/dL LAB URINALYSIS - AUTOMATED METHOD 07/25/2025 8:47 AM [facility] Bilirubin, Urine Negative Negative LAB URINALYSIS - AUTOMATED METHOD 07/25/2025 8:47 AM [facility] Blood, Urine Trace(A) Negative LAB URINALYSIS - AUTOMATED METHOD 07/25/2025 8:47 AM [facility] RBC, Urine 3.7 0 - 4 /HPF LAB URINALYSIS - AUTOMATED METHOD 07/25/2025 8:47 AM EDT [facility] WBC, Urine 2.3 0 - 4 /HPF LAB URINALYSIS - AUTOMATED METHOD 07/25/2025 8:47 AM EDT [facility] Squamous Epithelial, Urine 70(H) 0 - 60 /LPF LAB URINALYSIS - AUTOMATED METHOD 07/25/2025 8:47 AM EDT [facility] Bacteria, Urine Negative Negative /HPF LAB URINALYSIS - AUTOMATED METHOD 07/25/2025 8:47 AM EDT [facility] Hyaline Casts, Urine 0.8 0 - 3 /LPF LAB URINALYSIS - AUTOMATED METHOD 07/25/2025 8:47 AM EDT [facility] Urine Urine specimen obtained by clean catch procedure / Unknown Non-blood Collection / Unknown 07/25/2025 8:18 AM EDT 07/25/2025 8:37 AM EDT us Alvin Eric MD LAB URINE ORDERABLES Final Result Performing Organization Address [facility]/ZIP Co de Phone Number [facility] [address] [place] [address], * Tilley urine culture tube (07/25/2025 8:18 AM EDT) Extra Tube Hold for add-ons. 07/25/2025 10:01 AM EDT [facility] Comment:Auto resulted. Urine Urine specimen obtained by clean catch procedure / Unknown Non-blood Collection / Unknown 07/25/2025 8:18 AM EDT 07/25/2025 8:37 AM EDT us Alvin Eric MD LAB URINE ORDERABLES Final Result Performing Organization Address City/[facility]/ZIP Co de Phone Number [facility] [address] [place] [address], [place] [phone] * POC glucose manually resulted (07/11/2025 8:33 AM EDT) Glucose POC 115 mg/dL Blood Capillary blood specimen / Unknown 07/11/2025 8:33 AM EDT Cheryl BORRERO POINT OF CARE TEST ENTER/ED IT ORDERABLES Final Result * CT Angio Abdominal Aorta w Runoff (07/09/2025 8:52 AM EDT) Anatomical Region Laterality Modality Body Computed Tomogra phy 07/15/2025 10:3 5 AM EDT Impressions 07/15/2025 11:25 AM EDT There is no significant aortoiliac disease. There is bilateral femoral popliteal disease. There is bilateral runoff disease. 1. There is no abdominal aortic aneurysm or significant luminal narrowing. 2. The visceral arteries are patent. 3. On the right, there is a stent in the SFA at the level of the abductor canal. I suspect the stent is patent. Some mild in-stent narrowing could be present distally. There is atherosclerotic irregularity in the popliteal artery. There is atherosclerotic irregularity in the anterior tibial artery with segmental areas of narrowing throughout the calf. The posterior tibial artery is either not present or diminutive and is not well visualized in the mid and distal calf. Some collaterals reconstitute at the level of the malleolus. The peroneal is a fairly robust vessel and demonstrates segmental irregularities in the distal calf and supplies collaterals into the foot. 4. On the left, there is atherosclerotic irregularity in the superficial femoral artery with focal high-grade narrowing in the adductor canal. There is an additional area of high-grade narrowing in the more distal abductor canal. There is atherosclerotic irregularity in the popliteal artery with mild-moderate luminal narrowing. There is atherosclerotic irregularity in the anterior tibial artery with segmental areas of narrowing throughout the calf. The posterior tibial artery is irregular but patent throughout the calf and there is enhancement at the level of the malleolus. The peroneal artery is a small caliber vessel in the distal calf. Detail is limited. -------- FINAL REPORT -------- Dictated By: Chris Shell Dictated Date: 07/15/2025 10:35 ET Assigned Physician: Chris Shell Reviewed and Electronically Signed By: Chris Shell Signed Date: 07/15/2025 11:25 ET Workstation ID: [id number] Transcribed By: Self Edit Transcribed Date: 07/15/2025 10:35 ET Narrative 07/15/2025 11:25 AM EDT EXAM: CT ANGIO ABDOMINAL AORTA W RUNOFF INDICATION: PAD. History of right lower extremity acute limb ischemia requiring catheter directed thrombolysis and later right SFA stent placement (Everflex 6 x 60 mm) in April 2023. Follow up CTA aorta with bifemoral runoff in November 2023 did not show any evidence of inflow disease. Right SFA stent was patent. COMPARISON: Portions of CT angiography 12/15/23 TECHNIQUE: CT angiography of the abdomen, pelvis and lower extremities was performed using contiguous helical images from the diaphragm to the feet, during intravenous injection of 90 ml of ISOVUE-370. 0.625 mm axial images were reconstructed. Sagittal and coronal reformatted images were rendered. DLP: 1985 mGy-cm MIP images were created using contemporaneous radiologist supervision with permanent images saved to PACS. FINDINGS: ABDOMINAL AORTA: There is no abdominal aortic aneurysm or significant luminal narrowing. There is some calcified plaque. There is no surrounding hemorrhage or mass. CELIAC: The celiac is widely patent. The proximal aspect of the hepatic and splenic arteries enhance normally. SMA: The superior mesenteric artery is widely patent into the mesentery. There is a normal variant replacement of the right hepatic artery origin from the SMA. CECILIA: The inferior mesenteric artery is patent RIGHT RENAL ARTERY: There is a single widely patent right renal artery. LEFT RENAL ARTERY: There is a single widely patent left renal artery. RIGHT LOWER EXTREMITY: COMMON ILIAC ARTERY: The right common iliac artery is widely patent. There are some calcified plaque. EXTERNAL ILIAC ARTERY: The right external iliac artery is widely patent. INTERNAL ILIAC ARTERY: The right internal iliac artery is patent with calcified and noncalcified plaque. COMMON FEMORAL ARTERY: The right common femoral artery is minimally narrowed due to calcified plaque. PROFUNDA FEMORAL ARTERY: There is some irregularity but the profunda femoral is patent in the proximal thigh. SUPERFICIAL FEMORAL ARTERY: Atherosclerotic irregularity in the proximal and mid thigh. There is a stent in the right SFA at the level of the adductor canal. I suspect the stent is patent. Some mild in-stent narrowing could be present distally. POPLITEAL ARTERY: Patent with some calcified plaques. There is calcified and noncalcified plaque at the origin of the anterior tibial artery. ANTERIOR TIBIAL ARTERY: There is plaque at the origin. There is irregularity with calcified and noncalcified plaque. Segmental areas of narrowing throughout the calf. There is enhancement at the level of the dorsalis pedis and the vessel is patent into the foot. TIBIOPERONEAL TRUNK: Atherosclerotic irregularity. POSTERIOR TIBIAL: The posterior tibial artery is either not present or diminutive and is not well visualized in the mid and distal calf. Some collaterals reconstitute at the level of the malleolus. PERONEAL ARTERY: The right peroneal is a fairly robust vessel. The peroneal demonstrates calcified and noncalcified plaque with segmental irregularities in the distal calf and supplies collaterals into the foot. LEFT LOWER EXTREMITY: COMMON ILIAC ARTERY: The left common iliac artery is widely patent. There are some calcified plaques. EXTERNAL ILIAC ARTERY: The left external iliac artery is widely patent. INTERNAL ILIAC ARTERY: The left internal iliac artery is mildly narrowed proximally with calcified and noncalcified plaque. COMMON FEMORAL ARTERY: There is calcified plaque. The vessel is patent. PROFUNDA FEMORAL ARTERY: The left profunda femoral enhances in the proximal thigh. SUPERFICIAL FEMORAL ARTERY: There is moderately severe atherosclerotic irregularity. There is focal high- grade narrowing in the abductor canal. There is an additional area of high-grade narrowing in the more distal adductor canal. POPLITEAL ARTERY: At least moderate atherosclerotic irregularity with calcified and noncalcified plaque. Mild-moderate luminal narrowing. ANTERIOR TIBIAL ARTERY: There is plaque at the origin of the anterior tibial artery. The anterior tibial artery is a small caliber vessel in the distal calf. There is enhancement of the dorsalis pedis at the level of the ankle. Collaterals provide more robust flow in the mid foot and distal foot. TIBIOPERONEAL TRUNK: Patent with atherosclerotic irregularity. Extensive calcified plaques. POSTERIOR TIBIAL: There is disease at the bifurcation of the tibioperoneal trunk. The posterior tibial artery is irregular but patent throughout the calf and there is enhancement at the level of the malleolus. PERONEAL ARTERY: There is plaque at the origin of the peroneal artery. There are calcified and noncalcified plaques with luminal narrowing throughout the calf. Detail is limited. NONVASCULAR The uppermost abdomen is excluded. LIVER: Early phase of enhancement. No suspicious abnormality. BILIARY TRACT: There are surgical clips in the expected region of the gallbladder. There is no biliary dilation. SPLEEN: No suspicious abnormality. PANCREAS: Normal ADRENAL GLANDS: No suspicious abnormality. Tiny fat-containing nodule in the left adrenal gland likely a myelolipoma that does not require any specific imaging follow-up. KIDNEYS: The kidneys are normal in size, shape, and attenuation. No hydronephrosis, hydroureter, or calculi. GASTROINTESTINAL TRACT: Some segments of the colon are not well distended. No localized fat stranding or significant small bowel dilation. No suspicious abnormality the stomach. URINARY BLADDER: No suspicious abnormality. PELVIC VISCERA: The uterus is not demonstrated and is likely surgically absent. No suspicious adnexal mass or collection. ABDOMINAL WALL: No significant hernia is appreciated. LYMPHOVASCULAR STRUCTURES AND FLUID: There are no enlarged lymph nodes. There is no free intraperitoneal fluid. MUSCULOSKELETAL: No acute or suspicious osseous abnormality. Procedure Note Chris Shell MD - 07/15/2025 EXAM: CT ANGIO ABDOMINAL AORTA W RUNOFF INDICATION: PAD. History of right lower extremity acute limb ischemiarequiring catheter directed thrombolysis and later right SFA stentplacement (Everflex 6 x 60 mm) in April 2023. Follow up CTA aorta withbifemoral runoff in November 2023 did not show any evidence of inflowdisease. Right SFA stent was patent. COMPARISON: Portions of CT angiography 12/15/23 TECHNIQUE: CT angiography of the abdomen, pelvis and lower extremities wasperformed using contiguous helical images from the diaphragm to the feet,during intravenous injection of 90 ml of ISOVUE-370. 0.625 mm axialimages were reconstructed. Sagittal and coronal reformatted images wererendered. DLP: 1985 mGy-cm MIP images were created using contemporaneous radiologist supervision withpermanent images saved to PACS. FINDINGS: ABDOMINAL AORTA: There is no abdominal aortic aneurysm or significantluminal narrowing. There is some calcified plaque. There is no surroundinghemorrhage or mass. CELIAC: The celiac is widely patent. The proximal aspect of the hepaticand splenic arteries enhance normally. SMA: The superior mesenteric artery is widely patent into the mesentery.There is a normal variant replacement of the right hepatic artery originfrom the SMA. CECILIA: The inferior mesenteric artery is patent RIGHT RENAL ARTERY: There is a single widely patent right renal artery. LEFT RENAL ARTERY: There is a single widely patent left renal artery. RIGHT LOWER EXTREMITY: COMMON ILIAC ARTERY: The right common iliac artery is widely patent.There are some calcified plaque. EXTERNAL ILIAC ARTERY: The right external iliac artery is widelypatent. INTERNAL ILIAC ARTERY: The right internal iliac artery is patent withcalcified and noncalcified plaque. COMMON FEMORAL ARTERY: The right common femoral artery is minimallynarrowed due to calcified plaque. PROFUNDA FEMORAL ARTERY: There is some irregularity but the profundafemoral is patent in the proximal thigh. SUPERFICIAL FEMORAL ARTERY: Atherosclerotic irregularity in the proximaland mid thigh. There is a stent in the right SFA at the level of theadductor canal. I suspect the stent is patent. Some mild in-stentnarrowing could be present distally. POPLITEAL ARTERY: Patent with some calcified plaques. There is calcifiedand noncalcified plaque at the origin of the anterior tibial artery. ANTERIOR TIBIAL ARTERY: There is plaque at the origin. There isirregularity with calcified and noncalcified plaque. Segmental areas ofnarrowing throughout the calf. There is enhancement at the level of thedorsalis pedis and the vessel is patent into the foot. TIBIOPERONEAL TRUNK: Atherosclerotic irregularity. POSTERIOR TIBIAL: The posterior tibial artery is either not present ordiminutive and is not well visualized in the mid and distal calf. Somecollaterals reconstitute at the level of the malleolus. PERONEAL ARTERY: The right peroneal is a fairly robust vessel. Theperoneal demonstrates calcified and noncalcified plaque with segmentalirregularities in the distal calf and supplies collaterals into thefoot. LEFT LOWER EXTREMITY: COMMON ILIAC ARTERY: The left common iliac artery is widely patent. Thereare some calcified plaques. EXTERNAL ILIAC ARTERY: The left external iliac artery is widely patent. INTERNAL ILIAC ARTERY: The left internal iliac artery is mildly narrowedproximally with calcified and noncalcified plaque. COMMON FEMORAL ARTERY: There is calcified plaque. The vessel is patent. PROFUNDA FEMORAL ARTERY: The left profunda femoral enhances in theproximal thigh. SUPERFICIAL FEMORAL ARTERY: There is moderately severe atheroscleroticirregularity. There is focal high-grade narrowing in the abductor canal.There is an additional area of high-grade narrowing in the more distaladductor canal. POPLITEAL ARTERY: At least moderate atherosclerotic irregularity withcalcified and noncalcified plaque. Mild-moderate luminal narrowing. ANTERIOR TIBIAL ARTERY: There is plaque at the origin of the anteriortibial artery. The anterior tibial artery is a small caliber vessel in thedistal calf. There is enhancement of the dorsalis pedis at the level ofthe ankle. Collaterals provide more robust flow in the mid foot and distalfoot. TIBIOPERONEAL TRUNK: Patent with atherosclerotic irregularity. Extensivecalcified plaques. POSTERIOR TIBIAL: There is disease at the bifurcation of thetibioperoneal trunk. The posterior tibial artery is irregular but patentthroughout the calf and there is enhancement at the level of themalleolus. PERONEAL ARTERY: There is plaque at the origin of the peroneal artery.There are calcified and noncalcified plaques with luminal narrowingthroughout the calf. Detail is limited. NONVASCULAR The uppermost abdomen is excluded. LIVER: Early phase of enhancement. No suspicious abnormality. BILIARY TRACT: There are surgical clips in the expected region of thegallbladder. There is no biliary dilation. SPLEEN: No suspicious abnormality. PANCREAS: Normal ADRENAL GLANDS: No suspicious abnormality. Tiny fat-containing nodule inthe left adrenal gland likely a myelolipoma that does not require anyspecific imaging follow-up. KIDNEYS: The kidneys are normal in size, shape, and attenuation. Nohydronephrosis, hydroureter, or calculi. GASTROINTESTINAL TRACT: Some segments of the colon are not welldistended. No localized fat stranding or significant small bowel dilation. Nosuspicious abnormality the stomach. URINARY BLADDER: No suspicious abnormality. PELVIC VISCERA: The uterus is not demonstrated and is likely surgicallyabsent. No suspicious adnexal mass or collection. ABDOMINAL WALL: No significant hernia is appreciated. LYMPHOVASCULAR STRUCTURES AND FLUID: There are no enlarged lymph nodes.There is no free intraperitoneal fluid. MUSCULOSKELETAL: No acute or suspicious osseous abnormality. IMPRESSION: There is no significant aortoiliac disease. There is bilateral femoral popliteal disease. There is bilateral runoff disease. 1. There is no abdominal aortic aneurysm or significant luminalnarrowing. 2. The visceral arteries are patent. 3. On the right, there is a stent in the SFA at the level of the abductorcanal. I suspect the stent is patent. Some mild in-stent narrowing couldbe present distally. There is atherosclerotic irregularity in thepopliteal artery. There is atherosclerotic irregularity in the anteriortibial artery with segmental areas of narrowing throughout the calf. Theposterior tibial artery is either not present or diminutive and is notwell visualized in the mid and distal calf. Some collaterals reconstituteat the level of the malleolus. The peroneal is a fairly robust vessel anddemonstrates segmental irregularities in the distal calf and suppliescollaterals into the foot. 4. On the left, there is atherosclerotic irregularity in the superficialfemoral artery with focal high-grade narrowing in the adductor canal.There is an additional area of high-grade narrowing in the more distalabductor canal. There is atherosclerotic irregularity in the poplitealartery with mild-moderate luminal narrowing. There is atheroscleroticirregularity in the anterior tibial artery with segmental areas ofnarrowing throughout the calf. The posterior tibial artery is irregularbut patent throughout the calf and there is enhancement at the level ofthe malleolus. The peroneal artery is a small caliber vessel in the distalcalf. Detail is limited. -------- FINAL REPORT -------- Dictated By: Chris Shell Dictated Date: 07/15/2025 10:35 ET Assigned Physician: Chris Shell Reviewed and Electronically Signed By: Chris Shell Signed Date: 07/15/2025 11:25 ET Workstation ID: [id number] Transcribed By: Self Edit Transcribed Date: 07/15/2025 10:35 ET Cammie BORRERO IM CT PROCEDURES Final Result * (ABNORMAL) Microalbumin creatinine urine ratio (07/08/2025 10:33 AM EDT) Creatinine, Urine 158.0 mg/dL LAB CHEMISTRY METHOD 07/08/2025 3:30 PM EDT [facility] Microalb, Ur 6,280.0(H ) 0.0 - 29.0 mg/L LAB CHEMISTRY METHOD 07/08/2025 3:30 PM EDT [facility] Comment:Results verified by repeat testing Microalb/Crea t Ratio 3,975(H) <30 mg/g creat LAB CHEMISTRY METHOD 07/08/2025 3:30 PM [facility] Urine Urine specimen obtained by clean catch procedure / Unknown Non-blood Collection / Unknown 07/08/2025 10:33 AM EDT 07/08/2025 10:33 AM EDT us Erlinda BORRERO LAB URINE ORDERABLES Fin al Result [facility] [address] [place] [address], [place] [phone] * (ABNORMAL) Lipid panel with reflex to direct LDL (07/08/2025 10:19 AM EDT) Cholesterol 173 0 - 200 mg/dL LAB CHEMISTRY METHOD 07/08/2025 3:02 PM [facility] Triglycerides 163(H) 0 - 150 mg/dL LAB CHEMISTRY METHOD 07/08/2025 3:02 PM [facility] HDL 61 >=40 mg/dL LAB CHEMISTRY METHOD 07/08/2025 3:02 PM [facility] LDL Calculated 79 0 - 100 mg/dL LAB CHEMISTRY METHOD 07/08/2025 3:02 PM [facility] Comment:Estimated LDL Calcul ated using equation: Total cholesterol - HDL cholesterol - (Triglycerides/5) VLDL Cholesterol Charli 32.6 mg/dL LAB CHEMISTRY METHOD 07/08/2025 3:02 PM [facility] Non HDL Chol. (LDL+VLDL) 112 <145 mg/dL LAB CHEMISTRY METHOD 07/08/2025 3:02 PM [facility] Chol/HDL Ratio 2.8 0.0 - 4.4 LAB CHEMISTRY METHOD 07/08/2025 3:02 PM EDT [facility] Blood Venous blood specimen / Unknown Venipuncture / Unknown 07/08/2025 10:19 AM EDT 07/08/2025 10:19 AM EDT Erlinda BORRERO LAB BLOOD ORDERABLES Fin al Result Performing Organization Address [facility]/ZIP Co de Phone Number [facility] [address] [place] [address], [place] [phone] * (ABNORMAL) Hemoglobin A1c (07/08/2025 10:19 AM EDT) Hemoglobin A1C 8.6(H) <6.5 % LAB CHEMISTRY METHOD 07/08/2025 9:54 PM EDT [facility] Mean Bld Glu Estim. 200 mg/dL LAB CHEMISTRY METHOD 07/08/2025 9:54 PM EDT [facility] Blood Venous blood specimen / Unknown Venipuncture / Unknown 07/08/2025 10:19 AM EDT 07/08/2025 10:19 AM EDT Erlinda BORRERO LAB BLOOD ORDERABLES Fin al Result Performing Organization Address [facility]/ZIP Co de Phone Number [facility] [address] [place] [address], [place] [phone] * (ABNORMAL) Comprehensive metabolic panel (07/08/2025 10:19 AM EDT) Sodium 142 133 - 145 mmol/L LAB CHEMISTRY METHOD 07/08/2025 3:02 PM EDT [facility] Potassium 4.1 3.5 - 5.5 mmol/L LAB CHEMISTRY METHOD 07/08/2025 3:02 PM EDT [facility] Chloride 109 96 - 110 mmol/L LAB CHEMISTRY METHOD 07/08/2025 3:02 PM EDT [facility] CO2 27 21 - 32 mmol/L LAB CHEMISTRY METHOD 07/08/2025 3:02 PM [facility] Anion Gap 6 3 - 11 LAB CHEMISTRY METHOD 07/08/2025 3:02 PM [facility] Glucose 86 70 - 100 mg/dL LAB CHEMISTRY METHOD 07/08/2025 3:02 PM [facility] BUN 26(H) 5 - 25 mg/dL LAB CHEMISTRY METHOD 07/08/2025 3:02 PM [facility] Creatinine 0.83 0.50 - 1.10 mg/dL LAB CHEMISTRY METHOD 07/08/2025 3:02 PM [facility] eGFR 83 >=60 mL/min/1. 73m2 LAB CHEMISTRY METHOD 07/08/2025 3:02 PM [facility] Comment:Calculation based on the Chronic Kidney Disease Epidemiology Collaboration (CKD-EPI) equation refit without adjustment for race. BUN/Creatinine Ratio 31.3 LAB CHEMISTRY METHOD 07/08/2025 3:02 PM [facility] Calcium 9.2 8.5 - 10.5 mg/dL LAB CHEMISTRY METHOD 07/08/2025 3:02 PM [facility] AST (SGOT) 22 10 - 42 unit/L LAB CHEMISTRY METHOD 07/08/2025 3:02 [facility] ALT (SGPT) 25 10 - 60 unit/L LAB CHEMISTRY METHOD 07/08/2025 3:02 PM [facility] Alkaline Phosphatase 108 42 - 121 unit/L LAB CHEMISTRY METHOD 07/08/2025 3:02 PM [facility] Total Protein 7.2 6.0 - 8.0 g/dL LAB CHEMISTRY METHOD 07/08/2025 3:02 PM [facility] Albumin 3.2 3.2 - 5.0 g/dL LAB CHEMISTRY METHOD 07/08/2025 3:02 PM [facility] Total Bilirubin 0.3 0.0 - 1.4 mg/dL LAB CHEMISTRY METHOD 07/08/2025 3:02 PM EDT [facility] Blood Venous blood specimen / Unknown Venipuncture / Unknown 07/08/2025 10:19 AM EDT 07/08/2025 10:19 AM EDT us Erlinda BORRERO LAB BLOOD ORDERABLES Fin al Result [facility] [address] [place] [address], * External Diabetic Retina Eye Exam Report (02/19/2025) Anatomical Region Laterality Modality Ultrasound us Provider [facility] US PROCEDURES Final Result from Last 3 Months or Most Recently Relevant to Health Maintenance Additional Health Concerns Active Problems Noted Date Diagnosed Date Autogenerated Problem 07/26/2025 Insurance [facility] [employer] Care Teams Pigment Making Supervisor Relationship Specialty Start Date End Date Erlinda Bose PA [address] [facility] [address] [place] [address] PCP - General Primary Care 12/04/24
[2025-08-07 13:16] LABS: Appearance Urine Clear; Glucose Urine UA 100 mg/dL (Negative); PH 6.0 (5.0-9.0); Specific Gravity - Urine >= 1.030 (1.005-1.025); UMIC TRIGGER UA YES
[2025-08-07 13:52] LABS: Anion Gap 13 (12-20); Blood Urea Nitrogen 19 mg/dL (9-16); Calcium 9.0 mg/dL (8.4-10.2); Carbon Dioxide 27 mmol/L (22-29); Chloride 109 mmol/L (96-108); Estimated Glomerular Filt Rate > 60; Potassium 3.7 mmol/L (3.3-5.1); Sodium 145 mmol/L (135-145)
[2025-08-07 14:47] LABS: Total Protein Urine Random 730 mg/dL (<12)
== END 2025-08-07 08:08 | disposition home or self-care (01) ==
LOC: HO.HKASLDS 08:07
PROVIDERS: PCP Physician Assistant; Visit Provider Internal Medicine Hypertension Specialist
DX: R60.1 Generalized edema (principal)
CPT/HCPCS: 36415; 80048; 81001; 82570; 84156

== ENCOUNTER 2025-08-14 10:09 | Outpatient (AMB) | payer OTHER, SELFPAY ==
--- NOTE | 2025-08-14 10:11 | HO.NEPHOV ---
Vital Signs 08/14/25 10:12 Height 5 ft 2 in Weight 56 lb BMI 10.2 BP 110/80 Blood Pressure Location Lt brachial Position Sitting Pulse 110 H Pulse Source Pulse Oximeter Pulse Oximetry (%) 90 L Oxygen Delivery Method Room Air Intake Visit Reasons: 6 month follow up confirmed Spice Miller Required: Yes Accompanied by: Self / Same As Patient Allergies metformin Allergy (Verified 08/14/25 10:14) Diarrhea Medication List - Last Reconciled 08/14/25 by Clive Berumen MD albuterol sulfate 2.5 mg inhalation Q4H PRN aspirin 81 mg PO DAILY budesonide-formoterol 160-4.5 mcg/actuation (Symbicort) 2 puffs inhalation BID bumetanide 0.5 mg PO DAILY empagliflozin (Jardiance) 25 mg PO QAM famotidine 20 mg PO BID fenofibrate nanocrystallized 48 mg PO ONCE gabapentin 300 mg PO TID insulin glargine (Lantus Solostar U-100 Insulin) 60 units subcut BID ipratropium-albuterol 20-100 mcg/actuation (Combivent Respimat) 1 puff inhalation TID levothyroxine 25 mcg PO DAILY@0600 levothyroxine 200 mcg PO DAILY@0600 lisinopril 10 mg PO DAILY lorazepam mg PO magnesium oxide 250 mg PO DAILY metoprolol succinate ER 25 mg PO DAILY prazosin 5 mg PO BEDTIME rivaroxaban (Xarelto) 2.5 mg PO BID rosuvastatin 40 mg PO BEDTIME venlafaxine ER 150 mg PO DAILY venlafaxine ER 75 mg PO DAILY zolpidem 10 mg PO BEDTIME PRN HPI Comments Details: 54 year old female with history of RLE DVT on xarelto, insulin dependent type 2 diabetes, asthma/copd overlap, ELLA compliant with cpap, cad, pad, hx cervical cancer, mood disorder who is morbidly obese with BMI >53. Earlier this summer experienced shortness of breath both and rest and increased with exertion and significant edema of the BLE. Several days ago began developing increased swelling in the upper extremities and eye lids. She has longstanding orthopnea. No fevers, chills, abd pain, n/v/d, lightheadedness, palpitations, cough, chest pain. No recent illness. Denies sodium loading. She has been admitted and seen in the [facility] ED several times with significant swelling noted and diuresed but not discharged on lasix. Echo at [facility] showed normal LV systolic function with EF 60-65%, moderate concentric LVH and grade 1 left ventricular diastolic dysfunction. There was no mention of right ventricular pressures on echocardiogram. She was seen for anasarca during hospitalization. She was given IV Lasix and edema improved she would acute kidney injury which also improved with cautious diuresis 06/13/24 Recently hospitalized for MIRA Lisinopril and Bumex 1 mg stopped. Now on 0.5 mg, metoprolol 25mg daily MIRA resolved 08/15/24 Pt states today she has not had continued issues with swelling over the last month or two- she continues to take bumetanide 1mg PO daily (per cardiology notes, diffuse anasarca and dyspnea likely has CHF component). She reports she is taking her medications as prescribed Reports her blood sugars are not well-controlled (in 300s often), but that her PCP just added Jardiance 10mg PO daily to her regimen last week She had an elevated TSH in May- pt states at that time she was not taking her Levothyroxine 225mg daily as prescribed, but has since been doing so. She is not certain about a plan for TSH re-check through her PCP. She denies shortness of breath, chest pain, dizziness She denies use of NSAIDs 02/13/25 Overall feels better Still has leg edema - more when lying down NO dyspnea at rest She has been taking Bumex 0.5 mg instead of 1 mg( self adjusted dose) Will restart Lisinopril at 5 mg daily 08/14/25 - The patient is a 55-year-old female presenting with diabetes mellitus with nephrotic range proteinuria. - Long-standing diabetes mellitus with 4 grams of proteinuria. - On lisinopril 5 mg and Jardiance. - Reports left-sided waist pain linked to Bumex 1 mg. - Foamy urine post-medication use. - Persistent proteinuria due to diabetes. - Kidney function appears normal. [facility] Medical History Anasarca Fluid overload Asthma-COPD overlap syndrome Morbid obesity ELLA on CPAP Peripheral artery disease CAD (coronary artery disease) Type 2 diabetes mellitus CHF (congestive heart failure) DVT (deep venous thrombosis) Social History Household Members: Spouse Housing: Apartment Do you presently have visiting nurse or other home services: Yes (machine [employer] everyday for 2 hours.) Alcohol intake: never Patient Tobacco Use Status: Former Tobacco user Second Hand Smoke Exposure: No Substance Use Type: Marijuana service: No Physical Exam Vital Signs: Last Vital Signs Pulse 110 H 08/14/25 10:12 BP 110/80 08/14/25 10:12 Pulse Ox 90 L 08/14/25 10:12 Oxygen Delivery Method Room Air 08/14/25 10:12 BMI result Body Mass Index 10.2 Comfortable Neck supple no JVD. Lungs entry equal no rales. Heart S1-S2 heard no gallop or rub. Abdomen soft nontender. Neuro alert awake oriented. No asterixis. Extremities ++ edema. Results Reviewed Nephrology Results: Sodium, (135-145) 145 mmol/L 08/07/25 Potassium, (3.3-5.1) 3.7 mmol/L 08/07/25 Chloride, (96-108) 109 mmol/L H 08/07/25 Carbon Dioxide, (22-29) 27 mmol/L 08/07/25 BUN, (9-16) 19 mg/dL H 08/07/25 Creatinine, (0.5-1.4) 0.74 mg/dL 08/07/25 Calcium, (8.4-10.2) 9.0 mg/dL 08/07/25 Urine Protein, (Neg-Trace) >=1000 (4+) mg/dL H 08/07/25 Urine Creatinine 171.27 mg/dL 08/07/25 Assessment & Plan Assessment & Plan (1) MIRA (acute kidney injury): Code(s): N17.9 - Acute kidney failure, unspecified Category: Medical (2) Anasarca: Code(s): R60.1 - Generalized edema Category: Medical (3) Type 2 diabetes mellitus: Code(s): E11.9 - Type 2 diabetes mellitus without complications Category: Medical Qualifiers: Diabetes mellitus complication status: with hyperglycemia Diabetes mellitus custodial insulin use: with custodial use Qualified Code(s): E11.65 - Type 2 diabetes mellitus with hyperglycemia; Z79.4 - retirement (current) use of insulin (4) Proteinuria: Code(s): R80.9 - Proteinuria, unspecified Category: Medical Qualifiers: Proteinuria type: persistent Qualified Code(s): R80.1 - Persistent proteinuria, unspecified Plan 55-year-old woman with obesity diabetes mellitus and obstructive sleep apnea with with proteinuria, hx anasarca- diagnosed with diastolic HF per Cardiology. Proteinuria most likely due to diabetic nephropathy UPEP, SPEP negative for paraproteins C3, C4 normal Increase LISINOPRIL to 10 mg daily and titrate dose as tolerated Cr has been stable/normal Weight is down Continue to stay on diabetic control, continue Jardiance as prescribed Keep on low-sodium diet cautious diuresis. Keep Bumex Decrease to 0.5 mg Check daily weights Continue nightly CPAP Hypothyroidism explained with interpretor Orders: Orders UA and rflx microscopic 6 Months R80.1 - Persistent proteinuria, unspecified Proteinase 3 PR3 Antibodies 3 Months R80.1 - Persistent proteinuria, unspecified Total Protein Urine Random 3 Months R80.1 - Persistent proteinuria, unspecified Creatinine Urine 3 Months R80.1 - Persistent proteinuria, unspecified Basic Metabolic Panel 6 Months R80.1 - Persistent proteinuria, unspecified Creatinine Urine 6 Months R80.1 - Persistent proteinuria, unspecified Total Protein Urine Random 6 Months R80.1 - Persistent proteinuria, unspecified Basic Metabolic Panel 3 Months R80.1 - Persistent proteinuria, unspecified Medications: Changed From bumetanide 1 mg PO DAILY 90 tabs 1RF To bumetanide 0.5 mg PO DAILY 90 tabs 1RF From lisinopril 5 mg PO DAILY 90 tabs 1RF To lisinopril 10 mg PO DAILY 90 tabs 1RF Coding Level of Care Code Est Pt Level 4 (96777) Diagnoses MIRA (acute kidney injury) N17.9 Anasarca R60.1 Type 2 diabetes mellitus with hyperglycemia, with long-term current use of insulin E11.65; Z79.4 Diabetes mellitus complication status: with hyperglycemia Diabetes mellitus custodial insulin use: with custodial use Persistent proteinuria R80.1 Proteinuria type: persistent
[2025-08-14 10:12] VITALS: BP 110/80; PULSE 110; O2SAT 90; BMI 10.2
--- OUTSIDE RECORDS SUMMARY | 2025-08-14 12:26 | XMS_ITS | Clinical Summary ---
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 TAKE 1 [...] :Type 2 diabetes mellitus with diabetic polyneuropathy ([facility] V24, [facility] V28) TOME 1 CAPSULA POR VIA ORAL ANAM VECES AL PALMA 90 capsule 1 03/25/20 25 Active FreeStyle Leif 3 Sensor deviceIndications: Type 2 diabetes mellitus without complication, with long-term current use of insulin ([facility] V24, [facility] V28) USE 1 SENSOR TO TEST DAILY [...] polyneuropathy, with long-term current use of insulin ([facility] V24, [facility] V28) Use tid 100 each 3 07/08/20 25 Active freestyle (FreeStyle Lancets) 28 gauge lancets Use daily 100 each 3 07/11/20 25 Active Active Problems Problem Noted Date Diagnosed Date Proteinuria 07/11/2025 Class 3 severe obesity with serious comorbidity and body mass index (BMI) of 40.0 to 44.9 in adult ([facility] V24, [facility] V28) 02/26/2025 Morbid obesity with BMI of 4 0.0-44.9, adult ([facility] V24, [facility] V28) 07/23/2024 (HFpEF) heart failure with p reserved ejection fraction ([facility] V24, [facility] V28) 07/23/2024 Assessment & Plan (07/31/2025 9:47 [...] every day. Acute hypoxic respiratory fa ilure ([facility] V24, [facility] V28) 05/10/2024 Hypertrophic nonobstructive cardiomyopathy ([facility] V24, [facility] V28) 11/28/2023 Overview (07/23/2024): Last Assessment & [...] type 2 (diabetes mellitus , type 2) ([facility] V24, CMS/HCC V28) 08/10/2022 Hypothyroidism 08/10/2022 Painful diabetic neuropathy ([facility] V24, CMS/ C V28) 08/10/2022 ELLA (obstructive sleep apnea) 02/10/2022 Overview (07/23/2024): Last Assessment & Plan: Patient reports she has been wearing her CPAP on a nightly basis which was arranged by her claim inspector. Hyperlipidemia 11/06/2020 Overview (07/23/2024): Last Assessment & [...] Encounters Date Type Department Care Team Description 08/07/2025 10:00 AM EDT Nutrition Bariatric Surgery - [address] [place] [phone] Class 3 severe obesity with serious comorbidity and body mass index (BMI) of 45.0 to 49.9 in adult, unspecified obesity type (CMS/HCC V24, CMS/HCC V28) (Primary Dx) 07/31/2025 Results Follow-Up Internal Medicine - [address] [place] [phone] Tramaine Villavicencio MA 07/25/2025 8:12 AM EDT - 07/25/2025 1:41 PM EDT Emergency [facility] Emergency [address] [place] [phone] Alvin Eric MD Acute bilateral low back pain with sciatica, sciatica laterality unspecified (Primary Dx); Dehydration Discharge Disposition: Home or Self Care 07/18/2025 9:50 AM EDT Office Visit [facility] [address] [place] [phone] Dell Rosen MD Chronic heart failure with preserved ejection fraction (HFpEF) ([facility] V24, [facility] V28) (Primary Dx); Primary hypertension; Pure hypercholesterolemia; Hypertrophic nonobstructive cardiomyopathy ([facility] V24, [facility] V28) 07/11/2025 8:30 AM EDT Office Visit [address] [phone] Cheryl Cisneros PA Type 2 diabetes mellitus with diabetic microalbuminuria, with long-term current use of insulin ([facility] V24, [facility] V28) (Primary Dx); Primary hypertension; Hypothyroidism, unspecified type; Mixed hyperlipidemia; Proteinuria, unspecified type 07/10/2025 Telephone Internal Medicine - [place] [address] [phone] Karrie Apodaca MA 07/10/[address] [facility] [address] [place] [phone] Dell Rosen MD 07/09/2025 8:09 AM EDT - 07/09/2025 11:59 PM EDT Hospital Encounter [facility] CT Scan [address] [place] [phone] PAD (peripheral artery disease) ([facility] V24) Discharge Disposition: Home or Self Care 07/08/2025 9:00 AM EDT Office Visit Internal Medicine - [place] 175 [facility] [address] [place] [phone] Erlinda Bose PA Routine physical examination (Primary Dx); Type 2 diabetes mellitus with diabetic polyneuropathy, with long-term current use of insulin ([facility] V24, [facility] V28); Primary hypertension; Mixed hyperlipidemia 06/27/2025 1:15 PM EDT Office Visit Bariatric Surgery - [place] [address] [place] [address] Clem Montanez MD Class 3 severe obesity due to excess calories with serious comorbidity and body mass index (BMI) of 45.0 to 49.9 in adult ([facility] V24, [facility] V28) (Primary Dx) 05/16/2025 Telephone [facility] [address] [place] [address] Dell Rosen MD 05/14/2025 Telephone Internal Medicine - [place] 175 [facility] [address] [place] [address] Erlinda Bose PA from Last 3 Months Immunizations Immunization Administration Dates Next Due Influenza Quadravalent, MDCK , 0.5ml, preservative free (Flucelvax) 6mo and older 08/09/2023 Surgical History Surgery Date Site/Laterality Comments CHOLECYSTECTOMY 2001 PROCEDURE: LAPAROSCOPY, CHOLECYSTECTOMY OTHER SURGICAL HISTORY PROCEDURE: WA TOTAL ABDOMINAL HYSTERECT W/WO RMVL TUBE OVARY; COMMENT: due to uterine cancer OTHER SURGICAL HISTORY 05/09/2023 PROCEDURE: WA SLCTV CATHJ 3RD+ ORD SLCTV ABDL PEL/LXTR BRNCH OTHER SURGICAL HISTORY 05/09/2023 PROCEDURE: [place] THROMBOLYSIS ARTERIAL INFUSION ICRA RS&I INIT TX OTHER SURGICAL HISTORY 05/09/2023 PROCEDURE: ULTRASOUND GUIDANCE FOR VASCULAR AC OTHER SURGICAL HISTORY 05/10/2023 PROCEDURE: WA SLCTV CATHJ EA 2ND+ ORD ABDL PEL/LXTR ART BRNCH OTHER SURGICAL HISTORY 05/10/2023 PROCEDURE: WA REVSC OPN/PRG FEM/POP W/ANGIOPLASTY UNI OTHER SURGICAL HISTORY 05/10/2023 PROCEDURE: WA THROMBOLYSIS ART/VENOUS INFSN W/IMAGE SUBSQ TX OTHER SURGICAL HISTORY 05/11/2023 PROCEDURE: WA REVSC OPN/PRQ FEM/POP W/STNT/ANGIOP SM VSL OTHER SURGICAL HISTORY 05/11/2023 PROCEDURE: WA CESSATION THROMBOLYTIC THER W/CATHETER REMOVAL Medical History Medical History Date Comments Essential hypertension DX:Essent ial hypertension Hyperlipidemia DX:Hyperlipidemi a Family history of cardiovasc ular disease DX:Family history of cardiov ascular disease 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 03/12/2022 DX:Coronary artery disease w ithout angina pectoris DM type 2 (diabetes mellitus , type 2) ([facility] V24, [facility] V28) DX:DM type 2 (diabetes jayme itus, type 2) ([facility]) Hypothyroidism DX:Hypothyroidis m Morbid obesity with BMI of 4 0.0-44.9, adult ([facility] V24, [facility] V28) DX:Morbid obesity wit h BMI of 40.0-44.9, adult ([facility]) Tobacco abuse disorder DX:Tobacc o abuse disorder Painful diabetic neuropathy ([facility] V24, [facility] V28) DX:Painful diabetic neuropat hy ([facility]) History of uterine cancer DX:His tory of uterine cancer Class 3 severe obesity with body mass index (BMI) of 45.0 to 49.9 in adult ([facility] V24, [facility] V28) 02/26/2025 Tobacco abuse disorder DX:Tobacc o [...] - - Weight 117 kg (258 lb) 08/07/2025 10:03 AM EDT Height 157.5 cm (5' 2 ) 07/25/2025 8:00 AM EDT Body Mass Index 47.19 07/25/2025 8:00 AM EDT Plan of Treatment Upcoming Encounters Date Type Department Care Team (Late st Contact Info) Description 08/29/2025 4:00 PM EST Nutrition Bariatric Surgery - [place] 175 [facility] [address] [place] [phone] Yancy Lassiter, FRANCOISE [address] [phone] 09/02/2025 8:30 AM EST Office Visit Pulmonology - [place] 175 [facility] [address] [place] [phone] Ar Ann MD [address] [address] 09/09/2025 11:30 AM EST Office Visit Vascular Surgery - [place] 300 [facility] [address] [place] [phone] John Hernandes MD [address] [place] [phone] 10/01/2025 9:00 AM EST Appointment [facility] Endoscopy [address] [place] [phone] Hilario Augustin DO [address] [address] 10/31/2025 11:00 AM EST Office Visit Endocrinology - [place] [address] [place] [phone] Chani Hendricks PA [address] [place] [address] 11/08/2025 9:30 AM EST Office Visit Internal Medicine - [place] 175 [facility] [address] [place] [phone] Erlinda Bose PA 175 [facility] [address] [place] [address] 11/20/2025 9:10 AM EST Office Visit [facility] [address] [place] [phone] Layne Norris NP [address] [place] [address] [facility] [address] [place] [phone] 12/24/2025 9:15 AM EST Office Visit Bariatric Surgery - [place] 175 [facility] [address] [place] [phone] Clem Montanez MD [address] [place] [phone] Health Maintenance Due Date Last Done Comments [...] 10/02/2022 Depression Screening 10/24/2024 COVID-19 Vaccine ( - season) 2025 Influenza Vaccine (#1) 2025 3, [...] microalbuminuria, with long-term current use of insulin ([facility] V24, [facility] V28) CT ANGIO ABDOMINAL AORTA W RUNOFF Routine 07/09/2025 8:52 AM EDT PAD (peripheral artery disease) ([facility] V24) MICROALBUMIN CREATININE URINE RATIO Routine 07/08/2025 10:33 AM EDT Type 2 diabetes mellitus with diabetic polyneuropathy, with long-term current use of insulin ([facility] V24, [facility] V28) HEMOGLOBIN A1C Routine 07/08/2025 10:19 AM EDT Type 2 diabetes mellitus with diabetic polyneuropathy, with long-term current use of insulin ([facility] V24, [facility] V28) LIPID PANEL WITH REFLEX TO DIRECT LDL Routine 07/08/2025 10:19 AM EDT Mixed hyperlipidemia COMPREHENSIVE METABOLIC PANEL Routine 07/08/2025 10:19 AM EDT Type 2 diabetes mellitus with diabetic polyneuropathy, with long-term current use of insulin ([facility] V24, [facility] V28) Primary hypertension Mixed hyperlipidemia EXTERNAL DIABETIC RETINA EYE EXAM 02/19/2025 from Last 3 Months or Most Recently Relevant to Health Maintenance Results * POCT Glucose, blood (07/25/2025 12:23 PM EDT) Only the most recent of3 resultswithin the time period is included. [facility] Glucose POCT 77 70 - 100 mg/dL 07/25/2025 12:24 PM EDT [facility] Blood Capillary blood specimen / Unknown 07/25/2025 12:23 PM EDT 07/25/2025 12:26 PM EDT us Alvin Eric MD LAB POINT OF CARE T EST DOCKED DEVICE UNSOLICITED RESULTS Final Result [facility] [address] [place] [address], [place] [phone] * XR Chest 2 Views (07/25/2025 11:46 [...] DUVALL Reviewed and Electronically Signed By: MAURISIO UDVALL Signed Date: 07/25/2025 12:10 ET Workstation ID: [id number] Transcribed By: Self Edit Transcribed Date: 07/25/2025 [...] Signed Date: 07/25/2025 12:10 ET Workstation ID: [id number] Transcribed By: Self Edit Transcribed Date: 07/25/2025 [...] Signed Date: 07/25/2025 10:22 ET Workstation ID: [id number] Transcribed By: Self Edit Transcribed Date: 07/25/2025 [...] Signed Date: 07/25/2025 10:22 ET Workstation ID: [id number] Transcribed By: Self Edit Transcribed Date: 07/25/2025 10:06 ET Alvin Eric MD IM CT PROCEDURES Final Res ult * (ABNORMAL) CBC auto differential (07/25/2025 8:26 AM EDT) WBC 8.5 4.8 - 10.8 K/mcL LAB HEMETOLOGY METHOD 07/25/2025 8:46 AM EDT [facility] RBC 5.50(H) 3.80 - 4.80 M/mcL LAB HEMETOLOGY METHOD 07/25/2025 8:46 AM EDT [facility] Hemoglobin 15.7 11.5 - 16.0 g/dL LAB HEMETOLOGY METHOD 07/25/2025 8:46 AM [facility] Hematocrit 51.6(H) 35.0 - 47.0 % LAB HEMETOLOGY METHOD 07/25/2025 8:46 AM [facility] MCV 93.1 79.0 - 98.0 FL LAB HEMETOLOGY METHOD 07/25/2025 8:46 AM [facility] MCH 28.3 27.0 - 32.0 pcg LAB HEMETOLOGY METHOD 07/25/2025 8:46 AM [facility] MCHC 30.4(L) 32.0 - 37.0 g/dL LAB HEMETOLOGY METHOD 07/25/2025 8:46 AM [facility] RDW 15.5(H) 11.0 - 15.0 % LAB HEMETOLOGY METHOD 07/25/2025 8:46 AM [facility] Platelets 259 130 - 400 K/mcL LAB HEMETOLOGY METHOD 07/25/2025 8:46 AM [facility] MPV 10.0 7.0 - 11.0 FL LAB HEMETOLOGY METHOD 07/25/2025 8:46 AM [facility] NRBC 0.0 <1.0 % LAB HEMETOLOGY METHOD 07/25/2025 8:46 AM [facility] NRBC Absolute 0.00 <0.10 K/mcL LAB HEMETOLOGY METHOD 07/25/2025 8:46 AM [facility] Neutrophils Relative 58.6 % LAB HEMETOLOGY METHOD 07/25/2025 8:46 AM [facility] Lymphocytes Relative 32.5 % LAB HEMETOLOGY METHOD 07/25/2025 8:46 AM [facility] Monocytes Relative 5.8 % LAB HEMETOLOGY METHOD 07/25/2025 8:46 AM [facility] Eosinophils Relative 2.1 % LAB HEMETOLOGY METHOD 07/25/2025 8:46 AM [facility] Basophils Relative 0.8 % LAB HEMETOLOGY METHOD 07/25/2025 8:46 AM [facility] Immature Granulocytes Relative 0.2 % LAB HEMETOLOGY METHOD 07/25/2025 8:46 AM EDT [facility] Neutrophils Absolute 4.94 1.50 - 7.00 K/mcL LAB HEMETOLOGY METHOD 07/25/2025 8:46 AM EDT [facility] Lymphocytes Absolute 2.75 1.00 - 5.00 K/mcL LAB HEMETOLOGY METHOD 07/25/2025 8:46 AM EDT [facility] Monocytes Absolute 0.49 0.20 - 1.00 K/mcL LAB HEMETOLOGY METHOD 07/25/2025 8:46 AM EDT [facility] Eosinophils Absolute 0.18 0.00 - 0.50 K/mcL LAB HEMETOLOGY METHOD 07/25/2025 8:46 AM EDT [facility] Basophils Absolute 0.07 0.00 - 0.20 K/mcL LAB HEMETOLOGY METHOD 07/25/2025 8:46 AM EDT [facility] Immature Granulocytes Absolute 0.02 0.00 - 0.03 K/[facility] LAB HEMETOLOGY METHOD 07/25/2025 8:46 AM EDT [facility] Blood Venous blood specimen / Unknown Venipuncture / Unknown 07/25/2025 8:26 AM EDT 07/25/2025 8:35 AM EDT Alvin Eric MD LAB BLOOD ORDERABLES Final Result [facility] [address] [place] [address], * (ABNORMAL) Lipase (07/25/2025 8:26 AM EDT) Lipase 150(H) 13 - 75 unit/L LAB CHEMISTRY METHOD 07/25/2025 11:40 AM EDT [facility] Blood Venous blood specimen / Unknown Venipuncture / Unknown 07/25/2025 8:26 AM EDT 07/25/2025 8:35 AM EDT us Alvin Eric MD LAB BLOOD ORDERABLES Final Result [facility] [address] [place] [address], [place] [phone] * (ABNORMAL) Hepatic function panel (07/25/2025 8:26 AM EDT) Total Protein 7.4 6.0 - 8.0 g/dL LAB CHEMISTRY METHOD 07/25/2025 11:40 AM EDT [facility] Albumin 3.3 3.2 - 5.0 g/dL LAB CHEMISTRY METHOD 07/25/2025 11:40 AM EDT [facility] Total Bilirubin 0.4 0.0 - 1.4 mg/dL LAB CHEMISTRY METHOD 07/25/2025 11:40 AM T [facility] Bilirubin, Direct 0.1 0.0 - 0.3 mg/dL LAB CHEMISTRY METHOD 07/25/2025 11:40 AM T [facility] Bilirubin, Indirect 0.3 0.0 - 1.1 mg/dL LAB CHEMISTRY METHOD 07/25/2025 11:40 AM [facility] ALT (SGPT) 35 10 - 60 unit/L LAB CHEMISTRY METHOD 07/25/2025 11:40 AM [facility] AST (SGOT) 45(H) 10 - 42 unit/L LAB CHEMISTRY METHOD 07/25/2025 11:40 AM [facility] Alkaline Phosphatase 88 42 - 121 unit/L LAB CHEMISTRY METHOD 07/25/2025 11:40 AM [facility] Blood Venous blood specimen / Unknown Venipuncture / Unknown 07/25/2025 8:26 AM EDT 07/25/2025 8:35 AM EDT Alvin Eric MD LAB BLOOD ORDERABLES Final Result [facility] [address] [place] [address], * (ABNORMAL) Basic Metabolic Panel (BMP) (07/25/2025 8:26 AM EDT) Sodium 140 133 - 145 mmol/L LAB CHEMISTRY METHOD 07/25/2025 9:31 AM [facility] Potassium 3.7 3.5 - 5.5 mmol/L LAB CHEMISTRY METHOD 07/25/2025 9:31 AM [facility] Chloride 106 96 - 110 mmol/L LAB CHEMISTRY METHOD 07/25/2025 9:31 AM [facility] CO2 29 21 - 32 mmol/L LAB CHEMISTRY METHOD 07/25/2025 9:31 AM [facility] Anion Gap 5 3 - 11 LAB CHEMISTRY METHOD 07/25/2025 9:31 AM [facility] Glucose 44(L) 70 - 100 mg/dL LAB CHEMISTRY METHOD 07/25/2025 9:31 AM [facility] BUN 36(H) 5 - 25 mg/dL LAB CHEMISTRY METHOD 07/25/2025 9:31 AM [facility] Creatinine 1.03 0.50 - 1.10 mg/dL LAB CHEMISTRY METHOD 07/25/2025 9:31 AM [facility] eGFR 64 >=60 mL/min/1. 73m2 LAB CHEMISTRY METHOD 07/25/2025 9:31 AM [facility] Comment:Calculation based on the Chronic Kidney Disease Epidemiology Collaboration (CKD-EPI) equation refit without adjustment for race. BUN/Creatinine Ratio 35.0 LAB CHEMISTRY METHOD 07/25/2025 9:31 AM [facility] Calcium 9.6 8.5 - 10.5 mg/dL LAB CHEMISTRY METHOD 07/25/2025 9:31 AM [facility] Blood Venous blood specimen / Unknown Venipuncture / Unknown 07/25/2025 8:26 AM EDT 07/25/2025 8:35 AM EDT us Alvin Eric MD LAB BLOOD ORDERABLES Final Result [facility] [address] [place] [address], [place] [phone] * (ABNORMAL) Urinalysis with reflex microscopic and culture (07/25/2025 8:18 AM EDT) Specific [place] Urine 1.022 1.003 - 1.030 LAB URINALYSIS - AUTOMATED METHOD 07/25/2025 8:47 AM [facility] pH, Urine 6.0 5.0 - 8.0 pH LAB URINALYSIS - AUTOMATED METHOD 07/25/2025 8:47 AM [facility] Leukocytes, Urine Negative Negative LAB URINALYSIS - AUTOMATED METHOD 07/25/2025 8:47 AM [facility] Nitrite, Urine Negative Negative LAB URINALYSIS - AUTOMATED METHOD 07/25/2025 8:47 AM [facility] Protein, Urine 300(A) <=Trace mg/dL LAB URINALYSIS - AUTOMATED METHOD 07/25/2025 8:47 AM [facility] Glucose, Urine >=1000(A) Negative mg/dL LAB URINALYSIS - AUTOMATED METHOD 07/25/2025 8:47 AM [facility] Ketones, Urine Negative Negative mg/dL LAB URINALYSIS - AUTOMATED METHOD 07/25/2025 8:47 AM [facility] Urobilinogen , Urine 0.2 0.2 - 1.0 mg/dL LAB URINALYSIS - AUTOMATED METHOD 07/25/2025 8:47 AM [facility] Bilirubin, Urine Negative Negative LAB URINALYSIS - AUTOMATED METHOD 07/25/2025 8:47 AM EDT [facility] Blood, Urine Trace(A) Negative LAB URINALYSIS - AUTOMATED METHOD 07/25/2025 8:47 AM [facility] RBC, Urine 3.7 0 - 4 /HPF LAB URINALYSIS - AUTOMATED METHOD 07/25/2025 8:47 AM [facility] WBC, Urine 2.3 0 - 4 /HPF LAB URINALYSIS - AUTOMATED METHOD 07/25/2025 8:47 AM [facility] Squamous Epithelial, Urine 70(H) 0 - 60 /LPF LAB URINALYSIS - AUTOMATED METHOD 07/25/2025 8:47 AM [facility] Bacteria, Urine Negative Negative /HPF LAB URINALYSIS - AUTOMATED METHOD 07/25/2025 8:47 AM [facility] Hyaline Casts, Urine 0.8 0 - 3 /LPF LAB URINALYSIS - AUTOMATED METHOD 07/25/2025 8:47 AM [facility] Urine Urine specimen obtained by clean catch procedure / Unknown Non-blood Collection / Unknown 07/25/2025 8:18 AM EDT 07/25/2025 8:37 AM EDT Alvin Eric MD LAB URINE ORDERABLES Final Result [facility] [address] [place] [address], [place] [phone] * [place]il[place] urine culture tube (07/25/2025 8:18 AM EDT) Extra Tube Hold for add-ons. 07/25/2025 10:01 AM EDT [facility] Comment:Auto resulted. Urine Urine specimen obtained by clean catch procedure / Unknown Non-blood Collection / Unknown 07/25/2025 8:18 AM EDT 07/25/2025 8:37 AM EDT us Alvin Eric MD LAB URINE ORDERABLES Final Result [facility] [address] [place] [address], [place] [phone] * POC glucose manually resulted (07/11/2025 8:33 [...] Signed Date: 07/15/2025 11:25 ET Workstation ID: [id number] Transcribed By: Self Edit Transcribed Date: 07/15/2025 [...] Signed Date: 07/15/2025 11:25 ET Workstation ID: [id number] Transcribed By: Self Edit Transcribed Date: 07/15/2025 10:35 ET [facility]ammie BORR[facility] IMG CT PROCEDURES Final Result * (ABNORMAL) Microalbumin creatinine urine ratio (07/08/2025 10:33 AM EDT) Creatinine, Urine 158.0 mg/dL LAB CHEMISTRY METHOD 07/08/2025 3:30 PM EDT [facility] Microalb, Ur 6,280.0(H ) 0.0 - 29.0 mg/L LAB CHEMISTRY METHOD 07/08/2025 3:30 PM EDT [facility] Comment:Results verified by repeat testing Microalb/Crea t Ratio 3,975(H) <30 mg/g creat LAB CHEMISTRY METHOD 07/08/2025 3:30 PM T [facility] Urine Urine specimen obtained by clean catch procedure / Unknown Non-blood Collection / Unknown 07/08/2025 10:33 AM EDT 07/08/2025 10:33 AM EDT us Erlinda BORRERO LAB URINE ORDERABLES Fin al Result [facility] [address] [place] [address], * (ABNORMAL) Lipid panel with reflex to direct LDL (07/08/2025 10:19 AM EDT) Cholesterol 173 0 - 200 mg/dL LAB CHEMISTRY METHOD 07/08/2025 3:02 PM [facility] Triglycerides 163(H) 0 - 150 mg/dL LAB CHEMISTRY METHOD 07/08[facility]2025 3:[facility] HDL 61 >=40 mg/dL LAB CHEMISTRY METHOD 07/08/2025 3:02 PM EDT [facility] LDL Calculated 79 0 - 100 mg/dL LAB CHEMISTRY METHOD 07/08/2025 3:02 PM EDT [facility] Comment:Estimated LDL Calcul ated using equation: Total cholesterol - HDL cholesterol - (Triglycerides/5) VLDL Cholesterol Charli 32.6 mg/dL LAB CHEMISTRY METHOD 07/08/2025 3:02 PM EDT [facility] Non HDL Chol. (LDL+VLDL) 112 <145 mg/dL LAB CHEMISTRY METHOD 07/08/2025 3:02 PM EDT [facility] Chol/HDL Ratio 2.8 0.0 - 4.4 LAB CHEMISTRY METHOD 07/08/2025 3:02 PM EDT [facility] Blood Venous blood specimen / Unknown Venipuncture / Unknown 07/08/2025 10:19 AM EDT 07/08/2025 10:19 AM EDT Erlinda BORRERO LAB BLOOD ORDERABLES Fin al Result Performing Organization Address City/[facility]/ZIP Co de Phone Number [facility] [address] [place] [address], [place] [phone] * (ABNORMAL) Hemoglobin A1c (07/08/2025 10:19 AM EDT) Hemoglobin A1C 8.6(H) <6.5 % LAB CHEMISTRY METHOD 07/08/2025 9:54 PM EDT [facility] Mean Bld Glu Estim. 200 mg/dL LAB CHEMISTRY METHOD 07/08/2025 9:54 PM EDT [facility] Blood Venous blood specimen / Unknown Venipuncture / Unknown 07/08/2025 10:19 AM EDT 07/08/2025 10:19 AM EDT Erlinda BORRERO LAB BLOOD ORDERABLES Fin al Result [facility] [address] [place] [address], [place] [phone] * (ABNORMAL) Comprehensive metabolic panel (07/08/2025 10:19 AM EDT) Sodium 142 133 - 145 mmol/L LAB CHEMISTRY METHOD 07/08/2025 3:02 PM EDT [facility] Potassium 4.1 3.5 - 5.5 mmol/L LAB CHEMISTRY METHOD 07/08/2025 3:02 PM [facility] Chloride 109 96 - 110 mmol/L LAB CHEMISTRY METHOD 07/08/2025 3:02 PM [facility] CO2 27 21 - 32 mmol/L LAB CHEMISTRY METHOD 07/08/2025 3:02 PM [facility] Anion Gap 6 3 - 11 LAB CHEMISTRY METHOD 07/08/2025 3:02 PM [facility] Glucose 86 70 - 100 mg/dL LAB CHEMISTRY METHOD 07/08/2025 3:02 PM [facility] BUN 26(H) 5 - 25 mg/dL LAB CHEMISTRY METHOD 07/08/2025 3:02 PM [facility] Creatinine 0.83 0.50 - 1.10 mg/dL LAB CHEMISTRY METHOD 07/08/2025 3:02 PM [facility] eGFR 83 >=60 mL/min/1. 73m2 LAB CHEMISTRY METHOD 07/08/2025 3:02 PM [facility] Comment:Calculation based on the Chronic Kidney Disease Epidemiology Collaboration (CKD-EPI) equation refit without adjustment for race. BUN/Creatinine Ratio 31.3 LAB CHEMISTRY METHOD 07/08/2025 3:02 PM [facility] Calcium 9.2 8.5 - 10.5 mg/dL LAB CHEMISTRY METHOD 07/08/2025 3:02 PM [facility] AST (SGOT) 22 10 - 42 unit/L LAB CHEMISTRY METHOD 07/08/2025 3:02 PM [facility] ALT (SGPT) 25 10 - 60 unit/L LAB CHEMISTRY METHOD 07/08/2025 3:02 PM [facility] Alkaline Phosphatase 108 42 - 121 unit/L LAB CHEMISTRY METHOD 07/08/2025 3:02 PM [facility] Total Protein 7.2 6.0 - 8.0 g/dL LAB CHEMISTRY METHOD 07/08/2025 3:02 PM EDT [facility] Albumin 3.2 3.2 - 5.0 g/dL LAB CHEMISTRY METHOD 07/08/2025 3:02 PM EDT [facility] Total Bilirubin 0.3 0.0 - 1.4 mg/dL LAB CHEMISTRY METHOD 07/08/2025 3:02 PM EDT [facility] Blood Venous blood specimen / Unknown Venipuncture / Unknown 07/08/2025 10:19 AM EDT 07/08/2025 10:19 AM EDT us rElinda BORRERO LAB BLOOD ORDERABLES Fin al Result [facility] [address] [place] [address], * External Diabetic Retina Eye Exam Report (02/19/2025) Anatomical Region Laterality Modality Ultrasound us Provider [facility] US PROCEDURES Final Result from Last 3 Months or Most Recently Relevant to Health Maintenance Additional Health Concerns Active Problems Noted Date Diagnosed Date Autogenerated Problem 07/26/2025 Insurance [facility] Care 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
--- OUTSIDE RECORDS SUMMARY | 2025-08-14 12:27 | XMS_ITS | Encounter Summary ---
Author Organization [facility] Address [address] [place] [address] Care Team Providers Care Bung Remover Name Role Phone Erlinda Bose Primary Care Provider + Encounter Details Date Type Department Care Team (Late Contact Info) Description 07/31/2025 Results Follow-Up Internal Medicine - [place] 175 [facility] [address] [place] [address] Tramaine Villavicencio MA Social History [...] Department Care Team (Late Contact Info) Description 08/29/2025 4:00 PM EST Nutrition Bariatric Surgery - [place] 175 [facility] [address] [place] [address] Yancy Lassiter, RD 175 [facility] [address] [place] [address] 09/02/2025 8:30 AM EST Office Visit Pulmonology - [place] 175 [facility] 200 [place] [phone] Ar Ann MD 175 [facility] 200 [place] [address] 09/09/2025 11:30 AM EST Office Visit Vascular Surgery - [place] [address] [place] [address] John Hernandes MD [address] [place] [address] 10/01/2025 9:00 AM EST Appointment [facility] [address] [place] [phone] Hilario Augustin DO [address] [address] 10/31/2025 11:00 AM EST Office Visit Endocrinology - [place] [address] [place] [phone] Chani Hendricks PA [address] [place] [address] 11/08/2025 9:30 AM EST Office Visit Internal Medicine - [place] 175 [facility] [address] [place] [phone] Erlinda Bose PA [address] [address] 11/20/2025 9:10 AM EST Office Visit [facility] - [facility] [address] [place] [phone] Layne Norris NP [address] [place] [address] [place] [address] [place] [phone] 12/24/2025 9:15 AM EST Office Visit Bariatric Surgery - [place] [address] [place] [address] Clem Montanez MD [address] [place] [phone] documented as of this encounter Goals Goal Patient Goal Type Associated Problems Recent Progress Patient-Stated? Author Autogenerat ed Goal Care Plan Autogenerated Problem No Manjinder Solomon documented as of this encounter Visit Diagnoses Not on filedocumented in this encounter Additional Health Concerns Active Problems Noted Date Diagnosed Date Autogenerated Problem 07/26/2025 documented as of this encounter Care Teams Bung Remover Relationship Specialty Start Date End Date Erlinda Bose PA 175 [facility] [address] [address] [place] [address] PCP - General Primary Care 12/04/24 documented as of this encounter
--- OUTSIDE RECORDS SUMMARY | 2025-08-14 12:27 | XMS_ITS | Encounter Summary ---
Author Organization [employer] Address [address] [place] [address] Care Team Providers Care Fitting Room Attendant Name Role Phone Erlinda Bose Primary Care Provider + Reason for Visit * Reason Onset Date Comments Lab Results 07/10/2025 Encounter Details Date Type Department Care Team (Late st Contact Info) Description 07/10/2025 Telephone Internal Medicine - [place] [address] [facility] [address] [place] [phone] Karrie Apodaca MA Social History Tobacco Use [...] AM EDT documented as of this encounter Functional Status * Calculated C-SSRS Risk Score (Lifetime/Recent) Answer Date of Assessment Author No Risk Indicated 07/25/2025 7:58 AM EDT Leona Fuentes RN * [place] Suicide Severity Rating Scale (Screener/Recent Self-Report) Question Answer Date of Assessment Author 1. Wish to be (Past 1 Month) No 07/25/2025 7:58 AM EDT Lamont Martel RN 2. Non-Specific Active Suici sonja Thoughts (Past 1 Month) No 07/25/2025 7:58 AM EDT Santiago Martel, PRINCESS 6. Suicidal Behavior (Lifetime) No 7:58 AM EDT Leona Martel, RN documented as of this encounter Progress Notes [...] 4:00 PM EST Nutrition Bariatric Surgery - [place] [address] [phone] Yancy Lassiter, RD [address] [phone] 09/02/2025 8:30 AM EST Office Visit Pulmonology - [place] 175 [facility] 200 [place] [phone] Ar Ann MD 175 [facility] 200 [place] [address] 09/09/2025 11:30 AM EST Office Visit [facility] [place] [facility] [address] [place] [phone] John Hernandes MD 230 [place] [phone] 10/01/2025 9:00 AM EST Appointment [facility] Endoscopy [address] [place] [phone] Víctor AugustinlasDO 175 [facility] 200 [place] [address] 10/31/2025 11:00 AM EST Office Visit Endocrinology - [place] [address] [place] [phone] Chani Hendricks PA [address] [place] [address] 11/08/2025 9:30 AM EST Office Visit Internal Medicine - [place] 175 [facility] 200 [place] [phone] Erlinda Bose PA 175 [facility] 200 [place] [address] 11/20/2025 9:10 AM EST Office Visit [facility] [address] [place] [phone] Layne Norris NP [address] [place] [address] [address] [place] [phone] 12/24/2025 9:15 AM EST Office Visit Bariatric Surgery - [place] 175 [facility] 120 [place] [phone] Clem Montanez MD 230 [place] [phone] documented as of this encounter Visit Diagnoses Not on filedocumented in this encounter Care Teams Fitting Room Attendant Relationship Specialty Start Date End Date Erlinda Bose PA [address] [address] PCP - General Primary Care 12/04/24 documented as of this encounter
== END 2025-08-14 10:27 | disposition home or self-care (01) ==
LOC: HO.HKAS 10:10
PROVIDERS: PCP Physician Assistant; Visit Provider Internal Medicine Hypertension Specialist
DX: N17.9 Acute kidney failure, unspecified (principal); R60.1 Generalized edema; E11.65 Type 2 diabetes mellitus with hyperglycemia; Z79.4 Long term (current) use of insulin; R80.1 Persistent proteinuria, unspecified
CPT/HCPCS: 99214

== ENCOUNTER → 2025-08-14 10:09 | Outpatient (BNVA) | payer OTHER, SELFPAY | PROVIDERS: PCP Physician Assistant; Visit Provider Internal Medicine Hypertension Specialist | DX: N17.9 Acute kidney failure, unspecified (principal); R60.1 Generalized edema; E11.65 Type 2 diabetes mellitus with hyperglycemia; Z79.4 Long term (current) use of insulin; R80.1 Persistent proteinuria, unspecified | CPT/HCPCS: 99212 ==